=== PATIENT | male | born 1945 | race Caucasian/White ===

== ENCOUNTER 2016-12-15 17:40 | Emergency (ER) | payer OTHER ==
[2016-12-15] MEDS ORDERED: NITROSTAT SL PRN (17:47)
[2016-12-15 17:49] VITALS: BMI 30.7
[2016-12-15] MEDS ORDERED: NS 1000 ML 1,000 ML ONE (17:51)
--- NOTE | 2016-12-15 17:51 | DR.GENAD ---
HPI - PCP Primary Care Physician: unknown - HPI Comment HPI Comment: PATIENT WITH CAD NOW WITH PRECORDIAL CHEST PRESSURE 10/10 AND SOB. TOOK ASA 81 MG THIS AM. PAIN IS GETTING SEVERE. - Complaint/Symptoms Chief Complaint Doctors Comments: CHEST PAIN, SOB TIMES FEW HOURS. Chief Complaint:: cant breath and hurting in chest - Nurses notes reviewed Nurses Notes Review: Yes - Source History Provided: Patient - Mode of Arrival Mode of Arrival: Ambulatory - Timing Onset of Chief Complaint: 12/15/16 Came on: Suddenly - Duration Duration: Constant Duration: Hours - Severity Severity: Moderate PMH - PMH Past Medical History: Yes Past Medical History: GERD, Coronary Artery Disease, Hypertension, Dyslipidemia , Diabetes Past Surgical History: Yes Surgical History: Angioplasty/Stents - Family History History of Family Medical Conditions: Yes Family Medical History: Diabetes Mellitus, Heart Failure - Social History Does patient currently use any type of tobacco product: No Have you used tobacco products in the last 12 months: No Type of Tobacco Use: None Does any household member use tobacco: No Alcohol Use: None Do you use any recreational Drugs:: No Lives With: Family Lives Where: Home - infectious screening In the last 2 months have you had wt loss of >10#?: NO Have you had fever, night sweats or hemotysis?: No Have you traveled outside the country in the last 6 months?: No Isolation: Standard ROS - Review of Systems Constitutional: Weakness, Fatigue. negative: Chills, Fever Eyes: No Symptoms Reported. negative: Eye Pain, Discharge ENTM: No Symptoms Reported. negative: Ear Pain, Nose Discharge, Nose Congestion , Throat Pain Respiratoy: Non-Productive Cough, Short of Breath, Wheezing. negative: Productive Cough, Hemoptysis Cardiovascular: Chest Pain Gastrointestinal/Abdominal: Nausea. negative: Abdominal Pain, Diarrhea, Vomiting Genitourinary: No Symptoms Reported. negative: Dysuria, Frequency, Hematuria Neurological: Headache, Weakness, Dizziness Musculoskeletal: Muscle Pain Integumentary: No Symptoms Reported Hematologic/Lymphatic: No Symptoms Reported Endocrine: No Symptoms Reported All Other Systems: Reviewed and Negative PE - Vital Signs Vitals: Temperature 98.7 F Pulse Rate [Apical] 85 Pulse Rate 110 Respiratory Rate 22 Blood Pressure [Left Arm] 162/77 Blood Pressure [Right Arm] 161/82 Blood Pressure 229/132 O2 Sat by Pulse Oximetry 92 - General Limitations: No Limitations General Appearance: Alert - Head Head Exam: Normal Inspection - Eyes Eye exam: Normal Appearance - ENT ENT Exam: Normal External Ear Exam External Ear Exam: Normal External Inspection TM/Canal Exam: Bilateral Normal Nose Exam: Normal Nose Exam Mouth Exam: Normal Inspection Throat Exam: Normal Inspection - Neck Neck Exam: Trachea Midline - Chest Chest Inspection: Symmetric Chest Wall Rise - Respiratory Respiratory Exam: Respiratory Distress Respiratory Exam: Bilateral Wheezing, Bilateral Rhonchi, Upper Rhonchi, Lower Wheezing, Lower Rhonchi - Cardiovascular Cardiovascular Exam: Regular Rate, Normal Rhythm, Normal Heart Sounds - Abdominal Exam Abdominal Exam: Normal Bowel Sounds, Soft. negative: Tenderness - Extremities Extremities Exam: Normal Inspection - Back Back Exam: Normal Inspection - Neurologic Neurological Exam: Alert, Oriented X3 - Psychiatric Psychiatric Exam: Anxious - Skin Skin Exam: Normal Color MDM - Differential Diagnosis Differential Diagnosis: CHEST PAIN, RESPIRATORY DISTRESS Course - Treatment Treatment: SEE ORDERS. - Consultation Consultation Comments: DISCUSS PATIENT WITH DR. QUINONES CLINICAL PSYCHOLOGY PROFESSOR AND DR. GRACE HOSPITALIST [facility]. PATIENT ACCEPTED FOR TRANSFER. - Education/Counseling Education/Counseling: Patient, Education Educated On: Treatment, Diagnosis ROR - Labs Reviewed Laboratory Results Reviewed?: Yes Result Diagrams: 12/15/16 18:02 12/15/16 18:02 Laboratory: WBC 7.4 X10^3/uL (3.6-10.0) 12/15/16 18:02 RBC 4.60 X10^6/uL (4.7-6.0) L 12/15/16 18:02 Hgb 15.3 g/dL (13.5-18.0) 12/15/16 18:02 Hct 44.7 % (42.0-54.0) 12/15/16 18:02 MCV 97.0 fL (80.0-100.0) 12/15/16 18:02 MCH 33.2 pg (27.0-34.0) 12/15/16 18:02 MCHC 34.2 g/dL (33.0-35.0) 12/15/16 18:02 RDW 14.8 % (11.6-16.5) 12/15/16 18:02 Plt Count 152 X10^3/uL (150.0-450.0) 12/15/16 18:02 MPV 9.2 fL (7.4-11.0) 12/15/16 18:02 Neut % 67.2 % (42.0-75.0) 12/15/16 18:02 Lymph % 23.9 % (21.0-51.0) 12/15/16 18:02 [place] % 7.4 % (0.0-13.0) 12/15/16 18:02 Eos % 1.0 % (0.9-2.9) 12/15/16 18:02 Baso % 0.5 % (0.2-1.0) 12/15/16 18:02 Neut # 5.0 x10^3/uL (2.2-4.8) H 12/15/16 18:02 Lymph # 1.8 X10^3/uL (1.3-2.9) 12/15/16 18:02 [place] # 0.5 x10^3/uL (0.3-0.8) 12/15/16 18:02 Eos # 0.1 x10^3/uL (0.0-0.2) 12/15/16 18:02 Baso # 0.0 X10^3/uL (0.0-0.1) 12/15/16 18:02 Absolute Nucleated RBC 0.1 /100WBC 12/15/16 18:02 INR Target Range - 12/15/16 18:02 INR 0.96 (0.8-1.3) 12/15/16 18:02 PTT 31.5 SECONDS (22.9-36.5) 12/15/16 18:02 PTT Comment - 12/15/16 18:02 Sample Site Rra 12/15/16 18:01 ABG pH 7.430 (7.35-7.45) 12/15/16 18:01 ABG pCO2 45.0 mmHg (35.0-45.0) 12/15/16 18:01 ABG pO2 73.0 mmHg (80.0-100.0) L 12/15/16 18:01 ABG HCO3 29.9 mmol/L (22-26) H 12/15/16 18:01 ABG O2 Saturation 95.0 % (90-100) 12/15/16 18:01 ABG Base Excess 4.8 mmol/L (-2.0-2.0) H 12/15/16 18:01 David Test Pos 12/15/16 18:01 A-a Gradient 127.0 mmHg 12/15/16 18:01 FiO2 36.000 12/15/16 18:01 Blood Gas Comments Dejah well cs 12/15/16 18:01 Sodium 141 mmol/L (136-145) 12/15/16 18:02 Corrected Sodium 145 mmol/L (136-145) 12/15/16 18:02 Potassium 3.6 mmol/L (3.5-5.1) 12/15/16 18:02 Chloride 103 mmol/L (98-107) 12/15/16 18:02 Carbon Dioxide 32.4 mmol/L (21-32) H 12/15/16 18:02 BUN 12 mg/dL (7-18) 12/15/16 18:02 Creatinine 1.04 mg/dL (0.70-1.30) 12/15/16 18:02 Est GFR (MDRD) Af Amer > 60 (>60) 12/15/16 18:02 Est GFR (MDRD) Non-Af > 60 (>60) 12/15/16 18:02 Glucose 252 mg/dL (65-99) H 12/15/16 18:02 Calcium 8.2 mg/dL (8.5-10.1) L 12/15/16 18:02 Corrected Calcium TNP 12/15/16 18:02 Magnesium 1.7 mg/dL (1.7-2.9) 12/15/16 18:02 Total Bilirubin 0.50 mg/dL (0.2-1.0) 12/15/16 18:02 AST 56 Units/L (15-37) H 12/15/16 18:02 ALT 47 Units/L (12-78) 12/15/16 18:02 Alkaline Phosphatase 158 Units/L (46-116) H 12/15/16 18:02 Creatine Kinase 189 Units/L (39-308) 12/15/16 21:25 CK-MB (CK-2) 17.1 ng/mL (0-4.0) H* 12/15/16 21:25 CK/CKMB % Calc 9.1 % (<4) 12/15/16 21:25 Troponin I 1.00 ng/mL (0-1.5) 12/15/16 21:25 Total Protein 7.3 g/dL (6.4-8.2) 12/15/16 18:02 Albumin 3.4 g/dL (3.4-5.0) 12/15/16 18:02 Globulin 3.9 g/dL (2.5-4.5) 12/15/16 18:02 Albumin/Globulin Ratio 0.9 Ratio (1.1-2.1) L 12/15/16 18:02 - XRAY XRAY Interpreted by: Radiologist XRAY Findings: REPORT DISCUSS WITH PATIENT. - EKG Rhythm: ST (EKG NOTED) - Diagnosis Discharge Problem: Respiratory distress Chest pain Qualifiers: Chest pain type: precordial pain Qualified Code(s): R07.2 - Precordial pain - Discharge Plan Disposition: [facility] Condition: Stable - Follow ups/Referrals Follow ups/Referrals: NFD,None [Primary Care Provider] - 3 days - Instructions
[2016-12-15] MEDS ORDERED: DUONEB 0.5 MG/3 MG NEB ONE (17:56)
[2016-12-15] MEDS ORDERED: ASPIRIN ONE (17:59)
[2016-12-15] MEDS ORDERED: DUONEB 0.5 MG/3 MG ONE (17:59)
[2016-12-15] MEDS ORDERED: NS 1000 ML 1,000 ML IV SCH (18:00)
--- NOTE | 2016-12-15 18:03 | RAD ---
HISTORY: Chest pain. Study: Single-view chest. Comparison: May 15, 2016. Findings: The trachea is midline. There has been previous median sternotomy. The cardiac silhouette is enlarge d. There is diffuse interstitial prominence throughout both lungs with bilateral pleural effusions, small on the right and moderate on the left. There is no pneumothorax. IMPRESSION: Cardiomegaly with findings of congestive heart failure. There are bilateral pleural effusions, left greater than right. Reported By:
[2016-12-15 18:04] LABS: ABG ALLEN TEST POS; ABG BASE EXCESS 4.8 mmol/L (-2.0-2.0); ABG HCO3 29.9 mmol/L (22-26)
[2016-12-15] MEDS ORDERED: MORPHINE SULFATE INJ 4 MG ONE (18:08)
[2016-12-15] MEDS ORDERED: ZOFRAN INJ 4 MG VIAL ONE (18:10)
[2016-12-15] MEDS ORDERED: DILAUDID INJ ONE (18:14)
[2016-12-15 18:15] LABS: BASOPHILS % (AUTO) 0.5 % (0.2-1.0); EOSINOPHILS # (AUTO) 0.1 x10^3/uL (0.0-0.2); HEMATOCRIT 44.7 % (42.0-54.0); HEMOGLOBIN 15.3 g/dL (13.5-18.0); LYMPHOCYTES # (AUTO) 1.8 X10^3/uL (1.3-2.9); LYMPHOCYTES % (AUTO) 23.9 % (21.0-51.0); MEAN CORPUSCULAR HEMOGLOBIN 33.2 pg (27.0-34.0); MEAN CORPUSCULAR HGB CONC 34.2 g/dL (33.0-35.0); MEAN PLATELET VOLUME 9.2 fL (7.4-11.0); MONOCYTES # (AUTO) 0.5 x10^3/uL (0.3-0.8); MONOCYTES % (AUTO) 7.4 % (0.0-13.0); NEUTROPHILS % (AUTO) 67.2 % (42.0-75.0); PLATELET COUNT 152 X10^3/uL (150.0-450.0); RED CELL DISTRIBUTION WIDTH 14.8 % (11.6-16.5); WHITE BLOOD COUNT 7.4 X10^3/uL (3.6-10.0)
[2016-12-15] MEDS ORDERED: MORPHINE SULFATE INJ 4 MG IVP ONE (18:15)
[2016-12-15] MEDS ORDERED: DILAUDID INJ IVP ONE (18:20)
[2016-12-15 18:47] LABS: BLOOD UREA NITROGEN 12 mg/dL (7-18); CALCIUM 8.2 mg/dL (8.5-10.1); CARBON DIOXIDE 32.4 mmol/L (21-32); CHLORIDE 103 mmol/L (98-107); COR NA(FOR HYPERGLY) 145 mmol/L (136-145); CREATININE 1.04 mg/dL (0.70-1.30); GLUCOSE 252 mg/dL (65-99); SODIUM 141 mmol/L (136-145); TROPONIN I 0.32 ng/mL (0-1.5); eGFR BLACK RACES > 60 (>60); eGFR NON BLACK RACES > 60 (>60)
[2016-12-15 19:06] LABS: ALANINE AMINOTRANSFERASE 47 Units/L (12-78); ALBUMIN 3.4 g/dL (3.4-5.0); ALKALINE PHOSPHATASE 158 Units/L (46-116); ASPARTATE AMINO TRANSFERASE 56 Units/L (15-37); CKMB % 5.3 % (<4); CREATINE KINASE 174 Units/L (39-308); MAGNESIUM 1.7 mg/dL (1.7-2.9); TOTAL PROTEIN 7.3 g/dL (6.4-8.2)
[2016-12-15 19:07] LABS: CREATINE KINASE MB 9.2 ng/mL (0-4.0)
[2016-12-15] MEDS ORDERED: HEPARIN SODIUM IN D5W 25,000 UNITS/500 ML BAG IV PRN (21:55)
[2016-12-15 22:10] LABS: CKMB % 9.1 % (<4)
[2016-12-15 22:11] LABS: CREATINE KINASE MB 17.1 ng/mL (0-4.0)
[2016-12-15] MEDS ORDERED: HEPARIN SODIUM IN D5W 25,000 UNITS/500 ML BAG IV ONE (22:11)
[2016-12-15 22:37] VITALS: BP 162/77
[2016-12-16] MEDS ORDERED: ASPIRIN PO ONE (17:55)
== END 2016-12-15 23:04 | disposition short-term general hospital (02) ==
LOC: ER 17:42
DX: R06.00 Dyspnea, unspecified (principal); R07.2 Precordial pain; R06.02 Shortness of breath; I51.7 Cardiomegaly
CPT/HCPCS: 36415; 36600; 71010; 80053; 82550; 82553; 82803; 83735; 84484; 85025; 85610; 85730; 93005; 93010; 93041; 94640; 96365; 96367; 96374; 96375; 99284; 99285; J1170; J1644; J2270; J2405; J7620

== ENCOUNTER → 2017-01-27 | Outpatient (CLI) | payer OTHER ==
--- NOTE | 2017-01-28 11:41 | RAD ---
HISTORY: Chronic low back pain Study: Lumbar spine AP and lateral Comparison: None Findings: The alignment is normal. The vertebral bodies are of average height. Degenerative disc disease is pre sent at L4-5 and L5-S1. The pedicles are intact. The SI joints are normal. The facet joints are darin l. IMPRESSION: Degenerative disc disease L4-5, L5-S1 Reported By:
--- NOTE | 2017-01-28 11:41 | RAD ---
HISTORY: Chronic back pain. Pain between the shoulder blades Study: Three-view cervical spine Comparison: No priors Technique: AP, lateral and odontoid views are provided. A swimmer's view is included on the thoracic spine series. Findings: No fracture or subluxation is seen. Severe disc space narrowing and marginal spondylosis is present a t C5-6 and to a lesser extent C6-7. Odontoid view is unremarkable. Heavy calcifications are present w ithin the carotid arteries bilaterally. IMPRESSION: No fracture or subluxation. Severe disc space narrowing and marginal spondylosis at C5-6 and to a lesser extent C6-7. Reported By:
--- NOTE | 2017-01-28 11:42 | RAD ---
HISTORY: Chronic back pain Study: Three views thoracic spine Comparison: None Findings: Normal alignment of the thoracic spine is maintained. Vertebral body heights are preserved. Multilev el spondylosis is present. No acute fracture or subluxation identified. The visualized lungs are melchor ar. IMPRESSION: 1. Multilevel thoracic spondylosis. Reported By:
== END | disposition home or self-care (01) ==
LOC: RAD 14:12
PROVIDERS: ATTEND Nurse Practitioner Family
DX: G89.29 Other chronic pain (principal); M47.894 Other spondylosis, thoracic region; M51.37 Other intervertebral disc degeneration, lumbosacral region; M47.892 Other spondylosis, cervical region
CPT/HCPCS: 72040; 72072; 72100

== ENCOUNTER → 2017-03-04 | Outpatient (CLI) | payer OTHER ==
--- NOTE | 2017-03-05 08:57 | MRI ---
HISTORY: Low back pain extending into lower extremities Study: Magnetic resonance imaging of the lumbar spine: Multiplanar multisequence magnetic resonance imaging of the lumbar spine was performed on a closed magnet. Comparison: Plain films performed 01/27/2017. These show 5 lumbar type vertebra. Findings: Examination of the paraspinal soft tissues demonstrate what appears to be a tiny cyst in the lower ri ght kidney. No evidence of an abdominal aortic aneurysm or retroperitoneal lymph node enlargement is noted. The paraspinous musculature appears to be of normal signal intensity. The sagittal images demonstrate loss of normal lumbar lordosis. Mild heterogeneity of the marrow sig nal intensity is present, most likely due to fatty infiltration and osteopenia. No evidence of marro w edema is present that would suggest a fracture in the lumbar spine. There is a focal area of edema in the S2 sacral segment adjacent to the endplate and slightly to the right. This of unknown etiolo gy. Further evaluation with a CT of the bony pelvis or MRI of the pelvis may be of assistance. Ther e is moderately severe disc space narrowing at L5/S1. Moderate disc desiccation is noted at L4/L5 an d L5/S1. The conus is of normal signal intensity, size location, terminating at approximately L1. T here is what appears to be a hemangioma in the L5 vertebral body of a moderate size and a couple othe r smaller ones at other levels. These show no evidence of marrow edema. T11/T12: No significant abnormalities. T12/L1: No significant abnormalities. L1/L2: Minimal facet arthropathy. No other significant abnormalities. L2/L3: Mild disc bulging.. Asymmetric disc bulging versus small disc protrusion is noted in the rig ht neural foramen producing [id number] foraminal stenosis but no evidence of neural impingement . Mild facet arthropathy. Minimal thickening of the ligamentum flavum. L3/L4: Eire-[id number] facet arthropathy. No other significant abnormalities. L4/L5: Moderate diffuse disc bulging with a small central disc protrusion minimally effacing the the bradley sac. Mild lateral recess stenosis bilaterally. There is a very tiny annular tear/disc protrusio n in the left lateral recess without evidence of neural impingement. Mild facet arthropathy. Minima l thickening of the ligamentum flavum. Minimal spinal stenosis. L5/S1: Moderate disc bulging with a shallow broad-based central to right-sided disc protrusion. Thi s producing moderate lateral recess stenosis on the right. There is moderate foraminal stenosis on t he right without evidence of neural impingement. Moderate foraminal stenosis is noted on the left wi th no definite neural impingement. Mild spinal stenosis. Moderate facet arthropathy and moderate th ickening of the ligamentum flavum. Sacrum: Mild degenerative changes noted in the sacroiliac joints. IMPRESSION: 1. Lumbar spondylosis as described above, predominating at L5/S1. 2. There is focal marrow edema in the right side of the S2 sacral segment of unknown etiology. Furt her evaluation with CT or MRI scan of the pelvis may be of assistance. This would be of assistance i n determining the etiology of the marrow edema. Reported By:
== END | disposition home or self-care (01) | DRG 552 ==
LOC: RAD 07:58
PROVIDERS: ATTEND Nurse Practitioner Family
DX: M54.5 Low back pain (principal); M47.896 Other spondylosis, lumbar region; M47.897 Other spondylosis, lumbosacral region
CPT/HCPCS: 72148

== ENCOUNTER 2017-05-07 17:59 | Observation (INO) | payer OTHER ==
[2017-05-07] MEDS ORDERED: MORPHINE SULFATE INJ 4 MG IVP ONE ×2 (18:37→20:22)
[2017-05-07] MEDS ORDERED: MORPHINE SULFATE INJ 4 MG ONE ×2 (18:40→20:23)
[2017-05-07 18:59] LABS: BASOPHILS % (AUTO) 0.8 % (0.2-1.0); EOSINOPHILS # (AUTO) 0.1 x10^3/uL (0.0-0.2); EOSINOPHILS % (AUTO) 1.2 % (0.9-2.9); HEMATOCRIT 38.5 % (42.0-54.0); HEMOGLOBIN 13.2 g/dL (13.5-18.0); LYMPHOCYTES # (AUTO) 1.5 X10^3/uL (1.3-2.9); LYMPHOCYTES % (AUTO) 33.1 % (21.0-51.0); MEAN CORPUSCULAR HEMOGLOBIN 33.3 pg (27.0-34.0); MEAN CORPUSCULAR HGB CONC 34.3 g/dL (33.0-35.0); MEAN CORPUSCULAR VOLUME 97.1 fL (80.0-100.0); MEAN PLATELET VOLUME 9.3 fL (7.4-11.0); MONOCYTES # (AUTO) 0.4 x10^3/uL (0.3-0.8); MONOCYTES % (AUTO) 8.6 % (0.0-13.0); NEUTROPHILS # (AUTO) 2.5 x10^3/uL (2.2-4.8); NEUTROPHILS % (AUTO) 56.3 % (42.0-75.0); PLATELET COUNT 129 X10^3/uL (150.0-450.0); RED BLOOD COUNT 3.97 X10^6/uL (4.7-6.0); RED CELL DISTRIBUTION WIDTH 14.3 % (11.6-16.5); WHITE BLOOD COUNT 4.5 X10^3/uL (3.6-10.0)
--- NOTE | 2017-05-07 18:59 | RAD ---
New Examination: AP chest History: Chest pain Comparison reference 12/15/2016 Findings: Very high diaphragm position with low lung volumes. The heart may be enlarged. There is ext ensive pulmonary vascular congestion, bilateral interstitial infiltrates and pleural effusions. Barry al wires are again noted. Impression: Radiographic findings most consistent with pulmonary edema/CHF. Evaluation is limited by marked pulmonary underinflation. Follow-up suggested. Reported By:
[2017-05-07 19:25] LABS: BLOOD UREA NITROGEN 13 mg/dL (7-18); CALCIUM 8.6 mg/dL (8.5-10.1); CARBON DIOXIDE 27.5 mmol/L (21-32); CHLORIDE 99 mmol/L (98-107); COR NA(FOR HYPERGLY) 136 mmol/L (136-145); CREATININE 1.04 mg/dL (0.70-1.30); SODIUM 132 mmol/L (136-145); TROPONIN I 0.06 ng/mL (0-1.5); eGFR BLACK RACES > 60 (>60); eGFR NON BLACK RACES > 60 (>60)
[2017-05-07] MEDS ORDERED: NS 100 ML IV 100 ML IV ONE (19:46)
[2017-05-07 19:48] LABS: ALANINE AMINOTRANSFERASE 52 Units/L (12-78); ALBUMIN 3.2 g/dL (3.4-5.0); ALKALINE PHOSPHATASE 141 Units/L (46-116); ASPARTATE AMINO TRANSFERASE 31 Units/L (15-37); CKMB % 6.6 % (<4); COR CA(FOR HYPOALB) 9.2 mg/dL (8.5-10.1); CREATINE KINASE 127 Units/L (39-308); MAGNESIUM 1.6 mg/dL (1.7-2.9); TOTAL PROTEIN 6.5 g/dL (6.4-8.2)
[2017-05-07 19:51] LABS: CREATINE KINASE MB 8.4 ng/mL (0-4.0)
[2017-05-07] MEDS ORDERED: LASIX IVP ONE ×2 (20:20→20:23)
--- NOTE | 2017-05-07 20:22 | DR.GENAD ---
HPI - PCP Primary Care Physician: juan - Complaint/Symptoms Chief Complaint Doctors Comments: Patient presents with complaint of cough for 4 -5 days, denies fever or cigarette use. Denies history of COPD Chief Complaint:: cp x 45 minutes pain goes to back pt states" i been coughing but i have been keeping the house warm" - Source History Provided: Patient - Mode of Arrival Mode of Arrival: Ambulatory - Timing Onset of Chief Complaint: 05/07/17 PMH - PMH Past Medical History: Yes Past Medical History: GERD, Coronary Artery Disease, Hypertension, Dyslipidemia , Diabetes Past Surgical History: Yes Surgical History: Angioplasty/Stents - Family History History of Family Medical Conditions: Yes Family Medical History: Diabetes Mellitus, Heart Failure - Social History Do you use any recreational Drugs:: No Lives With: Family Lives Where: Home - infectious screening In the last 2 months have you had wt loss of >10#?: NO Have you had fever, night sweats or hemotysis?: No Have you traveled outside the country in the last 6 months?: No Isolation: Standard ROS - Review of Systems Eyes: No Symptoms Reported ENTM: No Symptoms Reported Respiratoy: Non-Productive Cough Cardiovascular: Chest Pain Gastrointestinal/Abdominal: No Symptoms Reported Genitourinary: No Symptoms Reported Neurological: No Symptoms Reported Musculoskeletal: No Symptoms Reported, Back Pain (chronic low back pain) Integumentary: No Symptoms Reported Hematologic/Lymphatic: No Symptoms Reported Endocrine: No Symptoms Reported Psychiatric: No Symptoms Reported All Other Systems: Reviewed and Negative PE - Vital Signs Vitals: Temperature 98.1 F Pulse Rate 93 Respiratory Rate 25 Blood Pressure [Left Arm] 162/77 Blood Pressure [Right Arm] 161/82 Blood Pressure 188/88 O2 Sat by Pulse Oximetry 93 - General Limitations: No Limitations General Appearance: Alert, In No Apparent Distress - Head Head Exam: Normal Inspection, Atraumatic - Eyes Eye exam: Normal Appearance, PERRL, EOMI - ENT ENT Exam: Normal Exam External Ear Exam: Normal External Inspection TM/Canal Exam: Bilateral Normal Nose Exam: Normal Nose Exam Mouth Exam: Normal Inspection Throat Exam: Normal Inspection - Neck Neck Exam: Normal Inspection, Full ROM - Chest Chest Inspection: Normal Inspection - Respiratory Respiratory Exam: Normal Lung Sounds Bilat Respiratory Exam: Bilateral Clear to Auscultation - Cardiovascular Cardiovascular Exam: Regular Rate - Abdominal Exam Abdominal Exam: Normal Inspection, Normal Bowel Sounds Abdominal Tenderness: negative: RUQ, RLQ, LUQ, LLQ, Epigastrium, Suprapubic, Diffuse, Mild, Moderate, Severe, Other - Extremities Extremities Exam: Normal Capillary Refill. negative: Edema, Calf Tenderness - Back Back Exam: Normal Inspection - Neurologic Neurological Exam: Alert, Oriented X3 - Psychiatric Psychiatric Exam: Normal Affect - Skin Skin Exam: Warm, Dry, Intact Course - Reevaluation 1st: Improved - Consultation Called: 21:15 (Dr Oliveira agreed to admit for further treatment and evaluation) ROR - Labs Reviewed Result Diagrams: 05/07/17 18:49 05/07/17 18:49 Laboratory: WBC 4.5 X10^3/uL (3.6-10.0) 05/07/17 18:49 RBC 3.97 X10^6/uL (4.7-6.0) L 05/07/17 18:49 Hgb 13.2 g/dL (13.5-18.0) L 05/07/17 18:49 Hct 38.5 % (42.0-54.0) L 05/07/17 18:49 MCV 97.1 fL (80.0-100.0) 05/07/17 18:49 MCH 33.3 pg (27.0-34.0) 05/07/17 18:49 MCHC 34.3 g/dL (33.0-35.0) 05/07/17 18:49 RDW 14.3 % (11.6-16.5) 05/07/17 18:49 Plt Count 129 X10^3/uL (150.0-450.0) L 05/07/17 18:49 MPV 9.3 fL (7.4-11.0) 05/07/17 18:49 Neut % 56.3 % (42.0-75.0) 05/07/17 18:49 Lymph % 33.1 % (21.0-51.0) 05/07/17 18:49 [place] % 8.6 % (0.0-13.0) 05/07/17 18:49 Eos % 1.2 % (0.9-2.9) 05/07/17 18:49 Baso % 0.8 % (0.2-1.0) 05/07/17 18:49 Neut # 2.5 x10^3/uL (2.2-4.8) 05/07/17 18:49 Lymph # 1.5 X10^3/uL (1.3-2.9) 05/07/17 18:49 [place] # 0.4 x10^3/uL (0.3-0.8) 05/07/17 18:49 Eos # 0.1 x10^3/uL (0.0-0.2) 05/07/17 18:49 Baso # 0.0 X10^3/uL (0.0-0.1) 05/07/17 18:49 Absolute Nucleated RBC 0.0 /100WBC 05/07/17 18:49 INR Target Range - 05/07/17 18:49 INR 1.10 (0.8-1.3) 05/07/17 18:49 PTT 33.2 SECONDS (22.9-36.5) 05/07/17 18:49 PTT Comment - 05/07/17 18:49 D-Dimer 691 ng/mL (0-400) H* 05/07/17 18:49 Sodium 132 mmol/L (136-145) L 05/07/17 18:49 Corrected Sodium 136 mmol/L (136-145) 05/07/17 18:49 Potassium 4.1 mmol/L (3.5-5.1) 05/07/17 18:49 Chloride 99 mmol/L (98-107) 05/07/17 18:49 Carbon Dioxide 27.5 mmol/L (21-32) 05/07/17 18:49 BUN 13 mg/dL (7-18) 05/07/17 18:49 Creatinine 1.04 mg/dL (0.70-1.30) 05/07/17 18:49 Est GFR (MDRD) Af Amer > 60 (>60) 05/07/17 18:49 Est GFR (MDRD) Non-Af > 60 (>60) 05/07/17 18:49 Glucose 274 mg/dL (65-99) H 05/07/17 18:49 Calcium 8.6 mg/dL (8.5-10.1) 05/07/17 18:49 Corrected Calcium 9.2 mg/dL (8.5-10.1) 05/07/17 18:49 Magnesium 1.6 mg/dL (1.7-2.9) L 05/07/17 18:49 Total Bilirubin 0.70 mg/dL (0.2-1.0) 05/07/17 18:49 AST 31 Units/L (15-37) 05/07/17 18:49 ALT 52 Units/L (12-78) 05/07/17 18:49 Alkaline Phosphatase 141 Units/L (46-116) H 05/07/17 18:49 Creatine Kinase 127 Units/L (39-308) 05/07/17 18:49 CK-MB (CK-2) 8.4 ng/mL (0-4.0) H* 05/07/17 18:49 CK/CKMB % Calc 6.6 % (<4) 05/07/17 18:49 Troponin I 0.06 ng/mL (0-1.5) 05/07/17 18:49 Total Protein 6.5 g/dL (6.4-8.2) 05/07/17 18:49 Albumin 3.2 g/dL (3.4-5.0) L 05/07/17 18:49 Globulin 3.3 g/dL (2.5-4.5) 05/07/17 18:49 Albumin/Globulin Ratio 1.0 Ratio (1.1-2.1) L 05/07/17 18:49 - XRAY XRAY Interpreted by: Radiologist (Comparison ref 12/15/16: Chest: very high diaphragm position with low lung volumes. The heart may be enlarged. There is extensive pulmonary vascular congestion, bilateral interstitial infiltrates and pleural effusions. Sternal wires are again noted. Impression:Findigns most consistent with pulmonary edema/CHF. Evaulation is limited by marked pulmonary underinflation. Follow up suggested.) - Diagnosis Discharge Problem: Pleural effusion, bilateral Pulmonary edema Qualifiers: Chronicity: acute Qualified Code(s): J81.0 - Acute pulmonary edema CHF (congestive heart failure) Qualifiers: Congestive heart failure type: unspecified congestive heart failure type Congestive heart failure chronicity: unspecified congestive heart failure chronicity Qualified Code(s): I50.9 - Heart failure, unspecified - Discharge Plan Condition: Stable - Follow ups/Referrals Follow ups/Referrals: NFD,None [Primary Care Provider] - 3 days - Instructions
[2017-05-07] MEDS ORDERED: SALINE 3% 15 ML NEB TX NEB ONE (21:05)
[2017-05-07] MEDS ORDERED: LEVAQUIN PREMIX IV 750 MG 750 MG/150 ML BAG IV ONE (21:08)
[2017-05-07] MEDS ORDERED: SALINE 3% 15 ML NEB TX ONE (21:17)
[2017-05-07 21:24] LABS: BILIRUBIN,URINE NEGATIVE (NEGATIVE); BLOOD/HEMOGLOBIN,URINE 5+ (NEGATIVE); GLUCOSE, URINE NEGATIVE (NEGATIVE); KETONES,URINE NEGATIVE (NEGATIVE); LEUKOCYTE ESTERASE ,URINE NEGATIVE (NEGATIVE); NITRITES,URINE NEGATIVE (NEGATIVE); PROTEIN,URINE 3+ (NEGATIVE); UROBILINOGEN,URINE NORMAL (NORMAL)
[2017-05-07 21:28] LABS: APPEARANCE,URINE CLEAR (CLEAR); COLOR,URINE YELLOW (YELLOW); RBC,URINE 0-2 /HPF (NEGATIVE)
[2017-05-07 21:29] LABS: BACTERIA,URINE NEGATIVE /HPF (NEGATIVE); SQUAMOUS EPITHELIAL CELL,UR NEGATIVE /HPF (NEGATIVE)
[2017-05-07] MEDS ORDERED: TUSSIONEX PENNKINETIC SUSP PO PRN (21:36)
[2017-05-07] MEDS ORDERED: ALBUMIN HUMAN 25%- 100ML 100 ML IV ONE (21:46)
--- NOTE | 2017-05-07 21:48 | CT ---
HISTORY: Chest pain times 45 minutes. Elevated D-dimer. Study: CT chest with contrast Comparison: Chest x-ray dated same day Technique: Multiple axial images of the chest were obtained from the thoracic inlet to the upper abdo men after the administration of IV contrast. MIP images were obtained. Dose reduction techniques incl uding Automated Exposure Control (AEC) and adjustment of mA and kV were utilized. Findings: The mediastinum does not demonstrate significant pathological lymphadenopathy. There is no paracardi al effusion observed. The thoracic aorta is normal in its contour without evidence for aneurysmal di latation. Cardiomegaly with reflux of contrast into the IVC and liver likely representing right hear t failure. Extensive vascular calcifications of the coronary arteries. Patient status post CABG. Larg e bilateral pleural effusions with associated compressive atelectasis limits the evaluation of the goodwin bsegmental pulmonary arteries. Otherwise, the central pulmonary arterial system does not demonstrate central filling defects to suggest pulmonary emboli. Moderate to severe centrilobular and paraseptal emphysematous changes. Large bilateral pleural effusi ons with associated compressive atelectasis versus early infiltrate. Interlobular septal thickening a nd free fluid is also seen within the major fissures. No obvious pulmonary nodule, mass, or pneumotho rax. Punctate nonobstructing nephrolith within the interpolar left kidney. Remaining upper abdomen is unremarkable for age. Degenerative changes of the spine. No aggressive osseous lesions. IMPRESSION: 1. No obvious CT evidence of acute pulmonary embolus. 2. Constellation of findings likely representing pulmonary edema secondary to congestive heart failur e. Underlying infiltrate not entirely excluded. 3. Other chronic findings as above. Reported By:
[2017-05-07] MEDS ORDERED: NS 1/2 1000 ML IV 1,000 ML IV ONE (22:13)
[2017-05-07] MEDS: NS 1/2 1000 ML IV 1,000 ML IV SCH (22:21)
[2017-05-07] MEDS: HumuLIN R SUBCUT PRN (23:51)
[2017-05-08] MEDS: DUONEB 0.5 MG/3 MG NEB SCH ×5 (01:16→20:14)
[2017-05-08 02:15] LABS: CKMB % 5.7 % (<4); TROPONIN I 0.17 ng/mL (0-1.5)
[2017-05-08 02:17] LABS: CREATINE KINASE MB 6.1 ng/mL (0-4.0)
[2017-05-08] MEDS: LASIX IVP SCH ×3 (06:13→21:16)
[2017-05-08 07:28] LABS: BASOPHILS % (AUTO) 0.4 % (0.2-1.0); EOSINOPHILS # (AUTO) 0.1 x10^3/uL (0.0-0.2); HEMATOCRIT 37.7 % (42.0-54.0); HEMOGLOBIN 12.9 g/dL (13.5-18.0); LYMPHOCYTES # (AUTO) 1.5 X10^3/uL (1.3-2.9); LYMPHOCYTES % (AUTO) 33.6 % (21.0-51.0); MEAN CORPUSCULAR HEMOGLOBIN 33.4 pg (27.0-34.0); MEAN CORPUSCULAR HGB CONC 34.3 g/dL (33.0-35.0); MEAN CORPUSCULAR VOLUME 97.2 fL (80.0-100.0); MEAN PLATELET VOLUME 9.5 fL (7.4-11.0); MONOCYTES # (AUTO) 0.4 x10^3/uL (0.3-0.8); MONOCYTES % (AUTO) 9.5 % (0.0-13.0); NEUTROPHILS # (AUTO) 2.5 x10^3/uL (2.2-4.8); NEUTROPHILS % (AUTO) 54.5 % (42.0-75.0); PLATELET COUNT 121 X10^3/uL (150.0-450.0); RED BLOOD COUNT 3.87 X10^6/uL (4.7-6.0); RED CELL DISTRIBUTION WIDTH 14.1 % (11.6-16.5); WHITE BLOOD COUNT 4.5 X10^3/uL (3.6-10.0)
[2017-05-08 07:45] LABS: CHOL/HDL RATIO 4.2 (0.0-5.0)
[2017-05-08 08:15] LABS: ALANINE AMINOTRANSFERASE 41 Units/L (12-78); ALBUMIN 3.5 g/dL (3.4-5.0); ALKALINE PHOSPHATASE 125 Units/L (46-116); ASPARTATE AMINO TRANSFERASE 25 Units/L (15-37); BLOOD UREA NITROGEN 13 mg/dL (7-18); CALCIUM 8.8 mg/dL (8.5-10.1); CARBON DIOXIDE 30.2 mmol/L (21-32); CHLORIDE 102 mmol/L (98-107); CKMB % 5.8 % (<4); COR NA(FOR HYPERGLY) 144 mmol/L (136-145); CREATINE KINASE 100 Units/L (39-308); CREATININE 0.95 mg/dL (0.70-1.30); SODIUM 142 mmol/L (136-145); TOTAL PROTEIN 6.7 g/dL (6.4-8.2); TROPONIN I 0.21 ng/mL (0-1.5); eGFR BLACK RACES > 60 (>60); eGFR NON BLACK RACES > 60 (>60)
[2017-05-08 08:23] LABS: CREATINE KINASE MB 5.8 ng/mL (0-4.0)
--- NOTE | 2017-05-08 08:34 | RAD ---
History: Dyspnea and pulmonary edema. Exam/discussion: PA and lateral views of the chest are evaluated with comparison dated 05/07/2017 and demonstrated mid line trachea. The cardiac silhouette is enlarged but stable. The patient is status post median sterno [place]. Background changes of COPD remain with bibasilar airspace disease and small to moderate-sized b ibasilar effusions which can be seen with CHF/basilar edema. Pneumonia should also be considered and excluded. No other changes seen. The bones = stable. Impression: Unchanged bibasilar pleural parenchymal opacities which reflects combination of consolida tion and bilateral pleural effusions, suggesting CHF and basilar edema. Cardiomegaly. Reported By:
[2017-05-08] MEDS: ROBITUSSIN DM PO SCH ×4 (09:24→21:16)
[2017-05-08] MEDS ORDERED: COLACE CAP 100 MG PO PRN (10:00)
[2017-05-08] MEDS: NS 1/2 1000 ML IV 1,000 ML IV SCH (13:05)
[2017-05-08] MEDS: HumuLIN R SUBCUT PRN ×3 (13:28→21:17)
[2017-05-08] MEDS ORDERED: MAALOX or MYLANTA PO PRN (14:00)
[2017-05-08] MEDS ORDERED: ZOLOFT PO SCH (15:00)
[2017-05-08] MEDS: ZESTRIL TAB 10 MG PO SCH (15:49)
[2017-05-08] MEDS: PLAVIX PO SCH (15:49)
[2017-05-08] MEDS: COREG TAB 12.5 MG PO SCH ×2 (15:49→21:16)
[2017-05-08] MEDS: PERCOCET TAB 5/325 MG PO PRN ×2 (15:52→22:06)
--- NOTE | 2017-05-08 16:33 | DR.H&P ---
H&P - History & Physical for Day of: H&P Date: 05/07/17 - Chief Complaint Chief Complaint: sob, chest pain - Allergies Allergies/Adverse Reactions: Allergies Allergy/AdvReac Type Severity Reaction Status Date / Time chocolate flavor Allergy Verified 05/07/17 23:13 Penicillins Allergy Verified 05/07/17 23:13 CHOCOLATE Allergy Uncoded 05/07/17 23:13 - History of Present Illness History of Present Illness: PT IS 71 WM WHO WAS ADMITTED FROM THE ER AFTER PRESENTING WITH CO SOB AND CHEST PAIN. PT HAS PMH OF CAD WITH CHF, HEART CATH ~ 2 MOS AGO AT [facility] IN [place], [place]. PT HAS COPD AND CO INCREASED SHORTNESS OF BREATH AND COUGH LIKE "FILLING UP WITH FLUID". PT HAD CXR AND CTA OF CHEST IN ED REVEALING PULMONARY EDEMA AND BILATERAL INFILTRATED. PT STARTED ON IV LASIX AND IV ATBX. ADMIT FOR TREATMENT OF CHF, PNEUMONIA. - Past Medical History Past Medical History: Anxiety, Arthritis, CHF, COPD, Coronary Artery Disease, Diabetes, Dyslipidemia, GERD, Hypertension - Past Surgical History Surgical History: Angioplasty/Stents - Family History Family Medical History: Diabetes Mellitus, Heart Failure - Social History Does patient currently use any type of tobacco product: No Have you used tobacco products in the last 12 months: No Type of Tobacco Use: None Alcohol Use: None Drug Use: None - Medications Home Medications: Atorvastatin Calcium [Atorvastatin Calcium] 1 tab PO DAILY 05/08/17 [History Confirmed 05/08/17] Carvedilol [COREG TAB 12.5 MG *] 1 tab PO DAILY 05/08/17 [History Confirmed 09/18] Clopidogrel Bisulfate [PLAVIX TAB 75 MG *] 1 tab PO DAILY 05/08/17 [History Confirmed 05/08/17] Fluticasone Nasal [place] [FLONASE NASAL SPRAY *] 1 puff ENOSTRIL DAILY 05/08/17 [ History Confirmed 05/08/17] Furosemide [LASIX TAB 40 MG *] 1 tab PO DAILY 05/08/17 [History Confirmed ] Lisinopril [ZESTRIL *] 1 tab PO DAILY 05/08/17 [History Confirmed 05/08/17] Metformin HCl [GLUCOPHAGE 500 MG *] 1 tab PO DAILY 05/08/17 [History Confirmed 05/08/17] Oxycodone HCl/Acetaminophen [Oxycodone-Acetaminophen 10-325] 1 tab PO QID PRN [History Confirmed 05/08/17] Sertraline HCl [Zoloft 25 mg] 1 tab PO DAILY 05/08/17 [History Confirmed ] - Review of Systems Constitutional: Weakness Eyes: No Symptoms Reported ENT: No Symptoms Reported Respiratory: Shortness of Breath, Wheezing Cardiovascular: Chest Pain Gastrointestinal: No Symptoms Reported Genitourinary: No Symptoms Reported Musculoskeletal: Back Pain, Leg Pain Skin: No Symptoms Reported Neurological: No Symptoms Reported - Physical Exam Vital Signs: Temperature 98.5 F Pulse Rate [Apical] 87 Pulse Rate 73 Respiratory Rate 20 Blood Pressure [Left Arm] 168/81 Blood Pressure [Right Arm] 169/79 Blood Pressure 188/88 O2 Sat by Pulse Oximetry 90 Oriented: Normal Eyes: Normal Ear: Normal Nose: Normal Throat: Normal Respiratory: Wheezes Throughout, RLL Diminished, LLL Diminished Cardiovascular: Normal. negative: Edema : Normal, Hematuria Palpation: Normal Tenderness: Normal Skin: Normal Musculoskeletal: Back:Lumbar Psychiatric: Anxiety Affect: Anxious Speech Pattern: Clear, Appropriate - Assessment/Plan (1) Respiratory distress Status: Acute Plan: 2NDRY TO PNEMONIA AND CHF EXACERBATION. PLAN TO OBTAIN SPUTUM, RESP THERAPY, SUPPLEMENTAL O2. CARDIAC MONITORING, IV LASIX, I & OS. SSI FOR DIABETES, HOLD METFORMIN. BP CONTROL, CONTINUE HOME MEDS, BB, PLAVIX (2) CHF (congestive heart failure) Qualifiers: Congestive heart failure type: unspecified congestive heart failure type Congestive heart failure chronicity: unspecified congestive heart failure chronicity Qualified Code(s): I50.9 - Heart failure, unspecified Status: Acute (3) CAD (coronary artery disease) Status: Acute (4) Pleural effusion, bilateral Status: Acute (5) Chest pain Qualifiers: Chest pain type: precordial pain Qualified Code(s): R07.2 - Precordial pain Status: Acute (6) Diabetes mellitus, type 2 Status: Chronic (7) GERD (gastroesophageal reflux disease) Status: Chronic (8) Hypertension Status: Chronic
[2017-05-08 18:00] LABS: CKMB % 5.9 % (<4); TROPONIN I 0.17 ng/mL (0-1.5)
[2017-05-08 18:01] LABS: CREATINE KINASE MB 4.9 ng/mL (0-4.0)
[2017-05-08] MEDS ORDERED: SNACK - Diabetic Appropriate PO SCH (20:00)
[2017-05-08] MEDS ORDERED: RESTORIL CAP 15 MG PO PRN (20:50)
[2017-05-08] MEDS ORDERED: LEVAQUIN PREMIX IV 750 MG 750 MG/150 ML BAG IV SCH (21:00)
[2017-05-08] MEDS ORDERED: LIPITOR TAB 10 MG PO SCH (21:00)
[2017-05-09 05:19] LABS: BASOPHILS % (AUTO) 0.2 % (0.2-1.0); EOSINOPHILS # (AUTO) 0.1 x10^3/uL (0.0-0.2); EOSINOPHILS % (AUTO) 1.7 % (0.9-2.9); HEMATOCRIT 38.7 % (42.0-54.0); HEMOGLOBIN 13.2 g/dL (13.5-18.0); LYMPHOCYTES # (AUTO) 1.5 X10^3/uL (1.3-2.9); LYMPHOCYTES % (AUTO) 25.8 % (21.0-51.0); MEAN CORPUSCULAR HEMOGLOBIN 32.9 pg (27.0-34.0); MEAN CORPUSCULAR HGB CONC 34.2 g/dL (33.0-35.0); MEAN CORPUSCULAR VOLUME 96.2 fL (80.0-100.0); MEAN PLATELET VOLUME 9.9 fL (7.4-11.0); MONOCYTES # (AUTO) 0.5 x10^3/uL (0.3-0.8); MONOCYTES % (AUTO) 8.2 % (0.0-13.0); NEUTROPHILS # (AUTO) 3.8 x10^3/uL (2.2-4.8); NEUTROPHILS % (AUTO) 64.1 % (42.0-75.0); PLATELET COUNT 127 X10^3/uL (150.0-450.0); RED BLOOD COUNT 4.02 X10^6/uL (4.7-6.0); RED CELL DISTRIBUTION WIDTH 14.2 % (11.6-16.5); WHITE BLOOD COUNT 5.9 X10^3/uL (3.6-10.0)
[2017-05-09 05:30] LABS: ALANINE AMINOTRANSFERASE 36 Units/L (12-78); ALKALINE PHOSPHATASE 110 Units/L (46-116); ASPARTATE AMINO TRANSFERASE 18 Units/L (15-37); BLOOD UREA NITROGEN 18 mg/dL (7-18); CALCIUM 8.5 mg/dL (8.5-10.1); CARBON DIOXIDE 33.3 mmol/L (21-32); CHLORIDE 101 mmol/L (98-107); COR CA(FOR HYPOALB) 9.3 mg/dL (8.5-10.1); COR NA(FOR HYPERGLY) 144 mmol/L (136-145); CREATININE 1.07 mg/dL (0.70-1.30); SODIUM 143 mmol/L (136-145); TOTAL PROTEIN 6.1 g/dL (6.4-8.2); eGFR BLACK RACES > 60 (>60); eGFR NON BLACK RACES > 60 (>60)
[2017-05-09] MEDS ORDERED: POTASSIUM CHLORIDE LIQ 20 MEQ UDC PO PRN (06:31)
[2017-05-09] MEDS ORDERED: K-RIDER 10 MEQ/NS 100 ML 10 MEQ/100 ML BAG IV PRN (06:31)
[2017-05-09] MEDS ORDERED: POTASSIUM CHL 60 MEQ/NS 0.45% 500 ML IV PRN (06:31)
[2017-05-09] MEDS ORDERED: POTASSIUM CHL 40 MEQ/NS 0.45% 500 ML IV PRN (06:31)
[2017-05-09] MEDS ORDERED: MAGNESIUM SULFATE 1 GM/100 mL PREMIX 1 GM/100 ML BAG IV PRN (06:31)
[2017-05-09] MEDS ORDERED: K-LYTE EFFERVESCENT PO PRN (06:31)
[2017-05-09] MEDS ORDERED: MAG-OX TAB PO PRN (06:31)
--- NOTE | 2017-05-09 07:17 | RAD ---
Examination: Portable AP chest History: SOB, CHF Comparison reference 05/08/2017 Findings: Continued normal heart size with low volume lungs. The diaphragms remain obscured by airspa ce disease and pleural fluid. There is interval improvement in the central pulmonary vascular distent ion. No evidence for pneumothorax. Impression: Persistent findings most consistent with CHF and ? basal pneumonia. Interval improvement in aeration of the lungs since 1 day earlier. Reported By:
[2017-05-09] MEDS: DUONEB 0.5 MG/3 MG NEB SCH (08:28)
[2017-05-09] MEDS: LASIX IVP SCH (08:42)
[2017-05-09] MEDS: PLAVIX PO SCH (08:42)
[2017-05-09] MEDS: ROBITUSSIN DM PO SCH ×2 (08:43→12:12)
[2017-05-09] MEDS: COREG TAB 12.5 MG PO SCH (08:43)
[2017-05-09] MEDS: ZESTRIL TAB 10 MG PO SCH (08:43)
[2017-05-09] MEDS: PERCOCET TAB 5/325 MG PO PRN (08:43)
[2017-05-09] MEDS ORDERED: ZOLOFT PO SCH (09:00)
[2017-05-09] MEDS ORDERED: FLONASE NASAL SPRAY ENOSTRIL SCH (09:00)
[2017-05-09 09:29] VITALS: BP 128/67
[2017-05-09 09:57] VITALS: BMI 23.8
[2017-05-09] MEDS: HumuLIN R SUBCUT PRN (12:12)
== END 2017-05-09 13:32 | disposition home or self-care (01) ==
LOC: ER 18:07 → MED/SURG 21:30
PROVIDERS: ADMIT Obstetrics & Gynecology Obstetrics; ATTEND Internal Medicine
DX: J81.0 Acute pulmonary edema (principal); R06.03 Acute respiratory distress; R07.2 Precordial pain; I50.9 Heart failure, unspecified; R06.02 Shortness of breath; E11.65 Type 2 diabetes mellitus with hyperglycemia; K21.9 Gastro-esophageal reflux disease without esophagitis; I25.10 Atherosclerotic heart disease of native coronary artery without angina pectoris; I10 Essential (primary) hypertension; E78.2 Mixed hyperlipidemia
CPT/HCPCS: 36415; 36600; 71045; 71046; 71275; 80053; 80061; 81001; 82550; 82553; 83735; 84484; 85025; 85378; 85610; 85730; 87040; 93005; 93010; 94640; 94760; 96365; 96374; 96375; 99284; A4222; P9047; G0378; J1815; J1940; J1956; J2270; J7620

== ENCOUNTER 2017-11-10 10:00 | Inpatient (IN) ==
--- NOTE | 2017-11-10 10:44 | DR.H&P ---
H&P - History & Physical for Day of: H&P Date: 11/10/17 - Chief Complaint Chief Complaint: SOB - History of Present Illness History of Present Illness: The patient is a 72yo WM who presents to Office for routine follow up. Patient noted to have RA sat of 75%. On rest 80%. Patient states he can't catch his breath. States that he has a nonproductive cough. Has had pain radiating from epigastric up mid-sternum. Denies reflux or nausea. - Past Medical History Past Medical History: Anxiety, Arthritis, CHF, COPD, Coronary Artery Disease, Diabetes, Dyslipidemia, GERD, Hypertension - Past Surgical History Surgical History: Angioplasty/Stents - Family History Family Medical History: Diabetes Mellitus, Heart Failure - Social History Does patient currently use any type of tobacco product: No Have you used tobacco products in the last 12 months: No Type of Tobacco Use: None Does any household member use tobacco: No Alcohol Use: None - Medications Home Medications: chocolate flavor Allergy (Verified 05/07/17 23:13) Penicillins Allergy (Verified 05/07/17 23:13) CHOCOLATE Allergy (Uncoded 05/07/17 23:13) CONTINUE taking the following medications insulin glargine [Lantus U-100 Insulin] 11/10/17 [History] - Review of Systems Constitutional: Malaise Eyes: No Symptoms Reported ENT: No Symptoms Reported Respiratory: Shortness of Breath, SOB with Excertion Cardiovascular: No Symptoms Reported Gastrointestinal: See HPI Genitourinary: No Symptoms Reported Musculoskeletal: No Symptoms Reported Skin: No Symptoms Reported Neurological: No Symptoms Reported - Physical Exam Vital Signs: Blood Pressure [Left Arm] 128/67 Blood Pressure [Right Arm] 169/79 Blood Pressure 128/67 Oriented: Normal Eyes: Normal Ear: Normal Nose: Normal Throat: Normal Respiratory: Diminished Throughout Cardiovascular: Tachycardia : Normal Auscultation: Bowel Sounds: Normal Palpation: Normal Tenderness: Normal Skin: Other (pale) Musculoskeletal: Normal Psychiatric: Normal Mood Description: Calm Affect: Normal Speech Pattern: Clear - Assessment/Plan (1) Respiratory distress Narrative Support Text: ROOM AIR HYPOXIA Status: Acute Plan: ABG, O2, CXR (2) Chest pain Status: Acute Plan: Serial Cardiacs, EKGs - Allergies Allergies/Adverse Reactions: Allergies Allergy/AdvReac Type Severity Reaction Status Date / Time chocolate flavor Allergy Verified 05/07/17 23:13 Penicillins Allergy Verified 05/07/17 23:13 CHOCOLATE Allergy Uncoded 05/07/17 23:13
[2017-11-10] MEDS ORDERED: NS 1000 ML 1,000 ML IV SCH (11:00)
[2017-11-10] MEDS ORDERED: LEVAQUIN PREMIX IV 500 MG 500 MG/100 ML BAG IV SCH (11:00)
[2017-11-10 11:04] LABS: ABG BASE EXCESS 5.2 mmol/L (-2.0-2.0)
[2017-11-10 11:05] LABS: ABG ALLEN TEST POS
[2017-11-10 11:20] LABS: BASOPHILS % (AUTO) 0.4 % (0.2-1.0); EOSINOPHILS % (AUTO) 0.5 % (0.9-2.9); HEMATOCRIT 40.5 % (42.0-54.0); HEMOGLOBIN 13.6 g/dL (13.5-18.0); LYMPHOCYTES % (AUTO) 14.7 % (21.0-51.0); MEAN CORPUSCULAR HEMOGLOBIN 33.9 pg (27.0-34.0); MEAN CORPUSCULAR HGB CONC 33.5 g/dL (33.0-35.0); MEAN CORPUSCULAR VOLUME 101.1 fL (80.0-100.0); MONOCYTES # (AUTO) 0.6 x10^3/uL (0.3-0.8); MONOCYTES % (AUTO) 8.8 % (0.0-13.0); NEUTROPHILS # (AUTO) 5.4 x10^3/uL (2.2-4.8); NEUTROPHILS % (AUTO) 75.6 % (42.0-75.0); PLATELET COUNT 118 X10^3/uL (150.0-450.0); RED CELL DISTRIBUTION WIDTH 14.3 % (11.6-16.5); WHITE BLOOD COUNT 7.2 X10^3/uL (3.6-10.0)
--- NOTE | 2017-11-10 11:27 | RAD ---
HISTORY: COPD, shortness of breath, CHF Study: PA and lateral views of the chest Comparison: 05/09/2017 Findings: Chronic sternotomy changes are noted. There are moderate-sized bilateral pleural effusions with centr al pulmonary vascular congestion. No pneumothorax identified. Cardiac silhouette appears enlarged tho ugh partially obscured by the effusions. The soft tissues are unremarkable. IMPRESSION: 1. Cardiomegaly with central pulmonary vascular congestion and moderate-sized bilateral pleural effus ions. Reported By:
[2017-11-10 11:35] LABS: ALANINE AMINOTRANSFERASE 53 Units/L (12-78); ALBUMIN 3.1 g/dL (3.4-5.0); ALKALINE PHOSPHATASE 171 Units/L (46-116); ASPARTATE AMINO TRANSFERASE 43 Units/L (15-37); BLOOD UREA NITROGEN 18 mg/dL (7-18); CALCIUM 8.8 mg/dL (8.5-10.1); CHLORIDE 100 mmol/L (98-107); COR CA(FOR HYPOALB) 9.5 mg/dL (8.5-10.1); COR NA(FOR HYPERGLY) 145 mmol/L (136-145); CREATININE 0.96 mg/dL (0.70-1.30); MAGNESIUM 1.8 mg/dL (1.7-2.9); SODIUM 137 mmol/L (136-145); TOTAL PROTEIN 6.1 g/dL (6.4-8.2); eGFR NON BLACK RACES > 60 (>60)
[2017-11-10 11:43] VITALS: BMI 24.1
[2017-11-10 12:07] LABS: TROPONIN I 0.38 ng/mL (0-1.5)
[2017-11-10] MEDS: DUONEB 0.5 MG/3 MG NEB SCH ×3 (12:07→21:11)
[2017-11-10 12:09] LABS: CREATINE KINASE MB 4.8 ng/mL (0-4.0)
[2017-11-10 12:52] LABS: BILIRUBIN,URINE NEGATIVE (NEGATIVE); BLOOD/HEMOGLOBIN,URINE 5+ (NEGATIVE); GLUCOSE, URINE 4+ (NEGATIVE); KETONES,URINE 1+ (NEGATIVE); LEUKOCYTE ESTERASE ,URINE NEGATIVE (NEGATIVE); NITRITES,URINE NEGATIVE (NEGATIVE); PROTEIN,URINE 3+ (NEGATIVE); UROBILINOGEN,URINE NORMAL (NORMAL)
[2017-11-10] MEDS ORDERED: MORPHINE SULFATE INJ 2 MG INJ ONE (12:54)
[2017-11-10] MEDS: LASIX IVP SCH ×2 (12:56→21:54)
[2017-11-10] MEDS ORDERED: MORPHINE SULFATE INJ 2 MG INJ IVP PRN (12:57)
[2017-11-10 13:12] LABS: APPEARANCE,URINE CLEAR (CLEAR); COLOR,URINE YELLOW (YELLOW)
[2017-11-10 13:13] LABS: BACTERIA,URINE NEGATIVE /HPF (NEGATIVE); SQUAMOUS EPITHELIAL CELL,UR RARE /HPF (NEGATIVE)
[2017-11-10] MEDS ORDERED: LOVENOX INJ 40 MG SYR SC SCH (13:59)
[2017-11-10] MEDS ORDERED: COREG TAB 12.5 MG PO ONE (14:10)
[2017-11-10] MEDS ORDERED: ZANAFLEX ONE (14:10)
[2017-11-10] MEDS ORDERED: PLAVIX ONE (14:10)
[2017-11-10] MEDS: SOLU-Medrol 40 MG VIAL IVP SCH ×2 (14:18→21:53)
[2017-11-10] MEDS ORDERED: ZANAFLEX PO PRN ×2 (14:21→14:58)
[2017-11-10] MEDS ORDERED: PriLOSEC PO ONE (14:33)
[2017-11-10] MEDS ORDERED: PATIENT'S HOME MEDICATION (Oxycodone-Acetaminophen [Oxycodone-Acetaminophen] 1 TAB) PO PRN (14:58)
[2017-11-10] MEDS ORDERED: COREG TAB 12.5 MG PO SCH (15:00)
[2017-11-10] MEDS ORDERED: PriLOSEC PO SCH (15:00)
[2017-11-10] MEDS ORDERED: PLAVIX PO SCH (15:00)
[2017-11-10] MEDS ORDERED: PERCOCET TAB 5/325 MG PO PRN (15:44)
[2017-11-10] MEDS ORDERED: HumuLIN R SC PRN (15:45)
[2017-11-10 17:27] LABS: CKMB % 6.6 % (<4); TROPONIN I 0.88 ng/mL (0-1.5)
[2017-11-10 17:28] LABS: CREATINE KINASE MB 5.9 ng/mL (0-4.0)
[2017-11-10] MEDS ORDERED: HumuLIN R IV ONE (17:42)
[2017-11-10] MEDS ORDERED: LANTUS SC SCH (21:00)
[2017-11-10] MEDS ORDERED: HumuLIN R SUBCUT PRN (21:28)
[2017-11-10 23:30] LABS: CKMB % 8.1 % (<4)
[2017-11-10 23:32] LABS: CREATINE KINASE MB 9.4 ng/mL (0-4.0)
[2017-11-10 23:33] LABS: TROPONIN I 3.09 ng/mL (0-1.5)
--- NOTE | 2017-11-10 23:43 | DR.ADDEND ---
Addendum - Addendum Addendum: ADMISSION DIAGNOSIS: ACUTE CHF WITH BILATERAL MODERATE PLEURAL EFFUSIONS. INCREASING TROPONIN
[2017-11-10] MEDS ORDERED: HEPARIN SODIUM IN D5W 25,000 UNITS/500 ML BAG IV PRN (23:57)
[2017-11-11] MEDS ORDERED: HEPARIN SODIUM INJ 5000 UNITS IVP ONE
[2017-11-11] MEDS ORDERED: ASPIRIN 81 MG CHEWTAB PO STA (00:03)
[2017-11-11] MEDS: DUONEB 0.5 MG/3 MG NEB SCH (00:23)
[2017-11-11 00:25] LABS: HEMATOCRIT 39.5 % (42.0-54.0); HEMOGLOBIN 13.4 g/dL (13.5-18.0)
[2017-11-11] MEDS ORDERED: ASPIRIN 81 MG CHEWTAB PO SCH (01:00)
[2017-11-11 01:12] VITALS: BP 102/71
[2017-11-11] MEDS ORDERED: PLAVIX PO SCH (09:00)
[2017-11-11] MEDS ORDERED: GLUCOPHAGE PO SCH (09:00)
[2017-11-11] MEDS ORDERED: ZOLOFT PO SCH (09:00)
[2017-11-11] MEDS ORDERED: ALDACTONE TAB 25 MG PO SCH (09:00)
[2017-11-11] MEDS ORDERED: SOLU-Medrol 40 MG VIAL IVP SCH (09:00)
[2017-11-11] MEDS ORDERED: COREG TAB 12.5 MG PO SCH (09:00)
[2017-11-11] MEDS ORDERED: LIPITOR TAB 40 MG PO SCH (09:00)
[2017-11-11] MEDS ORDERED: PriLOSEC PO SCH (09:00)
[2017-11-11] MEDS ORDERED: FLONASE NASAL SPRAY ENOSTRIL SCH (09:00)
[2017-11-11] MEDS ORDERED: LOVENOX INJ 40 MG SYR SC SCH (09:00)
[2017-11-11] MEDS ORDERED: ZESTRIL TAB 10 MG PO SCH (09:00)
[2017-11-11] MEDS ORDERED: SNACK - Diabetic Appropriate PO SCH (20:00)
--- NOTE | 2017-11-15 00:32 | PCM.DCPLAN ---
Discharge Summary - Admission Date Date of Admission: 11/10/17 - Discharge Date Discharge Date: 11/11/17 - Admission Diagnoses (1) Acute NE Status: Acute (2) CAD (coronary artery disease) Status: Acute (3) CHF (congestive heart failure) Status: Acute (4) Pleural effusion, bilateral Status: Acute (5) Respiratory distress Status: Acute (6) Diabetes mellitus, type 2 Status: Chronic (7) Hypertension Status: Chronic - Discharge Diagnoses Discharge Diagnosis: SAME ADMISSION DIAGNOSIS. PATIENT HAD ELEVATED TROPONINS ON SECOND AND THIRD SET CONSISTENT WITH AMI - Discharge Medications Discharge Medications: Home Medication List insulin glargine [Lantus U-100 Insulin] 7 unit SUB-Q HS 11/10/17 [History] omeprazole 1 tab PO DAILY 11/10/17 [History] tizanidine [Zanaflex] 1 tab PO TID PRN 11/10/17 [History] Prescriptions: - Hospital Course Vital Signs: Temperature 97.9 F Pulse Rate [Left Radial] 83 Pulse Rate 88 Respiratory Rate 19 Blood Pressure [Left Arm] 102/71 Blood Pressure [Right Arm] 169/79 Blood Pressure 128/67 O2 Sat by Pulse Oximetry 92 Latest Lab Results: Laboratory Last Values WBC 7.2 X10^3/uL (3.6-10.0) 11/10/17 10:45 RBC 4.00 X10^6/uL (4.7-6.0) L 11/10/17 10:45 Hgb 13.6 g/dL (13.5-18.0) 11/10/17 10:45 Hct 40.5 % (42.0-54.0) L 11/10/17 10:45 MCV 101.1 fL (80.0-100.0) H 11/10/17 10:45 MCH 33.9 pg (27.0-34.0) 11/10/17 10:45 MCHC 33.5 g/dL (33.0-35.0) 11/10/17 10:45 RDW 14.3 % (11.6-16.5) 11/10/17 10:45 Plt Count 118 X10^3/uL (150.0-450.0) L 11/10/17 10:45 MPV 10.0 fL (7.4-11.0) 11/10/17 10:45 Neut % (Auto) 75.6 % (42.0-75.0) H 11/10/17 10:45 Lymph % (Auto) 14.7 % (21.0-51.0) L 11/10/17 10:45 [place] % (Auto) 8.8 % (0.0-13.0) 11/10/17 10:45 Eos % (Auto) 0.5 % (0.9-2.9) L 11/10/17 10:45 Baso % (Auto) 0.4 % (0.2-1.0) 11/10/17 10:45 Neut # (Auto) 5.4 x10^3/uL (2.2-4.8) H 11/10/17 10:45 Lymph # (Auto) 1.0 X10^3/uL (1.3-2.9) L 11/10/17 10:45 [place] # (Auto) 0.6 x10^3/uL (0.3-0.8) 11/10/17 10:45 Eos # (Auto) 0.0 x10^3/uL (0.0-0.2) 11/10/17 10:45 Baso # (Auto) 0.0 X10^3/uL (0.0-0.1) 11/10/17 10:45 Absolute Nucleated RBC 0.0 /100WBC 11/10/17 10:45 INR Target Range - 11/10/17 00:06 INR 1.07 (0.8-1.3) 11/10/17 00:06 APTT 33.2 SECONDS (22.9-36.5) 11/10/17 00:06 PTT Comment - 11/10/17 00:06 Sample Site Lrad 11/10/17 10:45 ABG pH 7.480 (7.35-7.45) H 11/10/17 10:45 ABG pCO2 39.0 mmHg (35.0-45.0) 11/10/17 10:45 ABG pO2 40.0 mmHg (80.0-100.0) L* 11/10/17 10:45 ABG HCO3 29.0 mmol/L (22-26) H 11/10/17 10:45 ABG O2 Saturation 79.0 % (90-100) L* 11/10/17 10:45 ABG Base Excess 5.2 mmol/L (-2.0-2.0) H 11/10/17 10:45 David Test Pos 11/10/17 10:45 A-a Gradient 61.0 mmHg 11/10/17 10:45 FiO2 21.000 11/10/17 10:45 Blood Gas Comments Dejah well ah 11/10/17 10:45 Sodium 137 mmol/L (136-145) 11/10/17 10:45 Corrected Sodium 145 mmol/L (136-145) 11/10/17 10:45 Potassium 4.2 mmol/L (3.5-5.1) 11/10/17 10:45 Chloride 100 mmol/L (98-107) 11/10/17 10:45 Carbon Dioxide 30.0 mmol/L (21-32) 11/10/17 10:45 BUN 18 mg/dL (7-18) 11/10/17 10:45 Creatinine 0.96 mg/dL (0.70-1.30) 11/10/17 10:45 Est GFR (MDRD) Af Amer > 60 (>60) 11/10/17 10:45 Est GFR (MDRD) Non-Af > 60 (>60) 11/10/17 10:45 Glucose 629 mg/dL (65-99) H* 11/10/17 16:41 POC Glucose (mg/dL) 383 mg/dL (65-99) H 11/11/17 00:25 Calcium 8.8 mg/dL (8.5-10.1) 11/10/17 10:45 Corrected Calcium 9.5 mg/dL (8.5-10.1) 11/10/17 10:45 Magnesium 1.8 mg/dL (1.7-2.9) 11/10/17 10:45 Total Bilirubin 0.80 mg/dL (0.2-1.0) 11/10/17 10:45 AST 43 Units/L (15-37) H 11/10/17 10:45 ALT 53 Units/L (12-78) 11/10/17 10:45 Alkaline Phosphatase 171 Units/L (46-116) H 11/10/17 10:45 Creatine Kinase 116 Units/L (39-308) 11/10/17 22:18 CK-MB (CK-2) 9.4 ng/mL (0-4.0) H* 11/10/17 22:18 CK/CKMB % Calc 8.1 % (<4) 11/10/17 22:18 Troponin I 3.09 ng/mL (0-1.5) H* 11/10/17 22:18 Total Protein 6.1 g/dL (6.4-8.2) L 11/10/17 10:45 Albumin 3.1 g/dL (3.4-5.0) L 11/10/17 10:45 Globulin 3.0 g/dL (2.5-4.5) 11/10/17 10:45 Albumin/Globulin Ratio 1.0 Ratio (1.1-2.1) L 11/10/17 10:45 Specimen Type Clean catch urine 11/10/17 12:40 Urine Color Yellow (YELLOW) 11/10/17 12:40 Urine Appearance Clear (CLEAR) 11/10/17 12:40 Urine pH 5.0 (5.0 - 8.0) 11/10/17 12:40 Ur Specific [place] 1.015 (1.000-1.030) 11/10/17 12:40 Urine Protein 3+ (NEGATIVE) 11/10/17 12:40 Urine Glucose (UA) 4+ (NEGATIVE) 11/10/17 12:40 Urine Ketones 1+ (NEGATIVE) 11/10/17 12:40 Urine Occult Blood 5+ (NEGATIVE) 11/10/17 12:40 Urine Nitrite Negative (NEGATIVE) 11/10/17 12:40 Urine Bilirubin Negative (NEGATIVE) 11/10/17 12:40 Urine Urobilinogen Normal (NORMAL) 11/10/17 12:40 Ur Leukocyte Esterase Negative (NEGATIVE) 11/10/17 12:40 Urine RBC 3-5 /HPF (NONE SEEN) 11/10/17 12:40 Urine WBC 0-2 /HPF (NONE SEEN) 11/10/17 12:40 Ur Squamous Epith Cells Rare /HPF (NEGATIVE) 11/10/17 12:40 Urine Bacteria Negative /HPF (NEGATIVE) 11/10/17 12:40 Ur Culture Indicated? No/not indicated 11/10/17 12:40 Hospital Course: he patient is a 72yo WM who presents to Office for routine follow up. Patient noted to have RA sat of 75%. On rest 80%. Patient states he can't catch his breath. States that he has a nonproductive cough. Has had pain radiating from epigastric up mid-sternum. Denies reflux or nausea. Patient was admitted to ICU setting. Patient O2 sat improved with oxygen. Patient on second set of Troponin had mild elevation with significant increase on third sets. Patient was transferred to tertiary hospital for further cardiac evaluation. - Discharge Plan Disposition: [facility] Condition: Stable - Follow ups/Referrals Follow ups/Referrals: [facility] MACIAS [Other] JESSE PATIÑO [Primary Care Provider] - 1 WEEK - Instructions
== END 2017-11-11 01:50 | disposition short-term general hospital (02) | DRG 281 ==
LOC: ICU 10:17
PROVIDERS: ADMIT Internal Medicine; ATTEND Internal Medicine
DX: I21.9 Acute myocardial infarction, unspecified; F41.8 Other specified anxiety disorders; E11.65 Type 2 diabetes mellitus with hyperglycemia; K21.9 Gastro-esophageal reflux disease without esophagitis; I25.10 Atherosclerotic heart disease of native coronary artery without angina pectoris; J90 Pleural effusion, not elsewhere classified; R07.89 Other chest pain; R06.03 Acute respiratory distress; I50.9 Heart failure, unspecified; I11.0 Hypertensive heart disease with heart failure; R09.02 Hypoxemia; J44.9 Chronic obstructive pulmonary disease, unspecified; R06.02 Shortness of breath; E78.2 Mixed hyperlipidemia
CPT/HCPCS: 36415; 36600; 71020; 71046; 80053; 81001; 82550; 82553; 82803; 82947; 83735; 84484; 85014; 85018; 85025; 85610; 85730; 87040; 87086; 93005; 93010; 94640; A4222; J1644; J1650; J1815; J1940; J1956; J2270; J2920; J7030; J7620

== ENCOUNTER 2018-01-18 15:48 | Inpatient (IN) ==
[2018-01-18 17:14] LABS: ABG BASE EXCESS 6.1 mmol/L (-2.0-2.0); ABG HCO3 30.6 mmol/L (22-26)
[2018-01-18 17:15] LABS: ABG ALLEN TEST POS; FRACTIONATED INSPIRED OXYGEN 30
[2018-01-18 17:26] LABS: BASOPHILS % (AUTO) 0.3 % (0.2-1.0); EOSINOPHILS # (AUTO) 0.1 x10^3/uL (0.0-0.2); EOSINOPHILS % (AUTO) 1.4 % (0.9-2.9); HEMATOCRIT 35.9 % (42.0-54.0); HEMOGLOBIN 12.3 g/dL (13.5-18.0); LYMPHOCYTES # (AUTO) 1.1 X10^3/uL (1.3-2.9); LYMPHOCYTES % (AUTO) 25.7 % (21.0-51.0); MEAN CORPUSCULAR HEMOGLOBIN 33.3 pg (27.0-34.0); MEAN CORPUSCULAR HGB CONC 34.3 g/dL (33.0-35.0); MEAN CORPUSCULAR VOLUME 97.1 fL (80.0-100.0); MEAN PLATELET VOLUME 8.6 fL (7.4-11.0); MONOCYTES # (AUTO) 0.4 x10^3/uL (0.3-0.8); MONOCYTES % (AUTO) 8.9 % (0.0-13.0); NEUTROPHILS # (AUTO) 2.7 x10^3/uL (2.2-4.8); NEUTROPHILS % (AUTO) 63.7 % (42.0-75.0); PLATELET COUNT 152 X10^3/uL (150.0-450.0); RED BLOOD COUNT 3.69 X10^6/uL (4.7-6.0); RED CELL DISTRIBUTION WIDTH 14.9 % (11.6-16.5); WHITE BLOOD COUNT 4.2 X10^3/uL (3.6-10.0)
[2018-01-18] MEDS: LASIX IVP SCH ×2 (17:29→20:34)
--- NOTE | 2018-01-18 17:37 | RAD ---
HISTORY: Shortness of breath Study: Single view of the chest. Comparison: 11/10/2017 Findings: The cardiomediastinal silhouette is normal. Bilateral moderate-sized pleural effusions with edema. Si milar prior. Osseous structures demonstrate no acute abnormality. IMPRESSION: 1. Similar appearance of bilateral pulmonary edema and moderate size pleural effusions. Reported By:
[2018-01-18 17:39] VITALS: BMI 23.7
[2018-01-18 17:44] LABS: BLOOD UREA NITROGEN 13 mg/dL (7-18); CALCIUM 8.3 mg/dL (8.5-10.1); CHLORIDE 99 mmol/L (98-107); COR NA(FOR HYPERGLY) 141 mmol/L (136-145); CREATININE 1.06 mg/dL (0.70-1.30); SODIUM 137 mmol/L (136-145); TROPONIN I 0.29 ng/mL (0-1.5); eGFR NON BLACK RACES > 60 (>60)
[2018-01-18 18:06] LABS: ALANINE AMINOTRANSFERASE 93 Units/L (12-78); ALBUMIN 2.9 g/dL (3.4-5.0); ALKALINE PHOSPHATASE 173 Units/L (46-116); ASPARTATE AMINO TRANSFERASE 72 Units/L (15-37); CKMB % 4.9 % (<4); COR CA(FOR HYPOALB) 9.2 mg/dL (8.5-10.1); CREATINE KINASE 155 Units/L (39-308); MAGNESIUM 1.4 mg/dL (1.7-2.9)
[2018-01-18 18:08] LABS: CREATINE KINASE MB 7.6 ng/mL (0-4.0)
[2018-01-18] MEDS ORDERED: PATIENT'S HOME MEDICATION (Oxycodone-Acetaminophen [Oxycodone-Acetaminophen] 1 TAB) PO PRN (18:09)
--- NOTE | 2018-01-18 18:14 | DR.H&P ---
H&P - History & Physical for Day of: H&P Date: 01/18/18 - Chief Complaint Chief Complaint: sob, "feel like im having a panic attack. i cant get a deep breath" - History of Present Illness History of Present Illness: 72 WM DIRECT ADMIT FROM DR MELO OFFICE AFTER PRESENTING WITH CO INCREASED SOB AND FEELING LIKE HE CANT GET A DEEP BREATH, CAUSING PANIC ATTACKS. PT HAS CAD WITH CHF, HAS BEEN ON PO LASIX, ALDACTONE, COREG GREATER THAN 5LB WEIGHT GAIN IN 2 DAYS. PT REPORTS DECREASED URINE OUTPT. PT O2 SATURATION IN OFFICE 84% WITH MARKED SOB ON EXERTION. PT ALSO HAS PMH OF COPD, DM, OA, HTN, YASMIN. PT ADMITTED TO ICU FOR TREATMENT OF ACUTE RESP, HYPOXIA , CHF EXACERBATION. - Past Medical History Past Medical History: Anxiety, Arthritis, CHF, COPD, Coronary Artery Disease, Diabetes, Dyslipidemia, GERD, Hypertension - Past Surgical History Surgical History: CABG/Valve Surgery - Family History Family Medical History: Diabetes Mellitus, Heart Failure - Social History Does patient currently use any type of tobacco product: No Have you used tobacco products in the last 12 months: No Type of Tobacco Use: Cigarettes How many years tobacco product used: 30 Alcohol Use: None Drug Use: None - Medications Home Medications: chocolate flavor Allergy (Verified 05/07/17 23:13) Penicillins Allergy (Verified 05/07/17 23:13) CHOCOLATE Allergy (Uncoded 05/07/17 23:13) CONTINUE taking the following medications buspirone 10 mg PO BID 01/18/18 [History] - Review of Systems Constitutional: Weakness Eyes: No Symptoms Reported ENT: No Symptoms Reported Respiratory: Shortness of Breath, SOB with Excertion Cardiovascular: Paroxysmal Noc. Dyspnea, Edema Gastrointestinal: Nausea Genitourinary: Other (DECREASED OUTPT) Musculoskeletal: Back Pain Skin: No Symptoms Reported Neurological: Weakness - Physical Exam Vital Signs: Pulse Rate [Right Brachial] 89 Respiratory Rate 20 Blood Pressure [Left Arm] 115/81 Blood Pressure [Right Arm] 169/79 Blood Pressure 102/71 O2 Sat by Pulse Oximetry 89 Oriented: Normal Eyes: Normal Ear: Normal Nose: Normal Throat: Normal Respiratory: RLL Diminished, LLL Diminished. negative: Rhonchi Throughout Cardiovascular: Tachycardia, Edema (BILATERAL LOWER EXTREMITY TRACE EDEMA) : Normal Auscultation: Bowel Sounds: Normal Palpation: Normal Tenderness: Normal Skin: Normal Musculoskeletal: Right, Left, Hip, Back:Thoracic, Back:Lumbar, Tender, Crepitance Psychiatric: Anxiety Mood Description: Anxious Affect: Anxious Speech Pattern: Clear, Appropriate - Assessment/Plan (1) Respiratory distress Status: Acute Plan: ADMIT, ICU CXR, ABG ON ADMISSION. RESP CONSULT, SUPPLEMENTAL O2. SERIAL CE AND EKG'S. IV LASIX, STRICT I & OS. SSI, VERIFY HOME MEDS. CONTINUE BB, ALDACTONE, PLAVIX. REPEAT AM CXR AND LABS (2) CHF (congestive heart failure) Qualifiers: Qualified Code(s): I50.9 - Heart failure, unspecified Status: Acute (3) CAD (coronary artery disease) Status: Acute (4) Hypertension Status: Chronic (5) Hyperlipidemia Status: Chronic (6) GERD (gastroesophageal reflux disease) Status: Chronic (7) Diabetes mellitus, type 2 Status: Chronic - Allergies Allergies/Adverse Reactions: Allergies Allergy/AdvReac Type Severity Reaction Status Date / Time chocolate flavor Allergy Verified 05/07/17 23:13 Penicillins Allergy Verified 05/07/17 23:13 CHOCOLATE Allergy Uncoded 05/07/17 23:13
[2018-01-18] MEDS: K-DUR TAB 20 MEQ PO SCH (20:34)
[2018-01-18] MEDS: PERCOCET TAB 5/325 MG PO PRN (20:35)
[2018-01-19 00:25] LABS: TROPONIN I 0.35 ng/mL (0-1.5)
[2018-01-19 00:28] LABS: CREATINE KINASE MB 6.7 ng/mL (0-4.0)
[2018-01-19] MEDS: PERCOCET TAB 5/325 MG PO PRN ×2 (03:07→08:45)
[2018-01-19 05:05] LABS: BASOPHILS % (AUTO) 0.2 % (0.2-1.0); EOSINOPHILS # (AUTO) 0.1 x10^3/uL (0.0-0.2); EOSINOPHILS % (AUTO) 2.1 % (0.9-2.9); HEMATOCRIT 35.5 % (42.0-54.0); HEMOGLOBIN 12.2 g/dL (13.5-18.0); LYMPHOCYTES # (AUTO) 1.3 X10^3/uL (1.3-2.9); LYMPHOCYTES % (AUTO) 34.1 % (21.0-51.0); MEAN CORPUSCULAR HEMOGLOBIN 33.4 pg (27.0-34.0); MEAN CORPUSCULAR HGB CONC 34.3 g/dL (33.0-35.0); MEAN CORPUSCULAR VOLUME 97.2 fL (80.0-100.0); MONOCYTES # (AUTO) 0.4 x10^3/uL (0.3-0.8); MONOCYTES % (AUTO) 10.5 % (0.0-13.0); NEUTROPHILS % (AUTO) 53.1 % (42.0-75.0); PLATELET COUNT 138 X10^3/uL (150.0-450.0); RED BLOOD COUNT 3.66 X10^6/uL (4.7-6.0); RED CELL DISTRIBUTION WIDTH 14.6 % (11.6-16.5); WHITE BLOOD COUNT 3.8 X10^3/uL (3.6-10.0)
[2018-01-19 05:58] LABS: ALANINE AMINOTRANSFERASE 76 Units/L (12-78); ALBUMIN 2.6 g/dL (3.4-5.0); ALKALINE PHOSPHATASE 148 Units/L (46-116); ASPARTATE AMINO TRANSFERASE 39 Units/L (15-37); BLOOD UREA NITROGEN 12 mg/dL (7-18); CARBON DIOXIDE 34.5 mmol/L (21-32); CHLORIDE 100 mmol/L (98-107); CKMB % 6.2 % (<4); COR CA(FOR HYPOALB) 9.1 mg/dL (8.5-10.1); COR NA(FOR HYPERGLY) 143 mmol/L (136-145); CREATINE KINASE 105 Units/L (39-308); CREATININE 1.15 mg/dL (0.70-1.30); SODIUM 139 mmol/L (136-145); TOTAL PROTEIN 5.6 g/dL (6.4-8.2); TROPONIN I 0.56 ng/mL (0-1.5); eGFR NON BLACK RACES > 60 (>60)
[2018-01-19 06:02] LABS: CREATINE KINASE MB 6.5 ng/mL (0-4.0)
[2018-01-19] MEDS: K-DUR TAB 20 MEQ PO SCH (08:44)
[2018-01-19] MEDS: LASIX IVP SCH (08:44)
[2018-01-19] MEDS ORDERED: PLAVIX PO SCH (09:00)
[2018-01-19] MEDS ORDERED: ZOLOFT PO SCH (09:00)
[2018-01-19] MEDS ORDERED: FLONASE NASAL SPRAY ENOSTRIL SCH (09:00)
[2018-01-19] MEDS ORDERED: ALDACTONE TAB 25 MG PO SCH (09:00)
[2018-01-19] MEDS ORDERED: COREG TAB 12.5 MG PO SCH (09:00)
[2018-01-19] MEDS ORDERED: LIPITOR TAB 40 MG PO SCH (09:00)
[2018-01-19] MEDS ORDERED: PriLOSEC PO SCH (09:00)
[2018-01-19] MEDS ORDERED: ZESTRIL TAB 10 MG PO SCH (09:00)
[2018-01-19] MEDS ORDERED: HumuLIN R SUBCUT PRN (09:18)
[2018-01-19 09:41] LABS: ABG BASE EXCESS 9.8 mmol/L (-2.0-2.0)
[2018-01-19 09:42] LABS: ABG ALLEN TEST POSITIVE; ABG HCO3 35.4 mmol/L (22-26); FRACTIONATED INSPIRED OXYGEN 32
--- NOTE | 2018-01-19 10:12 | RAD ---
HISTORY: Shortness of breath Study: Chest AP portable Comparison: 01/18/2018 Findings: The patient is status post median sternotomy. The heart remains enlarged. Mild congestive heart failu re is present unchanged from the prior examination. Bilateral pleural effusions are present obscuring somewhat the lower lobes bilaterally but unchanged from the prior examination. The bony thorax is un remarkable. IMPRESSION: No significant change from the prior examination Reported By:
[2018-01-19 11:22] LABS: TROPONIN I 0.67 ng/mL (0-1.5)
[2018-01-19 11:29] LABS: CREATINE KINASE MB 7.8 ng/mL (0-4.0)
[2018-01-19] MEDS ORDERED: HEPARIN SODIUM IN D5W 25,000 UNITS/500 ML BAG IV PRN (12:20)
[2018-01-19] MEDS ORDERED: HEPARIN SODIUM INJ 5000 UNITS ONE (13:06)
[2018-01-19] MEDS ORDERED: HumuLIN R SC PRN (13:09)
[2018-01-19] MEDS ORDERED: HEPARIN SODIUM INJ 5000 UNITS IVP ONE (13:37)
[2018-01-19 14:31] VITALS: BP 84/60
[2018-01-19] MEDS ORDERED: SNACK - Diabetic Appropriate PO SCH (20:00)
--- NOTE | 2018-02-07 14:52 | PCM.DCPLAN ---
Discharge Summary - Admission Date Date of Admission: 01/18/18 - Discharge Date Discharge Date: 01/19/18 - Admission Diagnoses (1) CAD (coronary artery disease) Status: Acute (2) CHF (congestive heart failure) Status: Acute (3) Respiratory distress Status: Acute (4) Diabetes mellitus, type 2 Status: Chronic (5) Hyperlipidemia Status: Chronic (6) Hypertension Status: Chronic - Discharge Diagnoses Discharge Diagnosis: SAME ADMISSION DIAGNOSIS - Discharge Medications Discharge Medications: Home Medication List buspirone 10 mg PO BID 01/18/18 [History] Prescriptions: - Hospital Course Vital Signs: Temperature 96.5 F Pulse Rate [Right Brachial] 60 Respiratory Rate 24 Blood Pressure [Left Arm] 84/60 Blood Pressure [Right Arm] 169/79 Blood Pressure 102/71 O2 Sat by Pulse Oximetry 96 Latest Lab Results: Laboratory Last Values WBC 3.8 X10^3/uL (3.6-10.0) 01/19/18 04:02 RBC 3.66 X10^6/uL (4.7-6.0) L 01/19/18 04:02 Hgb 12.2 g/dL (13.5-18.0) L 01/19/18 04:02 Hct 35.5 % (42.0-54.0) L 01/19/18 04:02 MCV 97.2 fL (80.0-100.0) 01/19/18 04:02 MCH 33.4 pg (27.0-34.0) 01/19/18 04:02 MCHC 34.3 g/dL (33.0-35.0) 01/19/18 04:02 RDW 14.6 % (11.6-16.5) 01/19/18 04:02 Plt Count 138 X10^3/uL (150.0-450.0) L 01/19/18 04:02 MPV 9.0 fL (7.4-11.0) 01/19/18 04:02 Neut % (Auto) 53.1 % (42.0-75.0) 01/19/18 04:02 Lymph % (Auto) 34.1 % (21.0-51.0) 01/19/18 04:02 [place] % (Auto) 10.5 % (0.0-13.0) 01/19/18 04:02 Eos % (Auto) 2.1 % (0.9-2.9) 01/19/18 04:02 Baso % (Auto) 0.2 % (0.2-1.0) 01/19/18 04:02 Neut # (Auto) 2.0 x10^3/uL (2.2-4.8) L 01/19/18 04:02 Lymph # (Auto) 1.3 X10^3/uL (1.3-2.9) 01/19/18 04:02 [place] # (Auto) 0.4 x10^3/uL (0.3-0.8) 01/19/18 04:02 Eos # (Auto) 0.1 x10^3/uL (0.0-0.2) 01/19/18 04:02 Baso # (Auto) 0.0 X10^3/uL (0.0-0.1) 01/19/18 04:02 Absolute Nucleated RBC 0.0 /100WBC 01/19/18 04:02 INR Target Range - 01/19/18 04:02 INR 1.11 (0.8-1.3) 01/19/18 04:02 Sample Site Rr 01/19/18 09:17 ABG pH 7.450 (7.35-7.45) 01/19/18 09:17 ABG pCO2 51.0 mmHg (35.0-45.0) H* 01/19/18 09:17 ABG pO2 63.0 mmHg (80.0-100.0) L 01/19/18 09:17 ABG HCO3 35.4 mmol/L (22-26) H* 01/19/18 09:17 ABG O2 Saturation 93.0 % (90-100) 01/19/18 09:17 ABG Base Excess 9.8 mmol/L (-2.0-2.0) H 01/19/18 09:17 David Test Positive 01/19/18 09:17 A-a Gradient 101.0 mmHg 01/19/18 09:17 FiO2 32 01/19/18 09:17 Blood Gas Comments Pt jorge well llj 01/19/18 09:17 Sodium 139 mmol/L (136-145) 01/19/18 04:02 Corrected Sodium 143 mmol/L (136-145) 01/19/18 04:02 Potassium 3.5 mmol/L (3.5-5.1) 01/19/18 04:02 Chloride 100 mmol/L (98-107) 01/19/18 04:02 Carbon Dioxide 34.5 mmol/L (21-32) H 01/19/18 04:02 BUN 12 mg/dL (7-18) 01/19/18 04:02 Creatinine 1.15 mg/dL (0.70-1.30) 01/19/18 04:02 Est GFR (MDRD) Af Amer > 60 (>60) 01/19/18 04:02 Est GFR (MDRD) Non-Af > 60 (>60) 01/19/18 04:02 Glucose 284 mg/dL (65-99) H 01/19/18 04:02 POC Glucose (mg/dL) 227 mg/dL (65-99) H 01/19/18 12:35 Calcium 8.0 mg/dL (8.5-10.1) L 01/19/18 04:02 Corrected Calcium 9.1 mg/dL (8.5-10.1) 01/19/18 04:02 Magnesium 1.4 mg/dL (1.7-2.9) L 01/18/18 17:12 Total Bilirubin 0.60 mg/dL (0.2-1.0) 01/19/18 04:02 AST 39 Units/L (15-37) H 01/19/18 04:02 ALT 76 Units/L (12-78) 01/19/18 04:02 Alkaline Phosphatase 148 Units/L (46-116) H 01/19/18 04:02 Creatine Kinase 112 Units/L (39-308) 01/19/18 10:25 CK-MB (CK-2) 7.8 ng/mL (0-4.0) H* 01/19/18 10:25 CK/CKMB % Calc 7.0 % (<4) 01/19/18 10:25 Troponin I 0.67 ng/mL (0-1.5) 01/19/18 10:25 Total Protein 5.6 g/dL (6.4-8.2) L 01/19/18 04:02 Albumin 2.6 g/dL (3.4-5.0) L 01/19/18 04:02 Globulin 3.0 g/dL (2.5-4.5) 01/19/18 04:02 Albumin/Globulin Ratio 0.9 Ratio (1.1-2.1) L 01/19/18 04:02 Hospital Course: 72 WM DIRECT ADMIT FROM DR MELO OFFICE AFTER PRESENTING WITH CO INCREASED SOB AND FEELING LIKE HE CANT GET A DEEP BREATH, CAUSING PANIC ATTACKS. PT HAS CAD WITH CHF, HAS BEEN ON PO LASIX, ALDACTONE, COREG GREATER THAN 5LB WEIGHT GAIN IN 2 DAYS. PT REPORTS DECREASED URINE OUTPT. PT O2 SATURATION IN OFFICE 84% WITH MARKED SOB ON EXERTION. PT ALSO HAS PMH OF COPD, DM, OA, HTN, YASMIN. PT ADMITTED TO ICU FOR TREATMENT OF ACUTE RESP, HYPOXIA, CHF EXACERBATION. PATIENT WAS GIVEN SUPPLEMENTAL O2. DIURESIS WAS STARTED. LABS AND EKG WERE MONITORED. PATIENT WAS TRANSFERRED TO [facility] FOR FURTHER EVALUATION. - Discharge Plan Disposition: [facility] Condition: Stable - Follow ups/Referrals Follow ups/Referrals: [facility] [Other] (PT TRANSFERRED TO [facility] FOR HIGHER LEVEL OF CARE RELATED TO INCREASE CKMB AND TROPONIN LEVEL AND POSSIBLE CARDIAC CATH.) JESSE PATIÑO [Primary Care Provider] - (FOLLOW UP AFTER DISCHARGE FROM [facility]) - Instructions
== END 2018-01-19 15:30 | disposition short-term general hospital (02) | DRG 293 ==
LOC: ICU 16:19
PROVIDERS: ADMIT Internal Medicine; ATTEND Internal Medicine
DX: R06.02 Shortness of breath; E11.65 Type 2 diabetes mellitus with hyperglycemia; I50.9 Heart failure, unspecified; J44.9 Chronic obstructive pulmonary disease, unspecified; I25.10 Atherosclerotic heart disease of native coronary artery without angina pectoris
CPT/HCPCS: 36415; 36600; 71010; 71045; 80053; 82550; 82553; 82803; 83735; 84484; 85025; 85610; 93005; 93010; A4222; J1644; J1815; J1940

== ENCOUNTER 2018-06-20 16:03 | Inpatient (IN) ==
[2018-06-20 16:15] VITALS: BMI 27.3
[2018-06-20 16:37] LABS: BASOPHILS % (AUTO) 0.2 % (0.2-1.0); EOSINOPHILS % (AUTO) 0.1 % (0.9-2.9); HEMATOCRIT 33.3 % (42.0-54.0); HEMOGLOBIN 11.3 g/dL (13.5-18.0); LYMPHOCYTES # (AUTO) 0.4 X10^3/uL (1.3-2.9); LYMPHOCYTES % (AUTO) 12.2 % (21.0-51.0); MEAN CORPUSCULAR HEMOGLOBIN 31.1 pg (27.0-34.0); MEAN CORPUSCULAR HGB CONC 33.9 g/dL (33.0-35.0); MEAN CORPUSCULAR VOLUME 91.6 fL (80.0-100.0); MEAN PLATELET VOLUME 8.3 fL (7.4-11.0); MONOCYTES # (AUTO) 0.5 x10^3/uL (0.3-0.8); MONOCYTES % (AUTO) 13.4 % (0.0-13.0); NEUTROPHILS # (AUTO) 2.5 x10^3/uL (2.2-4.8); NEUTROPHILS % (AUTO) 74.1 % (42.0-75.0); PLATELET COUNT 112 X10^3/uL (150.0-450.0); RED BLOOD COUNT 3.64 X10^6/uL (4.7-6.0); RED CELL DISTRIBUTION WIDTH 20.5 % (11.6-16.5); WHITE BLOOD COUNT 3.4 X10^3/uL (3.6-10.0)
--- NOTE | 2018-06-20 16:37 | RAD ---
Exam: Portable chest History: 73-year-old male with shortness of breath. Comparison: Previous chest radiograph from 04/17/2018. Findings: Mild cardiomegaly is seen. Cardiac pacemaker is again noted as well. No significant degree of vascular congestion. However patchy opacity is now noted at the right base and left suprahilar region. Bilateral pleural effusions are noted as well. Bony thorax is unremarkable. Impression: Multifocal pneumonia noted at right base and left suprahilar region. Bilateral pleural effusions are present as well Reported By:
--- NOTE | 2018-06-20 16:39 | DR.CP ---
HPI Time Seen Time Seen by Provider: 06/20/18 16:05 PCP Primary Care Physician: LEON RODRIGUES Complaint Chief Complaint Doctor Comments: 73 y/o male presented via EMS with c/o C/P and SOB all onset about 2 hrs. [employer]GER in the E.D. Poorly characterized C/P but he had taken 4 NTG s/L with so-so effectiveness. He has SOB + orthopnea. He was nauseated but w/o emesis. There was no diaphoresis and the c/p was not radiating. He has gangrenous toes on the Lt. foot and is pending amputation. To this effect he recently had Lt. lower ext. vascular studies with stents or angioplasty. Chief Complaint:: EMS OUT TO PT WITH SOB, AND C/O C/P PT STATES HE TOOK 4 NTG, SL AND HIS PAIN IS A 10, UPON ARRIVAL TO ER, PT IS ALERT AND ORIENTED PT IS TALKATIVE, AND HE STATES IT MIGHT BE DUE TO WATER ON HIS LUNGS , PT HAS STERI STRIPS TO HIS LEFT LOWER LEG, AND PT HAS NECROSIS TO HIS LEFT 3RD,4TH.5TH TOES, PT WEARS HOME 02, N/C 2 LPM , Self Treatment fo Chief Complaint: PT APPEARS TO BE IN NO DISTRESS, PT ANWERS QUESTIONS APPROPRIATE, BR Source History Provided: Patient Mode of Arrival Mode of Arrival: Stretcher Timing Onset of Chief Complaint: 06/19/18 Location Chest Pain Radiation Location: None Associated Signs and Symptoms Associated Signs and Symptoms: Shortness of Breath PMH PMH Past Medical History: Yes Past Medical History: Anxiety, Arthritis, CHF, COPD, Coronary Artery Disease, Diabetes, Dyslipidemia, GERD and Hypertension Past Surgical History: Yes Surgical History: CABG/Valve Surgery and Other Past Surgical History Comment: PACEMAKER , 3 WEEKS AGO , Family History History of Family Medical Conditions: Yes Family Medical History: Diabetes Mellitus and Heart Failure Social History Does patient currently use any type of tobacco product: No Have you used tobacco products in the last 12 months: No Type of Tobacco Use: None Does any household member use tobacco: No Alcohol Use: None Do you use any recreational Drugs:: No Lives With: Family Lives Where: Home infectious screening In the last 2 months have you had wt loss of >10#?: NO Have you had fever, night sweats or hemotysis?: No Have you traveled outside the country in the last 6 months?: No Isolation: Standard ROS Review of Systems Constitutional: No Symptoms Reported Eyes: No Symptoms Reported ENTM: No Symptoms Reported Respiratoy: Short of Breath Cardiovascular: Chest Pain Gastrointestinal/Abdominal: No Symptoms Reported Genitourinary: No Symptoms Reported Neurological: No Symptoms Reported Musculoskeletal: No Symptoms Reported Integumentary: No Symptoms Reported Hematologic/Lymphatic: No Symptoms Reported Endocrine: No Symptoms Reported Psychiatric: No Symptoms Reported All Other Systems: Reviewed and Negative PE Vitals Vitals: Temperature 98.1 F Pulse Rate 88 Respiratory Rate 20 Blood Pressure [Left Arm] 123/74 Blood Pressure [Right Arm] 110/73 Blood Pressure 141/68 O2 Sat by Pulse Oximetry 91 General Limitations: No Limitations General Appearance: Alert and In No Apparent Distress Head Head Exam: Normal Inspection, Atraumatic and Normocephalic Eyes Eye exam: Normal Appearance, PERRL and EOMI ENT ENT Exam: Normal Exam, Normal Oropharynx and Mucous Membranes Moist Chest Chest Inspection: Symmetric Chest Wall Rise and Other (scar of old sternostomy noted anteriorly.) Respiratory Respiratory Exam: Normal Lung Sounds Bilat Cardiovascular Cardiovascular Exam: Regular Rate, Normal Rhythm, Normal Heart Sounds, +S1 and +S2 Abdominal Exam Abdominal Exam: Normal Inspection, Normal Bowel Sounds and Soft Extremities Extremities Exam: Full ROM and Other (Lt. foot with gangrenous 3rd, 4th and 5th toes.) Back Back Exam: Normal Inspection Neurologic Neurological Exam: Alert, Oriented X3 and Normal Gait Psychiatric Psychiatric Exam: Normal Affect and Normal Mood Skin Skin Exam: Warm, Dry, Intact and Normal Color ROR Labs Reviewed Laboratory Results Reviewed?: Yes Result Diagrams: 06/20/18 16:28 06/20/18 16:28 Laboratory: WBC 3.4 X10^3/uL (3.6-10.0) L 06/20/18 16:28 RBC 3.64 X10^6/uL (4.7-6.0) L 06/20/18 16:28 Hgb 11.3 g/dL (13.5-18.0) L 06/20/18 16:28 Hct 33.3 % (42.0-54.0) L 06/20/18 16:28 MCV 91.6 fL (80.0-100.0) 06/20/18 16:28 MCH 31.1 pg (27.0-34.0) 06/20/18 16:28 MCHC 33.9 g/dL (33.0-35.0) 06/20/18 16: RDW 20.5 % (11.6-16.5) H 06/20/18 16: Plt Count 112 X10^3/uL (150.0-450.0) L 06/20/18 16: Plt Count Comment Decreased (ADEQUATE) 06/20/18 16: MPV 8.3 fL (7.4-11.0) 06/20/18 16: Neut % (Auto) 74.1 % (42.0-75.0) 06/20/18 16: Lymph % (Auto) 12.2 % (21.0-51.0) L 06/20/18 16: [place] % (Auto) 13.4 % (0.0-13.0) H 06/20/18 16: Eos % (Auto) 0.1 % (0.9-2.9) L 06/20/18: Baso % (Auto) 0.2 % (0.2-1.0) 06/20/18 16: Neut # (Auto) 2.5 x10^3/uL (2.2-4.8) 06/20/18 16: Lymph # (Auto) 0.4 X10^3/uL (1.3-2.9) L 06/20/18 16: [place] # (Auto) 0.5 x10^3/uL (0.3-0.8) 06/20/18 16: Eos # (Auto) 0.0 x10^3/uL (0.0-0.2) 06/20/18 16: Baso # (Auto) 0.0 X10^3/uL (0.0-0.1) 06/20/18 16: Absolute Nucleated RBC 0.0 /100WBC 06/20/18: Plt Morphology Comment Normal (NORMAL) 06/20/18 16: RBC Morphology Abnormal (NORMAL) 06/20/18 16: Anisocytosis 1+ A 06/20/18 16: INR Target Range - 06/20/18: INR 1.15 (0.8-1.3) 06/20/18 16:28 APTT 37.7 SECONDS (22.9-36.5) H 06/20/18 16:28 PTT Comment - 06/20/18 16:28 Other Results Comments: CXR Read: multifocal pneumonia in rt. base and Lt. supra-hilar region. Bilateral pleural effusions are present as well. EKG Rate: 86 [place]: Normal Rhythm: Paced Block: None Hypertrophy: None ST: Normal
[2018-06-20 16:42] LABS: PLATELET MORPHOLOGY COMMENT NORMAL (NORMAL)
[2018-06-20 16:43] LABS: ANISOCYTOSIS 1+
[2018-06-20] MEDS ORDERED: MORPHINE SULFATE INJ 2 MG INJ IVP ONE (16:49)
[2018-06-20 16:58] LABS: CKMB % 2.4 % (<4); CREATINE KINASE MB 1.4 ng/mL (0-4.0); TROPONIN I 0.08 ng/mL (0-1.5)
[2018-06-20] MEDS ORDERED: MORPHINE SULFATE INJ 2 MG INJ ONE (17:02)
[2018-06-20 17:05] LABS: ALANINE AMINOTRANSFERASE 24 Units/L (12-78); ALBUMIN 3.1 g/dL (3.4-5.0); ALKALINE PHOSPHATASE 125 Units/L (46-116); ASPARTATE AMINO TRANSFERASE 21 Units/L (15-37); BLOOD UREA NITROGEN 18 mg/dL (7-18); CALCIUM 8.6 mg/dL (8.5-10.1); CHLORIDE 92 mmol/L (98-107); COR CA(FOR HYPOALB) 9.3 mg/dL (8.5-10.1); COR NA(FOR HYPERGLY) 133 mmol/L (136-145); CREATININE 1.09 mg/dL (0.70-1.30); SODIUM 130 mmol/L (136-145); TOTAL PROTEIN 6.4 g/dL (6.4-8.2); eGFR NON BLACK RACES > 60 (>60)
[2018-06-20] MEDS ORDERED: TUSSIONEX PENNKINETIC SUSP PO PRN (17:05)
[2018-06-20] MEDS ORDERED: NS 1/2 1000 ML IV 1,000 ML IV ONE (17:48)
[2018-06-20] MEDS: NS 1/2 1000 ML IV 1,000 ML IV SCH (17:56)
[2018-06-20] MEDS: LEVAQUIN PREMIX IV 750 MG 750 MG/150 ML BAG IV SCH (17:56)
[2018-06-20] MEDS ORDERED: MAALOX or MYLANTA PO PRN (19:42)
[2018-06-20] MEDS: DUONEB 0.5 MG/3 MG NEB SCH (20:20)
[2018-06-20] MEDS: ROBITUSSIN DM PO SCH (21:28)
[2018-06-20] MEDS: PERCOCET TAB 5/325 MG PO PRN (21:29)
[2018-06-20] MEDS: RESTORIL CAP 15 MG PO PRN (22:30)
[2018-06-20] MEDS: ZANAFLEX PO PRN (22:51)
[2018-06-20] MEDS: PEPCID TAB 20 MG PO SCH (22:51)
[2018-06-20 23:02] LABS: CKMB % 2.3 % (<4); CREATINE KINASE MB 1.4 ng/mL (0-4.0); TROPONIN I 0.09 ng/mL (0-1.5)
[2018-06-21] MEDS: HumuLIN R SUBCUT PRN ×4 (00:34→21:30)
[2018-06-21] MEDS: DUONEB 0.5 MG/3 MG NEB SCH ×6 (00:57→22:03)
[2018-06-21] MEDS ORDERED: NS 1/2 1000 ML IV 1,000 ML IV ONE ×2 (01:43→08:36)
[2018-06-21] MEDS: PERCOCET TAB 5/325 MG PO PRN (04:06)
[2018-06-21] MEDS ORDERED: NITROSTAT SL ONE (04:56)
[2018-06-21] MEDS: NITROSTAT SL PRN ×3 (05:10→08:36)
[2018-06-21 05:13] LABS: BASOPHILS % (AUTO) 0.1 % (0.2-1.0); EOSINOPHILS % (AUTO) 0.1 % (0.9-2.9); HEMATOCRIT 30.4 % (42.0-54.0); HEMOGLOBIN 10.4 g/dL (13.5-18.0); LYMPHOCYTES # (AUTO) 0.6 X10^3/uL (1.3-2.9); MEAN CORPUSCULAR HEMOGLOBIN 31.5 pg (27.0-34.0); MEAN CORPUSCULAR HGB CONC 34.1 g/dL (33.0-35.0); MEAN CORPUSCULAR VOLUME 92.5 fL (80.0-100.0); MEAN PLATELET VOLUME 8.8 fL (7.4-11.0); MONOCYTES # (AUTO) 0.4 x10^3/uL (0.3-0.8); MONOCYTES % (AUTO) 15.1 % (0.0-13.0); NEUTROPHILS # (AUTO) 1.6 x10^3/uL (2.2-4.8); NEUTROPHILS % (AUTO) 61.7 % (42.0-75.0); PLATELET COUNT 86 X10^3/uL (150.0-450.0); RED BLOOD COUNT 3.29 X10^6/uL (4.7-6.0); RED CELL DISTRIBUTION WIDTH 20.5 % (11.6-16.5); WHITE BLOOD COUNT 2.6 X10^3/uL (3.6-10.0)
[2018-06-21 05:24] LABS: ALANINE AMINOTRANSFERASE 20 Units/L (12-78); ALBUMIN 2.5 g/dL (3.4-5.0); ALKALINE PHOSPHATASE 103 Units/L (46-116); ASPARTATE AMINO TRANSFERASE 20 Units/L (15-37); BLOOD UREA NITROGEN 20 mg/dL (7-18); CALCIUM 8.2 mg/dL (8.5-10.1); CARBON DIOXIDE 30.6 mmol/L (21-32); CHLORIDE 93 mmol/L (98-107); COR CA(FOR HYPOALB) 9.4 mg/dL (8.5-10.1); COR NA(FOR HYPERGLY) 131 mmol/L (136-145); CREATININE 1.16 mg/dL (0.70-1.30); SODIUM 130 mmol/L (136-145); eGFR NON BLACK RACES > 60 (>60)
[2018-06-21 05:27] LABS: CREATINE KINASE MB 1.2 ng/mL (0-4.0); TROPONIN I 0.08 ng/mL (0-1.5)
[2018-06-21 05:51] LABS: ANISOCYTOSIS 1+; PLATELET MORPHOLOGY COMMENT NORMAL (NORMAL)
--- NOTE | 2018-06-21 06:22 | RAD ---
HISTORY: Shortness of breath Study: Chest AP portable Comparison: 06/20/2018 04/17/2018 Findings: There is a pacemaker present in the left axilla. The patient is status post median sternotomy and CABG. The heart is within normal limits in size. No definite congestive heart failure is noted. Increasing infiltrate is present in the right lung base. Infiltrate in the left upper lung field is unchanged. Bilateral pleural effusions are unchanged. The bony thorax is unremarkable. IMPRESSION: No change left upper lobe infiltrate Increasing right basilar infiltrate No change bilateral pleural effusions Reported By:
[2018-06-21] MEDS: ZANAFLEX PO PRN ×2 (07:59→20:57)
[2018-06-21] MEDS: LEVAQUIN PREMIX IV 750 MG 750 MG/150 ML BAG IV SCH (08:33)
[2018-06-21] MEDS ORDERED: NITROSTAT SL PRN (08:34)
[2018-06-21] MEDS ORDERED: ZANAFLEX PO PRN (08:34)
[2018-06-21] MEDS: PEPCID TAB 20 MG PO SCH ×2 (08:34→20:57)
[2018-06-21] MEDS: ROBITUSSIN DM PO SCH ×4 (08:34→20:58)
[2018-06-21] MEDS: NS 1/2 1000 ML IV 1,000 ML IV SCH ×2 (08:34→22:14)
[2018-06-21] MEDS ORDERED: PATIENT'S HOME MEDICATION (Oxycodone-Acetaminophen [Oxycodone-Acetaminophen] 1 TAB) PO PRN (08:34)
[2018-06-21] MEDS: ASPIRIN EC 81 MG PO SCH (08:53)
[2018-06-21] MEDS: PriLOSEC PO SCH (08:54)
[2018-06-21] MEDS: NEURONTIN CAP 100 MG PO SCH ×2 (08:54→20:56)
[2018-06-21] MEDS: PLAVIX PO SCH (08:54)
[2018-06-21] MEDS: COREG TAB 3.125 MG PO SCH ×2 (08:55→20:57)
[2018-06-21] MEDS: RANEXA PO SCH ×2 (08:55→20:57)
[2018-06-21] MEDS: ZOLOFT PO SCH (08:55)
[2018-06-21] MEDS: ALDACTONE TAB 25 MG PO SCH (08:56)
[2018-06-21] MEDS ORDERED: ZOFRAN INJ 4 MG VIAL ONE (09:13)
[2018-06-21] MEDS: ZOFRAN INJ 4 MG VIAL IVP PRN ×2 (09:15→20:55)
[2018-06-21 09:22] LABS: CREATINE KINASE MB 2.3 ng/mL (0-4.0); TROPONIN I 0.1 ng/mL (0-1.5)
[2018-06-21] MEDS ORDERED: MORPHINE SULFATE INJ 2 MG INJ ONE (09:32)
[2018-06-21] MEDS: MORPHINE SULFATE INJ 2 MG INJ IVP PRN ×3 (09:35→20:58)
[2018-06-21] MEDS ORDERED: COLACE CAP 100 MG PO PRN (09:36)
[2018-06-21] MEDS: ISOSORBIDE MONONITRATE 120 MG PO SCH (09:38)
[2018-06-21] MEDS: SACUBITRIL VALSARTAN PO SCH ×2 (09:39→21:00)
[2018-06-21] MEDS ORDERED: VISTARIL PO PRN (12:12)
[2018-06-21] MEDS ORDERED: VISTARIL PO ONE (12:16)
[2018-06-21 15:35] LABS: CKMB % 3.2 % (<4); CREATINE KINASE MB 2.1 ng/mL (0-4.0); TROPONIN I 0.55 ng/mL (0-1.5)
--- NOTE | 2018-06-21 16:02 | RAD ---
HISTORY: Pain. Study: Left foot: Three views Comparison: 10/14/2017 Findings: Mild osteopenia is noted. Tarsal, metatarsal and phalangeal alignment is normal. Early degenerative changes noted in the 1st metatarsal-phalangeal joint. There appears to be high density material along the 3rd 4th and 5th digits. This may be bandaging material. It may be some type of salve that is radiodense. Clinical correlation is recommended. The bony cortices appear to be intact. I see no definite evidence of osteomyelitis. Minimal calcaneal spurring is noted. Minimal degenerative changes noted in the midfoot. Mild vascular calcification is noted. IMPRESSION: 1. Degenerative change in the left foot as described above. 2. There appears to be high density material around the 3rd 4th and 5th digits. This may be bandaging material or some type of salve that is radiodense. I see no definite evidence of osteomyelitis, however, if there is clinical suspicion three-phase nuclear medicine bone scan or MRI is recommended. Reported By:
--- NOTE | 2018-06-21 17:57 | DR.H&P ---
H&P - History & Physical for Day of: H&P Date: 06/21/18 - Chief Complaint Chief Complaint: CHEST PAIN, SOB - History of Present Illness History of Present Illness: 73 WM ER ADMISSION AFTER PRESENTING WITH CO CHEST PAIN AND SOB. PT HAS PMH OF CAD, CHF. PT HAD CXR IN ER WITH PNEUMONIA. PT STARTED ON LEVAQUIN IV, PT HAD SERIAL CE AND EKGS. PT RECENTLY RETURNED FROM [facility] WITH AFTER FEM/POP BYPASS TO [facility], May PT HAS 3RD AND 4TH NECR OTIC TOES, PT STATES PENDING AMPUTATION, BUT DOES NOT HAVE KNOWN FOLLOW UP TIME. - Past Medical History Past Medical History: Coronary Artery Disease, Hypertension, Dyslipidemia, Diabetes, Anxiety, COPD, GERD, Arthritis, CHF - Past Surgical History Surgical History: CABG/Valve Surgery, Other - Family History Family Medical History: Diabetes Mellitus, Heart Failure - Social History Does patient currently use any type of tobacco product: No Have you used tobacco products in the last 12 months: No Type of Tobacco Use: Cigarettes How many years tobacco product used: 30 Does any household member use tobacco: No Alcohol Use: None Drug Use: Prescription Drugs - Medications Home Medications: chocolate flavor Allergy (Verified 06/20/18 16:03) Penicillins Allergy (Verified 06/20/18 16:03) CHOCOLATE Allergy (Uncoded 06/20/18 16:03) CONTINUE taking the following medications bumetanide 1 mg PO BID 06/20/18 [History] carvedilol 3.125 mg PO Q12H 06/20/18 [History] gabapentin 1 tab PO BID 06/20/18 [History] insulin lispro 4 units SUBCUT TID 06/20/18 [History] isosorbide mononitrate 120 mg PO QAM 06/20/18 [History] melatonin 1 tab PO HS 06/20/18 [History] nitroglycerin 0.4 mg SUBLINGUAL Q5-15M PRN 06/20/18 [History] oxycodone-acetaminophen 1 tab PO Q6H PRN 06/20/18 [History] ranolazine 500 mg PO BID 06/20/18 [History] sacubitril-valsartan 1 tab PO BID 06/20/18 [History] - Review of Systems Constitutional: Weakness Eyes: No Symptoms Reported ENT: No Symptoms Reported Respiratory: Shortness of Breath Cardiovascular: Chest Pain Gastrointestinal: No Symptoms Reported Genitourinary: No Symptoms Reported Musculoskeletal: Back Pain Skin: No Symptoms Reported Neurological: No Symptoms Reported - Physical Exam Vital Signs: Temperature 100.4 F Pulse Rate [Left Brachial] 94 Pulse Rate 111 Respiratory Rate 20 Blood Pressure [Left Arm] 104/62 Blood Pressure [Right Arm] 110/73 Blood Pressure 121/86 O2 Sat by Pulse Oximetry 93 Oriented: Normal Eyes: Normal Ear: Normal Nose: Normal Throat: Normal Respiratory: RLL Diminished, LLL Diminished Cardiovascular: Normal. negative: Edema : Normal Auscultation: Bowel Sounds: Normal Tenderness: Normal Skin: Normal, Wound (LEFT FOOT 3RD AND 4TH TOE NECROTIC WOUND) Musculoskeletal: Left, Foot, Back:Thoracic, Back:Lumbar, Tender, Sensory Deficit Psychiatric: Anxiety Affect: Anxious Speech Pattern: Clear, Appropriate - Assessment/Plan (1) Chest pain Qualifiers: Chest pain type: precordial pain Qualified Code(s): R07.2 - Precordial pain Status: Acute Plan: ADMIT, SERIAL CE AND EKG. RESUME HOME MEDICATION, CXR ON ADMISSION. OBTAIN LAST CATH REPORT. NITRO PRN ANGINA. CONTINUE BB, ANTICOAGULANT THERAPY. SUPPLEMENTAL O2. BP AND LIPID CONTROL (2) Pneumonia Status: Acute Plan: RESP THERPAY, IV ATBX, SPUTUM SPECIMEN. (3) PAD (peripheral artery disease) Status: Acute (4) CAD (coronary artery disease) Qualifiers: Coronary Disease-Associated Artery/Lesion type: bypass graft Status: Acute (5) COPD exacerbation Status: Acute (6) Hypertension Status: Chronic (7) GERD (gastroesophageal reflux disease) Status: Chronic (8) Diabetes mellitus, type 2 Status: Chronic - Allergies Allergies/Adverse Reactions: Allergies Allergy/AdvReac Type Severity Reaction Status Date / Time chocolate flavor Allergy Verified 06/20/18 16:03 Penicillins Allergy Verified 06/20/18 16:03 CHOCOLATE Allergy Uncoded 06/20/18 16:03
[2018-06-21] MEDS ORDERED: SNACK - Diabetic Appropriate PO SCH (20:00)
[2018-06-21] MEDS: RESTORIL CAP 15 MG PO PRN (20:57)
[2018-06-21] MEDS ORDERED: LIPITOR TAB 40 MG PO SCH (21:00)
[2018-06-21 21:46] LABS: CKMB % 3.1 % (<4); CREATINE KINASE MB 2.7 ng/mL (0-4.0); TROPONIN I 1.27 ng/mL (0-1.5)
[2018-06-22] MEDS: PERCOCET TAB 5/325 MG PO PRN
[2018-06-22] MEDS ORDERED: NS 1/2 1000 ML IV 1,000 ML IV ONE (01:08)
[2018-06-22] MEDS: DUONEB 0.5 MG/3 MG NEB SCH ×4 (01:22→12:15)
[2018-06-22 03:59] LABS: BASOPHILS % (AUTO) 0.1 % (0.2-1.0); HEMATOCRIT 30.2 % (42.0-54.0); HEMOGLOBIN 10.2 g/dL (13.5-18.0); LYMPHOCYTES # (AUTO) 0.8 X10^3/uL (1.3-2.9); LYMPHOCYTES % (AUTO) 22.6 % (21.0-51.0); MEAN CORPUSCULAR HEMOGLOBIN 31.3 pg (27.0-34.0); MEAN CORPUSCULAR HGB CONC 33.7 g/dL (33.0-35.0); MEAN CORPUSCULAR VOLUME 92.7 fL (80.0-100.0); MEAN PLATELET VOLUME 9.2 fL (7.4-11.0); MONOCYTES # (AUTO) 0.3 x10^3/uL (0.3-0.8); MONOCYTES % (AUTO) 9.4 % (0.0-13.0); NEUTROPHILS # (AUTO) 2.3 x10^3/uL (2.2-4.8); NEUTROPHILS % (AUTO) 67.9 % (42.0-75.0); PLATELET COUNT 80 X10^3/uL (150.0-450.0); RED BLOOD COUNT 3.26 X10^6/uL (4.7-6.0); RED CELL DISTRIBUTION WIDTH 20.2 % (11.6-16.5); WHITE BLOOD COUNT 3.3 X10^3/uL (3.6-10.0)
[2018-06-22 04:02] LABS: BLOOD UREA NITROGEN 25 mg/dL (7-18); CALCIUM 7.7 mg/dL (8.5-10.1); CARBON DIOXIDE 27.5 mmol/L (21-32); CHLORIDE 92 mmol/L (98-107); COR NA(FOR HYPERGLY) 127 mmol/L (136-145); CREATININE 1.31 mg/dL (0.70-1.30); SODIUM 126 mmol/L (136-145); eGFR NON BLACK RACES 57 (>60)
[2018-06-22 04:05] LABS: ANISOCYTOSIS 1+; PLATELET MORPHOLOGY COMMENT NORMAL (NORMAL)
[2018-06-22 04:06] LABS: CKMB % 3.6 % (<4); CREATINE KINASE 81 Units/L (39-308); CREATINE KINASE MB 2.9 ng/mL (0-4.0)
[2018-06-22 04:07] LABS: TROPONIN I 2.49 ng/mL (0-1.5)
[2018-06-22] MEDS ORDERED: HEPARIN SODIUM IN D5W 25,000 UNITS/500 ML BAG IV PRN (08:22)
[2018-06-22] MEDS ORDERED: HEPARIN SODIUM IN D5W 25,000 UNITS/500 ML BAG IV ONE (09:07)
[2018-06-22] MEDS ORDERED: HEPARIN SODIUM INJ 5000 UNITS ONE (09:07)
[2018-06-22] MEDS ORDERED: HEPARIN SODIUM INJ 5000 UNITS IVP ONE (09:20)
[2018-06-22 09:46] LABS: CREATINE KINASE MB 5.8 ng/mL (0-4.0); TROPONIN I 3.04 ng/mL (0-1.5)
[2018-06-22] MEDS: MORPHINE SULFATE INJ 2 MG INJ IVP PRN ×2 (10:41→13:02)
[2018-06-22] MEDS: ALDACTONE TAB 25 MG PO SCH (11:25)
[2018-06-22] MEDS: ASPIRIN EC 81 MG PO SCH (11:25)
[2018-06-22] MEDS: COREG TAB 3.125 MG PO SCH (11:25)
[2018-06-22] MEDS: PriLOSEC PO SCH (11:26)
[2018-06-22] MEDS: LEVAQUIN PREMIX IV 750 MG 750 MG/150 ML BAG IV SCH ×2 (11:26→11:29)
[2018-06-22] MEDS: ISOSORBIDE MONONITRATE 120 MG PO SCH (11:26)
[2018-06-22] MEDS: PEPCID TAB 20 MG PO SCH (11:26)
[2018-06-22] MEDS: NEURONTIN CAP 100 MG PO SCH (11:26)
[2018-06-22] MEDS: PLAVIX PO SCH (11:26)
[2018-06-22] MEDS: SACUBITRIL VALSARTAN PO SCH (11:27)
[2018-06-22] MEDS: RANEXA PO SCH (11:27)
[2018-06-22] MEDS: ZOLOFT PO SCH (11:27)
[2018-06-22] MEDS: ROBITUSSIN DM PO SCH (11:28)
[2018-06-22 13:04] VITALS: BP 108/57
[2018-06-22 13:05] LABS: ALANINE AMINOTRANSFERASE 30 Units/L (12-78); ALBUMIN 2.4 g/dL (3.4-5.0); ALKALINE PHOSPHATASE 118 Units/L (46-116); ASPARTATE AMINO TRANSFERASE 40 Units/L (15-37); TOTAL PROTEIN 5.8 g/dL (6.4-8.2)
== END 2018-06-22 13:15 | disposition short-term general hospital (02) | DRG 178 ==
LOC: ER 16:03 → MED/SURG 17:48 → ICU 06-22 08:46
PROVIDERS: ADMIT Obstetrics & Gynecology Obstetrics; ATTEND Internal Medicine
DX: K21.9 Gastro-esophageal reflux disease without esophagitis; B96.89 Other specified bacterial agents as the cause of diseases classified elsewhere; R79.1 Abnormal coagulation profile; F41.8 Other specified anxiety disorders; I96 Gangrene, not elsewhere classified; R94.31 Abnormal electrocardiogram [ECG] [EKG]; R07.2 Precordial pain; J15.6 Pneumonia due to other Gram-negative bacteria; R06.02 Shortness of breath; I25.10 Atherosclerotic heart disease of native coronary artery without angina pectoris; J44.1 Chronic obstructive pulmonary disease with (acute) exacerbation; E11.65 Type 2 diabetes mellitus with hyperglycemia; E78.2 Mixed hyperlipidemia; J90 Pleural effusion, not elsewhere classified; I10 Essential (primary) hypertension; Z98.890 Other specified postprocedural states
CPT/HCPCS: 36415; 71010; 71045; 73630; 80053; 82550; 82553; 83880; 84484; 85025; 85378; 85610; 85730; 87040; 87070; 87075; 87077; 87186; 87205; 93005; 94640; 94669; 94760; 96365; 96367; 96374; 96375; 97162; 97167; 99282; 99284; A4222; Q0177; J1644; J1815; J1956; J2270; J2405; J7620

== ENCOUNTER 2018-07-24 19:43 | Inpatient (IN) ==
[2018-07-24] MEDS ORDERED: DUONEB 0.5 MG/3 MG ONE (20:11)
[2018-07-24 20:13] LABS: BASOPHILS % (AUTO) 0.2 % (0.2-1.0); EOSINOPHILS % (AUTO) 0.4 % (0.9-2.9); HEMATOCRIT 35.7 % (42.0-54.0); HEMOGLOBIN 12.1 g/dL (13.5-18.0); LYMPHOCYTES # (AUTO) 1.2 X10^3/uL (1.3-2.9); LYMPHOCYTES % (AUTO) 14.5 % (21.0-51.0); MEAN CORPUSCULAR HEMOGLOBIN 32.7 pg (27.0-34.0); MEAN CORPUSCULAR HGB CONC 33.8 g/dL (33.0-35.0); MEAN CORPUSCULAR VOLUME 96.8 fL (80.0-100.0); MEAN PLATELET VOLUME 8.3 fL (7.4-11.0); MONOCYTES # (AUTO) 0.6 x10^3/uL (0.3-0.8); MONOCYTES % (AUTO) 6.9 % (0.0-13.0); NEUTROPHILS # (AUTO) 6.2 x10^3/uL (2.2-4.8); PLATELET COUNT 189 X10^3/uL (150.0-450.0); RED BLOOD COUNT 3.69 X10^6/uL (4.7-6.0); RED CELL DISTRIBUTION WIDTH 21.4 % (11.6-16.5)
[2018-07-24 20:17] LABS: ABG BASE EXCESS 5.5 mmol/L (-2.0-2.0); ABG HCO3 29.9 mmol/L (22-26)
[2018-07-24] MEDS ORDERED: DUONEB 0.5 MG/3 MG NEB ONE (20:19)
[2018-07-24] MEDS ORDERED: SOLU-Medrol 125 MG VIAL IVP ONE (20:24)
[2018-07-24] MEDS ORDERED: SOLU-Medrol 125 MG VIAL ONE (20:25)
[2018-07-24 20:27] LABS: BLOOD UREA NITROGEN 15 mg/dL (7-18); CALCIUM 8.9 mg/dL (8.5-10.1); CARBON DIOXIDE 29.5 mmol/L (21-32); CHLORIDE 98 mmol/L (98-107); COR NA(FOR HYPERGLY) 141 mmol/L (136-145); SODIUM 135 mmol/L (136-145); TROPONIN I 0.04 ng/mL (0-1.5); eGFR NON BLACK RACES > 60 (>60)
[2018-07-24 20:31] LABS: ANISOCYTOSIS 1+; PLATELET MORPHOLOGY COMMENT NORMAL (NORMAL)
[2018-07-24 20:50] LABS: ALANINE AMINOTRANSFERASE 69 Units/L (12-78); ALBUMIN 3.3 g/dL (3.4-5.0); ALKALINE PHOSPHATASE 190 Units/L (46-116); ASPARTATE AMINO TRANSFERASE 41 Units/L (15-37); CKMB % 6.3 % (<4); COR CA(FOR HYPOALB) 9.5 mg/dL (8.5-10.1); CREATINE KINASE 93 Units/L (39-308); MAGNESIUM 1.8 mg/dL (1.7-2.9); TOTAL PROTEIN 7.5 g/dL (6.4-8.2)
[2018-07-24 20:53] LABS: CREATINE KINASE MB 5.9 ng/mL (0-4.0)
[2018-07-24] MEDS ORDERED: MORPHINE SULFATE INJ 4 MG IVP ONE (20:53)
[2018-07-24 20:55] LABS: B-TYPE NATRIURETIC PEPTIDE 3690 pg/mL (0-79)
[2018-07-24] MEDS ORDERED: MORPHINE SULFATE INJ 4 MG ONE (21:02)
[2018-07-24] MEDS ORDERED: NS 100 ML IV 100 ML ONE (21:06)
--- NOTE | 2018-07-24 22:10 | RAD ---
HISTORY: Shortness of breath Study: Single-view of the chest Comparison: June 21, 2018 Findings: The patient is rotated. The cardiac silhouette is partially obscured by bilateral bibasilar infiltrate and effusions. The effusions have slightly increased in size since prior exam. Left upper lobe infiltrate cannot be excluded. A left-sided cardiac pacemaker is demonstrated. Postoperative changes of midline sternotomy are noted. IMPRESSION: 1. Bilateral infiltrate and effusions as discussed above. Reported By:
--- NOTE | 2018-07-24 22:36 | DR.SOBA ---
HPI Time Seen Time Seen by Provider: 07/24/18 20:48 Primary Care Physician Primary Care Physician: LEIDY MÉNDEZ Complaints Chief Complaint:: [facility] EMS DISPATCHED OUT TO PATIENT FOR SOB PATIETN BROUGHT IN BY STRETCHER. PATIENT STATED " I HAVE BEEN HAVING DIFFICULTY BREATHING AND AND HURTING IN MY BACK AND CHEST FOR ABOUT 2 DAYS AND I THINK I HAVE PNEMONIA. I HAVE BEEN COUGHING BAD AND COUGHING UP YELLOW STUFF" Source History Provided: Patient Mode of Arrival Mode of Arrival: EMS Timing Onset of Chief Complaint: 07/22/18 PMH PMH Past Medical History: Yes (ASA 81MG) Past Medical History: Anxiety, Arthritis, CHF, COPD, Coronary Artery Disease, Diabetes, Dyslipidemia, GERD and Hypertension Past Medical History Comment: PACEMAKER Past Surgical History: Yes Surgical History: CABG/Valve Surgery, Mastectomy and Other Family History History of Family Medical Conditions: Yes Family Medical History: Diabetes Mellitus and Heart Failure Social History Alcohol Use: None Do you use any recreational Drugs:: No Lives Where: Home infectious screening Have you traveled outside the country in the last 6 months?: No PE Vital Signs Vitals: Temperature 98.9 F Pulse Rate [Left Brachial] 85 Pulse Rate 91 Respiratory Rate 15 Blood Pressure [Left Arm] 132/78 Blood Pressure [Right Arm] 81/58 Blood Pressure 163/89 O2 Sat by Pulse Oximetry 94 General Limitations: Physical Limitation (dyspnea) General Appearance: Alert and Anxious Head Head Exam: Normal Inspection, Atraumatic and Normocephalic Eyes Eye exam: Normal Appearance, PERRL and EOMI ENT ENT Exam: Normal Exam, Normal Oropharynx and Normal External Ear Exam Neck Neck Exam: Normal Inspection Chest Chest Inspection: Normal Inspection and Symmetric Chest Wall Rise Respiratory Respiratory Exam: Normal Lung Sounds Bilat Respiratory Exam: Bilateral: Clear to Auscultation Abdominal Exam Abdominal Exam: Normal Inspection, Normal Bowel Sounds and Soft Abdominal Tenderness: RUQ Extremities Extremities Exam: Normal Inspection and Full ROM Back Back Exam: Normal Inspection and Full ROM Neurologic Neurological Exam: Alert, Oriented X3 and CN II-XII Intact Psychiatric Psychiatric Exam: Normal Affect, Normal Mood and Anxious Skin Skin Exam: Warm, Dry, Intact and Normal Color COURSE Treatment Treatment: Attempted CTA, morphine sulfate, ROR Labs Reviewed Laboratory Results Reviewed?: Yes Result Diagrams: 07/24/18 19:58 07/24/18 19:58 Laboratory: 07/24/18 23:24 Sputum - Expectorated Sputum - Final WBC 8.0 X10^3/uL (3.6-10.0) 07/24/18 19:58 RBC 3.69 X10^6/uL (4.7-6.0) L 07/24/18 19:58 Hgb 12.1 g/dL (13.5-18.0) L 07/24/18 19:58 Hct 35.7 % (42.0-54.0) L 07/24/18 19:58 MCV 96.8 fL (80.0-100.0) 07/24/18 19:58 MCH 32.7 pg (27.0-34.0) 07/24/18 19:58 MCHC 33.8 g/dL (33.0-35.0) 07/24/18 19:58 RDW 21.4 % (11.6-16.5) H 07/24/18 19:58 Plt Count 189 X10^3/uL (150.0-450.0) 07/24/18 19:58 Plt Count Comment Adequate (ADEQUATE) 07/24/18 19:58 MPV 8.3 fL (7.4-11.0) 07/24/18 19:58 Neut % (Auto) 78.0 % (42.0-75.0) H 07/24/18 19:58 Lymph % (Auto) 14.5 % (21.0-51.0) L 07/24/18 19:58 [place] % (Auto) 6.9 % (0.0-13.0) 07/24/18 19:58 Eos % (Auto) 0.4 % (0.9-2.9) L 07/24/18 19:58 Baso % (Auto) 0.2 % (0.2-1.0) 07/24/18 19:58 Neut # (Auto) 6.2 x10^3/uL (2.2-4.8) H 07/24/18 19:58 Lymph # (Auto) 1.2 X10^3/uL (1.3-2.9) L 07/24/18 19:58 [place] # (Auto) 0.6 x10^3/uL (0.3-0.8) 07/24/18 19:58 Eos # (Auto) 0.0 x10^3/uL (0.0-0.2) 07/24/18 19:58 Baso # (Auto) 0.0 X10^3/uL (0.0-0.1) 07/24/18 19:58 Absolute Nucleated RBC 0.0 /100WBC 07/24/18 19:58 Plt Morphology Comment Normal (NORMAL) 07/24/18 19:58 RBC Morphology Abnormal (NORMAL) 07/24/18 19:58 Anisocytosis 1+ A 07/24/18 19:58 ESR 55 MM/HOUR (0-15) H 07/24/18 21:55 INR Target Range - 07/24/18 19:58 INR 1.05 (0.8-1.3) 07/24/18 19:58 APTT 34.3 SECONDS (22.9-36.5) 07/24/18 19:58 PTT Comment - 07/24/18 19:58 D-Dimer 1270 ng/mL (0-400) H* 07/24/18 19:58 Sample Site Rb 07/24/18 20:12 ABG pH 7.460 (7.35-7.45) H 07/24/18 20:12 ABG pCO2 42.0 mmHg (35.0-45.0) 07/24/18 20:12 ABG pO2 58.0 mmHg (80.0-100.0) L 07/24/18 20:12 ABG HCO3 29.9 mmol/L (22-26) H 07/24/18 20:12 ABG O2 Saturation 91.0 % (90-100) 07/24/18 20:12 ABG Base Excess 5.5 mmol/L (-2.0-2.0) H 07/24/18 20:12 David Test N/a 07/24/18 20:12 A-a Gradient 118.0 mmHg 07/24/18 20:12 FiO2 32.0 07/24/18 20:12 Blood Gas Comments Dejah well ae 07/24/18 20:12 Sodium 135 mmol/L (136-145) L 07/24/18 19:58 Corrected Sodium 141 mmol/L (136-145) 07/24/18 19:58 Potassium 4.4 mmol/L (3.5-5.1) 07/24/18 19:58 Chloride 98 mmol/L (98-107) 07/24/18 19:58 Carbon Dioxide 29.5 mmol/L (21-32) 07/24/18 19:58 BUN 15 mg/dL (7-18) 07/24/18 19:58 Creatinine 1.00 mg/dL (0.70-1.30) 07/24/18 19:58 Est GFR (MDRD) Af Amer > 60 (>60) 07/24/18 19:58 Est GFR (MDRD) Non-Af > 60 (>60) 07/24/18 19:58 Glucose 355 mg/dL (65-99) H 07/24/18 19:58 POC Glucose (mg/dL) 107 mg/dL (65-99) H 07/25/18 16:50 Calcium 8.9 mg/dL (8.5-10.1) 07/24/18 19:58 Corrected Calcium 9.5 mg/dL (8.5-10.1) 07/24/18 19:58 Magnesium 1.8 mg/dL (1.7-2.9) 07/24/18 19:58 Total Bilirubin 1.00 mg/dL (0.2-1.0) 07/24/18 19:58 AST 41 Units/L (15-37) H 07/24/18 19:58 ALT 69 Units/L (12-78) 07/24/18 19:58 Alkaline Phosphatase 190 Units/L (46-116) H 07/24/18 19:58 Creatine Kinase 93 Units/L (39-308) 07/24/18 19:58 CK-MB (CK-2) 5.9 ng/mL (0-4.0) H* 07/24/18 19:58 CK/CKMB % Calc 6.3 % (<4) 07/24/18 19:58 Troponin I 0.04 ng/mL (0-1.5) 07/24/18 19:58 C-Reactive Protein 33.70 mg/L (0-3.0) H 07/24/18 21:55 B-Natriuretic Peptide 3690 pg/mL (0-79) H* 07/24/18 19:58 Total Protein 7.5 g/dL (6.4-8.2) 07/24/18 19:58 Albumin 3.3 g/dL (3.4-5.0) L 07/24/18 19:58 Globulin 4.2 g/dL (2.5-4.5) 07/24/18 19:58 Albumin/Globulin Ratio 0.8 Ratio (1.1-2.1) L 07/24/18 19:58 Other Results Comments: The patient is rotated. The cardiac silhouette is partially obscured by bilateral bibasilar infiltrate and effusions. The effusions have slightly increased in size since prior exam (06/21/2018) Left upper lobe infiltrate cannot be excluded. A left sided cardiac pacemaker is demonstrated. Postoperative changes of midline sternotomy are noted. Impression: Bilateral infiltrate and effusions. XRAY XRAY Interpreted by: Radiologist
[2018-07-24] MEDS ORDERED: SALINE 3% 15 ML NEB TX NEB ONE (22:50)
[2018-07-24] MEDS ORDERED: SALINE 3% 15 ML NEB TX ONE (22:51)
[2018-07-24 23:02] LABS: ERYTHROCYTE SEDIMENTATION RATE 55 MM/HOUR (0-15)
[2018-07-24] MEDS: LEVAQUIN PREMIX IV 750 MG 750 MG/150 ML BAG IV SCH (23:08)
[2018-07-24] MEDS ORDERED: LEVAQUIN PREMIX IV 750 MG 750 MG/150 ML BAG IV ONE (23:16)
[2018-07-24] MEDS ORDERED: NS 1/2 1000 ML IV 1,000 ML ONE (23:16)
[2018-07-24] MEDS: NS 1/2 1000 ML IV 1,000 ML IV SCH (23:26)
[2018-07-24] MEDS ORDERED: NITROSTAT SL PRN (23:37)
[2018-07-24] MEDS ORDERED: PATIENT'S HOME MEDICATION (Oxycodone-Acetaminophen [Oxycodone-Acetaminophen] 1 TAB) PO PRN (23:37)
[2018-07-25 00:29] VITALS: BMI 23.0
[2018-07-25] MEDS ORDERED: RESTORIL CAP 15 MG PO ONE (00:41)
[2018-07-25] MEDS: MORPHINE SULFATE INJ 4 MG IVP PRN ×2 (00:47→06:04)
[2018-07-25] MEDS: RESTORIL CAP 15 MG PO PRN (00:49)
[2018-07-25] MEDS: COREG TAB 3.125 MG PO SCH ×3 (00:49→20:31)
[2018-07-25] MEDS: HumuLIN R SC PRN ×3 (06:03→20:36)
[2018-07-25] MEDS: HumaLOG SC SCH ×3 (06:50→17:53)
[2018-07-25] MEDS: DUONEB 0.5 MG/3 MG NEB SCH ×4 (08:22→20:57)
[2018-07-25] MEDS: ISOSORBIDE MONONITRATE ER PO SCH (08:55)
[2018-07-25] MEDS: PLAVIX PO SCH (08:55)
[2018-07-25] MEDS: LEVAQUIN PREMIX IV 750 MG 750 MG/150 ML BAG IV SCH (08:55)
[2018-07-25] MEDS: ASPIRIN EC 81 MG PO SCH (08:56)
[2018-07-25] MEDS: ALDACTONE TAB 25 MG PO SCH (08:56)
[2018-07-25] MEDS: NEURONTIN CAP 100 MG PO SCH ×2 (08:56→20:31)
[2018-07-25] MEDS: ZOLOFT PO SCH (08:56)
[2018-07-25] MEDS: BUMEX TAB 1 MG PO SCH ×2 (08:56→20:31)
[2018-07-25] MEDS ORDERED: DUONEB 0.5 MG/3 MG NEB SCH (09:00)
--- NOTE | 2018-07-25 09:15 | DR.H&P ---
H&P - History & Physical for Day of: H&P Date: 07/24/18 - Chief Complaint Chief Complaint: SOB - History of Present Illness History of Present Illness: 73 WM ER ADMISSION WITH CO SOB. PT HAS PMH OF COPD, CHF, CAD. PT CO PRESNENTING AFTER [facility] EMS DISPATCHED OUT TO PATIENT FOR SOB PATIETN BROUGHT IN BY STRETCHER. PATIENT STATED " I HAVE BEEN HAVING DIFFICULTY BREATHING AND AND HURTING IN MY BACK AND CHEST FOR ABOUT 2 DAYS AND I THINK I HAVE PNEMONIA. I HAVE BEEN COUGHING BAD AND COUGHING UP YELLOW STUFF" PT CXR IN ER REVEALED BILATERAL LOWER LUNG PNEUMONIA AND EFFUSION. PT ADMITTED FOR TREATMENT AND EVALUATION OF SOB - Past Medical History Past Medical History: Coronary Artery Disease, Hypertension, Dyslipidemia, Diabetes, Anxiety, COPD, GERD, Arthritis, CHF - Past Surgical History Surgical History: CABG/Valve Surgery - Family History Family Medical History: Diabetes Mellitus, Heart Failure - Social History Does patient currently use any type of tobacco product: No Have you used tobacco products in the last 12 months: No Type of Tobacco Use: None How many years tobacco product used: 15 Does any household member use tobacco: No Alcohol Use: None Drug Use: Prescription Drugs - Medications Home Medications: chocolate flavor Allergy (Verified 06/20/18 16:03) Penicillins Allergy (Verified 06/20/18 16:03) CHOCOLATE Allergy (Uncoded 06/20/18 16:03) - Review of Systems Constitutional: Weakness Eyes: No Symptoms Reported ENT: No Symptoms Reported Respiratory: Shortness of Breath, SOB with Excertion, Sputum, Wheezing Cardiovascular: No Symptoms Reported Gastrointestinal: No Symptoms Reported Genitourinary: No Symptoms Reported Musculoskeletal: Back Pain Skin: Wound (LEFT FOOT) Neurological: Weakness - Physical Exam Vital Signs: Temperature 98.4 F Pulse Rate [Left Brachial] 85 Pulse Rate 84 Respiratory Rate 11 Blood Pressure [Left Arm] 132/78 Blood Pressure [Right Arm] 117/79 Blood Pressure 163/89 O2 Sat by Pulse Oximetry 93 Oriented: Normal Eyes: Normal, Diplopia Nose: Normal Throat: Normal Respiratory: Diminished Throughout, Rhonchi Throughout Cardiovascular: Normal : Normal Auscultation: Bowel Sounds: Normal Palpation: Normal Tenderness: Normal Skin: Decreased [place], Wound (NECROTIC WOUND TO 3RD, 4TH TOES) Musculoskeletal: Right, Left, Back:Lumbar, Tender Psychiatric: Anxiety Mood Description: Anxious Affect: Anxious Speech Pattern: Clear, Appropriate - Assessment/Plan (1) Pulmonary infiltrates on CXR Status: Acute Plan: ADMIT, PNEUMONIA PROTOCOL, BLOOD AND SPUTUM CULTURES. IV ATBX, SUPPLEMENTAL O2. RESP THERAPY, CONTINUOUS CARDIAC MONITORING. STRICT I & OS (2) Respiratory distress Status: Acute (3) Foot ulcer with necrosis of muscle Status: Acute (4) Chest pain Qualifiers: Chest pain type: precordial pain Qualified Code(s): R07.2 - Precordial pain Status: Acute (5) CAD (coronary artery disease) Qualifiers: Coronary Disease-Associated Artery/Lesion type: bypass graft Status: Acute (6) PAD (peripheral artery disease) Status: Acute (7) Hypertension Status: Chronic (8) GERD (gastroesophageal reflux disease) Status: Chronic (9) Diabetes mellitus, type 2 Status: Chronic - Allergies Allergies/Adverse Reactions: Allergies Allergy/AdvReac Type Severity Reaction Status Date / Time chocolate flavor Allergy Verified 06/20/18 16:03 Penicillins Allergy Verified 06/20/18 16:03 CHOCOLATE Allergy Uncoded 06/20/18 16:03
--- NOTE | 2018-07-25 09:22 | PCM.PROG ---
Progress Note - Progress Note for Day of Date of Exam: 07/25/18 - Subjective Subjective: 73 WM ER ADMISSION WITH SOB, PNEUMONIA. PT HAS PMH OF CAD AND COPD, CHF. PT HOME MEDICATION WERE RESUMED. PT STARTED ON LEVEONX 4OMG SC DAILY, BP AND LIPID CONTROL. PT CONTINUES TO CO SPUTUM PRODUCTION. PT ON SUPPLEMENTAL O2, RESP THERAPY. - Past Medical Family Social History Past Med/Fam/Surg Hx: No changes since H&P Allergies: Allergies chocolate flavor Allergy (Verified 06/20/18 16:03) Penicillins Allergy (Verified 06/20/18 16:03) CHOCOLATE Allergy (Uncoded 06/20/18 16:03) - Review of Systems ROS: No change since H&P - Vital Signs and I&O's Vital Signs: Temperature 98.4 F Pulse Rate [Left Brachial] 85 Pulse Rate 84 Respiratory Rate 11 Blood Pressure [Left Arm] 132/78 Blood Pressure [Right Arm] 117/79 Blood Pressure 163/89 O2 Sat by Pulse Oximetry 93 - Physical Exam Oriented: Normal Eyes: Normal, Diplopia Nose: Normal Throat: Normal Respiratory: Diminished, Wheezes, Rhonchi Cardiovascular: Normal : Normal Auscultation: Bowel Sounds: Normal Tenderness: Normal Skin: Decreased Turgur, Wound (NECROTIC WOUND TO 3RD, 4TH TOES) Musculoskeletal: Right, Left, Back:Lumbar, Tender Psychiatric: Anxiety Mood Description: Anxious Affect: Anxious Speech Pattern: Clear, Appropriate - Laboratory and Diagnostics Result Diagrams: 07/24/18 19:58 07/24/18 19:58 Labs: 07/24/18 23:24 Sputum - Expectorated Sputum - Final Laboratory WBC 8.0 X10^3/uL (3.6-10.0) 07/24/18 19:58 RBC 3.69 X10^6/uL (4.7-6.0) L 07/24/18 19:58 Hgb 12.1 g/dL (13.5-18.0) L 07/24/18 19:58 Hct 35.7 % (42.0-54.0) L 07/24/18 19:58 MCV 96.8 fL (80.0-100.0) 07/24/18 19:58 MCH 32.7 pg (27.0-34.0) 07/24/18 19:58 MCHC 33.8 g/dL (33.0-35.0) 07/24/18 19:58 RDW 21.4 % (11.6-16.5) H 07/24/18 19:58 Plt Count 189 X10^3/uL (150.0-450.0) 07/24/18 19:58 Plt Count Comment Adequate (ADEQUATE) 07/24/18 19:58 MPV 8.3 fL (7.4-11.0) 07/24/18 19:58 Neut % (Auto) 78.0 % (42.0-75.0) H 07/24/18 19:58 Lymph % (Auto) 14.5 % (21.0-51.0) L 07/24/18 19:58 [place] % (Auto) 6.9 % (0.0-13.0) 07/24/18 19:58 Eos % (Auto) 0.4 % (0.9-2.9) L 07/24/18 19:58 Baso % (Auto) 0.2 % (0.2-1.0) 07/24/18 19:58 Neut # (Auto) 6.2 x10^3/uL (2.2-4.8) H 07/24/18 19:58 Lymph # (Auto) 1.2 X10^3/uL (1.3-2.9) L 07/24/18 19:58 [place] # (Auto) 0.6 x10^3/uL (0.3-0.8) 07/24/18 19:58 Eos # (Auto) 0.0 x10^3/uL (0.0-0.2) 07/24/18 19:58 Baso # (Auto) 0.0 X10^3/uL (0.0-0.1) 07/24/18 19:58 Absolute Nucleated RBC 0.0 /100WBC 07/24/18 19:58 Plt Morphology Comment Normal (NORMAL) 07/24/18 19:58 RBC Morphology Abnormal (NORMAL) 07/24/18 19:58 Anisocytosis 1+ A 07/24/18 19:58 ESR 55 MM/HOUR (0-15) H 07/24/18 21:55 INR Target Range - 07/24/18 19:58 INR 1.05 (0.8-1.3) 07/24/18 19:58 APTT 34.3 SECONDS (22.9-36.5) 07/24/18 19:58 PTT Comment - 07/24/18 19:58 D-Dimer 1270 ng/mL (0-400) H* 07/24/18 19:58 Sample Site Rb 07/24/18 20:12 ABG pH 7.460 (7.35-7.45) H 07/24/18 20:12 ABG pCO2 42.0 mmHg (35.0-45.0) 07/24/18 20:12 ABG pO2 58.0 mmHg (80.0-100.0) L 07/24/18 20:12 ABG HCO3 29.9 mmol/L (22-26) H 07/24/18 20:12 ABG O2 Saturation 91.0 % (90-100) 07/24/18 20:12 ABG Base Excess 5.5 mmol/L (-2.0-2.0) H 07/24/18 20:12 David Test N/a 07/24/18 20:12 A-a Gradient 118.0 mmHg 07/24/18 20:12 FiO2 32.0 07/24/18 20:12 Blood Gas Comments Dejah well ae 07/24/18 20:12 Sodium 135 mmol/L (136-145) L 07/24/18 19:58 Corrected Sodium 141 mmol/L (136-145) 07/24/18 19:58 Potassium 4.4 mmol/L (3.5-5.1) 07/24/18 19:58 Chloride 98 mmol/L (98-107) 07/24/18 19:58 Carbon Dioxide 29.5 mmol/L (21-32) 07/24/18 19:58 BUN 15 mg/dL (7-18) 07/24/18 19:58 Creatinine 1.00 mg/dL (0.70-1.30) 07/24/18 19:58 Est GFR (MDRD) Af Amer > 60 (>60) 07/24/18 19:58 Est GFR (MDRD) Non-Af > 60 (>60) 07/24/18 19:58 Glucose 355 mg/dL (65-99) H 07/24/18 19:58 POC Glucose (mg/dL) 353 mg/dL (65-99) H 07/25/18 05:48 Calcium 8.9 mg/dL (8.5-10.1) 07/24/18 19:58 Corrected Calcium 9.5 mg/dL (8.5-10.1) 07/24/18 19:58 Magnesium 1.8 mg/dL (1.7-2.9) 07/24/18 19:58 Total Bilirubin 1.00 mg/dL (0.2-1.0) 07/24/18 19:58 AST 41 Units/L (15-37) H 07/24/18 19:58 ALT 69 Units/L (12-78) 07/24/18 19:58 Alkaline Phosphatase 190 Units/L (46-116) H 07/24/18 19:58 Creatine Kinase 93 Units/L (39-308) 07/24/18 19:58 CK-MB (CK-2) 5.9 ng/mL (0-4.0) H* 07/24/18 19:58 CK/CKMB % Calc 6.3 % (<4) 07/24/18 19:58 Troponin I 0.04 ng/mL (0-1.5) 07/24/18 19:58 C-Reactive Protein 33.70 mg/L (0-3.0) H 07/24/18 21:55 B-Natriuretic Peptide 3690 pg/mL (0-79) H* 07/24/18 19:58 Total Protein 7.5 g/dL (6.4-8.2) 07/24/18 19:58 Albumin 3.3 g/dL (3.4-5.0) L 07/24/18 19:58 Globulin 4.2 g/dL (2.5-4.5) 07/24/18 19:58 Albumin/Globulin Ratio 0.8 Ratio (1.1-2.1) L 07/24/18 19:58 - Plan (1) Pulmonary infiltrates on CXR Status: Acute Plan: ADMIT, PNEUMONIA PROTOCOL, BLOOD AND SPUTUM CULTURES. IV ATBX, SUPPLEMENTAL O2. RESP THERAPY, CONTINUOUS CARDIAC MONITORING. STRICT I & OS (2) CHF (congestive heart failure) Status: Acute Qualifiers: Heart failure type: unspecified Heart failure chronicity: acute on chronic Qualified Code(s): I50.9 - Heart failure, unspecified Plan: STRICT I & OS, SUPPLEMENTAL O2. RESP THERAPY (3) Respiratory distress Status: Acute (4) Foot ulcer with necrosis of muscle Status: Acute (5) Chest pain Status: Acute Qualifiers: Chest pain type: precordial pain Qualified Code(s): R07.2 - Precordial pain (6) CAD (coronary artery disease) Status: Acute Qualifiers: Coronary Disease-Associated Artery/Lesion type: bypass graft (7) PAD (peripheral artery disease) Status: Acute (8) Hypertension Status: Chronic (9) GERD (gastroesophageal reflux disease) Status: Chronic (10) Diabetes mellitus, type 2 Status: Chronic
[2018-07-25] MEDS: SACUBITRIL VALSARTAN PO SCH ×2 (10:46→20:41)
[2018-07-25] MEDS ORDERED: BUTT CREAM (COMPOUND) ONE (11:37)
[2018-07-25] MEDS: PriLOSEC PO SCH (11:39)
[2018-07-25] MEDS: LOVENOX INJ 40 MG SYR SC SCH (11:39)
[2018-07-25] MEDS: RANEXA PO SCH ×2 (11:39→20:48)
[2018-07-25] MEDS ORDERED: BUTT CREAM (COMPOUND) TOP PRN (12:00)
[2018-07-25] MEDS: NS 1/2 1000 ML IV 1,000 ML IV SCH (12:28)
[2018-07-25] MEDS: SOLU-Medrol 40 MG VIAL IVP SCH ×2 (17:53→22:25)
[2018-07-25] MEDS: ZITHROMAX INJ 500 MG VIAL 500 MG in NS 250 ML IV 250 ML IV SCH (17:53)
[2018-07-25] MEDS: LIPITOR TAB 40 MG PO SCH (20:31)
[2018-07-25] MEDS: PERCOCET TAB 5/325 MG PO PRN (20:31)
[2018-07-25] MEDS: SNACK - Diabetic Appropriate PO SCH (20:40)
[2018-07-25] MEDS ORDERED: MELATONIN PO SCH (21:00)
[2018-07-25] MEDS: LANTUS SC SCH (21:58)
[2018-07-25] MEDS: MAALOX or MYLANTA PO PRN (23:12)
[2018-07-26] MEDS ORDERED: NS 1/2 1000 ML IV 1,000 ML ONE (04:28)
[2018-07-26] MEDS: PERCOCET TAB 5/325 MG PO PRN ×2 (05:12→15:46)
[2018-07-26] MEDS: SOLU-Medrol 40 MG VIAL IVP SCH (05:12)
[2018-07-26] MEDS: NS 1/2 1000 ML IV 1,000 ML IV SCH ×3 (05:12→17:48)
[2018-07-26] MEDS: HumuLIN R SC PRN ×4 (05:14→21:05)
[2018-07-26 05:21] LABS: BASOPHILS % (AUTO) 0.1 % (0.2-1.0); HEMOGLOBIN 10.5 g/dL (13.5-18.0); LYMPHOCYTES # (AUTO) 0.3 X10^3/uL (1.3-2.9); MEAN CORPUSCULAR HEMOGLOBIN 32.9 pg (27.0-34.0); MEAN CORPUSCULAR HGB CONC 33.8 g/dL (33.0-35.0); MEAN CORPUSCULAR VOLUME 97.4 fL (80.0-100.0); MEAN PLATELET VOLUME 8.9 fL (7.4-11.0); MONOCYTES # (AUTO) 0.1 x10^3/uL (0.3-0.8); MONOCYTES % (AUTO) 1.3 % (0.0-13.0); NEUTROPHILS # (AUTO) 7.4 x10^3/uL (2.2-4.8); NEUTROPHILS % (AUTO) 94.6 % (42.0-75.0); PLATELET COUNT 149 X10^3/uL (150.0-450.0); RED BLOOD COUNT 3.18 X10^6/uL (4.7-6.0); RED CELL DISTRIBUTION WIDTH 21.4 % (11.6-16.5); WHITE BLOOD COUNT 7.8 X10^3/uL (3.6-10.0)
[2018-07-26 05:40] LABS: ALANINE AMINOTRANSFERASE 48 Units/L (12-78); ALBUMIN 2.8 g/dL (3.4-5.0); ALKALINE PHOSPHATASE 141 Units/L (46-116); ASPARTATE AMINO TRANSFERASE 25 Units/L (15-37); BLOOD UREA NITROGEN 33 mg/dL (7-18); CALCIUM 8.7 mg/dL (8.5-10.1); CARBON DIOXIDE 27.7 mmol/L (21-32); CHLORIDE 97 mmol/L (98-107); COR CA(FOR HYPOALB) 9.7 mg/dL (8.5-10.1); COR NA(FOR HYPERGLY) 141 mmol/L (136-145); CREATININE 1.35 mg/dL (0.70-1.30); SODIUM 134 mmol/L (136-145); TOTAL PROTEIN 6.5 g/dL (6.4-8.2); eGFR NON BLACK RACES 55 (>60)
[2018-07-26 06:01] LABS: ANISOCYTOSIS 1+; BAND NEUTROPHILS % 3 % (0-10); PLATELET MORPHOLOGY COMMENT NORMAL (NORMAL)
[2018-07-26] MEDS: HumaLOG SC SCH ×3 (07:37→17:42)
[2018-07-26] MEDS: ZITHROMAX INJ 500 MG VIAL 500 MG in NS 250 ML IV 250 ML IV SCH (08:24)
[2018-07-26] MEDS: NEURONTIN CAP 100 MG PO SCH ×2 (08:25→20:49)
[2018-07-26] MEDS: ASPIRIN EC 81 MG PO SCH (08:25)
[2018-07-26] MEDS: BUMEX TAB 1 MG PO SCH ×2 (08:25→20:49)
[2018-07-26] MEDS: ZOLOFT PO SCH (08:25)
[2018-07-26] MEDS: COREG TAB 3.125 MG PO SCH ×2 (08:26→20:50)
[2018-07-26] MEDS: ALDACTONE TAB 25 MG PO SCH (08:26)
[2018-07-26] MEDS: PriLOSEC PO SCH (08:26)
[2018-07-26] MEDS: ISOSORBIDE MONONITRATE ER PO SCH (08:28)
[2018-07-26] MEDS: DUONEB 0.5 MG/3 MG NEB SCH ×4 (08:29→20:31)
[2018-07-26] MEDS: RANEXA PO SCH ×2 (08:34→21:00)
[2018-07-26] MEDS: PLAVIX PO SCH (08:35)
[2018-07-26] MEDS: LOVENOX INJ 40 MG SYR SC SCH (08:38)
[2018-07-26] MEDS: SACUBITRIL VALSARTAN PO SCH (08:39)
--- NOTE | 2018-07-26 09:01 | PCM.PROG ---
Progress Note - Progress Note for Day of Date of Exam: 07/25/18 - Subjective Subjective: 73 WM ER ADMISSION WITH SOB, PNEUMONIA. PT HAS PMH OF CAD AND COPD, CHF. PT SET UP FOR VQ SCAN ON THURSDAY R/O PE. PT WBC 8.0 BUN 15, CREAT 1.00. PT HAS INCREASED DIMINISHED LUNG BASES, WILL RESUME HOME DIURETICS, BUMEX AND ALDACTONE. STRICT I& OS. MONITOR RENAL FUNCTION, LASIX IV 40MG IV X2 DOSE START ON THURSDAY. BP AND LIPID CONTROL. PT CONTINUES TO CO SPUTUM PRODUCTION. PT ON SUPPLEMENTAL O2, RESP THERAPY. - Past Medical Family Social History Past Med/Fam/Surg Hx: No changes since H&P Allergies: Allergies chocolate flavor Allergy (Verified 06/20/18 16:03) Penicillins Allergy (Verified 06/20/18 16:03) CHOCOLATE Allergy (Uncoded 06/20/18 16:03) - Review of Systems ROS: No change since H&P - Vital Signs and I&O's Vital Signs: Temperature 98.2 F Pulse Rate [Left Brachial] 85 Pulse Rate 109 Respiratory Rate 19 Blood Pressure [Left Arm] 132/78 Blood Pressure [Right Arm] 83/54 Blood Pressure 163/89 O2 Sat by Pulse Oximetry 91 Intake and Output: Intake & Output 07/23/18 07/24/18 07/25/18 07/26/18 11:59 11:59 11:59 11:59 Intake Total 4192 / 4192 Output Total 2300 / 2300 Balance 1892 / 1892 - Physical Exam Oriented: Normal Eyes: Normal, Diplopia Nose: Normal Throat: Normal Respiratory: Diminished, Wheezes, Rhonchi Cardiovascular: Normal : Normal Auscultation: Bowel Sounds: Normal Tenderness: Normal Skin: Decreased Turgur, Wound (NECROTIC WOUND TO 3RD, 4TH TOES) Musculoskeletal: Right, Left, Back:Lumbar, Tender Psychiatric: Anxiety Mood Description: Anxious Affect: Anxious Speech Pattern: Clear, Appropriate - Laboratory and Diagnostics Result Diagrams: 07/26/18 04:39 07/26/18 04:39 Labs: 07/24/18 23:24 Sputum - Expectorated Sputum - Final Laboratory WBC 7.8 X10^3/uL (3.6-10.0) 07/26/18 04:39 RBC 3.18 X10^6/uL (4.7-6.0) L 07/26/18 04:39 Hgb 10.5 g/dL (13.5-18.0) L 07/26/18 04:39 Hct 31.0 % (42.0-54.0) L 07/26/18 04:39 MCV 97.4 fL (80.0-100.0) 07/26/18 04:39 MCH 32.9 pg (27.0-34.0) 07/26/18 04:39 MCHC 33.8 g/dL (33.0-35.0) 07/26/18 04:39 RDW 21.4 % (11.6-16.5) H 07/26/18 04:39 Plt Count 149 X10^3/uL (150.0-450.0) L 07/26/18 04:39 Plt Count Comment Adequate (ADEQUATE) 07/26/18 04:39 MPV 8.9 fL (7.4-11.0) 07/26/18 04:39 Neut % (Auto) 94.6 % (42.0-75.0) H 07/26/18 04:39 Lymph % (Auto) 4.0 % (21.0-51.0) L 07/26/18 04:39 [place] % (Auto) 1.3 % (0.0-13.0) 07/26/18 04:39 Eos % (Auto) 0.0 % (0.9-2.9) L 07/26/18 04:39 Baso % (Auto) 0.1 % (0.2-1.0) L 07/26/18 04:39 Neut # (Auto) 7.4 x10^3/uL (2.2-4.8) H 07/26/18 04:39 Lymph # (Auto) 0.3 X10^3/uL (1.3-2.9) L 07/26/18 04:39 [place] # (Auto) 0.1 x10^3/uL (0.3-0.8) L 07/26/18 04:39 Eos # (Auto) 0.0 x10^3/uL (0.0-0.2) 07/26/18 04:39 Baso # (Auto) 0.0 X10^3/uL (0.0-0.1) 07/26/18 04:39 Absolute Nucleated RBC 0.0 /100WBC 07/26/18 04:39 Total Counted 100 07/26/18 04:39 Neutrophils % (Manual) 93 % (39-76) H 07/26/18 04:39 Band Neutrophils % 3 % (0-10) 07/26/18 04:39 Lymphocytes % (Manual) 4 % (13-43) L 07/26/18 04:39 Plt Morphology Comment Normal (NORMAL) 07/26/18 04:39 RBC Morphology Abnormal (NORMAL) 07/26/18 04:39 Anisocytosis 1+ A 07/26/18 04:39 ESR 55 MM/HOUR (0-15) H 07/24/18 21:55 INR Target Range - 07/24/18 19:58 INR 1.05 (0.8-1.3) 07/24/18 19:58 APTT 34.3 SECONDS (22.9-36.5) 07/24/18 19:58 PTT Comment - 07/24/18 19:58 D-Dimer 1270 ng/mL (0-400) H* 07/24/18 19:58 Sample Site Rb 07/24/18 20:12 ABG pH 7.460 (7.35-7.45) H 07/24/18 20:12 ABG pCO2 42.0 mmHg (35.0-45.0) 07/24/18 20:12 ABG pO2 58.0 mmHg (80.0-100.0) L 07/24/18 20:12 ABG HCO3 29.9 mmol/L (22-26) H 07/24/18 20:12 ABG O2 Saturation 91.0 % (90-100) 07/24/18 20:12 ABG Base Excess 5.5 mmol/L (-2.0-2.0) H 07/24/18 20:12 David Test N/a 07/24/18 20:12 A-a Gradient 118.0 mmHg 07/24/18 20:12 FiO2 32.0 07/24/18 20:12 Blood Gas Comments Dejah well ae 07/24/18 20:12 Sodium 134 mmol/L (136-145) L 07/26/18 04:39 Corrected Sodium 141 mmol/L (136-145) 07/26/18 04:39 Potassium 4.8 mmol/L (3.5-5.1) 07/26/18 04:39 Chloride 97 mmol/L (98-107) L 07/26/18 04:39 Carbon Dioxide 27.7 mmol/L (21-32) 07/26/18 04:39 BUN 33 mg/dL (7-18) H 07/26/18 04:39 Creatinine 1.35 mg/dL (0.70-1.30) H 07/26/18 04:39 Est GFR (MDRD) Af Amer > 60 (>60) 07/26/18 04:39 Est GFR (MDRD) Non-Af 55 (>60) L 07/26/18 04:39 Glucose 397 mg/dL (65-99) H 07/26/18 04:39 POC Glucose (mg/dL) 378 mg/dL (65-99) H 07/26/18 04:56 Calcium 8.7 mg/dL (8.5-10.1) 07/26/18 04:39 Corrected Calcium 9.7 mg/dL (8.5-10.1) 07/26/18 04:39 Magnesium 1.8 mg/dL (1.7-2.9) 07/24/18 19:58 Total Bilirubin 0.50 mg/dL (0.2-1.0) 07/26/18 04:39 AST 25 Units/L (15-37) 07/26/18 04:39 ALT 48 Units/L (12-78) 07/26/18 04:39 Alkaline Phosphatase 141 Units/L (46-116) H 07/26/18 04:39 Creatine Kinase 93 Units/L (39-308) 07/24/18 19:58 CK-MB (CK-2) 5.9 ng/mL (0-4.0) H* 07/24/18 19:58 CK/CKMB % Calc 6.3 % (<4) 07/24/18 19:58 Troponin I 0.04 ng/mL (0-1.5) 07/24/18 19:58 C-Reactive Protein 33.70 mg/L (0-3.0) H 07/24/18 21:55 B-Natriuretic Peptide 3690 pg/mL (0-79) H* 07/24/18 19:58 Total Protein 6.5 g/dL (6.4-8.2) 07/26/18 04:39 Albumin 2.8 g/dL (3.4-5.0) L 07/26/18 04:39 Globulin 3.7 g/dL (2.5-4.5) 07/26/18 04:39 Albumin/Globulin Ratio 0.8 Ratio (1.1-2.1) L 07/26/18 04:39 - Plan (1) Pulmonary infiltrates on CXR Status: Acute Plan: ADMIT, PNEUMONIA PROTOCOL, BLOOD AND SPUTUM CULTURES. IV ATBX, SUPPLEMENTAL O2. RESP THERAPY, CONTINUOUS CARDIAC MONITORING. STRICT I & OS (2) CHF (congestive heart failure) Status: Acute Qualifiers: Heart failure type: unspecified Heart failure chronicity: acute on chronic Qualified Code(s): I50.9 - Heart failure, unspecified Plan: STRICT I & OS, SUPPLEMENTAL O2. RESP THERAPY (3) Respiratory distress Status: Acute (4) Foot ulcer with necrosis of muscle Status: Acute (5) Chest pain Status: Acute Qualifiers: Chest pain type: precordial pain Qualified Code(s): R07.2 - Precordial pain (6) CAD (coronary artery disease) Status: Acute Qualifiers: Coronary Disease-Associated Artery/Lesion type: bypass graft (7) PAD (peripheral artery disease) Status: Acute (8) Hypertension Status: Chronic (9) GERD (gastroesophageal reflux disease) Status: Chronic (10) Diabetes mellitus, type 2 Status: Chronic
[2018-07-26] MEDS: MAALOX or MYLANTA PO PRN ×2 (10:01→20:57)
[2018-07-26] MEDS: LASIX IVP SCH ×2 (14:47→20:50)
[2018-07-26] MEDS: LEVAQUIN PREMIX IV 750 MG 750 MG/150 ML BAG IV SCH (14:47)
--- NOTE | 2018-07-26 17:57 | PCM.PROG ---
Progress Note - Progress Note for Day of Date of Exam: 07/26/18 - Subjective Subjective: 73 WM ER ADMISSION WITH SOB, PNEUMONIA. PT HAS PMH OF CAD AND COPD, CHF. PT SET UP FOR VQ SCAN R/O PE. PT HAS INCREASED DIMINISHED LUNG BASES, WILL RESUME HOME DIURETICS, BUMEX AND ALDACTONE. STRICT I& OS. MONITOR RENAL FUNCTION, LASIX IV 40MG IV X2 DOSE BP AND LIPID CONTROL. PT CONTINUES TO CO SPUTUM PRODUCTION. PT ON SUPPLEMENTAL O2, RESP THERAPY. - Past Medical Family Social History Past Med/Fam/Surg Hx: No changes since H&P Allergies: Allergies chocolate flavor Allergy (Verified 06/20/18 16:03) Penicillins Allergy (Verified 06/20/18 16:03) CHOCOLATE Allergy (Uncoded 06/20/18 16:03) - Review of Systems ROS: No change since H&P - Vital Signs and I&O's Vital Signs: Temperature 99 F Pulse Rate [Left Brachial] 97 Pulse Rate 92 Respiratory Rate 22 Blood Pressure [Left Arm] 113/77 Blood Pressure [Right Arm] 86/61 Blood Pressure 163/89 O2 Sat by Pulse Oximetry 94 Intake and Output: Intake & Output 07/24/18 07/25/18 07/26/18 07/27/18 11:59 11:59 11:59 11:59 Intake Total 4192 / 4192 1671 / 1671 Output Total 2300 / 2300 1200 / 1200 Balance 1892 / 1892 471 / 471 - Physical Exam Oriented: Normal Eyes: Normal, Diplopia Nose: Normal Throat: Normal Respiratory: Diminished, Wheezes, Rhonchi Cardiovascular: Normal : Normal Auscultation: Bowel Sounds: Normal Tenderness: Normal Skin: Decreased Turgur, Wound (NECROTIC WOUND TO 3RD, 4TH TOES) Musculoskeletal: Right, Left, Back:Lumbar, Tender Psychiatric: Anxiety Mood Description: Anxious Affect: Anxious Speech Pattern: Clear, Appropriate - Laboratory and Diagnostics Result Diagrams: 07/26/18 04:39 07/26/18 12:50 Labs: 07/24/18 16:55 Blood Blood Culture - Preliminary 07/24/18 19:58 Blood Blood Culture - Preliminary 07/24/18 23:24 Sputum - Expectorated Sputum Sputum Culture - Preliminary 07/24/18 23:24 Sputum - Expectorated Sputum - Final Laboratory WBC 7.8 X10^3/uL (3.6-10.0) 07/26/18 04:39 RBC 3.18 X10^6/uL (4.7-6.0) L 07/26/18 04:39 Hgb 10.5 g/dL (13.5-18.0) L 07/26/18 04:39 Hct 31.0 % (42.0-54.0) L 07/26/18 04:39 MCV 97.4 fL (80.0-100.0) 07/26/18 04:39 MCH 32.9 pg (27.0-34.0) 07/26/18 04:39 MCHC 33.8 g/dL (33.0-35.0) 07/26/18 04:39 RDW 21.4 % (11.6-16.5) H 07/26/18 04:39 Plt Count 149 X10^3/uL (150.0-450.0) L 07/26/18 04:39 Plt Count Comment Adequate (ADEQUATE) 07/26/18 04:39 MPV 8.9 fL (7.4-11.0) 07/26/18 04:39 Neut % (Auto) 94.6 % (42.0-75.0) H 07/26/18 04:39 Lymph % (Auto) 4.0 % (21.0-51.0) L 07/26/18 04:39 [place] % (Auto) 1.3 % (0.0-13.0) 07/26/18 04:39 Eos % (Auto) 0.0 % (0.9-2.9) L 07/26/18 04:39 Baso % (Auto) 0.1 % (0.2-1.0) L 07/26/18 04:39 Neut # (Auto) 7.4 x10^3/uL (2.2-4.8) H 07/26/18 04:39 Lymph # (Auto) 0.3 X10^3/uL (1.3-2.9) L 07/26/18 04:39 [place] # (Auto) 0.1 x10^3/uL (0.3-0.8) L 07/26/18 04:39 Eos # (Auto) 0.0 x10^3/uL (0.0-0.2) 07/26/18 04:39 Baso # (Auto) 0.0 X10^3/uL (0.0-0.1) 07/26/18 04:39 Absolute Nucleated RBC 0.0 /100WBC 07/26/18 04:39 Total Counted 100 07/26/18 04:39 Neutrophils % (Manual) 93 % (39-76) H 07/26/18 04:39 Band Neutrophils % 3 % (0-10) 07/26/18 04:39 Lymphocytes % (Manual) 4 % (13-43) L 07/26/18 04:39 Plt Morphology Comment Normal (NORMAL) 07/26/18 04:39 RBC Morphology Abnormal (NORMAL) 07/26/18 04:39 Anisocytosis 1+ A 07/26/18 04:39 ESR 55 MM/HOUR (0-15) H 07/24/18 21:55 INR Target Range - 07/24/18 19:58 INR 1.05 (0.8-1.3) 07/24/18 19:58 APTT 34.3 SECONDS (22.9-36.5) 07/24/18 19:58 PTT Comment - 07/24/18 19:58 D-Dimer 1270 ng/mL (0-400) H* 07/24/18 19:58 Sample Site Rb 07/24/18 20:12 ABG pH 7.460 (7.35-7.45) H 07/24/18 20:12 ABG pCO2 42.0 mmHg (35.0-45.0) 07/24/18 20:12 ABG pO2 58.0 mmHg (80.0-100.0) L 07/24/18 20:12 ABG HCO3 29.9 mmol/L (22-26) H 07/24/18 20:12 ABG O2 Saturation 91.0 % (90-100) 07/24/18 20:12 ABG Base Excess 5.5 mmol/L (-2.0-2.0) H 07/24/18 20:12 David Test N/a 07/24/18 20:12 A-a Gradient 118.0 mmHg 07/24/18 20:12 FiO2 32.0 07/24/18 20:12 Blood Gas Comments Dejah well ae 07/24/18 20:12 Sodium 134 mmol/L (136-145) L 07/26/18 04:39 Corrected Sodium 141 mmol/L (136-145) 07/26/18 04:39 Potassium 4.8 mmol/L (3.5-5.1) 07/26/18 04:39 Chloride 97 mmol/L (98-107) L 07/26/18 04:39 Carbon Dioxide 27.7 mmol/L (21-32) 07/26/18 04:39 BUN 33 mg/dL (7-18) H 07/26/18 04:39 Creatinine 1.35 mg/dL (0.70-1.30) H 07/26/18 04:39 Est GFR (MDRD) Af Amer > 60 (>60) 07/26/18 04:39 Est GFR (MDRD) Non-Af 55 (>60) L 07/26/18 04:39 Glucose 443 mg/dL (65-99) H 07/26/18 12:50 POC Glucose (mg/dL) 398 mg/dL (65-99) H 07/26/18 16:41 Calcium 8.7 mg/dL (8.5-10.1) 07/26/18 04:39 Corrected Calcium 9.7 mg/dL (8.5-10.1) 07/26/18 04:39 Magnesium 1.8 mg/dL (1.7-2.9) 07/24/18 19:58 Total Bilirubin 0.50 mg/dL (0.2-1.0) 07/26/18 04:39 AST 25 Units/L (15-37) 07/26/18 04:39 ALT 48 Units/L (12-78) 07/26/18 04:39 Alkaline Phosphatase 141 Units/L (46-116) H 07/26/18 04:39 Creatine Kinase 93 Units/L (39-308) 07/24/18 19:58 CK-MB (CK-2) 5.9 ng/mL (0-4.0) H* 07/24/18 19:58 CK/CKMB % Calc 6.3 % (<4) 07/24/18 19:58 Troponin I 0.04 ng/mL (0-1.5) 07/24/18 19:58 C-Reactive Protein 33.70 mg/L (0-3.0) H 07/24/18 21:55 B-Natriuretic Peptide 3690 pg/mL (0-79) H* 07/24/18 19:58 Total Protein 6.5 g/dL (6.4-8.2) 07/26/18 04:39 Albumin 2.8 g/dL (3.4-5.0) L 07/26/18 04:39 Globulin 3.7 g/dL (2.5-4.5) 07/26/18 04:39 Albumin/Globulin Ratio 0.8 Ratio (1.1-2.1) L 07/26/18 04:39 - Plan (1) Pulmonary infiltrates on CXR Status: Acute Plan: PNEUMONIA PROTOCOL, BLOOD AND SPUTUM CULTURES. IV ATBX, SUPPLEMENTAL O2. RESP THERAPY, CONTINUOUS CARDIAC MONITORING. STRICT I & OS (2) CHF (congestive heart failure) Status: Acute Qualifiers: Heart failure type: unspecified Heart failure chronicity: acute on chronic Qualified Code(s): I50.9 - Heart failure, unspecified Plan: STRICT I & OS, SUPPLEMENTAL O2. RESP THERAPY (3) Respiratory distress Status: Acute (4) Foot ulcer with necrosis of muscle Status: Acute (5) Chest pain Status: Acute Qualifiers: Chest pain type: precordial pain Qualified Code(s): R07.2 - Precordial pain (6) CAD (coronary artery disease) Status: Acute Qualifiers: Coronary Disease-Associated Artery/Lesion type: bypass graft (7) PAD (peripheral artery disease) Status: Acute (8) Hypertension Status: Chronic (9) GERD (gastroesophageal reflux disease) Status: Chronic (10) Diabetes mellitus, type 2 Status: Chronic
--- NOTE | 2018-07-26 18:27 | RAD ---
HISTORY: Congestive heart failure Study: Single view of the chest. Comparison: 07/24/2018 Findings: The cardiomediastinal silhouette is normal. No significant change in the appearance of diffuse interstitial prominence bilaterally with large left and moderate right pleural effusions. Osseous structures demonstrate no acute abnormality. IMPRESSION: 1. No change from prior. Reported By:
[2018-07-26] MEDS: RESTORIL CAP 15 MG PO PRN (20:30)
[2018-07-26] MEDS: TUSSIONEX PENNKINETIC SUSP PO PRN (20:30)
[2018-07-26] MEDS: MORPHINE SULFATE INJ 4 MG IVP PRN (20:30)
[2018-07-26] MEDS: SNACK - Diabetic Appropriate PO SCH (20:49)
[2018-07-26] MEDS: LIPITOR TAB 40 MG PO SCH (20:50)
[2018-07-26] MEDS: ENTRESTO 24/26 MG TAB PO SCH (20:50)
[2018-07-26] MEDS: MILK OF MAGNESIA PO PRN (20:57)
[2018-07-26] MEDS: LANTUS SC SCH (21:06)
[2018-07-27] MEDS: PERCOCET TAB 5/325 MG PO PRN (03:32)
[2018-07-27 05:32] LABS: BASOPHILS % (AUTO) 0.1 % (0.2-1.0); HEMATOCRIT 30.2 % (42.0-54.0); HEMOGLOBIN 10.4 g/dL (13.5-18.0); LYMPHOCYTES # (AUTO) 0.8 X10^3/uL (1.3-2.9); LYMPHOCYTES % (AUTO) 8.7 % (21.0-51.0); MEAN CORPUSCULAR HEMOGLOBIN 33.5 pg (27.0-34.0); MEAN CORPUSCULAR HGB CONC 34.4 g/dL (33.0-35.0); MEAN CORPUSCULAR VOLUME 97.5 fL (80.0-100.0); MEAN PLATELET VOLUME 8.7 fL (7.4-11.0); MONOCYTES # (AUTO) 0.7 x10^3/uL (0.3-0.8); MONOCYTES % (AUTO) 7.8 % (0.0-13.0); NEUTROPHILS # (AUTO) 7.6 x10^3/uL (2.2-4.8); NEUTROPHILS % (AUTO) 83.4 % (42.0-75.0); PLATELET COUNT 137 X10^3/uL (150.0-450.0); RED CELL DISTRIBUTION WIDTH 21.1 % (11.6-16.5); WHITE BLOOD COUNT 9.1 X10^3/uL (3.6-10.0)
[2018-07-27 05:41] LABS: ALANINE AMINOTRANSFERASE 36 Units/L (12-78); ALBUMIN 2.5 g/dL (3.4-5.0); ALKALINE PHOSPHATASE 124 Units/L (46-116); ASPARTATE AMINO TRANSFERASE 13 Units/L (15-37); BLOOD UREA NITROGEN 26 mg/dL (7-18); CALCIUM 8.5 mg/dL (8.5-10.1); CARBON DIOXIDE 33.5 mmol/L (21-32); CHLORIDE 99 mmol/L (98-107); COR CA(FOR HYPOALB) 9.7 mg/dL (8.5-10.1); COR NA(FOR HYPERGLY) 140 mmol/L (136-145); SODIUM 136 mmol/L (136-145); eGFR NON BLACK RACES > 60 (>60)
[2018-07-27] MEDS: HumuLIN R SC PRN ×4 (06:29→22:00)
[2018-07-27 06:44] LABS: ANISOCYTOSIS 1+; PLATELET MORPHOLOGY COMMENT NORMAL (NORMAL)
[2018-07-27] MEDS: HumaLOG SC SCH ×3 (07:30→18:15)
[2018-07-27] MEDS: DUONEB 0.5 MG/3 MG NEB SCH ×4 (09:05→20:06)
[2018-07-27] MEDS: LOVENOX INJ 40 MG SYR SC SCH (09:16)
[2018-07-27] MEDS: MILK OF MAGNESIA PO PRN (09:16)
[2018-07-27] MEDS: PriLOSEC PO SCH (09:20)
[2018-07-27] MEDS: NS 1/2 1000 ML IV 1,000 ML IV SCH ×2 (09:20→23:13)
[2018-07-27] MEDS: ASPIRIN EC 81 MG PO SCH (09:21)
[2018-07-27] MEDS: ZOLOFT PO SCH (09:28)
[2018-07-27] MEDS: COREG TAB 3.125 MG PO SCH ×2 (09:28→21:00)
[2018-07-27] MEDS: NEURONTIN CAP 100 MG PO SCH ×2 (09:28→21:00)
[2018-07-27] MEDS: RANEXA PO SCH ×2 (09:29→21:00)
[2018-07-27] MEDS: ENTRESTO 24/26 MG TAB PO SCH ×2 (09:29→21:00)
[2018-07-27] MEDS: ISOSORBIDE MONONITRATE ER PO SCH (09:29)
[2018-07-27] MEDS: PLAVIX PO SCH (09:30)
[2018-07-27] MEDS: ALDACTONE TAB 25 MG PO SCH (09:30)
[2018-07-27] MEDS: LEVAQUIN PREMIX IV 750 MG 750 MG/150 ML BAG IV SCH (09:31)
[2018-07-27] MEDS ORDERED: GYLCERIN ADULT SUPP RECTAL SCH (10:00)
[2018-07-27] MEDS: COLACE CAP 100 MG PO SCH (10:45)
[2018-07-27] MEDS: ZITHROMAX INJ 500 MG VIAL 500 MG in NS 250 ML IV 250 ML IV SCH (10:45)
[2018-07-27] MEDS: LASIX IVP SCH ×2 (10:46→21:00)
[2018-07-27] MEDS: BUMEX TAB 1 MG PO SCH (10:48)
[2018-07-27] MEDS ORDERED: GYLCERIN ADULT SUPP RECTAL NR (13:15)
--- NOTE | 2018-07-27 13:28 | PCM.PROG ---
Progress Note - Progress Note for Day of Date of Exam: 07/27/18 - Subjective Subjective: 73 WM ER ADMISSION WITH SOB, PNEUMONIA. PT HAS PMH OF CAD AND COPD, CHF. VQ SCAN R/O PE. PT HAS INCREASED DIMINISHED LUNG BASES. LASIX IV 40 THIS AM. STRICT I & OS, SPUTUM +ENTEROBACTER. PT CONTINUES TO CO SPUTUM PRODUCTION. PT ON SUPPLEMENTAL O2, RESP THERAPY. - Past Medical Family Social History Past Med/Fam/Surg Hx: No changes since H&P Allergies: Allergies chocolate flavor Allergy (Verified 06/20/18 16:03) Penicillins Allergy (Verified 06/20/18 16:03) CHOCOLATE Allergy (Uncoded 06/20/18 16:03) - Review of Systems ROS: No change since H&P - Vital Signs and I&O's Vital Signs: Temperature 98.0 F Pulse Rate [Left Brachial] 85 Pulse Rate 85 Respiratory Rate 21 Blood Pressure [Left Arm] 78/50 Blood Pressure [Right Arm] 86/61 Blood Pressure 163/89 O2 Sat by Pulse Oximetry 88 Intake and Output: Intake & Output 07/25/18 07/26/18 07/27/18 07/28/18 11:59 11:59 11:59 11:59 Intake Total 4192 / 4192 2721 / 2721 Output Total 2300 / 2300 2900 / 2900 Balance 1892 / 1892 -179 / -179 - Physical Exam Oriented: Normal Eyes: Normal, Diplopia Nose: Normal Throat: Normal Respiratory: Diminished, Wheezes, Rhonchi Cardiovascular: Normal : Normal Auscultation: Bowel Sounds: Normal Tenderness: Normal Skin: Decreased Turgur, Wound (NECROTIC WOUND TO 3RD, 4TH TOES) Musculoskeletal: Right, Left, Back:Lumbar, Tender Psychiatric: Anxiety Mood Description: Anxious Affect: Anxious Speech Pattern: Clear, Appropriate - Laboratory and Diagnostics Result Diagrams: 07/27/18 04:23 07/27/18 04:23 Labs: 07/24/18 23:24 Sputum - Expectorated Sputum Sputum Culture - Final Enterobacter Intermedius 07/24/18 23:24 Sputum - Expectorated Sputum - Final 07/24/18 16:55 Blood Blood Culture - Preliminary 07/24/18 19:58 Blood Blood Culture - Preliminary Laboratory WBC 9.1 X10^3/uL (3.6-10.0) 07/27/18 04:23 RBC 3.10 X10^6/uL (4.7-6.0) L 07/27/18 04:23 Hgb 10.4 g/dL (13.5-18.0) L 07/27/18 04:23 Hct 30.2 % (42.0-54.0) L 07/27/18 04:23 MCV 97.5 fL (80.0-100.0) 07/27/18 04:23 MCH 33.5 pg (27.0-34.0) 07/27/18 04:23 MCHC 34.4 g/dL (33.0-35.0) 07/27/18 04:23 RDW 21.1 % (11.6-16.5) H 07/27/18 04:23 Plt Count 137 X10^3/uL (150.0-450.0) L 07/27/18 04:23 Plt Count Comment Adequate (ADEQUATE) 07/27/18 04:23 MPV 8.7 fL (7.4-11.0) 07/27/18 04:23 Neut % (Auto) 83.4 % (42.0-75.0) H 07/27/18 04:23 Lymph % (Auto) 8.7 % (21.0-51.0) L 07/27/18 04:23 [place] % (Auto) 7.8 % (0.0-13.0) 07/27/18 04:23 Eos % (Auto) 0.0 % (0.9-2.9) L 07/27/18 04:23 Baso % (Auto) 0.1 % (0.2-1.0) L 07/27/18 04:23 Neut # (Auto) 7.6 x10^3/uL (2.2-4.8) H 07/27/18 04:23 Lymph # (Auto) 0.8 X10^3/uL (1.3-2.9) L 07/27/18 04:23 [place] # (Auto) 0.7 x10^3/uL (0.3-0.8) 07/27/18 04:23 Eos # (Auto) 0.0 x10^3/uL (0.0-0.2) 07/27/18 04:23 Baso # (Auto) 0.0 X10^3/uL (0.0-0.1) 07/27/18 04:23 Absolute Nucleated RBC 0.0 /100WBC 07/27/18 04:23 Total Counted 100 07/26/18 04:39 Neutrophils % (Manual) 93 % (39-76) H 07/26/18 04:39 Band Neutrophils % 3 % (0-10) 07/26/18 04:39 Lymphocytes % (Manual) 4 % (13-43) L 07/26/18 04:39 Plt Morphology Comment Normal (NORMAL) 07/27/18 04:23 RBC Morphology Abnormal (NORMAL) 07/27/18 04:23 Anisocytosis 1+ A 07/27/18 04:23 ESR 55 MM/HOUR (0-15) H 07/24/18 21:55 INR Target Range - 07/24/18 19:58 INR 1.05 (0.8-1.3) 07/24/18 19:58 APTT 34.3 SECONDS (22.9-36.5) 07/24/18 19:58 PTT Comment - 07/24/18 19:58 D-Dimer 1270 ng/mL (0-400) H* 07/24/18 19:58 Sample Site Rb 07/24/18 20:12 ABG pH 7.460 (7.35-7.45) H 07/24/18 20:12 ABG pCO2 42.0 mmHg (35.0-45.0) 07/24/18 20:12 ABG pO2 58.0 mmHg (80.0-100.0) L 07/24/18 20:12 ABG HCO3 29.9 mmol/L (22-26) H 07/24/18 20:12 ABG O2 Saturation 91.0 % (90-100) 07/24/18 20:12 ABG Base Excess 5.5 mmol/L (-2.0-2.0) H 07/24/18 20:12 David Test N/a 07/24/18 20:12 A-a Gradient 118.0 mmHg 07/24/18 20:12 FiO2 32.0 07/24/18 20:12 Blood Gas Comments Dejah well ae 07/24/18 20:12 Sodium 136 mmol/L (136-145) 07/27/18 04:23 Corrected Sodium 140 mmol/L (136-145) 07/27/18 04:23 Potassium 4.0 mmol/L (3.5-5.1) 07/27/18 04:23 Chloride 99 mmol/L (98-107) 07/27/18 04:23 Carbon Dioxide 33.5 mmol/L (21-32) H 07/27/18 04:23 BUN 26 mg/dL (7-18) H 07/27/18 04:23 Creatinine 1.20 mg/dL (0.70-1.30) 07/27/18 04:23 Est GFR (MDRD) Af Amer > 60 (>60) 07/27/18 04:23 Est GFR (MDRD) Non-Af > 60 (>60) 07/27/18 04:23 Glucose 247 mg/dL (65-99) H 07/27/18 04:23 POC Glucose (mg/dL) 226 mg/dL (65-99) H 07/27/18 11:34 Calcium 8.5 mg/dL (8.5-10.1) 07/27/18 04:23 Corrected Calcium 9.7 mg/dL (8.5-10.1) 07/27/18 04:23 Magnesium 1.8 mg/dL (1.7-2.9) 07/24/18 19:58 Total Bilirubin 0.40 mg/dL (0.2-1.0) 07/27/18 04:23 AST 13 Units/L (15-37) L 07/27/18 04:23 ALT 36 Units/L (12-78) 07/27/18 04:23 Alkaline Phosphatase 124 Units/L (46-116) H 07/27/18 04:23 Creatine Kinase 93 Units/L (39-308) 07/24/18 19:58 CK-MB (CK-2) 5.9 ng/mL (0-4.0) H* 07/24/18 19:58 CK/CKMB % Calc 6.3 % (<4) 07/24/18 19:58 Troponin I 0.04 ng/mL (0-1.5) 07/24/18 19:58 C-Reactive Protein 33.70 mg/L (0-3.0) H 07/24/18 21:55 B-Natriuretic Peptide 3690 pg/mL (0-79) H* 07/24/18 19:58 Total Protein 6.0 g/dL (6.4-8.2) L 07/27/18 04:23 Albumin 2.5 g/dL (3.4-5.0) L 07/27/18 04:23 Globulin 3.5 g/dL (2.5-4.5) 07/27/18 04:23 Albumin/Globulin Ratio 0.7 Ratio (1.1-2.1) L 07/27/18 04:23 - Plan (1) Pulmonary infiltrates on CXR Status: Acute Plan: PNEUMONIA PROTOCOL, BLOOD AND SPUTUM CULTURES COLLECTED ON ADMISSION. IV ATBX, SUPPLEMENTAL O2. RESP THERAPY, CONTINUOUS CARDIAC MONITORING. STRICT I & OS (2) CHF (congestive heart failure) Status: Acute Qualifiers: Heart failure type: unspecified Heart failure chronicity: acute on chronic Qualified Code(s): I50.9 - Heart failure, unspecified Plan: STRICT I & OS, SUPPLEMENTAL O2. RESP THERAPY (3) Respiratory distress Status: Acute (4) Foot ulcer with necrosis of muscle Status: Acute (5) Chest pain Status: Acute Qualifiers: Chest pain type: precordial pain Qualified Code(s): R07.2 - Precordial pain (6) CAD (coronary artery disease) Status: Acute Qualifiers: Coronary Disease-Associated Artery/Lesion type: bypass graft (7) PAD (peripheral artery disease) Status: Acute (8) Hypertension Status: Chronic (9) GERD (gastroesophageal reflux disease) Status: Chronic (10) Diabetes mellitus, type 2 Status: Chronic
--- NOTE | 2018-07-27 13:41 | NM ---
VQ SCAN CLINICAL INDICATION: Congestive heart failure, shortness of breath, pneumonia. PROCEDURE: Following the inhalation of approximately 30.3 mCi Tc-99m DTPA aerosol, planar lung images were performed in multiple projections. Subsequently, following the intravenous administration of 5.5 mCi Tc-99m MAA, planar lung images were also obtained in multiple projections. COMPARISON: Chest x-ray 07/26/2018 demonstrating edema and bilateral effusions. FINDINGS: Due to extensive clumping of radiotracer, the ventilation images are of essentially no use Perfusion and ventilation lung images demonstrate defects associated with patient's effusions. There are no segmental or subsegmental mismatched defects suspicious for acute pulmonary embolus. IMPRESSION: 1. Markedly limited examination as above. Findings are not characteristic for PE. In addition, it is recommended that all VQ scan probability levels be combined with the clinical probability score (Wells or similar) to arrive at overall probability. If the pretest probability is high, but VQ is "not characteristic for PE" (low or very low probability) then another test may still be indicated such as CTA or LE US for DVT. Reported By:
[2018-07-27] MEDS: MILK OF MAGNESIA PO SCH ×2 (14:47→21:00)
[2018-07-27] MEDS ORDERED: DULCOLAX SUPPOSITORY 10 MG RECTAL ONE (17:11)
[2018-07-27] MEDS ORDERED: DULCOLAX SUPPOSITORY 10 MG ONE (17:35)
[2018-07-27] MEDS: SNACK - Diabetic Appropriate PO SCH (20:00)
[2018-07-27] MEDS: LIPITOR TAB 40 MG PO SCH (21:00)
[2018-07-27] MEDS: MORPHINE SULFATE INJ 4 MG IVP PRN (21:00)
[2018-07-27] MEDS: TUSSIONEX PENNKINETIC SUSP PO PRN (21:00)
[2018-07-27] MEDS: RESTORIL CAP 15 MG PO PRN (21:00)
[2018-07-27] MEDS: MAALOX or MYLANTA PO PRN (21:00)
[2018-07-27] MEDS: LANTUS SC SCH (21:00)
[2018-07-27] MEDS ORDERED: FLEET ENEMA ADULT PR ONE (22:02)
[2018-07-28] MEDS ORDERED: NS 1/2 1000 ML IV 1,000 ML ONE (00:15)
[2018-07-28] MEDS: NS 1/2 1000 ML IV 1,000 ML IV SCH ×2 (00:24→14:55)
[2018-07-28 05:27] LABS: BASOPHILS % (AUTO) 0.1 % (0.2-1.0); EOSINOPHILS # (AUTO) 0.1 x10^3/uL (0.0-0.2); EOSINOPHILS % (AUTO) 1.3 % (0.9-2.9); HEMATOCRIT 31.4 % (42.0-54.0); HEMOGLOBIN 10.8 g/dL (13.5-18.0); LYMPHOCYTES # (AUTO) 1.3 X10^3/uL (1.3-2.9); LYMPHOCYTES % (AUTO) 21.7 % (21.0-51.0); MEAN CORPUSCULAR HEMOGLOBIN 33.5 pg (27.0-34.0); MEAN CORPUSCULAR HGB CONC 34.3 g/dL (33.0-35.0); MEAN CORPUSCULAR VOLUME 97.5 fL (80.0-100.0); MEAN PLATELET VOLUME 9.1 fL (7.4-11.0); MONOCYTES # (AUTO) 0.6 x10^3/uL (0.3-0.8); MONOCYTES % (AUTO) 9.6 % (0.0-13.0); NEUTROPHILS # (AUTO) 3.9 x10^3/uL (2.2-4.8); NEUTROPHILS % (AUTO) 67.3 % (42.0-75.0); PLATELET COUNT 133 X10^3/uL (150.0-450.0); RED BLOOD COUNT 3.22 X10^6/uL (4.7-6.0); RED CELL DISTRIBUTION WIDTH 21.3 % (11.6-16.5); WHITE BLOOD COUNT 5.8 X10^3/uL (3.6-10.0)
[2018-07-28 05:34] LABS: ALANINE AMINOTRANSFERASE 25 Units/L (12-78); ALBUMIN 2.2 g/dL (3.4-5.0); ALKALINE PHOSPHATASE 93 Units/L (46-116); ASPARTATE AMINO TRANSFERASE 14 Units/L (15-37); BLOOD UREA NITROGEN 29 mg/dL (7-18); CALCIUM 8.4 mg/dL (8.5-10.1); CARBON DIOXIDE 35.3 mmol/L (21-32); CHLORIDE 102 mmol/L (98-107); COR CA(FOR HYPOALB) 9.8 mg/dL (8.5-10.1); CREATININE 1.29 mg/dL (0.70-1.30); SODIUM 137 mmol/L (136-145); TOTAL PROTEIN 5.6 g/dL (6.4-8.2); eGFR NON BLACK RACES 58 (>60)
[2018-07-28 06:13] LABS: ANTI-NUCLEAR ANTIBODY TEST None Detected (None Detected)
[2018-07-28 06:20] LABS: ANISOCYTOSIS 1+; HYPOCHROMASIA 1+; PLATELET MORPHOLOGY COMMENT NORMAL (NORMAL)
[2018-07-28] MEDS: DUONEB 0.5 MG/3 MG NEB SCH ×4 (08:18→21:12)
[2018-07-28] MEDS: RANEXA PO SCH ×2 (08:24→20:50)
[2018-07-28] MEDS: ENTRESTO 24/26 MG TAB PO SCH ×2 (08:24→20:50)
[2018-07-28] MEDS: LEVAQUIN PREMIX IV 750 MG 750 MG/150 ML BAG IV SCH (08:25)
[2018-07-28] MEDS: LOVENOX INJ 40 MG SYR SC SCH (08:25)
[2018-07-28] MEDS: MILK OF MAGNESIA PO SCH ×2 (08:25→20:51)
[2018-07-28] MEDS: PriLOSEC PO SCH (08:26)
[2018-07-28] MEDS: ALDACTONE TAB 25 MG PO SCH (08:26)
[2018-07-28] MEDS: LASIX IVP SCH ×2 (08:26→20:51)
[2018-07-28] MEDS: COLACE CAP 100 MG PO SCH (08:26)
[2018-07-28] MEDS: NEURONTIN CAP 100 MG PO SCH ×2 (08:26→20:51)
[2018-07-28] MEDS: PLAVIX PO SCH (08:27)
[2018-07-28] MEDS: COREG TAB 3.125 MG PO SCH ×2 (08:27→20:51)
[2018-07-28] MEDS: ZOLOFT PO SCH (08:27)
[2018-07-28] MEDS: ISOSORBIDE MONONITRATE ER PO SCH (08:27)
[2018-07-28] MEDS: ASPIRIN EC 81 MG PO SCH (08:28)
[2018-07-28] MEDS: HumaLOG SC SCH ×3 (08:28→18:18)
[2018-07-28] MEDS: ZITHROMAX INJ 500 MG VIAL 500 MG in NS 250 ML IV 250 ML IV SCH (08:29)
--- NOTE | 2018-07-28 18:38 | PCM.PROG ---
Progress Note - Progress Note for Day of Date of Exam: 07/28/18 - Subjective Subjective: 73 WM ER ADMISSION WITH SOB, PNEUMONIA. PT HAS PMH OF CAD AND COPD, CHF. VQ SCAN NEGATIVE PE. PT HAS INCREASED DIMINISHED LUNG BASES. STRICT I & OS, SPUTUM +ENTEROBACTER. PT CONTINUES TO CO SPUTUM PRODUCTION. PT ON SUPPLEMENTAL O2, RESP THERAPY. DENIES CHEST PAIN THIS AM - Past Medical Family Social History Past Med/Fam/Surg Hx: No changes since H&P Allergies: Allergies chocolate flavor Allergy (Verified 06/20/18 16:03) Penicillins Allergy (Verified 06/20/18 16:03) CHOCOLATE Allergy (Uncoded 06/20/18 16:03) - Review of Systems ROS: No change since H&P - Vital Signs and I&O's Vital Signs: Temperature 98.4 F Pulse Rate [Left Brachial] 85 Pulse Rate 85 Respiratory Rate 13 Blood Pressure [Left Arm] 116/59 Blood Pressure [Right Arm] 86/61 Blood Pressure 163/89 O2 Sat by Pulse Oximetry 90 Intake and Output: Intake & Output 07/26/18 07/27/18 07/28/18 07/29/18 11:59 11:59 11:59 11:59 Intake Total 4192 / 4192 2721 / 2721 2540 / 2540 1200 / 1200 Output Total 2300 / 2300 2900 / 2900 1800 / 1800 Balance 1892 / 1892 -179 / -179 740 / 740 1200 / 1200 - Physical Exam Oriented: Normal Eyes: Normal, Diplopia Nose: Normal Throat: Normal Respiratory: Diminished, Wheezes, Rhonchi Cardiovascular: Normal : Normal Auscultation: Bowel Sounds: Normal Tenderness: Normal Skin: Decreased Turgur, Wound (NECROTIC WOUND TO 3RD, 4TH TOES) Musculoskeletal: Right, Left, Back:Lumbar, Tender Psychiatric: Anxiety Mood Description: Anxious Affect: Anxious Speech Pattern: Clear, Appropriate - Laboratory and Diagnostics Result Diagrams: 07/28/18 04:28 07/28/18 04:28 Labs: 07/24/18 23:24 Sputum - Expectorated Sputum Sputum Culture - Final Enterobacter Intermedius 07/24/18 23:24 Sputum - Expectorated Sputum - Final 07/24/18 16:55 Blood Blood Culture - Preliminary 07/24/18 19:58 Blood Blood Culture - Preliminary Laboratory WBC 5.8 X10^3/uL (3.6-10.0) 07/28/18 04:28 RBC 3.22 X10^6/uL (4.7-6.0) L 07/28/18 04:28 Hgb 10.8 g/dL (13.5-18.0) L 07/28/18 04:28 Hct 31.4 % (42.0-54.0) L 07/28/18 04:28 MCV 97.5 fL (80.0-100.0) 07/28/18 04:28 MCH 33.5 pg (27.0-34.0) 07/28/18 04:28 MCHC 34.3 g/dL (33.0-35.0) 07/28/18 04:28 RDW 21.3 % (11.6-16.5) H 07/28/18 04:28 Plt Count 133 X10^3/uL (150.0-450.0) L 07/28/18 04:28 Plt Count Comment Decreased (ADEQUATE) 07/28/18 04:28 MPV 9.1 fL (7.4-11.0) 07/28/18 04:28 Neut % (Auto) 67.3 % (42.0-75.0) 07/28/18 04:28 Lymph % (Auto) 21.7 % (21.0-51.0) 07/28/18 04:28 [place] % (Auto) 9.6 % (0.0-13.0) 07/28/18 04:28 Eos % (Auto) 1.3 % (0.9-2.9) 07/28/18 04:28 Baso % (Auto) 0.1 % (0.2-1.0) L 07/28/18 04:28 Neut # (Auto) 3.9 x10^3/uL (2.2-4.8) 07/28/18 04:28 Lymph # (Auto) 1.3 X10^3/uL (1.3-2.9) 07/28/18 04:28 [place] # (Auto) 0.6 x10^3/uL (0.3-0.8) 07/28/18 04:28 Eos # (Auto) 0.1 x10^3/uL (0.0-0.2) 07/28/18 04:28 Baso # (Auto) 0.0 X10^3/uL (0.0-0.1) 07/28/18 04:28 Absolute Nucleated RBC 0.0 /100WBC 07/28/18 04:28 Total Counted 100 07/26/18 04:39 Neutrophils % (Manual) 93 % (39-76) H 07/26/18 04:39 Band Neutrophils % 3 % (0-10) 07/26/18 04:39 Lymphocytes % (Manual) 4 % (13-43) L 07/26/18 04:39 Plt Morphology Comment Normal (NORMAL) 07/28/18 04:28 RBC Morphology Abnormal (NORMAL) 07/28/18 04:28 Hypochromasia 1+ A 07/28/18 04:28 Anisocytosis 1+ A 07/28/18 04:28 ESR 55 MM/HOUR (0-15) H 07/24/18 21:55 INR Target Range - 07/24/18 19:58 INR 1.05 (0.8-1.3) 07/24/18 19:58 APTT 34.3 SECONDS (22.9-36.5) 07/24/18 19:58 PTT Comment - 07/24/18 19:58 D-Dimer 1270 ng/mL (0-400) H* 07/24/18 19:58 Sample Site Rb 07/24/18 20:12 ABG pH 7.460 (7.35-7.45) H 07/24/18 20:12 ABG pCO2 42.0 mmHg (35.0-45.0) 07/24/18 20:12 ABG pO2 58.0 mmHg (80.0-100.0) L 07/24/18 20:12 ABG HCO3 29.9 mmol/L (22-26) H 07/24/18 20:12 ABG O2 Saturation 91.0 % (90-100) 07/24/18 20:12 ABG Base Excess 5.5 mmol/L (-2.0-2.0) H 07/24/18 20:12 David Test N/a 07/24/18 20:12 A-a Gradient 118.0 mmHg 07/24/18 20:12 FiO2 32.0 07/24/18 20:12 Blood Gas Comments Dejah well ae 07/24/18 20:12 Sodium 137 mmol/L (136-145) 07/28/18 04:28 Corrected Sodium TNP 07/28/18 04:28 Potassium 4.2 mmol/L (3.5-5.1) 07/28/18 04:28 Chloride 102 mmol/L (98-107) 07/28/18 04:28 Carbon Dioxide 35.3 mmol/L (21-32) H 07/28/18 04:28 BUN 29 mg/dL (7-18) H 07/28/18 04:28 Creatinine 1.29 mg/dL (0.70-1.30) 07/28/18 04:28 Est GFR (MDRD) Af Amer > 60 (>60) 07/28/18 04:28 Est GFR (MDRD) Non-Af 58 (>60) L 07/28/18 04:28 Glucose 76 mg/dL (65-99) 07/28/18 04:28 POC Glucose (mg/dL) 119 mg/dL (65-99) H 07/28/18 17:01 Calcium 8.4 mg/dL (8.5-10.1) L 07/28/18 04:28 Corrected Calcium 9.8 mg/dL (8.5-10.1) 07/28/18 04:28 Magnesium 1.8 mg/dL (1.7-2.9) 07/24/18 19:58 Total Bilirubin 0.50 mg/dL (0.2-1.0) 07/28/18 04:28 AST 14 Units/L (15-37) L 07/28/18 04:28 ALT 25 Units/L (12-78) 07/28/18 04:28 Alkaline Phosphatase 93 Units/L (46-116) 07/28/18 04:28 Creatine Kinase 93 Units/L (39-308) 07/24/18 19:58 CK-MB (CK-2) 5.9 ng/mL (0-4.0) H* 07/24/18 19:58 CK/CKMB % Calc 6.3 % (<4) 07/24/18 19:58 Troponin I 0.04 ng/mL (0-1.5) 07/24/18 19:58 C-Reactive Protein 33.70 mg/L (0-3.0) H 07/24/18 21:55 B-Natriuretic Peptide 3690 pg/mL (0-79) H* 07/24/18 19:58 Total Protein 5.6 g/dL (6.4-8.2) L 07/28/18 04:28 Albumin 2.2 g/dL (3.4-5.0) L 07/28/18 04:28 Globulin 3.4 g/dL (2.5-4.5) 07/28/18 04:28 Albumin/Globulin Ratio 0.6 Ratio (1.1-2.1) L 07/28/18 04:28 Homocysteine 9 umol/L (<=10) 07/24/18 21:55 PONCHO Screen None detected (None Detected) 07/24/18 21:55 PONCHO Titer TNP 07/24/18 21:55 PONCHO Pattern TNP 07/24/18 21:55 - Plan (1) Pulmonary infiltrates on CXR Status: Acute Plan: PNEUMONIA PROTOCOL, BLOOD AND SPUTUM CULTURES COLLECTED ON ADMISSION. IV ATBX, SUPPLEMENTAL O2. RESP THERAPY, CONTINUOUS CARDIAC MONITORING. STRICT I & OS (2) CHF (congestive heart failure) Status: Acute Qualifiers: Heart failure type: unspecified Heart failure chronicity: acute on chronic Qualified Code(s): I50.9 - Heart failure, unspecified Plan: STRICT I & OS, SUPPLEMENTAL O2. RESP THERAPY (3) Respiratory distress Status: Acute (4) Foot ulcer with necrosis of muscle Status: Acute (5) Chest pain Status: Acute Qualifiers: Chest pain type: precordial pain Qualified Code(s): R07.2 - Precordial pain (6) CAD (coronary artery disease) Status: Acute Qualifiers: Coronary Disease-Associated Artery/Lesion type: bypass graft (7) PAD (peripheral artery disease) Status: Acute (8) Hypertension Status: Chronic (9) GERD (gastroesophageal reflux disease) Status: Chronic (10) Diabetes mellitus, type 2 Status: Chronic
[2018-07-28] MEDS: RESTORIL CAP 15 MG PO PRN (20:50)
[2018-07-28] MEDS: LIPITOR TAB 40 MG PO SCH (20:50)
[2018-07-28] MEDS: SNACK - Diabetic Appropriate PO SCH (21:57)
[2018-07-28] MEDS: LANTUS SC SCH (21:58)
[2018-07-28] MEDS: PERCOCET TAB 5/325 MG PO PRN (23:08)
[2018-07-29] MEDS ORDERED: NS 1/2 1000 ML IV 1,000 ML ONE (01:27)
[2018-07-29] MEDS: NS 1/2 1000 ML IV 1,000 ML IV SCH ×2 (01:43→15:27)
[2018-07-29 05:29] LABS: BASOPHILS % (AUTO) 0.1 % (0.2-1.0); EOSINOPHILS # (AUTO) 0.1 x10^3/uL (0.0-0.2); EOSINOPHILS % (AUTO) 2.5 % (0.9-2.9); HEMATOCRIT 30.5 % (42.0-54.0); HEMOGLOBIN 10.6 g/dL (13.5-18.0); LYMPHOCYTES # (AUTO) 1.2 X10^3/uL (1.3-2.9); LYMPHOCYTES % (AUTO) 25.9 % (21.0-51.0); MEAN CORPUSCULAR HEMOGLOBIN 33.6 pg (27.0-34.0); MEAN CORPUSCULAR HGB CONC 34.8 g/dL (33.0-35.0); MEAN CORPUSCULAR VOLUME 96.7 fL (80.0-100.0); MEAN PLATELET VOLUME 8.9 fL (7.4-11.0); MONOCYTES # (AUTO) 0.5 x10^3/uL (0.3-0.8); MONOCYTES % (AUTO) 10.1 % (0.0-13.0); NEUTROPHILS # (AUTO) 2.8 x10^3/uL (2.2-4.8); NEUTROPHILS % (AUTO) 61.4 % (42.0-75.0); PLATELET COUNT 131 X10^3/uL (150.0-450.0); RED BLOOD COUNT 3.15 X10^6/uL (4.7-6.0); RED CELL DISTRIBUTION WIDTH 21.2 % (11.6-16.5); WHITE BLOOD COUNT 4.6 X10^3/uL (3.6-10.0)
[2018-07-29 05:39] LABS: ALANINE AMINOTRANSFERASE 22 Units/L (12-78); ALBUMIN 2.3 g/dL (3.4-5.0); ALKALINE PHOSPHATASE 98 Units/L (46-116); ASPARTATE AMINO TRANSFERASE 15 Units/L (15-37); BLOOD UREA NITROGEN 25 mg/dL (7-18); CALCIUM 8.2 mg/dL (8.5-10.1); CARBON DIOXIDE 31.6 mmol/L (21-32); CHLORIDE 100 mmol/L (98-107); COR CA(FOR HYPOALB) 9.6 mg/dL (8.5-10.1); COR NA(FOR HYPERGLY) 137 mmol/L (136-145); CREATININE 1.14 mg/dL (0.70-1.30); SODIUM 135 mmol/L (136-145); TOTAL PROTEIN 5.6 g/dL (6.4-8.2); eGFR NON BLACK RACES > 60 (>60)
[2018-07-29 06:25] LABS: ANISOCYTOSIS 1+; HYPOCHROMASIA SLIGHT; PLATELET MORPHOLOGY COMMENT NORMAL (NORMAL)
[2018-07-29 07:25] LABS: ANTITHROMBIN III ACTIVITY 92 % (76-128); APC RESISTANCE 3.86 (>=2.00)
[2018-07-29 07:26] LABS: PROTEIN C ACTIVITY 119 % (83-168)
[2018-07-29 07:50] LABS: THROMBIN TIME 16.4
[2018-07-29] MEDS: HumaLOG SC SCH ×3 (07:51→17:15)
--- NOTE | 2018-07-29 08:54 | RAD ---
HISTORY: CHF, shortness of breath, pneumonia Study: Single view chest Comparison: 07/26/2018 Findings: Chronic sternotomy changes, cardiomegaly and AICD are noted. There are bilateral pleural effusions, larger on the left with central vascular congestion as well as scattered alveolar opacities suggestive of CHF. No pneumothorax identified. IMPRESSION: 1. Stable pulmonary edema pattern with bilateral pleural effusions. Reported By:
[2018-07-29] MEDS: MILK OF MAGNESIA PO SCH ×2 (09:43→20:26)
[2018-07-29] MEDS: ZITHROMAX INJ 500 MG VIAL 500 MG in NS 250 ML IV 250 ML IV SCH (09:43)
[2018-07-29] MEDS: LOVENOX INJ 40 MG SYR SC SCH (09:44)
[2018-07-29] MEDS: LEVAQUIN PREMIX IV 750 MG 750 MG/150 ML BAG IV SCH (09:44)
[2018-07-29] MEDS: ENTRESTO 24/26 MG TAB PO SCH ×2 (09:45→20:28)
[2018-07-29] MEDS: ISOSORBIDE MONONITRATE ER PO SCH (09:45)
[2018-07-29] MEDS: RANEXA PO SCH ×2 (09:45→20:28)
[2018-07-29] MEDS: ALDACTONE TAB 25 MG PO SCH (09:46)
[2018-07-29] MEDS: PLAVIX PO SCH (09:46)
[2018-07-29] MEDS: ASPIRIN EC 81 MG PO SCH (09:46)
[2018-07-29] MEDS: COREG TAB 3.125 MG PO SCH ×2 (09:46→20:27)
[2018-07-29] MEDS: COLACE CAP 100 MG PO SCH (09:46)
[2018-07-29] MEDS: PriLOSEC PO SCH (09:47)
[2018-07-29] MEDS: ZOLOFT PO SCH (09:47)
[2018-07-29] MEDS: LASIX IVP SCH ×2 (09:47→20:28)
[2018-07-29] MEDS: NEURONTIN CAP 100 MG PO SCH ×2 (09:47→20:27)
[2018-07-29] MEDS: DUONEB 0.5 MG/3 MG NEB SCH ×4 (09:52→21:46)
[2018-07-29] MEDS: LEVSIN/MAALOX/LIDOC VISC PO SCH ×4 (11:53→22:21)
[2018-07-29] MEDS: HumuLIN R SC PRN ×2 (11:55→20:29)
[2018-07-29] MEDS: PERCOCET TAB 5/325 MG PO PRN ×2 (13:07→20:27)
[2018-07-29] MEDS: LIPITOR TAB 40 MG PO SCH (20:26)
[2018-07-29] MEDS: SNACK - Diabetic Appropriate PO SCH (20:35)
[2018-07-29] MEDS: LANTUS SC SCH (22:23)
[2018-07-30 05:25] LABS: BASOPHILS % (AUTO) 0.2 % (0.2-1.0); EOSINOPHILS # (AUTO) 0.1 x10^3/uL (0.0-0.2); EOSINOPHILS % (AUTO) 2.5 % (0.9-2.9); HEMATOCRIT 30.3 % (42.0-54.0); HEMOGLOBIN 10.5 g/dL (13.5-18.0); LYMPHOCYTES # (AUTO) 1.1 X10^3/uL (1.3-2.9); LYMPHOCYTES % (AUTO) 23.3 % (21.0-51.0); MEAN CORPUSCULAR HEMOGLOBIN 33.4 pg (27.0-34.0); MEAN CORPUSCULAR HGB CONC 34.6 g/dL (33.0-35.0); MEAN CORPUSCULAR VOLUME 96.4 fL (80.0-100.0); MEAN PLATELET VOLUME 8.5 fL (7.4-11.0); MONOCYTES # (AUTO) 0.5 x10^3/uL (0.3-0.8); MONOCYTES % (AUTO) 9.4 % (0.0-13.0); NEUTROPHILS # (AUTO) 3.2 x10^3/uL (2.2-4.8); NEUTROPHILS % (AUTO) 64.6 % (42.0-75.0); PLATELET COUNT 123 X10^3/uL (150.0-450.0); RED BLOOD COUNT 3.14 X10^6/uL (4.7-6.0); RED CELL DISTRIBUTION WIDTH 20.7 % (11.6-16.5); WHITE BLOOD COUNT 4.9 X10^3/uL (3.6-10.0)
[2018-07-30 05:38] LABS: ALANINE AMINOTRANSFERASE 20 Units/L (12-78); ALBUMIN 2.3 g/dL (3.4-5.0); ALKALINE PHOSPHATASE 94 Units/L (46-116); ASPARTATE AMINO TRANSFERASE 14 Units/L (15-37); BLOOD UREA NITROGEN 22 mg/dL (7-18); CALCIUM 8.3 mg/dL (8.5-10.1); CARBON DIOXIDE 33.5 mmol/L (21-32); CHLORIDE 99 mmol/L (98-107); COR CA(FOR HYPOALB) 9.7 mg/dL (8.5-10.1); COR NA(FOR HYPERGLY) 138 mmol/L (136-145); CREATININE 1.19 mg/dL (0.70-1.30); SODIUM 137 mmol/L (136-145); TOTAL PROTEIN 5.7 g/dL (6.4-8.2); eGFR NON BLACK RACES > 60 (>60)
[2018-07-30] MEDS: NS 1/2 1000 ML IV 1,000 ML IV SCH (05:58)
[2018-07-30 06:14] LABS: ANISOCYTOSIS 1+; HYPOCHROMASIA SLIGHT; PLATELET MORPHOLOGY COMMENT NORMAL (NORMAL)
[2018-07-30] MEDS: MAALOX or MYLANTA PO PRN (07:31)
[2018-07-30] MEDS: HumaLOG SC SCH ×3 (07:32→16:16)
[2018-07-30] MEDS: ZITHROMAX INJ 500 MG VIAL 500 MG in NS 250 ML IV 250 ML IV SCH (08:23)
[2018-07-30] MEDS: COLACE CAP 100 MG PO SCH (08:25)
[2018-07-30] MEDS: LEVAQUIN PREMIX IV 750 MG 750 MG/150 ML BAG IV SCH (08:25)
[2018-07-30] MEDS: MILK OF MAGNESIA PO SCH ×2 (08:26→21:26)
[2018-07-30] MEDS: ISOSORBIDE MONONITRATE ER PO SCH (08:26)
[2018-07-30] MEDS: ALDACTONE TAB 25 MG PO SCH (08:26)
[2018-07-30] MEDS: NEURONTIN CAP 100 MG PO SCH ×2 (08:26→21:25)
[2018-07-30] MEDS: RANEXA PO SCH ×2 (08:26→21:25)
[2018-07-30] MEDS: PriLOSEC PO SCH (08:26)
[2018-07-30] MEDS: ASPIRIN EC 81 MG PO SCH (08:26)
[2018-07-30] MEDS: ENTRESTO 24/26 MG TAB PO SCH ×2 (08:26→21:24)
[2018-07-30] MEDS: PLAVIX PO SCH (08:27)
[2018-07-30] MEDS: COREG TAB 3.125 MG PO SCH ×2 (08:27→21:25)
[2018-07-30] MEDS: ZOLOFT PO SCH (08:27)
[2018-07-30] MEDS: LEVSIN/MAALOX/LIDOC VISC PO SCH ×4 (08:28→21:26)
[2018-07-30] MEDS: LOVENOX INJ 40 MG SYR SC SCH (08:28)
[2018-07-30] MEDS: DUONEB 0.5 MG/3 MG NEB SCH ×4 (09:16→21:41)
--- NOTE | 2018-07-30 10:19 | RAD ---
HISTORY: CHF COPD Study: Two-view chest Comparison: Two-view chest 07/29/2018. Technique: PA and lateral chest Findings: Pacemaker is in place battery over the left anterior thorax 1 lead in the right atrium 1 in the inferior right ventricle. Battery overlies the superior lateral thorax. There are sternotomy wires from CABG surgery. The heart size is normal airway is normal but there is central vascular congestion interstitial edema and bilateral left larger than right pleural effusions. The effusions vascular congestion and interstitial edema present yesterday but there is mild worsening of the interstitial edema on current film. IMPRESSION: 1. Postsurgical chest with pacemaker in place 2. Findings of CHF with vascular congestion interstitial edema and bilateral pleural effusions larger on the left than the right. The interstitial edema has increased slightly compared to yesterday's study in the right upper lung field. Reported By:
[2018-07-30] MEDS: HumuLIN R SC PRN (11:50)
[2018-07-30] MEDS: PERCOCET TAB 5/325 MG PO PRN ×2 (15:30→21:38)
[2018-07-30] MEDS: LASIX IVP SCH (16:15)
[2018-07-30] MEDS: LANTUS SC SCH (21:25)
[2018-07-30] MEDS: LIPITOR TAB 40 MG PO SCH (21:25)
[2018-07-30] MEDS: SNACK - Diabetic Appropriate PO SCH (21:27)
[2018-07-30] MEDS: RESTORIL CAP 15 MG PO PRN (21:37)
--- NOTE | 2018-07-31 05:22 | RAD ---
Examination: AP chest History: COPD CHF Comparison 07/30/2018 Findings: Continued normal heart size with bilateral pulmonary infiltrates/edema and pleural effusions. Stable position of pacing device. Impression: Findings continue to suggest CHF with pulmonary edema and bilateral pleural effusions. There is no change identified since 1 day earlier. Reported By:
[2018-07-31] MEDS: NS 1/2 1000 ML IV 1,000 ML IV SCH ×3 (05:49→08:33)
[2018-07-31 05:55] LABS: BASOPHILS % (AUTO) 0.1 % (0.2-1.0); EOSINOPHILS # (AUTO) 0.1 x10^3/uL (0.0-0.2); EOSINOPHILS % (AUTO) 3.4 % (0.9-2.9); HEMATOCRIT 28.4 % (42.0-54.0); HEMOGLOBIN 9.9 g/dL (13.5-18.0); LYMPHOCYTES # (AUTO) 0.8 X10^3/uL (1.3-2.9); MEAN CORPUSCULAR HEMOGLOBIN 33.4 pg (27.0-34.0); MEAN CORPUSCULAR HGB CONC 34.7 g/dL (33.0-35.0); MEAN CORPUSCULAR VOLUME 96.4 fL (80.0-100.0); MEAN PLATELET VOLUME 8.3 fL (7.4-11.0); MONOCYTES # (AUTO) 0.6 x10^3/uL (0.3-0.8); MONOCYTES % (AUTO) 13.4 % (0.0-13.0); NEUTROPHILS # (AUTO) 2.6 x10^3/uL (2.2-4.8); NEUTROPHILS % (AUTO) 64.1 % (42.0-75.0); PLATELET COUNT 109 X10^3/uL (150.0-450.0); RED BLOOD COUNT 2.95 X10^6/uL (4.7-6.0); RED CELL DISTRIBUTION WIDTH 20.6 % (11.6-16.5); WHITE BLOOD COUNT 4.1 X10^3/uL (3.6-10.0)
[2018-07-31 06:11] LABS: ALANINE AMINOTRANSFERASE 19 Units/L (12-78); ALBUMIN 2.2 g/dL (3.4-5.0); ALKALINE PHOSPHATASE 99 Units/L (46-116); ASPARTATE AMINO TRANSFERASE 13 Units/L (15-37); BLOOD UREA NITROGEN 15 mg/dL (7-18); CALCIUM 8.2 mg/dL (8.5-10.1); CARBON DIOXIDE 32.8 mmol/L (21-32); CHLORIDE 98 mmol/L (98-107); COR CA(FOR HYPOALB) 9.6 mg/dL (8.5-10.1); COR NA(FOR HYPERGLY) 137 mmol/L (136-145); CREATININE 0.97 mg/dL (0.70-1.30); SODIUM 134 mmol/L (136-145); TOTAL PROTEIN 5.5 g/dL (6.4-8.2); eGFR NON BLACK RACES > 60 (>60)
[2018-07-31 06:19] LABS: ANISOCYTOSIS 1+; PLATELET MORPHOLOGY COMMENT NORMAL (NORMAL)
[2018-07-31] MEDS: HumaLOG SC SCH ×3 (06:47→17:25)
[2018-07-31] MEDS ORDERED: CHLORASEPTIC SPRAY MT PRN (07:11)
[2018-07-31] MEDS: LASIX IVP SCH (08:19)
[2018-07-31] MEDS: LOVENOX INJ 40 MG SYR SC SCH (08:19)
[2018-07-31] MEDS: ZITHROMAX INJ 500 MG VIAL 500 MG in NS 250 ML IV 250 ML IV SCH (08:19)
[2018-07-31] MEDS: LEVSIN/MAALOX/LIDOC VISC PO SCH ×4 (08:20→20:51)
[2018-07-31] MEDS: ISOSORBIDE MONONITRATE ER PO SCH (08:20)
[2018-07-31] MEDS: COREG TAB 3.125 MG PO SCH ×2 (08:21→20:50)
[2018-07-31] MEDS: ENTRESTO 24/26 MG TAB PO SCH ×2 (08:21→20:50)
[2018-07-31] MEDS: RANEXA PO SCH ×2 (08:21→20:50)
[2018-07-31] MEDS: ASPIRIN EC 81 MG PO SCH (08:22)
[2018-07-31] MEDS: PriLOSEC PO SCH (08:22)
[2018-07-31] MEDS: NEURONTIN CAP 100 MG PO SCH ×2 (08:22→20:50)
[2018-07-31] MEDS: ALDACTONE TAB 25 MG PO SCH (08:22)
[2018-07-31] MEDS: ZOLOFT PO SCH (08:22)
[2018-07-31] MEDS: PLAVIX PO SCH (08:23)
[2018-07-31] MEDS: COLACE CAP 100 MG PO SCH (08:32)
[2018-07-31] MEDS: LEVAQUIN PREMIX IV 750 MG 750 MG/150 ML BAG IV SCH (08:32)
[2018-07-31] MEDS: MILK OF MAGNESIA PO SCH ×2 (08:33→20:51)
[2018-07-31] MEDS: DUONEB 0.5 MG/3 MG NEB SCH ×4 (08:52→21:00)
[2018-07-31 08:55] LABS: PROTHROMBIN G20210A Negative
[2018-07-31] MEDS: HumuLIN R SC PRN (11:39)
[2018-07-31] MEDS: PERCOCET TAB 5/325 MG PO PRN (14:55)
--- NOTE | 2018-07-31 15:51 | PCM.PROG ---
Progress Note - Progress Note for Day of Date of Exam: 07/31/18 - Subjective Subjective: IS BEING TREATED FOR BILATERAL PNEUMONIA AND CHF. TODAY, HE IS ALERT AND ORIENTED, LYING IN BED ON MORNING ROUNDS. HE CONTINUES WITH COMPLAINTS OF SHORTNESS OF BREATH AND A PRODUCTIVE COUGH TODAY. HE IS NOTED WITH SCATTERED WHEEZING AND RHONCHI THROUGHOUT. HIS VITALS THIS MORNING ARE 99.1-85-16-93%-106/63. LABS WERE OBTAINED. ABNORMAL LAB VALUES INCLUDE THE FOLLOWING: RBC 2.95, HGB 9.9, HCT 28.4, SODIUM 134, CARBON DIOXIDE 32.8, GLUCOSE 206, CALCIUM 8.2, AST 13, TOTAL PROTEIN 5.5, ALBUMIN 2.2. CHEST XRAY REVEALED: Findings continue to suggest CHF with pulmonary edema and bilateral pleural effusions. There is no change identified since 1 day earlier. SPUTUM POSITIVE FOR ENTEROBACTER INTERMEDIUS. HE IS CURRENTLY RECEIVING IV LEVAQUIN, IV AZITHROMYCIN, LASIX, AND RESPIRATORY TX. WE WILL CONTINUE WITH CURRENT PLAN OF CARE TODAY. OTHERWISE, WE WILL FOLLOW UP WITH AM LABS AND CONTINUE TO MONITOR. - Past Medical Family Social History Past Med/Fam/Surg Hx: No changes since H&P Allergies: Allergies chocolate flavor Allergy (Verified 06/20/18 16:03) Penicillins Allergy (Verified 06/20/18 16:03) CHOCOLATE Allergy (Uncoded 06/20/18 16:03) - Review of Systems ROS: No change since H&P - Vital Signs and I&O's Vital Signs: Temperature 98.6 F Pulse Rate [Left Brachial] 85 Pulse Rate 85 Respiratory Rate 13 Blood Pressure [Left Arm] 98/54 Blood Pressure [Right Arm] 86/61 Blood Pressure 102/59 O2 Sat by Pulse Oximetry 91 Intake and Output: Intake & Output 07/29/18 07/30/18 07/31/18 08/01/18 11:59 11:59 11:59 11:59 Intake Total 2440 / 2440 1160 / 1160 2128 / 2128 Output Total 2250 / 2250 1425 / 1425 1300 / 1300 Balance 190 / 190 -265 / -265 828 / 828 - Physical Exam Oriented: Normal Eyes: Normal, Diplopia Nose: Normal Throat: Normal Respiratory: Diminished, Wheezes, Rhonchi Cardiovascular: Normal : Normal Auscultation: Bowel Sounds: Normal Tenderness: Normal Skin: Decreased Turgur, Wound (NECROTIC WOUND TO 3RD, 4TH TOES) Musculoskeletal: Right, Left, Back:Lumbar, Tender Psychiatric: Anxiety Mood Description: Anxious Affect: Anxious Speech Pattern: Clear, Appropriate - Laboratory and Diagnostics Result Diagrams: 07/31/18 05:23 07/31/18 05:23 Labs: 07/24/18 16:55 Blood Blood Culture - Final 07/24/18 19:58 Blood Blood Culture - Final 07/24/18 23:24 Sputum - Expectorated Sputum Sputum Culture - Final Enterobacter Intermedius 07/24/18 23:24 Sputum - Expectorated Sputum - Final Laboratory WBC 4.1 X10^3/uL (3.6-10.0) 07/31/18 05:23 RBC 2.95 X10^6/uL (4.7-6.0) L 07/31/18 05:23 Hgb 9.9 g/dL (13.5-18.0) L 07/31/18 05:23 Hct 28.4 % (42.0-54.0) L 07/31/18 05:23 MCV 96.4 fL (80.0-100.0) 07/31/18 05:23 MCH 33.4 pg (27.0-34.0) 07/31/18 05:23 MCHC 34.7 g/dL (33.0-35.0) 07/31/18 05:23 RDW 20.6 % (11.6-16.5) H 07/31/18 05:23 Plt Count 109 X10^3/uL (150.0-450.0) L 07/31/18 05:23 Plt Count Comment Decreased (ADEQUATE) 07/31/18 05:23 MPV 8.3 fL (7.4-11.0) 07/31/18 05:23 Neut % (Auto) 64.1 % (42.0-75.0) 07/31/18 05:23 Lymph % (Auto) 19.0 % (21.0-51.0) L 07/31/18 05:23 [place] % (Auto) 13.4 % (0.0-13.0) H 07/31/18 05:23 Eos % (Auto) 3.4 % (0.9-2.9) H 07/31/18 05:23 Baso % (Auto) 0.1 % (0.2-1.0) L 07/31/18 05:23 Neut # (Auto) 2.6 x10^3/uL (2.2-4.8) 07/31/18 05:23 Lymph # (Auto) 0.8 X10^3/uL (1.3-2.9) L 07/31/18 05:23 [place] # (Auto) 0.6 x10^3/uL (0.3-0.8) 07/31/18 05:23 Eos # (Auto) 0.1 x10^3/uL (0.0-0.2) 07/31/18 05:23 Baso # (Auto) 0.0 X10^3/uL (0.0-0.1) 07/31/18 05:23 Absolute Nucleated RBC 0.0 /100WBC 07/31/18 05:23 Total Counted 100 07/26/18 04:39 Neutrophils % (Manual) 93 % (39-76) H 07/26/18 04:39 Band Neutrophils % 3 % (0-10) 07/26/18 04:39 Lymphocytes % (Manual) 4 % (13-43) L 07/26/18 04:39 Plt Morphology Comment Normal (NORMAL) 07/31/18 05:23 RBC Morphology Abnormal (NORMAL) 07/31/18 05:23 Hypochromasia Slight A 07/30/18 04:20 Anisocytosis 1+ A 07/31/18 05:23 ESR 55 MM/HOUR (0-15) H 07/24/18 21:55 PT 12.3 07/24/18 21:55 INR Target Range - 07/24/18 19:58 INR 1.05 (0.8-1.3) 07/24/18 19:58 APTT 34.3 SECONDS (22.9-36.5) 07/24/18 19:58 PTT Heparin Neutraliz TNP 07/24/18 21:55 PTT Comment - 07/24/18 19:58 Reptilase Time TNP 07/24/18 21:55 D-Dimer 1270 ng/mL (0-400) H* 07/24/18 19:58 Plt Neutralization TNP 07/24/18 21:55 LA PTT Screen 49 07/24/18 21:55 Lupus Anticoag PTT Mix 41 07/24/18 21:55 LA Thrombin Time 16.4 07/24/18 21:55 LA dRVVT Screen Ratio 32 07/24/18 21:55 dRVVT Confirm Interp TNP 07/24/18 21:55 dRVVT Mix Interpret TNP 07/24/18 21:55 Hexag Phospholip Neutrl TNP 07/24/18 21:55 Lupus Anticoag Interp See note 07/24/18 21:55 Prot C Funct Activity 119 % (83-168) 07/24/18 21:55 APC Resistance Ratio 3.86 (>=2.00) 07/24/18 21:55 Protein S Activity 119 % (66-143) 07/24/18 21:55 Antithrombin III Activ 92 % (76-128) 07/24/18 21:55 Sample Site Rb 07/24/18 20:12 ABG pH 7.460 (7.35-7.45) H 07/24/18 20:12 ABG pCO2 42.0 mmHg (35.0-45.0) 07/24/18 20:12 ABG pO2 58.0 mmHg (80.0-100.0) L 07/24/18 20:12 ABG HCO3 29.9 mmol/L (22-26) H 07/24/18 20:12 ABG O2 Saturation 91.0 % (90-100) 07/24/18 20:12 ABG Base Excess 5.5 mmol/L (-2.0-2.0) H 07/24/18 20:12 David Test N/a 07/24/18 20:12 A-a Gradient 118.0 mmHg 07/24/18 20:12 FiO2 32.0 07/24/18 20:12 Blood Gas Comments Dejah well ae 07/24/18 20:12 Sodium 134 mmol/L (136-145) L 07/31/18 05:23 Corrected Sodium 137 mmol/L (136-145) 07/31/18 05:23 Potassium 4.3 mmol/L (3.5-5.1) 07/31/18 05:23 Chloride 98 mmol/L (98-107) 07/31/18 05:23 Carbon Dioxide 32.8 mmol/L (21-32) H 07/31/18 05:23 BUN 15 mg/dL (7-18) 07/31/18 05:23 Creatinine 0.97 mg/dL (0.70-1.30) 07/31/18 05:23 Est GFR (MDRD) Af Amer > 60 (>60) 07/31/18 05:23 Est GFR (MDRD) Non-Af > 60 (>60) 07/31/18 05:23 Glucose 206 mg/dL (65-99) H 07/31/18 05:23 POC Glucose (mg/dL) 282 mg/dL (65-99) H 07/31/18 11:31 Calcium 8.2 mg/dL (8.5-10.1) L 07/31/18 05:23 Corrected Calcium 9.6 mg/dL (8.5-10.1) 07/31/18 05:23 Magnesium 1.8 mg/dL (1.7-2.9) 07/24/18 19:58 Total Bilirubin 0.50 mg/dL (0.2-1.0) 07/31/18 05:23 AST 13 Units/L (15-37) L 07/31/18 05:23 ALT 19 Units/L (12-78) 07/31/18 05:23 Alkaline Phosphatase 99 Units/L (46-116) 07/31/18 05:23 Creatine Kinase 93 Units/L (39-308) 07/24/18 19:58 CK-MB (CK-2) 5.9 ng/mL (0-4.0) H* 07/24/18 19:58 CK/CKMB % Calc 6.3 % (<4) 07/24/18 19:58 Troponin I 0.04 ng/mL (0-1.5) 07/24/18 19:58 C-Reactive Protein 33.70 mg/L (0-3.0) H 07/24/18 21:55 B-Natriuretic Peptide 3690 pg/mL (0-79) H* 07/24/18 19:58 Total Protein 5.5 g/dL (6.4-8.2) L 07/31/18 05:23 Albumin 2.2 g/dL (3.4-5.0) L 07/31/18 05:23 Globulin 3.3 g/dL (2.5-4.5) 07/31/18 05:23 Albumin/Globulin Ratio 0.7 Ratio (1.1-2.1) L 07/31/18 05:23 Homocysteine 9 umol/L (<=10) 07/24/18 21:55 PONCHO Screen None detected (None Detected) 07/24/18 21:55 PONCHO Titer TNP 07/24/18 21:55 PONCHO Pattern TNP 07/24/18 21:55 Prothrombin [id number] Mut Negative 07/24/18 21:55 Prothromb Gene Review Not Reportable 07/24/18 21:55
[2018-07-31] MEDS: RESTORIL CAP 15 MG PO PRN (20:50)
[2018-07-31] MEDS: LIPITOR TAB 40 MG PO SCH (20:50)
[2018-07-31] MEDS: BUMEX TAB 1 MG PO SCH (20:51)
[2018-07-31] MEDS: SNACK - Diabetic Appropriate PO SCH (20:51)
[2018-07-31] MEDS ORDERED: NS 1/2 1000 ML IV 1,000 ML ONE (21:02)
[2018-07-31] MEDS: LANTUS SC SCH (22:54)
[2018-08-01] MEDS: PERCOCET TAB 5/325 MG PO PRN ×3 (00:37→20:11)
[2018-08-01] MEDS: NS 1/2 1000 ML IV 1,000 ML IV SCH ×2 (03:44→14:54)
--- NOTE | 2018-08-01 06:01 | RAD ---
Examination: Portable AP chest History: CHF SOB Comparison 07/31/2018 Findings: Continued normal heart size with stable appearance of the lungs and pleural spaces. Extensive bilateral infiltrates and pleural effusions are again noted. There is no evidence for complicating pneumothorax. Impression: No change in appearance of the chest since 1 day prior. Reported By:
[2018-08-01 06:19] LABS: BASOPHILS % (AUTO) 0.1 % (0.2-1.0); EOSINOPHILS # (AUTO) 0.1 x10^3/uL (0.0-0.2); EOSINOPHILS % (AUTO) 2.8 % (0.9-2.9); HEMATOCRIT 31.6 % (42.0-54.0); HEMOGLOBIN 10.8 g/dL (13.5-18.0); LYMPHOCYTES # (AUTO) 1.3 X10^3/uL (1.3-2.9); LYMPHOCYTES % (AUTO) 29.3 % (21.0-51.0); MEAN CORPUSCULAR HEMOGLOBIN 33.2 pg (27.0-34.0); MEAN CORPUSCULAR HGB CONC 34.3 g/dL (33.0-35.0); MEAN CORPUSCULAR VOLUME 96.9 fL (80.0-100.0); MEAN PLATELET VOLUME 8.5 fL (7.4-11.0); MONOCYTES # (AUTO) 0.5 x10^3/uL (0.3-0.8); MONOCYTES % (AUTO) 11.8 % (0.0-13.0); NEUTROPHILS # (AUTO) 2.6 x10^3/uL (2.2-4.8); PLATELET COUNT 131 X10^3/uL (150.0-450.0); RED BLOOD COUNT 3.26 X10^6/uL (4.7-6.0); RED CELL DISTRIBUTION WIDTH 19.9 % (11.6-16.5); WHITE BLOOD COUNT 4.6 X10^3/uL (3.6-10.0)
[2018-08-01 06:24] LABS: ALANINE AMINOTRANSFERASE 21 Units/L (12-78); ALBUMIN 2.6 g/dL (3.4-5.0); ALKALINE PHOSPHATASE 105 Units/L (46-116); ASPARTATE AMINO TRANSFERASE 18 Units/L (15-37); BLOOD UREA NITROGEN 11 mg/dL (7-18); CALCIUM 8.3 mg/dL (8.5-10.1); CARBON DIOXIDE 30.1 mmol/L (21-32); CHLORIDE 97 mmol/L (98-107); COR CA(FOR HYPOALB) 9.4 mg/dL (8.5-10.1); COR NA(FOR HYPERGLY) 133 mmol/L (136-145); CREATININE 0.95 mg/dL (0.70-1.30); SODIUM 132 mmol/L (136-145); TOTAL PROTEIN 6.2 g/dL (6.4-8.2); eGFR NON BLACK RACES > 60 (>60)
[2018-08-01] MEDS: HumaLOG SC SCH ×3 (07:25→17:38)
[2018-08-01] MEDS: MAALOX or MYLANTA PO PRN (07:26)
[2018-08-01] MEDS: DUONEB 0.5 MG/3 MG NEB SCH ×4 (08:32→20:06)
[2018-08-01] MEDS: ALDACTONE TAB 25 MG PO SCH (09:21)
[2018-08-01] MEDS: COREG TAB 3.125 MG PO SCH ×2 (09:21→20:10)
[2018-08-01] MEDS: ASPIRIN EC 81 MG PO SCH (09:22)
[2018-08-01] MEDS: BUMEX TAB 1 MG PO SCH ×2 (09:23→20:12)
[2018-08-01] MEDS: ENTRESTO 24/26 MG TAB PO SCH ×2 (09:23→20:10)
[2018-08-01] MEDS: ISOSORBIDE MONONITRATE ER PO SCH (09:24)
[2018-08-01] MEDS: LEVAQUIN PREMIX IV 750 MG 750 MG/150 ML BAG IV SCH (09:24)
[2018-08-01] MEDS: LOVENOX INJ 40 MG SYR SC SCH (09:24)
[2018-08-01] MEDS: NEURONTIN CAP 100 MG PO SCH ×2 (09:24→20:12)
[2018-08-01] MEDS: ZOLOFT PO SCH (09:25)
[2018-08-01] MEDS: PriLOSEC PO SCH (09:25)
[2018-08-01] MEDS: PLAVIX PO SCH (09:25)
[2018-08-01] MEDS: LEVSIN/MAALOX/LIDOC VISC PO SCH ×4 (09:51→21:14)
[2018-08-01] MEDS: RANEXA PO SCH ×2 (09:51→22:00)
[2018-08-01] MEDS: MILK OF MAGNESIA PO SCH ×2 (09:52→20:13)
[2018-08-01] MEDS: ZITHROMAX INJ 500 MG VIAL 500 MG in NS 250 ML IV 250 ML IV SCH (09:52)
[2018-08-01] MEDS: COLACE CAP 100 MG PO SCH (09:52)
[2018-08-01] MEDS: HumuLIN R SC PRN (12:41)
[2018-08-01] MEDS: SNACK - Diabetic Appropriate PO SCH (20:10)
[2018-08-01] MEDS: RESTORIL CAP 15 MG PO PRN (20:12)
--- NOTE | 2018-08-01 21:12 | PCM.PROG ---
Progress Note - Progress Note for Day of Date of Exam: 08/01/18 - Subjective Subjective: IS BEING TREATED FOR BILATERAL PNEUMONIA AND CHF. TODAY, HE IS ALERT AND ORIENTED, LYING IN BED ON MORNING ROUNDS. HE CONTINUES WITH COMPLAINTS OF SHORTNESS OF BREATH AND A PRODUCTIVE COUGH TODAY. HE IS NOTED WITH SCATTERED WHEEZING AND RHONCHI THROUGHOUT. HIS VITALS THIS MORNING ARE 99.0-93-21-91%-113/60. LABS WERE OBTAINED. ABNORMAL LAB VALUES INCLUDE THE FOLLOWING: RBC 3.26, HGB 10.8, HCT 31.6, SODIUM 132, CHLORIDE 97, GLUCOSE 157, CALCIUM 8.3, TOTAL PROTEIN 6.2, ALBUMIN 2.6. CHEST XRAY REVEALED: No change in appearance of the chest since 1 day prior. SPUTUM POSITIVE FOR ENTEROBACTER INTERMEDIUS. HE IS CURRENTLY RECEIVING IV LEVAQUIN, IV AZITHROMYCIN, LASIX, AND RESPIRATORY TX. WE WILL CONTINUE WITH CURRENT PLAN OF CARE TODAY. OTHERWISE, WE WILL FOLLOW UP WITH AM LABS AND CONTINUE TO MONITOR. - Past Medical Family Social History Past Med/Fam/Surg Hx: No changes since H&P Allergies: Allergies chocolate flavor Allergy (Verified 06/20/18 16:03) Penicillins Allergy (Verified 06/20/18 16:03) CHOCOLATE Allergy (Uncoded 06/20/18 16:03) - Review of Systems ROS: No change since H&P - Vital Signs and I&O's Vital Signs: Temperature 98.9 F Pulse Rate [Left Brachial] 85 Pulse Rate 90 Respiratory Rate 20 Blood Pressure [Left Arm] 98/54 Blood Pressure [Right Arm] 86/61 Blood Pressure 113/74 O2 Sat by Pulse Oximetry 90 Intake and Output: Intake & Output 07/30/18 07/31/18 08/01/18 08/02/18 11:59 11:59 11:59 11:59 Intake Total 1160 / 1160 2128 / 2128 1052 / 1052 377 / 377 Output Total 1425 / 1425 1300 / 1300 950 / 950 1000 / 1000 Balance -265 / -265 828 / 828 102 / 102 -623 / -623 - Physical Exam Oriented: Normal Eyes: Normal, Diplopia Nose: Normal Throat: Normal Respiratory: Diminished, Wheezes, Rhonchi Cardiovascular: Normal : Normal Auscultation: Bowel Sounds: Normal Tenderness: Normal Skin: Decreased Turgur, Wound (NECROTIC WOUND TO 3RD, 4TH TOES) Musculoskeletal: Right, Left, Back:Lumbar, Tender Psychiatric: Anxiety Mood Description: Anxious Affect: Anxious Speech Pattern: Clear, Appropriate - Laboratory and Diagnostics Result Diagrams: 08/01/18 05:15 08/01/18 05:15 Labs: 07/24/18 16:55 Blood Blood Culture - Final 07/24/18 19:58 Blood Blood Culture - Final 07/24/18 23:24 Sputum - Expectorated Sputum Sputum Culture - Final Enterobacter Intermedius 07/24/18 23:24 Sputum - Expectorated Sputum - Final Laboratory WBC 4.6 X10^3/uL (3.6-10.0) 08/01/18 05:15 RBC 3.26 X10^6/uL (4.7-6.0) L 08/01/18 05:15 Hgb 10.8 g/dL (13.5-18.0) L 08/01/18 05:15 Hct 31.6 % (42.0-54.0) L 08/01/18 05:15 MCV 96.9 fL (80.0-100.0) 08/01/18 05:15 MCH 33.2 pg (27.0-34.0) 08/01/18 05:15 MCHC 34.3 g/dL (33.0-35.0) 08/01/18 05:15 RDW 19.9 % (11.6-16.5) H 08/01/18 05:15 Plt Count 131 X10^3/uL (150.0-450.0) L 08/01/18 05:15 Plt Count Comment Decreased (ADEQUATE) 07/31/18 05:23 MPV 8.5 fL (7.4-11.0) 08/01/18 05:15 Neut % (Auto) 56.0 % (42.0-75.0) 08/01/18 05:15 Lymph % (Auto) 29.3 % (21.0-51.0) 08/01/18 05:15 [place] % (Auto) 11.8 % (0.0-13.0) 08/01/18 05:15 Eos % (Auto) 2.8 % (0.9-2.9) 08/01/18 05:15 Baso % (Auto) 0.1 % (0.2-1.0) L 08/01/18 05:15 Neut # (Auto) 2.6 x10^3/uL (2.2-4.8) 08/01/18 05:15 Lymph # (Auto) 1.3 X10^3/uL (1.3-2.9) 08/01/18 05:15 [place] # (Auto) 0.5 x10^3/uL (0.3-0.8) 08/01/18 05:15 Eos # (Auto) 0.1 x10^3/uL (0.0-0.2) 08/01/18 05:15 Baso # (Auto) 0.0 X10^3/uL (0.0-0.1) 08/01/18 05:15 Absolute Nucleated RBC 0.0 /100WBC 08/01/18 05:15 Total Counted 100 07/26/18 04:39 Neutrophils % (Manual) 93 % (39-76) H 07/26/18 04:39 Band Neutrophils % 3 % (0-10) 07/26/18 04:39 Lymphocytes % (Manual) 4 % (13-43) L 07/26/18 04:39 Plt Morphology Comment Normal (NORMAL) 07/31/18 05:23 RBC Morphology Abnormal (NORMAL) 07/31/18 05:23 Hypochromasia Slight A 07/30/18 04:20 Anisocytosis 1+ A 07/31/18 05:23 ESR 55 MM/HOUR (0-15) H 07/24/18 21:55 PT 12.3 07/24/18 21:55 INR Target Range - 07/24/18 19:58 INR 1.05 (0.8-1.3) 07/24/18 19:58 APTT 34.3 SECONDS (22.9-36.5) 07/24/18 19:58 PTT Heparin Neutraliz TNP 07/24/18 21:55 PTT Comment - 07/24/18 19:58 Reptilase Time TNP 07/24/18 21:55 D-Dimer 1270 ng/mL (0-400) H* 07/24/18 19:58 Plt Neutralization TNP 07/24/18 21:55 LA PTT Screen 49 07/24/18 21:55 Lupus Anticoag PTT Mix 41 07/24/18 21:55 LA Thrombin Time 16.4 07/24/18 21:55 LA dRVVT Screen Ratio 32 07/24/18 21:55 dRVVT Confirm Interp TNP 07/24/18 21:55 dRVVT Mix Interpret TNP 07/24/18 21:55 Hexag Phospholip Neutrl TNP 07/24/18 21:55 Lupus Anticoag Interp See note 07/24/18 21:55 Prot C Funct Activity 119 % (83-168) 07/24/18 21:55 APC Resistance Ratio 3.86 (>=2.00) 07/24/18 21:55 Protein S Activity 119 % (66-143) 07/24/18 21:55 Antithrombin III Activ 92 % (76-128) 07/24/18 21:55 Sample Site Rb 07/24/18 20:12 ABG pH 7.460 (7.35-7.45) H 07/24/18 20:12 ABG pCO2 42.0 mmHg (35.0-45.0) 07/24/18 20:12 ABG pO2 58.0 mmHg (80.0-100.0) L 07/24/18 20:12 ABG HCO3 29.9 mmol/L (22-26) H 07/24/18 20:12 ABG O2 Saturation 91.0 % (90-100) 07/24/18 20:12 ABG Base Excess 5.5 mmol/L (-2.0-2.0) H 07/24/18 20:12 David Test N/a 07/24/18 20:12 A-a Gradient 118.0 mmHg 07/24/18 20:12 FiO2 32.0 07/24/18 20:12 Blood Gas Comments Dejah well ae 07/24/18 20:12 Sodium 132 mmol/L (136-145) L 08/01/18 05:15 Corrected Sodium 133 mmol/L (136-145) L 08/01/18 05:15 Potassium 4.2 mmol/L (3.5-5.1) 08/01/18 05:15 Chloride 97 mmol/L (98-107) L 08/01/18 05:15 Carbon Dioxide 30.1 mmol/L (21-32) 08/01/18 05:15 BUN 11 mg/dL (7-18) 08/01/18 05:15 Creatinine 0.95 mg/dL (0.70-1.30) 08/01/18 05:15 Est GFR (MDRD) Af Amer > 60 (>60) 08/01/18 05:15 Est GFR (MDRD) Non-Af > 60 (>60) 08/01/18 05:15 Glucose 157 mg/dL (65-99) H 08/01/18 05:15 POC Glucose (mg/dL) 124 mg/dL (65-99) H 08/01/18 19:37 Calcium 8.3 mg/dL (8.5-10.1) L 08/01/18 05:15 Corrected Calcium 9.4 mg/dL (8.5-10.1) 08/01/18 05:15 Magnesium 1.8 mg/dL (1.7-2.9) 07/24/18 19:58 Total Bilirubin 0.60 mg/dL (0.2-1.0) 08/01/18 05:15 AST 18 Units/L (15-37) 08/01/18 05:15 ALT 21 Units/L (12-78) 08/01/18 05:15 Alkaline Phosphatase 105 Units/L (46-116) 08/01/18 05:15 Creatine Kinase 93 Units/L (39-308) 07/24/18 19:58 CK-MB (CK-2) 5.9 ng/mL (0-4.0) H* 07/24/18 19:58 CK/CKMB % Calc 6.3 % (<4) 07/24/18 19:58 Troponin I 0.04 ng/mL (0-1.5) 07/24/18 19:58 C-Reactive Protein 33.70 mg/L (0-3.0) H 07/24/18 21:55 B-Natriuretic Peptide 3690 pg/mL (0-79) H* 07/24/18 19:58 Total Protein 6.2 g/dL (6.4-8.2) L 08/01/18 05:15 Albumin 2.6 g/dL (3.4-5.0) L 08/01/18 05:15 Globulin 3.6 g/dL (2.5-4.5) 08/01/18 05:15 Albumin/Globulin Ratio 0.7 Ratio (1.1-2.1) L 08/01/18 05:15 Homocysteine 9 umol/L (<=10) 07/24/18 21:55 PONCHO Screen None detected (None Detected) 07/24/18 21:55 PONCHO Titer TNP 07/24/18 21:55 PONCHO Pattern TNP 07/24/18 21:55 Prothrombin [id number] Mut Negative 07/24/18 21:55 Prothromb Gene Review Not Reportable 07/24/18 21:55
[2018-08-01] MEDS: LIPITOR TAB 40 MG PO SCH (21:15)
[2018-08-01] MEDS: LANTUS SC SCH (22:17)
[2018-08-02] MEDS: PERCOCET TAB 5/325 MG PO PRN ×2 (01:56→08:38)
[2018-08-02] MEDS: NS 1/2 1000 ML IV 1,000 ML IV SCH (03:46)
[2018-08-02 06:05] LABS: BASOPHILS % (AUTO) 0.1 % (0.2-1.0); EOSINOPHILS % (AUTO) 0.8 % (0.9-2.9); HEMATOCRIT 27.8 % (42.0-54.0); HEMOGLOBIN 9.6 g/dL (13.5-18.0); LYMPHOCYTES # (AUTO) 0.7 X10^3/uL (1.3-2.9); LYMPHOCYTES % (AUTO) 16.8 % (21.0-51.0); MEAN CORPUSCULAR HEMOGLOBIN 33.5 pg (27.0-34.0); MEAN CORPUSCULAR HGB CONC 34.6 g/dL (33.0-35.0); MEAN CORPUSCULAR VOLUME 96.8 fL (80.0-100.0); MEAN PLATELET VOLUME 8.3 fL (7.4-11.0); MONOCYTES # (AUTO) 0.5 x10^3/uL (0.3-0.8); MONOCYTES % (AUTO) 11.8 % (0.0-13.0); NEUTROPHILS % (AUTO) 70.5 % (42.0-75.0); PLATELET COUNT 112 X10^3/uL (150.0-450.0); RED BLOOD COUNT 2.87 X10^6/uL (4.7-6.0); RED CELL DISTRIBUTION WIDTH 19.8 % (11.6-16.5); WHITE BLOOD COUNT 4.2 X10^3/uL (3.6-10.0)
--- NOTE | 2018-08-02 06:09 | RAD ---
History: Shortness of breath Study: Portable AP chest Comparison: Yesterday Findings: The heart size appears prominent status post old sternotomy. There are bilateral mild to moderately large pleural effusions as before, left larger than right. There is mild vascular congestion. There is chronic interstitial lung disease. There are unchanged pacer and AICD C wires via the left subclavian vein. Impression: No significant change of pleural effusions. There may be improved vascular congestion. Reported By:
[2018-08-02 06:36] LABS: ALANINE AMINOTRANSFERASE 20 Units/L (12-78); ALBUMIN 2.4 g/dL (3.4-5.0); ALKALINE PHOSPHATASE 121 Units/L (46-116); ASPARTATE AMINO TRANSFERASE 19 Units/L (15-37); BLOOD UREA NITROGEN 13 mg/dL (7-18); CARBON DIOXIDE 29.1 mmol/L (21-32); CHLORIDE 97 mmol/L (98-107); COR CA(FOR HYPOALB) 9.3 mg/dL (8.5-10.1); COR NA(FOR HYPERGLY) 132 mmol/L (136-145); CREATININE 1.07 mg/dL (0.70-1.30); SODIUM 130 mmol/L (136-145); TOTAL PROTEIN 5.8 g/dL (6.4-8.2); eGFR NON BLACK RACES > 60 (>60)
[2018-08-02] MEDS: ENTRESTO 24/26 MG TAB PO SCH (08:30)
[2018-08-02] MEDS: LEVAQUIN PREMIX IV 750 MG 750 MG/150 ML BAG IV SCH (08:30)
[2018-08-02] MEDS: LEVSIN/MAALOX/LIDOC VISC PO SCH ×2 (08:30→12:07)
[2018-08-02] MEDS: NEURONTIN CAP 100 MG PO SCH (08:32)
[2018-08-02] MEDS: ASPIRIN EC 81 MG PO SCH (08:32)
[2018-08-02] MEDS: BUMEX TAB 1 MG PO SCH (08:32)
[2018-08-02] MEDS: ISOSORBIDE MONONITRATE ER PO SCH (08:33)
[2018-08-02] MEDS: PriLOSEC PO SCH (08:33)
[2018-08-02] MEDS: HumaLOG SC SCH ×2 (08:36→12:09)
[2018-08-02] MEDS: PLAVIX PO SCH (08:36)
[2018-08-02] MEDS: HumuLIN R SC PRN (08:37)
[2018-08-02] MEDS: ZOLOFT PO SCH (08:40)
[2018-08-02] MEDS: COLACE CAP 100 MG PO SCH (08:41)
[2018-08-02] MEDS: ALDACTONE TAB 25 MG PO SCH (08:41)
[2018-08-02] MEDS: COREG TAB 3.125 MG PO SCH (08:41)
[2018-08-02] MEDS: MILK OF MAGNESIA PO SCH (08:43)
[2018-08-02] MEDS: LOVENOX INJ 40 MG SYR SC SCH (08:43)
[2018-08-02] MEDS: ZITHROMAX INJ 500 MG VIAL 500 MG in NS 250 ML IV 250 ML IV SCH (08:44)
[2018-08-02] MEDS: DUONEB 0.5 MG/3 MG NEB SCH ×2 (08:46→11:59)
[2018-08-02 10:04] LABS: ABG BASE EXCESS 5.3 mmol/L (-2.0-2.0); ABG HCO3 29.9 mmol/L (22-26)
[2018-08-02 10:05] LABS: ABG ALLEN TEST POS
[2018-08-02] MEDS ORDERED: DRUG FILTER EXTENSION SET ONE (10:41)
[2018-08-02 15:22] VITALS: BP 103/77
[2018-08-02] MEDS: RANEXA PO SCH (15:25)
== END 2018-08-02 15:57 | disposition home health service (06) | DRG 194 ==
LOC: ER 19:43 → ICU 22:52
PROVIDERS: ADMIT Internal Medicine; ATTEND Internal Medicine
DX: R07.2 Precordial pain; F41.8 Other specified anxiety disorders; E78.2 Mixed hyperlipidemia; B96.89 Other specified bacterial agents as the cause of diseases classified elsewhere; R06.02 Shortness of breath; Z95.0 Presence of cardiac pacemaker; L97.508 Non-pressure chronic ulcer of other part of unspecified foot with other specified severity; E11.65 Type 2 diabetes mellitus with hyperglycemia; R70.0 Elevated erythrocyte sedimentation rate; I73.89 Other specified peripheral vascular diseases; J90 Pleural effusion, not elsewhere classified; R94.31 Abnormal electrocardiogram [ECG] [EKG]; J18.8 Other pneumonia, unspecified organism; R79.82 Elevated C-reactive protein (CRP); I11.0 Hypertensive heart disease with heart failure; I50.9 Heart failure, unspecified; J44.9 Chronic obstructive pulmonary disease, unspecified; I25.10 Atherosclerotic heart disease of native coronary artery without angina pectoris
CPT/HCPCS: 36415; 36600; 71010; 71020; 71045; 71046; 78582; 80053; 81240; 82550; 82553; 82615; 82803; 82947; 83090; 83735; 83880; 84484; 85025; 85300; 85303; 85305; 85306; 85307; 85378; 85597; 85610; 85613; 85635; 85652; 85670; 85730; 85732; 86038; 86140; 86308; 87040; 87070; 87077; 87186; 87205; 93005; 94640; 96365; 96374; 96375; 97110; 97112; 97162; 97166; 99285; A4216; A4222; J0456; J1650; J1815; J1817; J1940; J1956; J2270; J2920; J2930; J7050; J7620

== ENCOUNTER 2018-08-03 19:27 | Inpatient (IN) ==
[2018-08-03 19:58] LABS: ABG ALLEN TEST POS; ABG BASE EXCESS 3.3 mmol/L (-2.0-2.0); ABG HCO3 29.1 mmol/L (22-26)
[2018-08-03 20:02] LABS: BASOPHILS % (AUTO) 0 % (0.2-1.0); EOSINOPHILS % (AUTO) 0.1 % (0.9-2.9); HEMATOCRIT 31.5 % (42.0-54.0); HEMOGLOBIN 10.7 g/dL (13.5-18.0); LYMPHOCYTES # (AUTO) 0.6 X10^3/uL (1.3-2.9); LYMPHOCYTES % (AUTO) 6.7 % (21.0-51.0); MEAN CORPUSCULAR HEMOGLOBIN 33.3 pg (27.0-34.0); MEAN CORPUSCULAR HGB CONC 33.8 g/dL (33.0-35.0); MEAN CORPUSCULAR VOLUME 98.6 fL (80.0-100.0); MEAN PLATELET VOLUME 8.5 fL (7.4-11.0); MONOCYTES # (AUTO) 0.6 x10^3/uL (0.3-0.8); NEUTROPHILS # (AUTO) 8.4 x10^3/uL (2.2-4.8); NEUTROPHILS % (AUTO) 87.2 % (42.0-75.0); PLATELET COUNT 155 X10^3/uL (150.0-450.0); RED CELL DISTRIBUTION WIDTH 19.5 % (11.6-16.5); WHITE BLOOD COUNT 9.6 X10^3/uL (3.6-10.0)
--- NOTE | 2018-08-03 20:06 | DR.SOBA ---
HPI Time Seen Time Seen by Provider: 08/03/18 20:05 Primary Care Physician Primary Care Physician: HAROON HPI Comment HPI Comment: AGREE WITH CHIEF COMPLAINT. O2 SAT IN LOW 90S ON NR 100% OXYGEN. PATIENT DISCHARGE FROM HOSPITAL AFTER PNEUMONIA AND CHF TREATMENT. HE WAS IN HOSPITAL FOR SEVERAL DAYS. DENIES FEVER. Complaints Chief Complaint Doctors Comments: INCREASING SOB SINCE DISCHARGE FROM HOSPITAL THAT GOT WORSE TONIGHT. Chief Complaint:: [facility] RESPONDED TO CALL FOR SHORTNESS OF BREATH. UPON ARRIVAL PATIENT IN TRIPOD POSITION, IN RESPIRATORY DISTRESS. UPON ARRIVAL TO ED, PATIENT IN TRIPOD POSITION , RESPIRATORY DISTRESS WITH SIMPLE MASK INTACT @ 10L/MIN. NOTED ACCESSORY MUSCLE USE, RETRACTIONS. SP02 NOTED TO BE 80%. SKIN PALE, WARM, DRY. PATIENT ALERT ORIENTED, MAKES EYE CONTACT WITH CONVERSATION. PATIENT STATES, "SOMETHING NEEDS TO BE DONE, I CAN'T BREATHE. YOU KNOW WHERE I WANT THAT IV, IN MY ARM. I WOULD RATHER BEFORE I HAVE IT IM MY HAND!" Reviewed Nurses Notes Reviewed: Yes Source History Provided: Patient and EMS Mode of Arrival Mode of Arrival: EMS Timing Onset of Chief Complaint: 08/03/18 Duration Duration: Days Context Onset:: At Rest PE Risk Factors:: None History of:: COPD and CHF Currently on:: Inhaled Bronchodilators Prehospital Care:: O2 and Inhaled B2 Modifying Factors Worsens:: Exertion and Lying Flat Improves:: Sitting Up Associated Signs and Symptoms Associated Signs and Symptoms: Wheeze, Cough, Chest Pain and Leg Swelling If Chest Pain Quality: Pleuritic (TIGHTNESS.) If Cough Cough: Productive and Yellow Other History Other History: COPD. PMH PMH Past Medical History: Yes Past Medical History: Anxiety, Arthritis, CHF, COPD, Coronary Artery Disease, D iabetes, Dyslipidemia, GERD and Hypertension Past Surgical History: Yes Surgical History: CABG/Valve Surgery, Mastectomy and Other Family History History of Family Medical Conditions: Yes Family Medical History: Diabetes Mellitus and Heart Failure Social History Does patient currently use any type of tobacco product: No Have you used tobacco products in the last 12 months: No Type of Tobacco Use: None Does any household member use tobacco: No Alcohol Use: None Do you use any recreational Drugs:: No Lives With: Spouse Lives Where: Home infectious screening Have you traveled outside the country in the last 6 months?: No Isolation: Standard ROS Review of Systems Constitutional: Weakness and Fatigue; negative Fever Eyes: No Symptoms Reported ENTM: Nose Congestion Respiratoy: Productive Cough, Short of Breath and Wheezing Cardiovascular: Chest Pain Gastrointestinal/Abdominal: No Symptoms Reported Genitourinary: No Symptoms Reported Neurological: Weakness Musculoskeletal: Muscle Pain Integumentary: Change in Color and Dryness Hematologic/Lymphatic: Easy Bleeding and Easy Bruising Endocrine: No Symptoms Reported Psychiatric: Anxiety All Other Systems: Reviewed and Negative PE Vital Signs Vitals: Temperature 97.7 F Pulse Rate [Apical] 85 Pulse Rate 92 Respiratory Rate 24 Blood Pressure [Left Arm] 116/71 Blood Pressure [Right Arm] 86/61 Blood Pressure 143/76 O2 Sat by Pulse Oximetry 100 General Limitations: No Limitations General Appearance: Alert and In Distress Head Head Exam: Normal Inspection Eyes Eye exam: PERRL; negative Scleral Icterus and Conjunctival Injection ENT ENT Exam: Normal Exam Neck Neck Exam: Other (NECK VEINS DISTENDED.) Chest Chest Inspection: Symmetric Chest Wall Rise Respiratory Respiratory Exam: Respiratory Distress Respiratory Exam: Bilateral: Wheezing, Bilateral: Rales and Bilateral: Rhonchi, Left: Wheezing, Left: Rales and Left: Rhonchi, Right: Wheezing, Right: Rales and Right: Rhonchi and Lower: Wheezing, Lower: Rales and Lower: Rhonchi Cardiovascular Cardiovascular Exam: Regular Rate and Normal Rhythm Abdominal Exam Abdominal Exam: Normal Inspection Extremities Extremities Exam: Edema Back Back Exam: Paraspinal Tenderness Neurologic Neurological Exam: Alert and Oriented X3; negative Motor Sensory Deficit Psychiatric Psychiatric Exam: Anxious Skin Skin Exam: Dry and Erythema MDM Additional Information Obtained Additional Information Obtained From: Old Records Differential Diagnosis Differential Diagnosis: Bronchitis, CHF, COPD, Dysrhythmia, Mycardial Infarction, Pneumonia, Pneumothorax, Pulmonary embolism and Respiratory Failure COURSE Treatment Treatment: SEE ORDERS. NEB RX WITH DUONEB, SOLUMEDROL AND IV LASIX IN ED. MORPHIN AND ZOFRAN IV AND ATIVAN IV IN ED. O2 SAT NOT IMPROVING. RESP. DISTRESS. BI-PAP STARTED. Reevaluation 1st: Unchanged Consultation Consultation Comments: DR. PATIÑO ACCEPTED PATIENT FOR TRANSFER. Education/Counseling Education/Counseling: Patient Educated On: Diagnosis ROR Labs Reviewed Laboratory Results Reviewed?: Yes Result Diagrams: 08/04/18 05:27 08/04/18 05:27 Laboratory: WBC 6.6 X10^3/uL (3.6-10.0) 08/04/18 05:27 RBC 3.18 X10^6/uL (4.7-6.0) L 08/04/18 05:27 Hgb 10.7 g/dL (13.5-18.0) L 08/04/18 05:27 Hct 31.4 % (42.0-54.0) L 08/04/18 05:27 MCV 98.8 fL (80.0-100.0) 08/04/18 05:27 MCH 33.7 pg (27.0-34.0) 08/04/18 05:27 MCHC 34.1 g/dL (33.0-35.0) 08/04/18 05:27 RDW 19.0 % (11.6-16.5) H 08/04/18 05:27 Plt Count 119 X10^3/uL (150.0-450.0) L 08/04/18 05:27 Plt Count Comment Decreased (ADEQUATE) 08/04/18 05:27 MPV 8.7 fL (7.4-11.0) 08/04/18 05:27 Neut % (Auto) 94.5 % (42.0-75.0) H 08/04/18 05:27 Lymph % (Auto) 4.3 % (21.0-51.0) L 08/04/18 05:27 [place] % (Auto) 1.1 % (0.0-13.0) 08/04/18 05:27 Eos % (Auto) 0.0 % (0.9-2.9) L 08/04/18 05:27 Baso % (Auto) 0.1 % (0.2-1.0) L 08/04/18 05:27 Neut # (Auto) 6.2 x10^3/uL (2.2-4.8) H 08/04/18 05:27 Lymph # (Auto) 0.3 X10^3/uL (1.3-2.9) L 08/04/18 05:27 [place] # (Auto) 0.1 x10^3/uL (0.3-0.8) L 08/04/18 05:27 Eos # (Auto) 0.0 x10^3/uL (0.0-0.2) 08/04/18 05:27 Baso # (Auto) 0.0 X10^3/uL (0.0-0.1) 08/04/18 05:27 Absolute Nucleated RBC 0.1 /100WBC 08/04/18 05:27 Total Counted 100 08/04/18 05:27 Neutrophils % (Manual) 95 % (39-76) H 08/04/18 05:27 Lymphocytes % (Manual) 4 % (13-43) L 08/04/18 05:27 Monocytes % (Manual) 1 % (4-9) L 08/04/18 05:27 Plt Morphology Comment Normal (NORMAL) 08/04/18 05:27 RBC Morphology Normal (NORMAL) 08/04/18 05:27 D-Dimer 952 ng/mL (0-400) H* 08/03/18 19:35 Sample Site Lt rad 08/04/18 13:40 ABG pH 7.460 (7.35-7.45) H 08/04/18 13:40 ABG pCO2 43.0 mmHg (35.0-45.0) 08/04/18 13:40 ABG pO2 71.0 mmHg (80.0-100.0) L 08/04/18 13:40 ABG HCO3 30.6 mmol/L (22-26) H* 08/04/18 13:40 ABG O2 Saturation 95.0 % (90-100) 08/04/18 13:40 ABG Base Excess 6.1 mmol/L (-2.0-2.0) H 08/04/18 13:40 David Test Pos 08/04/18 13:40 A-a Gradient 232.0 mmHg 08/04/18 13:40 FiO2 50.0 08/04/18 13:40 Blood Gas Comments Dejah well mm 08/04/18 13:40 Sodium 129 mmol/L (136-145) L 08/04/18 05:27 Corrected Sodium 133 mmol/L (136-145) L 08/04/18 05:27 Potassium 5.5 mmol/L (3.5-5.1) H 08/04/18 05:27 Chloride 93 mmol/L (98-107) L 08/04/18 05:27 Carbon Dioxide 27.6 mmol/L (21-32) 08/04/18 05:27 BUN 24 mg/dL (7-18) H 08/04/18 05:27 Creatinine 1.09 mg/dL (0.70-1.30) 08/04/18 05:27 Est GFR (MDRD) Af Amer > 60 (>60) 08/04/18 05:27 Est GFR (MDRD) Non-Af > 60 (>60) 08/04/18 05:27 Glucose 283 mg/dL (65-99) H 08/04/18 05:27 POC Glucose (mg/dL) 175 mg/dL (65-99) H 08/04/18 20:03 Calcium 8.5 mg/dL (8.5-10.1) 08/04/18 05:27 Corrected Calcium 9.4 mg/dL (8.5-10.1) 08/03/18 19:35 Total Bilirubin 0.70 mg/dL (0.2-1.0) 08/03/18 19:35 AST 41 Units/L (15-37) H 08/03/18 19:35 ALT 56 Units/L (12-78) 08/03/18 19:35 Alkaline Phosphatase 223 Units/L (46-116) H 08/03/18 19:35 Creatine Kinase 104 Units/L (39-308) 08/04/18 13:05 CK-MB (CK-2) 6.1 ng/mL (0-4.0) H* 08/04/18 13:05 CK/CKMB % Calc 5.9 % (<4) 08/04/18 13:05 Troponin I 0.58 ng/mL (0-1.5) 08/04/18 13:05 Total Protein 6.6 g/dL (6.4-8.2) 08/03/18 19:35 Albumin 2.7 g/dL (3.4-5.0) L 08/03/18 19:35 Globulin 3.9 g/dL (2.5-4.5) 08/03/18 19:35 Albumin/Globulin Ratio 0.7 Ratio (1.1-2.1) L 08/03/18 19:35 Specimen Type Clean catch urine 08/04/18 01:06 Urine Color Dark yellow (YELLOW) 08/04/18 01:06 Urine Appearance Slightly hazy (CLEAR) 08/04/18 01:06 Urine pH 5.0 (5.0 - 8.0) 08/04/18 01:06 Ur Specific [place] 1.025 (1.000-1.030) 08/04/18 01:06 Urine Protein 3+ (NEGATIVE) 08/04/18 01:06 Urine Glucose (UA) Negative (NEGATIVE) 08/04/18 01:06 Urine Ketones Negative (NEGATIVE) 08/04/18 01:06 Urine Occult Blood 5+ (NEGATIVE) 08/04/18 01:06 Urine Nitrite Negative (NEGATIVE) 08/04/18 01:06 Urine Bilirubin Negative (NEGATIVE) 08/04/18 01:06 Urine Urobilinogen Normal (NORMAL) 08/04/18 01:06 Ur Leukocyte Esterase Negative (NEGATIVE) 08/04/18 01:06 Urine RBC 20-30 /HPF (NONE SEEN) 08/04/18 01:06 Urine WBC None seen /HPF (NONE SEEN) 08/04/18 01:06 Ur Squamous Epith Cells Few /HPF (NEGATIVE) 08/04/18 01:06 Ur Renal Epithelial Cell Few /HPF (NEGATIVE) 08/04/18 01:06 Amorphous Sediment 1+ /HPF (NEGATIVE) 08/04/18 01:06 Urine Bacteria Trace /HPF (NEGATIVE) 08/04/18 01:06 Hyaline Casts Few /LPF (NEGATIVE) 08/04/18 01:06 Urine Mucus Moderate /HPF (NEGATIVE) 08/04/18 01:06 Ur Culture Indicated? No/not indicated 08/04/18 01:06 XRAY XRAY Interpreted by: Radiologist XRAY Findings: REPORT ON RECORD NOTED AND DISCUSS WITH PATIENT. EKG Rate: 90 [place]: Normal Rhythm: Paced Diagnosis Discharge Problem: Respiratory distress
[2018-08-03 20:11] LABS: ALANINE AMINOTRANSFERASE 56 Units/L (12-78); ALBUMIN 2.7 g/dL (3.4-5.0); ALKALINE PHOSPHATASE 223 Units/L (46-116); ASPARTATE AMINO TRANSFERASE 41 Units/L (15-37); BLOOD UREA NITROGEN 21 mg/dL (7-18); CALCIUM 8.4 mg/dL (8.5-10.1); CARBON DIOXIDE 29.5 mmol/L (21-32); CHLORIDE 93 mmol/L (98-107); COR CA(FOR HYPOALB) 9.4 mg/dL (8.5-10.1); COR NA(FOR HYPERGLY) 133 mmol/L (136-145); CREATININE 1.25 mg/dL (0.70-1.30); SODIUM 128 mmol/L (136-145); TOTAL PROTEIN 6.6 g/dL (6.4-8.2); eGFR NON BLACK RACES > 60 (>60)
[2018-08-03 21:00] LABS: CKMB % 6.1 % (<4); TROPONIN I 0.05 ng/mL (0-1.5)
[2018-08-03] MEDS ORDERED: ZOFRAN INJ 4 MG VIAL IVP ONE (21:22)
[2018-08-03] MEDS ORDERED: MORPHINE SULFATE INJ 2 MG INJ IVP ONE (21:22)
[2018-08-03] MEDS ORDERED: ZOFRAN INJ 4 MG VIAL ONE (21:23)
[2018-08-03] MEDS ORDERED: MORPHINE SULFATE INJ 2 MG INJ ONE (21:24)
[2018-08-03] MEDS ORDERED: ATIVAN INJ 2 MG VIAL IVP ONE (22:56)
[2018-08-03] MEDS ORDERED: ATIVAN INJ 2 MG VIAL ONE (22:57)
[2018-08-03] MEDS ORDERED: SOLU-Medrol 125 MG VIAL IVP ONE (23:17)
[2018-08-03] MEDS ORDERED: DUONEB 0.5 MG/3 MG NEB ONE (23:20)
[2018-08-03] MEDS ORDERED: SOLU-Medrol 125 MG VIAL ONE (23:30)
[2018-08-03] MEDS: LEVAQUIN PREMIX IV 500 MG 500 MG/100 ML BAG IV SCH (23:37)
[2018-08-04] MEDS: DUONEB 0.5 MG/3 MG NEB SCH ×6 (00:11→21:42)
[2018-08-04] MEDS ORDERED: LASIX IVP ONE ×2 (00:22→00:30)
[2018-08-04] MEDS ORDERED: DUONEB 0.5 MG/3 MG NEB SCH (01:00)
[2018-08-04 01:12] LABS: BILIRUBIN,URINE NEGATIVE (NEGATIVE); BLOOD/HEMOGLOBIN,URINE 5+ (NEGATIVE); GLUCOSE, URINE NEGATIVE (NEGATIVE); KETONES,URINE NEGATIVE (NEGATIVE); LEUKOCYTE ESTERASE ,URINE NEGATIVE (NEGATIVE); NITRITES,URINE NEGATIVE (NEGATIVE); PROTEIN,URINE 3+ (NEGATIVE); UROBILINOGEN,URINE NORMAL (NORMAL)
[2018-08-04 01:19] LABS: COLOR,URINE DARK YELLOW (YELLOW)
[2018-08-04 01:20] LABS: AMORPHOUS SEDIMENT,UR 1+ /HPF (NEGATIVE); APPEARANCE,URINE SLIGHTLY HAZY (CLEAR); BACTERIA,URINE TRACE /HPF (NEGATIVE); HYALINE CASTS, URINE FEW /LPF (NEGATIVE); MUCUS,URINE MODERATE /HPF (NEGATIVE); RBC,URINE 20-30 /HPF (NONE SEEN); RENAL EPITHELIAL CELLS,URINE FEW /HPF (NEGATIVE); SQUAMOUS EPITHELIAL CELL,UR FEW /HPF (NEGATIVE)
[2018-08-04 01:26] VITALS: BMI 28.6
[2018-08-04] MEDS ORDERED: NS 1000 ML 1,000 ML ONE (01:30)
[2018-08-04] MEDS: NS 1000 ML 1,000 ML IV SCH (01:35)
[2018-08-04 01:57] LABS: ABG BASE EXCESS 3.3 mmol/L (-2.0-2.0); ABG HCO3 29.1 mmol/L (22-26)
[2018-08-04] MEDS ORDERED: HumuLIN R ONE (05:22)
[2018-08-04] MEDS: HumuLIN R SUBCUT PRN ×3 (05:46→16:48)
[2018-08-04 07:11] LABS: BLOOD UREA NITROGEN 24 mg/dL (7-18); CALCIUM 8.5 mg/dL (8.5-10.1); CARBON DIOXIDE 27.6 mmol/L (21-32); CHLORIDE 93 mmol/L (98-107); COR NA(FOR HYPERGLY) 133 mmol/L (136-145); CREATININE 1.09 mg/dL (0.70-1.30); SODIUM 129 mmol/L (136-145); eGFR NON BLACK RACES > 60 (>60)
[2018-08-04 07:14] LABS: TROPONIN I 0.51 ng/mL (0-1.5)
[2018-08-04 07:15] LABS: CREATINE KINASE MB 9.3 ng/mL (0-4.0)
[2018-08-04 07:23] LABS: BASOPHILS % (AUTO) 0.1 % (0.2-1.0); HEMATOCRIT 31.4 % (42.0-54.0); HEMOGLOBIN 10.7 g/dL (13.5-18.0); LYMPHOCYTES # (AUTO) 0.3 X10^3/uL (1.3-2.9); LYMPHOCYTES % (AUTO) 4.3 % (21.0-51.0); MEAN CORPUSCULAR HEMOGLOBIN 33.7 pg (27.0-34.0); MEAN CORPUSCULAR HGB CONC 34.1 g/dL (33.0-35.0); MEAN CORPUSCULAR VOLUME 98.8 fL (80.0-100.0); MEAN PLATELET VOLUME 8.7 fL (7.4-11.0); MONOCYTES # (AUTO) 0.1 x10^3/uL (0.3-0.8); MONOCYTES % (AUTO) 1.1 % (0.0-13.0); NEUTROPHILS # (AUTO) 6.2 x10^3/uL (2.2-4.8); NEUTROPHILS % (AUTO) 94.5 % (42.0-75.0); PLATELET COUNT 119 X10^3/uL (150.0-450.0); RED BLOOD COUNT 3.18 X10^6/uL (4.7-6.0); WHITE BLOOD COUNT 6.6 X10^3/uL (3.6-10.0)
[2018-08-04 08:00] LABS: PLATELET MORPHOLOGY COMMENT NORMAL (NORMAL)
--- NOTE | 2018-08-04 08:08 | RAD ---
HISTORY: Shortness of breath Study: Chest AP portable Comparison: 08/03/2018 Findings: There is a pacemaker present on the left. The patient is status post median sternotomy and CABG. Heart size difficult to assess due to obscuration of the left heart border by left pleural effusion. Diffuse interstitial and alveolar infiltrates are present most likely representing congestive heart failure in the form of interstitial and alveolar edema although bilateral pneumonia could have this appearance and clinical correlation is recommended. Increasing right pleural effusion is identified. The bony thorax is unremarkable. IMPRESSION: No significant change diffuse bilateral interstitial and alveolar infiltrates likely due to interstitial and alveolar pulmonary edema although pneumonia could not be excluded. Bilateral pleural effusions increasing on the right Reported By:
[2018-08-04] MEDS: SOLU-Medrol 40 MG VIAL IVP SCH ×2 (08:25→20:23)
[2018-08-04] MEDS: LEVAQUIN PREMIX IV 500 MG 500 MG/100 ML BAG IV SCH (08:26)
[2018-08-04] MEDS ORDERED: MORPHINE SULFATE INJ 2 MG INJ ONE (10:06)
[2018-08-04] MEDS: PROTONIX INJ 40 MG VIAL IVP SCH (10:18)
[2018-08-04] MEDS: LASIX IVP SCH ×2 (10:18→20:22)
[2018-08-04] MEDS: MORPHINE SULFATE INJ 2 MG INJ IVP PRN ×2 (10:18→18:05)
--- NOTE | 2018-08-04 13:05 | DR.H&P ---
H&P - History & Physical for Day of: H&P Date: 08/03/18 - Chief Complaint Chief Complaint: SOB - History of Present Illness History of Present Illness: 73 [facility] ER ADMISSION WITH CO SOB. PRESENTED TO THE ER VIA EMS WITH CO SOB, PT WAS RECENTLY INPT FOR COPD, PNEUMONIA AND CHF. PT CXR WITH BILATERAL PLEURAL EFFUSIONS, ABG PO2 69. PTHAS PMH OF CHF, COPD, CAD, OA, YASMIN, PAD. PT ADMITTED TO ICU FOR RESP DISTRESS. - Past Medical History Past Medical History: Coronary Artery Disease, Hypertension, Dyslipidemia, Diabetes, Anxiety, COPD, GERD, Arthritis, CHF - Past Surgical History Surgical History: CABG/Valve Surgery - Family History Family Medical History: Diabetes Mellitus, Heart Failure - Social History Does patient currently use any type of tobacco product: No Have you used tobacco products in the last 12 months: No Type of Tobacco Use: None How many years tobacco product used: 15 Does any household member use tobacco: No Alcohol Use: None Drug Use: Prescription Drugs - Medications Home Medications: chocolate flavor Allergy (Verified 08/03/18 19:46) Penicillins Allergy (Verified 08/03/18 19:46) CHOCOLATE Allergy (Uncoded 08/03/18 19:46) - Review of Systems Constitutional: Weakness Eyes: No Symptoms Reported ENT: No Symptoms Reported Respiratory: Shortness of Breath Cardiovascular: No Symptoms Reported, Light Headedness Gastrointestinal: No Symptoms Reported Genitourinary: No Symptoms Reported Musculoskeletal: Back Pain Skin: Wound Neurological: Weakness - Physical Exam Vital Signs: Temperature 97.9 F Pulse Rate [Apical] 85 Pulse Rate 93 Respiratory Rate 24 Blood Pressure [Left Arm] 116/71 Blood Pressure [Right Arm] 86/61 Blood Pressure 116/97 O2 Sat by Pulse Oximetry 99 Oriented: Person Eyes: Normal Ear: Normal Nose: Normal Throat: Normal Respiratory: RLL Diminished, LLL Diminished Cardiovascular: Tachycardia. negative: Edema : Normal Auscultation: Bowel Sounds: Normal Palpation: Normal Tenderness: Normal Skin: Decreased Turgur, Wound (NECROTIC WOUND LEFT 3RD, 4TH TOES) Psychiatric: Anxiety Affect: Anxious Speech Pattern: Clear, Appropriate - Assessment/Plan (1) Respiratory distress Status: Acute Plan: ADMIT, ICU, RESP THERAPY. BIPAP, IV HYDRATION WEBER CATH, STRICT I & OS. BB, CONTINOUR CARDIAC MONITORING. ABG,SERIAL CE AND EKG. SOLU MEDROL, IV ATBX. (2) CAD (coronary artery disease) Qualifiers: Coronary Disease-Associated Artery/Lesion type: bypass graft Status: Acute (3) COPD exacerbation Status: Acute (4) PAD (peripheral artery disease) Status: Acute (5) Foot ulcer with necrosis of muscle Status: Acute (6) Pleural effusion, bilateral Status: Acute (7) Hypertension Status: Chronic (8) Diabetes mellitus, type 2 Status: Chronic - Allergies Allergies/Adverse Reactions: Allergies Allergy/AdvReac Type Severity Reaction Status Date / Time chocolate flavor Allergy Verified 08/03/18 19:46 Penicillins Allergy Verified 08/03/18 19:46 CHOCOLATE Allergy Uncoded 08/03/18 19:46
[2018-08-04 13:45] LABS: ABG BASE EXCESS 6.1 mmol/L (-2.0-2.0)
[2018-08-04 13:48] LABS: ABG ALLEN TEST POS; ABG HCO3 30.6 mmol/L (22-26)
[2018-08-04 13:56] LABS: CKMB % 5.9 % (<4); TROPONIN I 0.58 ng/mL (0-1.5)
[2018-08-04 13:59] LABS: CREATINE KINASE MB 6.1 ng/mL (0-4.0)
[2018-08-04] MEDS: LOVENOX INJ 40 MG SYR SC SCH (18:31)
[2018-08-04] MEDS: SNACK - Diabetic Appropriate PO SCH (20:22)
[2018-08-04] MEDS ORDERED: BUTT CREAM (COMPOUND) TOP PRN (21:36)
[2018-08-05] MEDS: MORPHINE SULFATE INJ 2 MG INJ IVP PRN ×3 (00:01→15:06)
[2018-08-05] MEDS: NS 1000 ML 1,000 ML IV SCH (00:32)
[2018-08-05] MEDS: DUONEB 0.5 MG/3 MG NEB SCH ×3 (01:09→08:32)
[2018-08-05] MEDS: HumuLIN R SUBCUT PRN ×4 (05:35→20:49)
[2018-08-05 06:22] LABS: BASOPHILS % (AUTO) 0 % (0.2-1.0); HEMATOCRIT 30.8 % (42.0-54.0); HEMOGLOBIN 10.5 g/dL (13.5-18.0); LYMPHOCYTES # (AUTO) 0.3 X10^3/uL (1.3-2.9); MEAN CORPUSCULAR HEMOGLOBIN 33.5 pg (27.0-34.0); MEAN CORPUSCULAR HGB CONC 34.1 g/dL (33.0-35.0); MEAN CORPUSCULAR VOLUME 98.2 fL (80.0-100.0); MEAN PLATELET VOLUME 8.7 fL (7.4-11.0); MONOCYTES # (AUTO) 0.5 x10^3/uL (0.3-0.8); MONOCYTES % (AUTO) 4.1 % (0.0-13.0); NEUTROPHILS # (AUTO) 12.5 x10^3/uL (2.2-4.8); NEUTROPHILS % (AUTO) 93.9 % (42.0-75.0); PLATELET COUNT 146 X10^3/uL (150.0-450.0); RED BLOOD COUNT 3.14 X10^6/uL (4.7-6.0); RED CELL DISTRIBUTION WIDTH 19.5 % (11.6-16.5); WHITE BLOOD COUNT 13.3 X10^3/uL (3.6-10.0)
[2018-08-05 06:42] LABS: ALANINE AMINOTRANSFERASE 39 Units/L (12-78); ALBUMIN 2.7 g/dL (3.4-5.0); ALKALINE PHOSPHATASE 184 Units/L (46-116); ASPARTATE AMINO TRANSFERASE 31 Units/L (15-37); BLOOD UREA NITROGEN 32 mg/dL (7-18); CARBON DIOXIDE 28.2 mmol/L (21-32); CHLORIDE 95 mmol/L (98-107); COR NA(FOR HYPERGLY) 137 mmol/L (136-145); CREATININE 1.28 mg/dL (0.70-1.30); SODIUM 133 mmol/L (136-145); TOTAL PROTEIN 6.6 g/dL (6.4-8.2); eGFR NON BLACK RACES 59 (>60)
[2018-08-05 06:55] LABS: BAND NEUTROPHILS % 2 % (0-10)
[2018-08-05 06:56] LABS: PLATELET MORPHOLOGY COMMENT NORMAL (NORMAL)
[2018-08-05 08:09] LABS: CKMB % 4.4 % (<4); TROPONIN I 0.3 ng/mL (0-1.5)
[2018-08-05 08:11] LABS: CREATINE KINASE MB 5.5 ng/mL (0-4.0)
[2018-08-05] MEDS: PROTONIX INJ 40 MG VIAL IVP SCH (08:33)
[2018-08-05] MEDS: LOVENOX INJ 40 MG SYR SC SCH (08:33)
[2018-08-05] MEDS: SOLU-Medrol 40 MG VIAL IVP SCH ×2 (08:33→20:48)
[2018-08-05] MEDS: LEVAQUIN PREMIX IV 500 MG 500 MG/100 ML BAG IV SCH (08:33)
[2018-08-05] MEDS ORDERED: NORCO 5/325 MG TAB PO PRN (09:21)
[2018-08-05] MEDS ORDERED: NORCO 10/325 TAB ONE (09:23)
[2018-08-05] MEDS ORDERED: NORCO 5/325 MG TAB ONE (09:25)
[2018-08-05] MEDS ORDERED: PERCOCET TAB 5/325 MG ONE (09:32)
[2018-08-05] MEDS: PERCOCET TAB 5/325 MG PO PRN (09:50)
--- NOTE | 2018-08-05 14:11 | RAD ---
History: Shortness of breath Study: Portable AP chest Comparison: Yesterday Findings: There are bilateral pleural effusions, left larger than right, overall small. There is improved vascular congestion. The heart size is normal status post sternotomy. There are intact AICD wires via the left subclavian vein. Impression: Congestive heart failure with persistent pleural effusions in slightly improved pulmonary edema Reported By:
[2018-08-05] MEDS: LASIX IVP SCH ×2 (15:06→20:46)
[2018-08-05] MEDS: PROVENTIL NEB TX 0.083% 2.5MG/ 3ML NEB PRN (17:04)
[2018-08-05] MEDS: Atrovent NEB TX 0.02% NEB SCH (17:04)
[2018-08-05] MEDS: FLONASE NASAL SPRAY ENOSTRIL SCH (17:05)
[2018-08-05] MEDS: ISOSORBIDE MONONITRATE ER PO SCH (17:05)
[2018-08-05] MEDS: ZOLOFT PO SCH (17:05)
[2018-08-05] MEDS: ASPIRIN EC 81 MG PO SCH (17:06)
[2018-08-05] MEDS: FOLIC ACID TAB 1 MG PO SCH (17:06)
[2018-08-05] MEDS: ALDACTONE TAB 25 MG PO SCH (17:06)
[2018-08-05] MEDS: PLAVIX PO SCH (17:06)
[2018-08-05] MEDS: ZANAFLEX PO PRN (17:06)
[2018-08-05] MEDS: PULMICORT NEB TX 0.5 MG NEB SCH (20:20)
[2018-08-05] MEDS: BROVANA IN SCH (20:27)
[2018-08-05] MEDS: SNACK - Diabetic Appropriate PO SCH ×2 (20:45)
[2018-08-05] MEDS: LIPITOR TAB 40 MG PO SCH ×2 (20:45→23:38)
[2018-08-05] MEDS: COREG TAB 3.125 MG PO SCH ×2 (20:46→23:36)
[2018-08-05] MEDS: ENTRESTO 24/26 MG TAB PO SCH ×2 (20:46→23:37)
[2018-08-05] MEDS: LANTUS SC SCH (20:47)
[2018-08-05] MEDS: RANEXA PO SCH ×2 (20:48→23:38)
[2018-08-05] MEDS: NEURONTIN CAP 100 MG PO SCH ×2 (20:48→23:37)
[2018-08-05] MEDS: REQUIP PO SCH ×2 (21:16→23:35)
[2018-08-06] MEDS: Atrovent NEB TX 0.02% NEB SCH ×4 (00:54→23:10)
[2018-08-06] MEDS: MORPHINE SULFATE INJ 2 MG INJ IVP PRN (01:35)
[2018-08-06] MEDS: NS 1000 ML 1,000 ML IV SCH (01:35)
[2018-08-06] MEDS: PERCOCET TAB 5/325 MG PO PRN ×3 (03:51→22:37)
[2018-08-06] MEDS: PROVENTIL NEB TX 0.083% 2.5MG/ 3ML NEB PRN ×5 (04:00→23:10)
[2018-08-06] MEDS: REQUIP PO SCH ×3 (05:16→22:08)
[2018-08-06] MEDS: HumuLIN R SUBCUT PRN ×4 (05:43→21:05)
[2018-08-06 05:54] LABS: BASOPHILS % (AUTO) 0.1 % (0.2-1.0); HEMATOCRIT 28.9 % (42.0-54.0); HEMOGLOBIN 9.9 g/dL (13.5-18.0); LYMPHOCYTES # (AUTO) 0.2 X10^3/uL (1.3-2.9); MEAN CORPUSCULAR HEMOGLOBIN 33.6 pg (27.0-34.0); MEAN CORPUSCULAR HGB CONC 34.3 g/dL (33.0-35.0); MEAN CORPUSCULAR VOLUME 98.1 fL (80.0-100.0); MEAN PLATELET VOLUME 8.4 fL (7.4-11.0); MONOCYTES # (AUTO) 0.5 x10^3/uL (0.3-0.8); MONOCYTES % (AUTO) 4.5 % (0.0-13.0); NEUTROPHILS # (AUTO) 10.6 x10^3/uL (2.2-4.8); NEUTROPHILS % (AUTO) 93.4 % (42.0-75.0); PLATELET COUNT 140 X10^3/uL (150.0-450.0); RED BLOOD COUNT 2.95 X10^6/uL (4.7-6.0); RED CELL DISTRIBUTION WIDTH 19.5 % (11.6-16.5); WHITE BLOOD COUNT 11.3 X10^3/uL (3.6-10.0)
[2018-08-06 06:09] LABS: ALANINE AMINOTRANSFERASE 49 Units/L (12-78); ALBUMIN 2.6 g/dL (3.4-5.0); ALKALINE PHOSPHATASE 277 Units/L (46-116); ASPARTATE AMINO TRANSFERASE 43 Units/L (15-37); BLOOD UREA NITROGEN 37 mg/dL (7-18); CALCIUM 8.6 mg/dL (8.5-10.1); CARBON DIOXIDE 29.9 mmol/L (21-32); CHLORIDE 97 mmol/L (98-107); COR CA(FOR HYPOALB) 9.7 mg/dL (8.5-10.1); COR NA(FOR HYPERGLY) 139 mmol/L (136-145); CREATININE 1.32 mg/dL (0.70-1.30); SODIUM 134 mmol/L (136-145); TOTAL PROTEIN 6.1 g/dL (6.4-8.2); eGFR NON BLACK RACES 57 (>60)
[2018-08-06 06:17] LABS: ANISOCYTOSIS SLIGHT; HYPOCHROMASIA SLIGHT; PLATELET MORPHOLOGY COMMENT NORMAL (NORMAL)
[2018-08-06] MEDS: LOVENOX INJ 40 MG SYR SC SCH (09:02)
[2018-08-06] MEDS: LASIX IVP SCH ×2 (09:03→20:55)
[2018-08-06] MEDS: ENTRESTO 24/26 MG TAB PO SCH ×2 (09:03→20:54)
[2018-08-06] MEDS: RANEXA PO SCH ×2 (09:03→20:56)
[2018-08-06] MEDS: PLAVIX PO SCH (09:03)
[2018-08-06] MEDS: LEVAQUIN PREMIX IV 500 MG 500 MG/100 ML BAG IV SCH (09:03)
[2018-08-06] MEDS: ISOSORBIDE MONONITRATE ER PO SCH (09:03)
[2018-08-06] MEDS: PROTONIX INJ 40 MG VIAL IVP SCH (09:03)
[2018-08-06] MEDS: COREG TAB 3.125 MG PO SCH ×2 (09:04→21:04)
[2018-08-06] MEDS: ALDACTONE TAB 25 MG PO SCH (09:04)
[2018-08-06] MEDS: SOLU-Medrol 40 MG VIAL IVP SCH ×2 (09:04→20:55)
[2018-08-06] MEDS: ZANAFLEX PO PRN (09:04)
[2018-08-06] MEDS: NEURONTIN CAP 100 MG PO SCH ×2 (09:04→20:55)
[2018-08-06] MEDS: ZOLOFT PO SCH (09:04)
[2018-08-06] MEDS: ASPIRIN EC 81 MG PO SCH (09:05)
[2018-08-06] MEDS: FLONASE NASAL SPRAY ENOSTRIL SCH (09:05)
[2018-08-06] MEDS: FOLIC ACID TAB 1 MG PO SCH (09:05)
[2018-08-06] MEDS: BROVANA IN SCH ×2 (09:27→20:00)
[2018-08-06] MEDS: PULMICORT NEB TX 0.5 MG NEB SCH ×2 (09:27→20:10)
[2018-08-06] MEDS: LIPITOR TAB 40 MG PO SCH (20:56)
[2018-08-06] MEDS: MILK OF MAGNESIA PO PRN (20:56)
[2018-08-06] MEDS: COLACE CAP 100 MG PO PRN (20:56)
[2018-08-06] MEDS: SNACK - Diabetic Appropriate PO SCH (21:04)
[2018-08-06] MEDS: LANTUS SC SCH (21:04)
[2018-08-07] MEDS ORDERED: PEPCID TAB 20 MG ONE (00:04)
[2018-08-07] MEDS ORDERED: PEPCID TAB 20 MG PO ONE (00:10)
[2018-08-07] MEDS: ZANAFLEX PO PRN ×2 (00:13→17:41)
[2018-08-07 05:25] LABS: BASOPHILS % (AUTO) 0.1 % (0.2-1.0); HEMATOCRIT 27.6 % (42.0-54.0); HEMOGLOBIN 9.5 g/dL (13.5-18.0); LYMPHOCYTES # (AUTO) 0.3 X10^3/uL (1.3-2.9); LYMPHOCYTES % (AUTO) 4.1 % (21.0-51.0); MEAN CORPUSCULAR HEMOGLOBIN 33.9 pg (27.0-34.0); MEAN CORPUSCULAR HGB CONC 34.5 g/dL (33.0-35.0); MEAN CORPUSCULAR VOLUME 98.1 fL (80.0-100.0); MEAN PLATELET VOLUME 8.8 fL (7.4-11.0); MONOCYTES # (AUTO) 0.2 x10^3/uL (0.3-0.8); MONOCYTES % (AUTO) 2.9 % (0.0-13.0); NEUTROPHILS # (AUTO) 6.3 x10^3/uL (2.2-4.8); NEUTROPHILS % (AUTO) 92.9 % (42.0-75.0); PLATELET COUNT 117 X10^3/uL (150.0-450.0); RED BLOOD COUNT 2.81 X10^6/uL (4.7-6.0); RED CELL DISTRIBUTION WIDTH 19.4 % (11.6-16.5); WHITE BLOOD COUNT 6.8 X10^3/uL (3.6-10.0)
[2018-08-07] MEDS: Atrovent NEB TX 0.02% NEB SCH ×3 (05:33→17:43)
[2018-08-07 05:43] LABS: ALANINE AMINOTRANSFERASE 39 Units/L (12-78); ALBUMIN 2.3 g/dL (3.4-5.0); ALKALINE PHOSPHATASE 207 Units/L (46-116); ASPARTATE AMINO TRANSFERASE 17 Units/L (15-37); BLOOD UREA NITROGEN 33 mg/dL (7-18); CALCIUM 8.5 mg/dL (8.5-10.1); CARBON DIOXIDE 33.6 mmol/L (21-32); CHLORIDE 99 mmol/L (98-107); COR CA(FOR HYPOALB) 9.9 mg/dL (8.5-10.1); COR NA(FOR HYPERGLY) 138 mmol/L (136-145); CREATININE 1.04 mg/dL (0.70-1.30); SODIUM 135 mmol/L (136-145); TOTAL PROTEIN 5.5 g/dL (6.4-8.2); eGFR NON BLACK RACES > 60 (>60)
[2018-08-07] MEDS: REQUIP PO SCH ×3 (05:44→21:24)
[2018-08-07] MEDS: NS 1000 ML 1,000 ML IV SCH ×2 (05:44→23:45)
[2018-08-07] MEDS: HumuLIN R SUBCUT PRN ×4 (05:44→21:26)
[2018-08-07 06:00] LABS: HYPOCHROMASIA SLIGHT; PLATELET MORPHOLOGY COMMENT NORMAL (NORMAL)
[2018-08-07] MEDS: LASIX IVP SCH ×2 (08:19→21:24)
[2018-08-07] MEDS: PROTONIX INJ 40 MG VIAL IVP SCH (08:19)
[2018-08-07] MEDS: SOLU-Medrol 40 MG VIAL IVP SCH (08:20)
[2018-08-07] MEDS: LEVAQUIN PREMIX IV 500 MG 500 MG/100 ML BAG IV SCH (08:20)
[2018-08-07] MEDS: FOLIC ACID TAB 1 MG PO SCH (08:20)
[2018-08-07] MEDS: ENTRESTO 24/26 MG TAB PO SCH ×2 (08:21→21:24)
[2018-08-07] MEDS: ZOLOFT PO SCH (08:22)
[2018-08-07] MEDS: ALDACTONE TAB 25 MG PO SCH (08:22)
[2018-08-07] MEDS: ASPIRIN EC 81 MG PO SCH (08:22)
[2018-08-07] MEDS: PLAVIX PO SCH (08:22)
[2018-08-07] MEDS: RANEXA PO SCH ×2 (08:22→21:24)
[2018-08-07] MEDS: NEURONTIN CAP 100 MG PO SCH ×2 (08:22→21:24)
[2018-08-07] MEDS: COREG TAB 3.125 MG PO SCH ×2 (08:22→21:25)
[2018-08-07] MEDS: ISOSORBIDE MONONITRATE ER PO SCH (08:23)
[2018-08-07] MEDS: FLONASE NASAL SPRAY ENOSTRIL SCH (08:23)
[2018-08-07] MEDS: LOVENOX INJ 40 MG SYR SC SCH (08:23)
[2018-08-07] MEDS: BROVANA IN SCH ×2 (09:51→20:19)
[2018-08-07] MEDS: PULMICORT NEB TX 0.5 MG NEB SCH ×2 (09:56→20:12)
[2018-08-07] MEDS: PROVENTIL NEB TX 0.083% 2.5MG/ 3ML NEB PRN ×3 (09:56→17:43)
[2018-08-07] MEDS: MORPHINE SULFATE INJ 2 MG INJ IVP PRN (18:35)
[2018-08-07] MEDS: SNACK - Diabetic Appropriate PO SCH (20:52)
[2018-08-07] MEDS: COLACE CAP 100 MG PO PRN (21:24)
[2018-08-07] MEDS: LIPITOR TAB 40 MG PO SCH (21:24)
[2018-08-07] MEDS: MILK OF MAGNESIA PO PRN (21:25)
[2018-08-07] MEDS: LANTUS SC SCH (21:25)
[2018-08-08] MEDS: PROVENTIL NEB TX 0.083% 2.5MG/ 3ML NEB PRN ×5 (00:27→17:28)
[2018-08-08] MEDS: Atrovent NEB TX 0.02% NEB SCH ×4 (00:27→17:28)
[2018-08-08] MEDS: PERCOCET TAB 5/325 MG PO PRN ×3 (01:59→20:34)
[2018-08-08] MEDS ORDERED: DULCOLAX SUPPOSITORY 10 MG ONE (05:21)
[2018-08-08] MEDS ORDERED: DULCOLAX SUPPOSITORY 10 MG RECTAL ONE (05:33)
[2018-08-08] MEDS: REQUIP PO SCH ×3 (05:35→22:20)
[2018-08-08] MEDS: HumuLIN R SUBCUT PRN ×3 (05:37→20:37)
--- NOTE | 2018-08-08 05:38 | RAD ---
Examination: Portable AP chest History: CHF Comparison 08/05/2018 Findings: Stable cardiac size. Persistent pulmonary vascular congestion and significant bilateral pleural effusions. Diffuse interstitial pulmonary prominence is again noted consistent with perivascular edema. Impression: Persistent radiographic findings consistent with CHF. Superimposed pneumonia in 1 or both lower lobes may be present. Reported By:
[2018-08-08 05:47] LABS: BASOPHILS % (AUTO) 0.1 % (0.2-1.0); EOSINOPHILS % (AUTO) 0.1 % (0.9-2.9); HEMATOCRIT 30.5 % (42.0-54.0); HEMOGLOBIN 10.5 g/dL (13.5-18.0); LYMPHOCYTES % (AUTO) 10.9 % (21.0-51.0); MEAN CORPUSCULAR HEMOGLOBIN 33.9 pg (27.0-34.0); MEAN CORPUSCULAR HGB CONC 34.4 g/dL (33.0-35.0); MEAN CORPUSCULAR VOLUME 98.7 fL (80.0-100.0); MEAN PLATELET VOLUME 8.8 fL (7.4-11.0); MONOCYTES # (AUTO) 0.7 x10^3/uL (0.3-0.8); MONOCYTES % (AUTO) 7.5 % (0.0-13.0); NEUTROPHILS # (AUTO) 7.5 x10^3/uL (2.2-4.8); NEUTROPHILS % (AUTO) 81.4 % (42.0-75.0); PLATELET COUNT 137 X10^3/uL (150.0-450.0); RED CELL DISTRIBUTION WIDTH 19.4 % (11.6-16.5); WHITE BLOOD COUNT 9.2 X10^3/uL (3.6-10.0)
[2018-08-08 05:58] LABS: ALANINE AMINOTRANSFERASE 29 Units/L (12-78); ALBUMIN 2.2 g/dL (3.4-5.0); ALKALINE PHOSPHATASE 198 Units/L (46-116); ASPARTATE AMINO TRANSFERASE 13 Units/L (15-37); BLOOD UREA NITROGEN 31 mg/dL (7-18); CALCIUM 8.3 mg/dL (8.5-10.1); CARBON DIOXIDE 36.2 mmol/L (21-32); CHLORIDE 98 mmol/L (98-107); COR CA(FOR HYPOALB) 9.7 mg/dL (8.5-10.1); COR NA(FOR HYPERGLY) 137 mmol/L (136-145); CREATININE 1.04 mg/dL (0.70-1.30); SODIUM 134 mmol/L (136-145); TOTAL PROTEIN 5.4 g/dL (6.4-8.2); eGFR NON BLACK RACES > 60 (>60)
[2018-08-08] MEDS ORDERED: GYLCERIN ADULT SUPP RECTAL SCH (06:00)
[2018-08-08] MEDS: PROTONIX INJ 40 MG VIAL IVP SCH (08:15)
[2018-08-08] MEDS: LASIX IVP SCH ×2 (08:15→20:36)
[2018-08-08] MEDS: ISOSORBIDE MONONITRATE ER PO SCH (08:16)
[2018-08-08] MEDS: ASPIRIN EC 81 MG PO SCH (08:16)
[2018-08-08] MEDS: RANEXA PO SCH ×2 (08:16→20:36)
[2018-08-08] MEDS: ENTRESTO 24/26 MG TAB PO SCH ×2 (08:16→20:34)
[2018-08-08] MEDS: LEVAQUIN PREMIX IV 500 MG 500 MG/100 ML BAG IV SCH (08:16)
[2018-08-08] MEDS: ALDACTONE TAB 25 MG PO SCH (08:17)
[2018-08-08] MEDS: FOLIC ACID TAB 1 MG PO SCH (08:17)
[2018-08-08] MEDS: COREG TAB 3.125 MG PO SCH ×2 (08:17→20:36)
[2018-08-08] MEDS: ZOLOFT PO SCH (08:17)
[2018-08-08] MEDS: NEURONTIN CAP 100 MG PO SCH ×2 (08:17→20:35)
[2018-08-08] MEDS: PLAVIX PO SCH (08:19)
[2018-08-08] MEDS: LOVENOX INJ 40 MG SYR SC SCH (08:19)
[2018-08-08] MEDS: FLONASE NASAL SPRAY ENOSTRIL SCH (08:20)
[2018-08-08] MEDS: BROVANA IN SCH ×2 (09:27→21:59)
[2018-08-08] MEDS: PULMICORT NEB TX 0.5 MG NEB SCH ×2 (09:35→21:53)
[2018-08-08] MEDS ORDERED: ZOFRAN INJ 4 MG VIAL ONE (10:56)
[2018-08-08] MEDS: ZOFRAN INJ 4 MG VIAL IVP PRN (11:01)
[2018-08-08] MEDS: LIPITOR TAB 40 MG PO SCH (20:34)
[2018-08-08] MEDS: MILK OF MAGNESIA PO PRN (20:36)
[2018-08-08] MEDS: COLACE CAP 100 MG PO PRN (20:36)
[2018-08-08] MEDS: LANTUS SC SCH (20:37)
[2018-08-08] MEDS: SNACK - Diabetic Appropriate PO SCH (20:38)
[2018-08-09] MEDS: Atrovent NEB TX 0.02% NEB SCH ×4 (01:07→17:10)
[2018-08-09] MEDS: MORPHINE SULFATE INJ 2 MG INJ IVP PRN ×3 (01:15→20:00)
[2018-08-09] MEDS: NS 1000 ML 1,000 ML IV SCH ×2 (01:24→23:45)
[2018-08-09] MEDS: ZOFRAN INJ 4 MG VIAL IVP PRN ×2 (01:24→20:02)
[2018-08-09 05:29] LABS: BASOPHILS % (AUTO) 0.1 % (0.2-1.0); EOSINOPHILS # (AUTO) 0.1 x10^3/uL (0.0-0.2); EOSINOPHILS % (AUTO) 1.5 % (0.9-2.9); HEMATOCRIT 29.8 % (42.0-54.0); HEMOGLOBIN 10.4 g/dL (13.5-18.0); LYMPHOCYTES # (AUTO) 0.9 X10^3/uL (1.3-2.9); LYMPHOCYTES % (AUTO) 12.7 % (21.0-51.0); MEAN CORPUSCULAR HEMOGLOBIN 34.2 pg (27.0-34.0); MEAN CORPUSCULAR HGB CONC 34.8 g/dL (33.0-35.0); MEAN CORPUSCULAR VOLUME 98.2 fL (80.0-100.0); MEAN PLATELET VOLUME 8.6 fL (7.4-11.0); MONOCYTES # (AUTO) 0.5 x10^3/uL (0.3-0.8); NEUTROPHILS # (AUTO) 5.5 x10^3/uL (2.2-4.8); NEUTROPHILS % (AUTO) 78.7 % (42.0-75.0); PLATELET COUNT 127 X10^3/uL (150.0-450.0); RED BLOOD COUNT 3.04 X10^6/uL (4.7-6.0); RED CELL DISTRIBUTION WIDTH 19.2 % (11.6-16.5)
[2018-08-09] MEDS: PERCOCET TAB 5/325 MG PO PRN (05:43)
[2018-08-09] MEDS: REQUIP PO SCH ×3 (05:43→21:40)
[2018-08-09] MEDS: HumuLIN R SUBCUT PRN ×4 (05:50→20:38)
[2018-08-09 05:52] LABS: ALANINE AMINOTRANSFERASE 24 Units/L (12-78); ALBUMIN 1.9 g/dL (3.4-5.0); ALKALINE PHOSPHATASE 158 Units/L (46-116); ASPARTATE AMINO TRANSFERASE 14 Units/L (15-37); BLOOD UREA NITROGEN 26 mg/dL (7-18); CALCIUM 7.9 mg/dL (8.5-10.1); CARBON DIOXIDE 36.2 mmol/L (21-32); CHLORIDE 98 mmol/L (98-107); COR CA(FOR HYPOALB) 9.6 mg/dL (8.5-10.1); COR NA(FOR HYPERGLY) 138 mmol/L (136-145); SODIUM 136 mmol/L (136-145); TOTAL PROTEIN 4.8 g/dL (6.4-8.2); eGFR NON BLACK RACES > 60 (>60)
[2018-08-09] MEDS: COREG TAB 3.125 MG PO SCH ×2 (08:16→20:04)
[2018-08-09] MEDS: ASPIRIN EC 81 MG PO SCH (08:16)
[2018-08-09] MEDS: LEVAQUIN PREMIX IV 500 MG 500 MG/100 ML BAG IV SCH (08:16)
[2018-08-09] MEDS: ALDACTONE TAB 25 MG PO SCH (08:16)
[2018-08-09] MEDS: ZOLOFT PO SCH (08:17)
[2018-08-09] MEDS: RANEXA PO SCH ×2 (08:17→20:04)
[2018-08-09] MEDS: ENTRESTO 24/26 MG TAB PO SCH ×2 (08:18→20:04)
[2018-08-09] MEDS: ISOSORBIDE MONONITRATE ER PO SCH (08:18)
[2018-08-09] MEDS: NEURONTIN CAP 100 MG PO SCH ×2 (08:18→20:04)
[2018-08-09] MEDS: FOLIC ACID TAB 1 MG PO SCH (08:18)
[2018-08-09] MEDS: PROTONIX INJ 40 MG VIAL IVP SCH (08:19)
[2018-08-09] MEDS: LOVENOX INJ 40 MG SYR SC SCH (08:19)
[2018-08-09] MEDS: LASIX IVP SCH ×2 (08:19→20:02)
[2018-08-09] MEDS: PLAVIX PO SCH (08:19)
[2018-08-09] MEDS: FLONASE NASAL SPRAY ENOSTRIL SCH (09:01)
[2018-08-09] MEDS: BROVANA IN SCH ×2 (09:41→20:50)
[2018-08-09] MEDS: PROVENTIL NEB TX 0.083% 2.5MG/ 3ML NEB PRN ×4 (09:47→20:24)
[2018-08-09] MEDS: PULMICORT NEB TX 0.5 MG NEB SCH ×2 (09:47→20:24)
[2018-08-09] MEDS ORDERED: SALINE 3% 15 ML NEB TX NEB ONE (10:16)
[2018-08-09] MEDS: COLACE CAP 100 MG PO PRN (20:03)
[2018-08-09] MEDS: LIPITOR TAB 40 MG PO SCH (20:04)
[2018-08-09] MEDS: MILK OF MAGNESIA PO PRN (20:04)
[2018-08-09] MEDS: LANTUS SC SCH (20:39)
[2018-08-09] MEDS: SNACK - Diabetic Appropriate PO SCH (21:00)
[2018-08-10] MEDS: Atrovent NEB TX 0.02% NEB SCH ×5 (00:54→19:07)
[2018-08-10] MEDS: PERCOCET TAB 5/325 MG PO PRN ×3 (04:28→21:48)
[2018-08-10 05:12] LABS: BASOPHILS % (AUTO) 0.1 % (0.2-1.0); EOSINOPHILS # (AUTO) 0.2 x10^3/uL (0.0-0.2); EOSINOPHILS % (AUTO) 4.1 % (0.9-2.9); HEMATOCRIT 30.6 % (42.0-54.0); HEMOGLOBIN 10.5 g/dL (13.5-18.0); LYMPHOCYTES # (AUTO) 0.8 X10^3/uL (1.3-2.9); MEAN CORPUSCULAR HGB CONC 34.4 g/dL (33.0-35.0); MEAN CORPUSCULAR VOLUME 98.9 fL (80.0-100.0); MEAN PLATELET VOLUME 8.8 fL (7.4-11.0); MONOCYTES # (AUTO) 0.3 x10^3/uL (0.3-0.8); MONOCYTES % (AUTO) 5.2 % (0.0-13.0); NEUTROPHILS # (AUTO) 3.9 x10^3/uL (2.2-4.8); NEUTROPHILS % (AUTO) 75.6 % (42.0-75.0); PLATELET COUNT 114 X10^3/uL (150.0-450.0); RED BLOOD COUNT 3.09 X10^6/uL (4.7-6.0); RED CELL DISTRIBUTION WIDTH 19.2 % (11.6-16.5); WHITE BLOOD COUNT 5.1 X10^3/uL (3.6-10.0)
[2018-08-10 05:35] LABS: ALANINE AMINOTRANSFERASE 20 Units/L (12-78); ALBUMIN 2.1 g/dL (3.4-5.0); ALKALINE PHOSPHATASE 167 Units/L (46-116); ASPARTATE AMINO TRANSFERASE 16 Units/L (15-37); BLOOD UREA NITROGEN 21 mg/dL (7-18); CALCIUM 8.1 mg/dL (8.5-10.1); CARBON DIOXIDE 35.6 mmol/L (21-32); CHLORIDE 98 mmol/L (98-107); COR CA(FOR HYPOALB) 9.6 mg/dL (8.5-10.1); COR NA(FOR HYPERGLY) 138 mmol/L (136-145); CREATININE 0.97 mg/dL (0.70-1.30); SODIUM 136 mmol/L (136-145); TOTAL PROTEIN 5.4 g/dL (6.4-8.2); eGFR NON BLACK RACES > 60 (>60)
[2018-08-10] MEDS: REQUIP PO SCH ×3 (05:40→21:02)
[2018-08-10] MEDS: HumuLIN R SUBCUT PRN ×4 (05:50→21:15)
--- NOTE | 2018-08-10 06:32 | RAD ---
HISTORY: Follow-up congestive heart failure, pneumonia Study: Chest AP portable Comparison: 08/08/2018 Findings: There is a pacemaker present on the left. The patient is status post median sternotomy and CABG. The heart is within normal limits in size. Congestive heart failure has improved. Diffuse interstitial lung changes are present. Bilateral moderately large pleural effusions are present increasing on the left. Density in the left mid lung likely represents fluid within the fissure. The pleural effusions obscure the lung markings in the lower lobes. Underlying infiltrates cannot be excluded. IMPRESSION: Improving congestive heart failure Stable interstitial lung changes Bilateral pleural effusions unchanged on the right and increasing on the left with fluid likely in the fissure on the left. The effusions obscure the lower lobes and underlying infiltrates cannot be excluded. Reported By:
[2018-08-10] MEDS: MORPHINE SULFATE INJ 2 MG INJ IVP PRN (07:33)
[2018-08-10] MEDS: BROVANA IN SCH ×2 (08:02→20:38)
[2018-08-10] MEDS: ASPIRIN EC 81 MG PO SCH (08:02)
[2018-08-10] MEDS: RANEXA PO SCH ×2 (08:02→20:46)
[2018-08-10] MEDS: ENTRESTO 24/26 MG TAB PO SCH ×2 (08:02→20:47)
[2018-08-10] MEDS: ISOSORBIDE MONONITRATE ER PO SCH (08:03)
[2018-08-10] MEDS: PLAVIX PO SCH (08:03)
[2018-08-10] MEDS: FOLIC ACID TAB 1 MG PO SCH (08:03)
[2018-08-10] MEDS: ALDACTONE TAB 25 MG PO SCH (08:03)
[2018-08-10] MEDS: NEURONTIN CAP 100 MG PO SCH ×2 (08:04→20:48)
[2018-08-10] MEDS: PROTONIX INJ 40 MG VIAL IVP SCH (08:04)
[2018-08-10] MEDS: COREG TAB 3.125 MG PO SCH ×2 (08:04→20:49)
[2018-08-10] MEDS: ZOLOFT PO SCH (08:04)
[2018-08-10] MEDS: LOVENOX INJ 40 MG SYR SC SCH (08:05)
[2018-08-10] MEDS: PULMICORT NEB TX 0.5 MG NEB SCH ×2 (08:05→20:48)
[2018-08-10] MEDS: LASIX IVP SCH ×2 (08:06→20:47)
[2018-08-10] MEDS: FLONASE NASAL SPRAY ENOSTRIL SCH (08:07)
[2018-08-10] MEDS: LEVAQUIN PREMIX IV 500 MG 500 MG/100 ML BAG IV SCH (08:09)
[2018-08-10] MEDS: TORADOL 15 MG VIAL IVP PRN (10:07)
--- NOTE | 2018-08-10 17:19 | PCM.PROG ---
Progress Note - Progress Note for Day of Date of Exam: 08/10/18 - Subjective Subjective: Mr. Hopper is a 73-year-old white male admitted on 08/03/18, with chronic obstructive pulmonary disease exacerbation and pneumonia. The patient had a ct chest revealed persistent findings consistent with congestive heart failure and superimposed pneumonia in both lower lobes. The patient did have sputum and blood cultures collected with normal resp monica, bc negative at this time. The patient had not had a sputum collected since admission and those are currently pending. He continues to complain of left lateral rib pain. The patient states that it is lung pain, possibly pleurisy. Pt is on lasix iv, toradol 15mg iv x 2 dose for pleuritic pain ordered, continue with bipap. We have encouraged the patient for pulmonary toileting. He continues with a Peters catheter, bladder training. case management consulted for possible swing bed placement. - Past Medical Family Social History Past Med/Fam/Surg Hx: No changes since H&P Allergies: Allergies chocolate flavor Allergy (Verified 08/03/18 19:46) Penicillins Allergy (Verified 08/03/18 19:46) CHOCOLATE Allergy (Uncoded 08/03/18 19:46) - Review of Systems ROS: No change since H&P - Vital Signs and I&O's Vital Signs: Temperature 98.0 F Pulse Rate [Apical] 85 Pulse Rate 85 Respiratory Rate 12 Blood Pressure [Left Arm] 116/71 Blood Pressure [Right Arm] 86/61 Blood Pressure 109/58 O2 Sat by Pulse Oximetry 99 Intake and Output: Intake & Output 08/08/18 08/09/18 08/10/18 08/11/18 11:59 11:59 11:59 11:59 Intake Total 2532 / 2532 2547 / 2547 2069 / 206 942 / 942 Output Total 3100 / 3100 2702 / 2702 2125 / 2125 900 / 900 Balance -568 / -568 -155 / -155 -56 / -56 42 / 42 - Physical Exam Oriented: Person Eyes: Normal Ear: Normal Nose: Normal Throat: Normal Respiratory: Diminished, Wheezes Cardiovascular: Tachycardia. negative: Edema : Normal Auscultation: Bowel Sounds: Normal Tenderness: Normal Skin: Decreased Turgur, Wound (NECROTIC WOUND LEFT 3RD, 4TH TOES) Musculoskeletal: Left, Foot, Back:Thoracic, Back:Lumbar, Deformity, Sensory Deficit Psychiatric: Anxiety Affect: Anxious Speech Pattern: Clear, Appropriate - Laboratory and Diagnostics Result Diagrams: 08/10/18 04:01 08/10/18 04:01 Labs: 08/09/18 11:05 Sputum - Expectorated Sputum Sputum Culture - Preliminary 08/09/18 11:05 Sputum - Expectorated Sputum - Final Laboratory WBC 5.1 X10^3/uL (3.6-10.0) 08/10/18 04:01 RBC 3.09 X10^6/uL (4.7-6.0) L 08/10/18 04:01 Hgb 10.5 g/dL (13.5-18.0) L 08/10/18 04:01 Hct 30.6 % (42.0-54.0) L 08/10/18 04:01 MCV 98.9 fL (80.0-100.0) 08/10/18 04:01 MCH 34.0 pg (27.0-34.0) 08/10/18 04:01 MCHC 34.4 g/dL (33.0-35.0) 08/10/18 04:01 RDW 19.2 % (11.6-16.5) H 08/10/18 04:01 Plt Count 114 X10^3/uL (150.0-450.0) L 08/10/18 04:01 Plt Count Comment Decreased (ADEQUATE) 08/07/18 04:59 MPV 8.8 fL (7.4-11.0) 08/10/18 04:01 Neut % (Auto) 75.6 % (42.0-75.0) H 08/10/18 04:01 Lymph % (Auto) 15.0 % (21.0-51.0) L 08/10/18 04:01 [place] % (Auto) 5.2 % (0.0-13.0) 08/10/18 04:01 Eos % (Auto) 4.1 % (0.9-2.9) H 08/10/18 04:01 Baso % (Auto) 0.1 % (0.2-1.0) L 08/10/18 04:01 Neut # (Auto) 3.9 x10^3/uL (2.2-4.8) 08/10/18 04:01 Lymph # (Auto) 0.8 X10^3/uL (1.3-2.9) L 08/10/18 04:01 [place] # (Auto) 0.3 x10^3/uL (0.3-0.8) 08/10/18 04:01 Eos # (Auto) 0.2 x10^3/uL (0.0-0.2) 08/10/18 04:01 Baso # (Auto) 0.0 X10^3/uL (0.0-0.1) 08/10/18 04:01 Absolute Nucleated RBC 0.0 /100WBC 08/10/18 04:01 Total Counted 100 08/07/18 04:59 Neutrophils % (Manual) 98 % (39-76) H 08/07/18 04:59 Band Neutrophils % 2 % (0-10) 08/05/18 05:33 Lymphocytes % (Manual) 1 % (13-43) L 08/07/18 04:59 Monocytes % (Manual) 1 % (4-9) L 08/07/18 04:59 Plt Morphology Comment Normal (NORMAL) 08/07/18 04:59 RBC Morphology Abnormal (NORMAL) 08/07/18 04:59 Hypochromasia Slight A 08/07/18 04:59 Anisocytosis Slight A 08/06/18 05:35 D-Dimer 952 ng/mL (0-400) H* 08/03/18 19:35 Sample Site Lt rad 08/04/18 13:40 ABG pH 7.460 (7.35-7.45) H 08/04/18 13:40 ABG pCO2 43.0 mmHg (35.0-45.0) 08/04/18 13:40 ABG pO2 71.0 mmHg (80.0-100.0) L 08/04/18 13:40 ABG HCO3 30.6 mmol/L (22-26) H* 08/04/18 13:40 ABG O2 Saturation 95.0 % (90-100) 08/04/18 13:40 ABG Base Excess 6.1 mmol/L (-2.0-2.0) H 08/04/18 13:40 David Test Pos 08/04/18 13:40 A-a Gradient 232.0 mmHg 04/03/19 13:40 FiO2 50.0 08/04/18 13:40 Blood Gas Comments Dejah well mm 08/04/18 13:40 Sodium 136 mmol/L (136-145) 08/10/18 04:01 Corrected Sodium 138 mmol/L (136-145) 08/10/18 04:01 Potassium 4.3 mmol/L (3.5-5.1) 08/10/18 04:01 Chloride 98 mmol/L (98-107) 08/10/18 04:01 Carbon Dioxide 35.6 mmol/L (21-32) H 08/10/18 04:01 BUN 21 mg/dL (7-18) H 08/10/18 04:01 Creatinine 0.97 mg/dL (0.70-1.30) 08/10/18 04:01 Est GFR (MDRD) Af Amer > 60 (>60) 08/10/18 04:01 Est GFR (MDRD) Non-Af > 60 (>60) 08/10/18 04:01 Glucose 201 mg/dL (65-99) H 08/10/18 04:01 POC Glucose (mg/dL) 181 mg/dL (65-99) H 08/10/18 16:00 Calcium 8.1 mg/dL (8.5-10.1) L 08/10/18 04:01 Corrected Calcium 9.6 mg/dL (8.5-10.1) 08/10/18 04:01 Total Bilirubin 0.40 mg/dL (0.2-1.0) 08/10/18 04:01 AST 16 Units/L (15-37) 08/10/18 04:01 ALT 20 Units/L (12-78) 08/10/18 04:01 Alkaline Phosphatase 167 Units/L (46-116) H 08/10/18 04:01 Creatine Kinase 125 Units/L (39-308) 08/05/18 05:33 CK-MB (CK-2) 5.5 ng/mL (0-4.0) H* 08/05/18 05:33 CK/CKMB % Calc 4.4 % (<4) 08/05/18 05:33 Troponin I 0.30 ng/mL (0-1.5) 08/05/18 05:33 Total Protein 5.4 g/dL (6.4-8.2) L 08/10/18 04:01 Albumin 2.1 g/dL (3.4-5.0) L 08/10/18 04:01 Globulin 3.3 g/dL (2.5-4.5) 08/10/18 04:01 Albumin/Globulin Ratio 0.6 Ratio (1.1-2.1) L 08/10/18 04:01 Specimen Type Clean catch urine 08/04/18 01:06 Urine Color Dark yellow (YELLOW) 08/04/18 01:06 Urine Appearance Slightly hazy (CLEAR) 08/04/18 01:06 Urine pH 5.0 (5.0 - 8.0) 08/04/18 01:06 Ur Specific [place] 1.025 (1.000-1.030) 08/04/18 01:06 Urine Protein 3+ (NEGATIVE) 08/04/18 01:06 Urine Glucose (UA) Negative (NEGATIVE) 08/04/18 01:06 Urine Ketones Negative (NEGATIVE) 08/04/18 01:06 Urine Occult Blood 5+ (NEGATIVE) 08/04/18 01:06 Urine Nitrite Negative (NEGATIVE) 08/04/18 01:06 Urine Bilirubin Negative (NEGATIVE) 08/04/18 01:06 Urine Urobilinogen Normal (NORMAL) 08/04/18 01:06 Ur Leukocyte Esterase Negative (NEGATIVE) 08/04/18 01:06 Urine RBC 20-30 /HPF (NONE SEEN) 08/04/18 01:06 Urine WBC None seen /HPF (NONE SEEN) 08/04/18 01:06 Ur Squamous Epith Cells Few /HPF (NEGATIVE) 08/04/18 01:06 Ur Renal Epithelial Cell Few /HPF (NEGATIVE) 08/04/18 01:06 Amorphous Sediment 1+ /HPF (NEGATIVE) 08/04/18 01:06 Urine Bacteria Trace /HPF (NEGATIVE) 08/04/18 01:06 Hyaline Casts Few /LPF (NEGATIVE) 08/04/18 01:06 Urine Mucus Moderate /HPF (NEGATIVE) 08/04/18 01:06 Ur Culture Indicated? No/not indicated 08/04/18 01:06 - Plan (1) Respiratory distress Status: Acute Plan: ICU, RESP THERAPY. BIPAP, STRICT I & OS. BB, CONTINOUR CARDIAC MONITORING. ABG,SERIAL CE AND EKG OBTAINED ON ADMISSION. IV ATBX, IV LASIX (2) CAD (coronary artery disease) Status: Acute Qualifiers: Coronary Disease-Associated Artery/Lesion type: bypass graft (3) COPD exacerbation Status: Acute (4) PAD (peripheral artery disease) Status: Acute (5) Foot ulcer with necrosis of muscle Status: Acute (6) Pleural effusion, bilateral Status: Acute (7) Hypertension Status: Chronic (8) Diabetes mellitus, type 2 Status: Chronic
[2018-08-10] MEDS: LIPITOR TAB 40 MG PO SCH (20:47)
[2018-08-10] MEDS: SNACK - Diabetic Appropriate PO SCH (21:00)
[2018-08-10] MEDS: LANTUS SC SCH (21:01)
[2018-08-10] MEDS: MILK OF MAGNESIA PO PRN (21:30)
[2018-08-10] MEDS ORDERED: DULCOLAX SUPPOSITORY 10 MG RECTAL ONE (22:58)
[2018-08-10] MEDS: NS 1000 ML 1,000 ML IV SCH (23:00)
[2018-08-11] MEDS: Atrovent NEB TX 0.02% NEB SCH ×4 (00:30→17:09)
[2018-08-11] MEDS: NS 1000 ML 1,000 ML IV SCH (00:43)
[2018-08-11] MEDS: PERCOCET TAB 5/325 MG PO PRN ×4 (03:04→21:36)
[2018-08-11 05:23] LABS: BASOPHILS % (AUTO) 0.1 % (0.2-1.0); EOSINOPHILS # (AUTO) 0.3 x10^3/uL (0.0-0.2); EOSINOPHILS % (AUTO) 6.5 % (0.9-2.9); HEMATOCRIT 28.1 % (42.0-54.0); HEMOGLOBIN 9.8 g/dL (13.5-18.0); LYMPHOCYTES # (AUTO) 0.6 X10^3/uL (1.3-2.9); LYMPHOCYTES % (AUTO) 13.6 % (21.0-51.0); MEAN CORPUSCULAR HEMOGLOBIN 34.3 pg (27.0-34.0); MEAN CORPUSCULAR HGB CONC 34.7 g/dL (33.0-35.0); MEAN CORPUSCULAR VOLUME 98.9 fL (80.0-100.0); MEAN PLATELET VOLUME 8.5 fL (7.4-11.0); MONOCYTES # (AUTO) 0.3 x10^3/uL (0.3-0.8); MONOCYTES % (AUTO) 7.8 % (0.0-13.0); PLATELET COUNT 104 X10^3/uL (150.0-450.0); RED BLOOD COUNT 2.85 X10^6/uL (4.7-6.0); WHITE BLOOD COUNT 4.2 X10^3/uL (3.6-10.0)
[2018-08-11] MEDS: REQUIP PO SCH ×3 (05:47→21:35)
[2018-08-11] MEDS: HumuLIN R SUBCUT PRN ×3 (05:48→20:40)
[2018-08-11 05:49] LABS: ALANINE AMINOTRANSFERASE 17 Units/L (12-78); ALBUMIN 1.9 g/dL (3.4-5.0); ALKALINE PHOSPHATASE 154 Units/L (46-116); ASPARTATE AMINO TRANSFERASE 15 Units/L (15-37); BLOOD UREA NITROGEN 18 mg/dL (7-18); CALCIUM 7.7 mg/dL (8.5-10.1); CARBON DIOXIDE 35.2 mmol/L (21-32); CHLORIDE 97 mmol/L (98-107); COR CA(FOR HYPOALB) 9.4 mg/dL (8.5-10.1); COR NA(FOR HYPERGLY) 138 mmol/L (136-145); CREATININE 0.98 mg/dL (0.70-1.30); SODIUM 134 mmol/L (136-145); eGFR NON BLACK RACES > 60 (>60)
[2018-08-11] MEDS: TORADOL 15 MG VIAL IVP PRN (07:38)
[2018-08-11] MEDS: LEVAQUIN PREMIX IV 500 MG 500 MG/100 ML BAG IV SCH ×2 (07:49→10:08)
[2018-08-11] MEDS: LOVENOX INJ 30 MG SYR SC SCH ×2 (07:49→10:06)
[2018-08-11] MEDS: PROTONIX INJ 40 MG VIAL IVP SCH ×2 (07:50→10:05)
[2018-08-11] MEDS: ASPIRIN EC 81 MG PO SCH ×2 (07:50→10:06)
[2018-08-11] MEDS: ENTRESTO 24/26 MG TAB PO SCH ×3 (07:50→20:39)
[2018-08-11] MEDS: LASIX IVP SCH ×3 (07:50→20:36)
[2018-08-11] MEDS: NEURONTIN CAP 100 MG PO SCH ×3 (07:51→20:39)
[2018-08-11] MEDS: ALDACTONE TAB 25 MG PO SCH ×2 (07:51→10:05)
[2018-08-11] MEDS: ZOLOFT PO SCH ×2 (07:51→10:05)
[2018-08-11] MEDS: ISOSORBIDE MONONITRATE ER PO SCH ×2 (07:51→10:07)
[2018-08-11] MEDS: RANEXA PO SCH ×3 (07:51→20:36)
[2018-08-11] MEDS: FOLIC ACID TAB 1 MG PO SCH ×2 (07:51→10:07)
[2018-08-11] MEDS: COREG TAB 3.125 MG PO SCH ×3 (07:52→20:38)
[2018-08-11] MEDS: PLAVIX PO SCH ×2 (07:52→10:08)
[2018-08-11] MEDS: FLONASE NASAL SPRAY ENOSTRIL SCH ×2 (07:53→10:05)
[2018-08-11] MEDS: BROVANA IN SCH ×2 (08:45→20:34)
[2018-08-11] MEDS: PULMICORT NEB TX 0.5 MG NEB SCH ×2 (08:51→20:19)
[2018-08-11] MEDS ORDERED: MILK OF MAGNESIA PO SCH (13:00)
[2018-08-11] MEDS ORDERED: COLACE CAP 100 MG PO SCH (13:00)
[2018-08-11] MEDS: MORPHINE SULFATE INJ 2 MG INJ IVP PRN (14:36)
--- NOTE | 2018-08-11 18:29 | PCM.PROG ---
Progress Note - Progress Note for Day of Date of Exam: 08/11/18 - Subjective Subjective: Mr. Hopper is a 73-year-old white male admitted on 08/03/18, with chronic obstructive pulmonary disease exacerbation and pneumonia. The patient had a ct chest revealed persistent findings consistent with congestive heart failure and superimposed pneumonia in both lower lobes. The patient did have sputum and blood cultures collected with normal resp monica, bc negative at this time. The patient had not had a sputum collected since admission and those are currently pending. He continues to complain of left lateral rib pain. The patient states that it is lung pain, possibly pleurisy. Pt is on lasix iv, toradol 15mg iv x 2 dose for pleuritic pain yesterday with pt reporting some improvement, will continue with bipap. We have encouraged the patient for pulmonary toileting. He continues with a Peters catheter, bladder training. case management consulted for possible swing bed placement for rehab placement, repeat am cxr - Past Medical Family Social History Past Med/Fam/Surg Hx: No changes since H&P Allergies: Allergies chocolate flavor Allergy (Verified 08/03/18 19:46) Penicillins Allergy (Verified 08/03/18 19:46) CHOCOLATE Allergy (Uncoded 08/03/18 19:46) - Review of Systems ROS: No change since H&P - Vital Signs and I&O's Vital Signs: Temperature 98.6 F Pulse Rate [Apical] 85 Pulse Rate 88 Respiratory Rate 18 Blood Pressure [Left Arm] 116/71 Blood Pressure [Right Arm] 86/61 Blood Pressure 103/63 O2 Sat by Pulse Oximetry 96 Intake and Output: Intake & Output 08/09/18 08/10/18 08/11/18 08/12/18 11:59 11:59 11:59 11:59 Intake Total 2547 / 2547 2069 / 2069 1722 / 1722 1781 / 1781 Output Total 2702 / 2702 2125 / 2125 1999 700 / 700 Balance -155 / -155 -56 / -56 -278 / -278 1081 / 1081 - Physical Exam Oriented: Person Eyes: Normal Ear: Normal Nose: Normal Throat: Normal Respiratory: Diminished, Wheezes Cardiovascular: Tachycardia. negative: Edema : Normal Auscultation: Bowel Sounds: Normal Tenderness: Normal Skin: Decreased Turgur, Wound (NECROTIC WOUND LEFT 3RD, 4TH TOES) Musculoskeletal: Left, Foot, Back:Thoracic, Back:Lumbar, Deformity, Sensory Deficit Psychiatric: Anxiety Affect: Anxious Speech Pattern: Clear, Appropriate - Laboratory and Diagnostics Result Diagrams: 08/11/18 04:38 08/11/18 04:38 Labs: 08/09/18 10:32 Blood Blood Culture - Preliminary 08/09/18 11:05 Sputum - Expectorated Sputum Sputum Culture - Final 08/09/18 11:05 Sputum - Expectorated Sputum - Final Laboratory WBC 4.2 X10^3/uL (3.6-10.0) 08/11/18 04:38 RBC 2.85 X10^6/uL (4.7-6.0) L 08/11/18 04:38 Hgb 9.8 g/dL (13.5-18.0) L 08/11/18 04:38 Hct 28.1 % (42.0-54.0) L 08/11/18 04:38 MCV 98.9 fL (80.0-100.0) 08/11/18 04:38 MCH 34.3 pg (27.0-34.0) H 08/11/18 04:38 MCHC 34.7 g/dL (33.0-35.0) 08/11/18 04:38 RDW 19.0 % (11.6-16.5) H 08/11/18 04:38 Plt Count 104 X10^3/uL (150.0-450.0) L 08/11/18 04:38 Plt Count Comment Decreased (ADEQUATE) 08/07/18 04:59 MPV 8.5 fL (7.4-11.0) 08/11/18 04:38 Neut % (Auto) 72.0 % (42.0-75.0) 08/11/18 04:38 Lymph % (Auto) 13.6 % (21.0-51.0) L 08/11/18 04:38 [place] % (Auto) 7.8 % (0.0-13.0) 08/11/18 04:38 Eos % (Auto) 6.5 % (0.9-2.9) H 08/11/18 04:38 Baso % (Auto) 0.1 % (0.2-1.0) L 08/11/18 04:38 Neut # (Auto) 3.0 x10^3/uL (2.2-4.8) 08/11/18 04:38 Lymph # (Auto) 0.6 X10^3/uL (1.3-2.9) L 08/11/18 04:38 [place] # (Auto) 0.3 x10^3/uL (0.3-0.8) 08/11/18 04:38 Eos # (Auto) 0.3 x10^3/uL (0.0-0.2) H 08/11/18 04:38 Baso # (Auto) 0.0 X10^3/uL (0.0-0.1) 08/11/18 04:38 Absolute Nucleated RBC 0.0 /100WBC 08/11/18 04:38 Total Counted 100 08/07/18 04:59 Neutrophils % (Manual) 98 % (39-76) H 08/07/18 04:59 Band Neutrophils % 2 % (0-10) 08/05/18 05:33 Lymphocytes % (Manual) 1 % (13-43) L 08/07/18 04:59 Monocytes % (Manual) 1 % (4-9) L 08/07/18 04:59 Plt Morphology Comment Normal (NORMAL) 08/07/18 04:59 RBC Morphology Abnormal (NORMAL) 08/07/18 04:59 Hypochromasia Slight A 08/07/18 04:59 Anisocytosis Slight A 08/06/18 05:35 D-Dimer 952 ng/mL (0-400) H* 08/03/18 19:35 Sample Site Lt rad 08/04/18 13:40 ABG pH 7.460 (7.35-7.45) H 08/04/18 13:40 ABG pCO2 43.0 mmHg (35.0-45.0) 08/04/18 13:40 ABG pO2 71.0 mmHg (80.0-100.0) L 08/04/18 13:40 ABG HCO3 30.6 mmol/L (22-26) H* 08/04/18 13:40 ABG O2 Saturation 95.0 % (90-100) 08/04/18 13:40 ABG Base Excess 6.1 mmol/L (-2.0-2.0) H 08/04/18 13:40 David Test Pos 08/04/18 13:40 A-a Gradient 232.0 mmHg 08/04/18 13:40 FiO2 50.0 08/04/18 13:40 Blood Gas Comments Dejah well mm 08/04/18 13:40 Sodium 134 mmol/L (136-145) L 08/11/18 04:38 Corrected Sodium 138 mmol/L (136-145) 08/11/18 04:38 Potassium 4.0 mmol/L (3.5-5.1) 08/11/18 04:38 Chloride 97 mmol/L (98-107) L 08/11/18 04:38 Carbon Dioxide 35.2 mmol/L (21-32) H 08/11/18 04:38 BUN 18 mg/dL (7-18) 08/11/18 04:38 Creatinine 0.98 mg/dL (0.70-1.30) 08/11/18 04:38 Est GFR (MDRD) Af Amer > 60 (>60) 08/11/18 04:38 Est GFR (MDRD) Non-Af > 60 (>60) 08/11/18 04:38 Glucose 266 mg/dL (65-99) H 08/11/18 04:38 POC Glucose (mg/dL) 218 mg/dL (65-99) H 08/11/18 15:41 Calcium 7.7 mg/dL (8.5-10.1) L 08/11/18 04:38 Corrected Calcium 9.4 mg/dL (8.5-10.1) 08/11/18 04:38 Total Bilirubin 0.30 mg/dL (0.2-1.0) 08/11/18 04:38 AST 15 Units/L (15-37) 08/11/18 04:38 ALT 17 Units/L (12-78) 08/11/18 04:38 Alkaline Phosphatase 154 Units/L (46-116) H 08/11/18 04:38 Creatine Kinase 125 Units/L (39-308) 08/05/18 05:33 CK-MB (CK-2) 5.5 ng/mL (0-4.0) H* 08/05/18 05:33 CK/CKMB % Calc 4.4 % (<4) 08/05/18 05:33 Troponin I 0.30 ng/mL (0-1.5) 08/05/18 05:33 Total Protein 5.0 g/dL (6.4-8.2) L 08/11/18 04:38 Albumin 1.9 g/dL (3.4-5.0) L 08/11/18 04:38 Globulin 3.1 g/dL (2.5-4.5) 08/11/18 04:38 Albumin/Globulin Ratio 0.6 Ratio (1.1-2.1) L 08/11/18 04:38 Specimen Type Clean catch urine 08/04/18 01:06 Urine Color Dark yellow (YELLOW) 08/04/18 01:06 Urine Appearance Slightly hazy (CLEAR) 08/04/18 01:06 Urine pH 5.0 (5.0 - 8.0) 08/04/18 01:06 Ur Specific [place] 1.025 (1.000-1.030) 08/04/18 01:06 Urine Protein 3+ (NEGATIVE) 08/04/18 01:06 Urine Glucose (UA) Negative (NEGATIVE) 08/04/18 01:06 Urine Ketones Negative (NEGATIVE) 08/04/18 01:06 Urine Occult Blood 5+ (NEGATIVE) 08/04/18 01:06 Urine Nitrite Negative (NEGATIVE) 08/04/18 01:06 Urine Bilirubin Negative (NEGATIVE) 08/04/18 01:06 Urine Urobilinogen Normal (NORMAL) 08/04/18 01:06 Ur Leukocyte Esterase Negative (NEGATIVE) 08/04/18 01:06 Urine RBC 20-30 /HPF (NONE SEEN) 08/04/18 01:06 Urine WBC None seen /HPF (NONE SEEN) 08/04/18 01:06 Ur Squamous Epith Cells Few /HPF (NEGATIVE) 08/04/18 01:06 Ur Renal Epithelial Cell Few /HPF (NEGATIVE) 08/04/18 01:06 Amorphous Sediment 1+ /HPF (NEGATIVE) 08/04/18 01:06 Urine Bacteria Trace /HPF (NEGATIVE) 08/04/18 01:06 Hyaline Casts Few /LPF (NEGATIVE) 08/04/18 01:06 Urine Mucus Moderate /HPF (NEGATIVE) 08/04/18 01:06 Ur Culture Indicated? No/not indicated 08/04/18 01:06 - Plan (1) Respiratory distress Status: Acute Plan: ICU, RESP THERAPY. BIPAP, STRICT I & OS. BB, CONTINOUR CARDIAC MONITORING. ABG,SERIAL CE AND EKG OBTAINED ON ADMISSION. IV ATBX, IV LASIX (2) CAD (coronary artery disease) Status: Acute Qualifiers: Coronary Disease-Associated Artery/Lesion type: bypass graft (3) COPD exacerbation Status: Acute (4) PAD (peripheral artery disease) Status: Acute (5) Foot ulcer with necrosis of muscle Status: Acute (6) Pleural effusion, bilateral Status: Acute (7) Hypertension Status: Chronic (8) Diabetes mellitus, type 2 Status: Chronic
[2018-08-11] MEDS: LIPITOR TAB 40 MG PO SCH (20:36)
[2018-08-11] MEDS: MILK OF MAGNESIA PO SCH (20:37)
[2018-08-11] MEDS: COLACE CAP 100 MG PO SCH (20:38)
[2018-08-11] MEDS: LANTUS SC SCH (20:39)
[2018-08-11] MEDS: SNACK - Diabetic Appropriate PO SCH (21:24)
[2018-08-11 22:38] LABS: CKMB % 8.3 % (<4); CREATINE KINASE MB 3.3 ng/mL (0-4.0); TROPONIN I 0.06 ng/mL (0-1.5)
[2018-08-12] MEDS: NS 1000 ML 1,000 ML IV SCH (00:16)
[2018-08-12] MEDS: Atrovent NEB TX 0.02% NEB SCH ×3 (00:41→11:44)
[2018-08-12] MEDS: REQUIP PO SCH (05:06)
[2018-08-12 05:22] LABS: BASOPHILS % (AUTO) 0.2 % (0.2-1.0); EOSINOPHILS # (AUTO) 0.2 x10^3/uL (0.0-0.2); HEMATOCRIT 28.7 % (42.0-54.0); HEMOGLOBIN 9.8 g/dL (13.5-18.0); LYMPHOCYTES # (AUTO) 0.8 X10^3/uL (1.3-2.9); LYMPHOCYTES % (AUTO) 19.6 % (21.0-51.0); MEAN CORPUSCULAR HEMOGLOBIN 33.9 pg (27.0-34.0); MEAN CORPUSCULAR HGB CONC 34.2 g/dL (33.0-35.0); MEAN CORPUSCULAR VOLUME 99.1 fL (80.0-100.0); MEAN PLATELET VOLUME 8.6 fL (7.4-11.0); MONOCYTES # (AUTO) 0.4 x10^3/uL (0.3-0.8); MONOCYTES % (AUTO) 8.9 % (0.0-13.0); NEUTROPHILS # (AUTO) 2.6 x10^3/uL (2.2-4.8); NEUTROPHILS % (AUTO) 66.3 % (42.0-75.0); PLATELET COUNT 118 X10^3/uL (150.0-450.0); RED BLOOD COUNT 2.89 X10^6/uL (4.7-6.0); RED CELL DISTRIBUTION WIDTH 18.5 % (11.6-16.5)
[2018-08-12 05:41] LABS: ALANINE AMINOTRANSFERASE 16 Units/L (12-78); ALBUMIN 2.1 g/dL (3.4-5.0); ALKALINE PHOSPHATASE 158 Units/L (46-116); ASPARTATE AMINO TRANSFERASE 15 Units/L (15-37); BLOOD UREA NITROGEN 17 mg/dL (7-18); CALCIUM 7.8 mg/dL (8.5-10.1); CARBON DIOXIDE 35.8 mmol/L (21-32); CHLORIDE 99 mmol/L (98-107); COR CA(FOR HYPOALB) 9.3 mg/dL (8.5-10.1); COR NA(FOR HYPERGLY) 138 mmol/L (136-145); SODIUM 134 mmol/L (136-145); TOTAL PROTEIN 5.3 g/dL (6.4-8.2); eGFR NON BLACK RACES > 60 (>60)
[2018-08-12] MEDS: HumuLIN R SUBCUT PRN (05:55)
--- NOTE | 2018-08-12 06:11 | RAD ---
HISTORY: Shortness of breath Study: Chest PA and lateral Comparison: 08/10/2018 Findings: There is a pacemaker present on the left. The patient is status post median sternotomy and CABG. Heart size difficult to assess due to obscuration of the left heart border by and increasing left pleural effusion. Right pleural effusion is unchanged. Diffuse interstitial lung changes are unchanged. These are most prominent in the left upper lobe where there is now some associated alveolar infiltrate. This could represent asymmetric edema or pneumonia. Bony thorax is unremarkable. IMPRESSION: Increasing left pleural effusion, no change right pleural effusion Diffuse interstitial lung changes, stable Increasing alveolar filling in the left upper lobe which could represent asymmetric edema or developing pneumonia. Reported By:
[2018-08-12 07:56] LABS: CREATINE KINASE MB 3.4 ng/mL (0-4.0); TROPONIN I 0.05 ng/mL (0-1.5)
[2018-08-12] MEDS: BROVANA IN SCH (09:09)
[2018-08-12] MEDS: PROVENTIL NEB TX 0.083% 2.5MG/ 3ML NEB PRN ×2 (09:21→11:43)
[2018-08-12] MEDS: PULMICORT NEB TX 0.5 MG NEB SCH (09:21)
[2018-08-12] MEDS: COLACE CAP 100 MG PO SCH (10:30)
[2018-08-12] MEDS ORDERED: PROTONIX TAB 40 MG ONE (10:30)
[2018-08-12] MEDS: RANEXA PO SCH (10:30)
[2018-08-12] MEDS: ENTRESTO 24/26 MG TAB PO SCH (10:31)
[2018-08-12] MEDS: FOLIC ACID TAB 1 MG PO SCH (10:31)
[2018-08-12] MEDS: ZOLOFT PO SCH (10:31)
[2018-08-12] MEDS: ASPIRIN EC 81 MG PO SCH (10:31)
[2018-08-12] MEDS: NEURONTIN CAP 100 MG PO SCH (10:32)
[2018-08-12] MEDS: ALDACTONE TAB 25 MG PO SCH (10:33)
[2018-08-12] MEDS: MILK OF MAGNESIA PO SCH (10:34)
[2018-08-12] MEDS: FLONASE NASAL SPRAY ENOSTRIL SCH (10:35)
[2018-08-12] MEDS: ISOSORBIDE MONONITRATE ER PO SCH (10:37)
[2018-08-12] MEDS: PLAVIX PO SCH (10:38)
[2018-08-12] MEDS: COREG TAB 3.125 MG PO SCH (10:39)
[2018-08-12] MEDS: LOVENOX INJ 30 MG SYR SC SCH (10:41)
[2018-08-12] MEDS: PERCOCET TAB 5/325 MG PO PRN (10:43)
[2018-08-12] MEDS: LASIX IVP SCH (10:46)
[2018-08-12] MEDS: LEVAQUIN PREMIX IV 500 MG 500 MG/100 ML BAG IV SCH (10:52)
[2018-08-12] MEDS ORDERED: PROTONIX TAB 40 MG PO SCH (11:00)
[2018-08-12 12:02] VITALS: BP 119/57
[2018-08-12] MEDS: PROTONIX INJ 40 MG VIAL IVP SCH (13:22)
== END 2018-08-12 09:00 | disposition home or self-care (01) | DRG 190 ==
LOC: ER 19:27 → ICU 19:27 → OBSVTOIN 23:28 → ICU 08-04 00:58 → MED/SURG 08-10 17:32
PROVIDERS: ADMIT Internal Medicine; ATTEND Internal Medicine
DX: J18.8 Other pneumonia, unspecified organism; R94.31 Abnormal electrocardiogram [ECG] [EKG]; J44.1 Chronic obstructive pulmonary disease with (acute) exacerbation; I50.9 Heart failure, unspecified; R26.89 Other abnormalities of gait and mobility; K21.9 Gastro-esophageal reflux disease without esophagitis; J96.20 Acute and chronic respiratory failure, unspecified whether with hypoxia or hypercapnia; I11.0 Hypertensive heart disease with heart failure; E78.2 Mixed hyperlipidemia; L97.509 Non-pressure chronic ulcer of other part of unspecified foot with unspecified severity; F41.8 Other specified anxiety disorders; J90 Pleural effusion, not elsewhere classified; I25.10 Atherosclerotic heart disease of native coronary artery without angina pectoris; I73.9 Peripheral vascular disease, unspecified; E11.65 Type 2 diabetes mellitus with hyperglycemia
CPT/HCPCS: 36415; 36600; 71010; 71020; 71045; 71046; 80048; 80053; 81001; 82550; 82553; 82803; 84484; 85025; 85378; 87040; 87070; 87205; 93005; 94640; 94660; 96365; 96374; 96375; 97110; 97116; 97162; 99284; 99285; A4222; A4618; A7030; C9113; J1650; J1815; J1885; J1940; J1956; J2060; J2270; J2405; J2920; J2930; J7030; J7613; J7620; J7626; J7644

== ENCOUNTER 2018-08-12 09:00 | Inpatient (IN) ==
[2018-08-12] MEDS ORDERED: BUTT CREAM (COMPOUND) TOP PRN (12:12)
[2018-08-12] MEDS ORDERED: HumuLIN R ONE (12:26)
[2018-08-12] MEDS: HumuLIN R SUBCUT PRN ×3 (12:29→21:01)
--- NOTE | 2018-08-12 13:37 | DR.UPDATE ---
H&P Update History and Physical Update: History and Physical reviewed and patient examined. H&P ON 08/05 Yes with the following: RESOLVED ACUTE RESPIRATORY DISTRESS
[2018-08-12] MEDS: ZANAFLEX PO PRN (14:05)
[2018-08-12] MEDS: REQUIP PO SCH ×2 (14:05→21:00)
[2018-08-12] MEDS: PROVENTIL NEB TX 0.083% 2.5MG/ 3ML NEB PRN (17:05)
[2018-08-12] MEDS: Atrovent NEB TX 0.02% NEB SCH (17:05)
[2018-08-12] MEDS ORDERED: NS 1/2 1000 ML IV 0 ML ONE (17:23)
[2018-08-12] MEDS: PERCOCET TAB 5/325 MG PO PRN ×2 (17:40→23:45)
[2018-08-12] MEDS ORDERED: NS 1000 ML 1,000 ML ONE (17:46)
--- NOTE | 2018-08-12 17:56 | PT/OTEVAL ---
PT/OT OBJECTIVES - HISTORY Prescription: OT consult Diagnosis: s/p pneumonia, COPD exacerbation, generalized weakness Precautions: falls, SOB, pain on L foot PMH: GERD, neuropathy, respiratory distress, PAD, pneumonia, HLD, HTN, DM II, non-ST elevated [place], CAD Prior Level of Function: Independent Other, comment: As per pts report, pt is independent in all areas of self care tasks. - COGNITION Mental Status: Alert, Oriented, Name, Date, Place, Purpose Communication Status: Verbal Ability to Follow Directions: 2 Step Memory Loss: None - PAIN Left Foot Pain Scale: Unbearable (9-10) Comments: Pain on touch Abdomen Pain Scale: Unbearable (9-10) Comments: aggravated with leg movement. - TRANSFERS Safety (requires cues for:): Hand Placement Precaution - ADL'S Feeding: Setup Grooming: Supervision, N/A Upper Body ADL: Supervision, N/A Lower Body ADL: Supervision, Moderate Toileting: Supervision Toileting Comment: Pt currently utilizes a urinal for bladder mgt. - BALANCE Static Sitting: Not Tested Standing: Not Tested Balance Comment: Pt refused to sit and stand d/t L foot pain. Dynamic Sitting: Not Tested Standing: Not Tested Balance Comment: Pt refused to sit and stand d/t L foot pain. - NEUROMOTOR/SENSATION [place]. Upper Ext Sensation: WFL Coordination: WFL - HAND DOMINANCE Extremity Function: Hand Dominance: Right - ROM Bilateral UE Muscle Tone: WFL - STRENGTH Bilateral LE Strength Number: 3 Other comment: B LE mm strength grossly graded 3-/5 Bilateral UE Strength Number: 4 Other comment: 4-/5 PT/OT ASSESSMENT - PT Other, Comment: decreased toileting, decreaed FAT - OT Problem List: Decreased Mobility ADL's, Decreased Safety Aware, Decreased Dressing, Decreased Grooming, Decreased UE Strength Other, comment: decreased toileting, decreased FAT - OT GOALS Licensed Weigher Goals Days: 20 Mobility for ADL's: Pt will demo I toilet tfrs and hygiene using AD with no SOB. Safety Awareness: Pt will demo knowledge of ECTs, WSTs, and PBMs during ADLs/transfers. Dressing: Pt will demo UB/LB dressing I using AEs as needed. Grooming: Pt will demo grooming/oral hygiene with I at sink level. Upper Ext. Strength/Use: Pt will demo inc on BUE strength to 1/2-1 mm grade increments. Other: Pt will demo G FAT during exercises/ADLs. Short Term Goals Days: 10 Mobility for ADL's: Pt will demo supv toilet tfrs and hygiene using AD with no SOB. Safety Awareness: Pt will be educated with ECTs, WSTs, and PBMs during ADLs/tr ansfers. Dressing: Pt will demo UB/LB dressing setup using AEs as needed. Grooming: Pt will demo grooming/oral hygiene with supv at sink level. Upper Ext. Strength/Use: Pt will tolerate UE strengthening exercises/activities s c/o of pain. Other: Pt will demo F FAT during exercises/ADLs. - PATIENT GOALS Patient/Family Goals: To increase strength and FAT needed for ADLs. Goals Discussed with Patient/Family: Yes Rehabilitation Potential: Good Justification for Potential: High PLOF, good caregiver support - PLAN Suggested Treatment Plan: Therapeutic Activity, Neuro Re-education, Therapeutic Ex with HEP, Patient Education - FREQUENCY AND DURATION OT: 5x/wk for 20 days Expected Continuation of Care at Discharge: Determined on Progress
[2018-08-12] MEDS ORDERED: SNACK - Diabetic Appropriate PO SCH (20:00)
[2018-08-12] MEDS: PULMICORT NEB TX 0.5 MG NEB SCH (20:55)
[2018-08-12] MEDS: LIPITOR TAB 40 MG PO SCH (20:58)
[2018-08-12] MEDS: COLACE CAP 100 MG PO SCH (20:58)
[2018-08-12] MEDS: RANEXA PO SCH (20:59)
[2018-08-12] MEDS: COREG TAB 3.125 MG PO SCH ×2 (20:59→21:00)
[2018-08-12] MEDS: ENTRESTO 24/26 MG TAB PO SCH (20:59)
[2018-08-12] MEDS: LASIX IVP SCH (21:00)
[2018-08-12] MEDS: MILK OF MAGNESIA PO SCH (21:00)
[2018-08-12] MEDS ORDERED: LANTUS SC SCH (21:00)
[2018-08-12] MEDS: NEURONTIN CAP 100 MG PO SCH (21:00)
[2018-08-12] MEDS: SNACK - Diabetic Appropriate PO SCH (21:03)
[2018-08-12] MEDS: BROVANA IN SCH (21:04)
[2018-08-12] MEDS ORDERED: MAALOX or MYLANTA ONE (22:26)
[2018-08-12] MEDS: MAALOX or MYLANTA PO PRN (22:29)
[2018-08-13] MEDS: NS 1000 ML 1,000 ML IV SCH (00:40)
[2018-08-13] MEDS: Atrovent NEB TX 0.02% NEB SCH ×4 (01:01→17:25)
[2018-08-13] MEDS: ZANAFLEX PO PRN ×3 (04:11→22:49)
[2018-08-13] MEDS: MAALOX or MYLANTA PO PRN (05:06)
[2018-08-13] MEDS: REQUIP PO SCH ×3 (05:06→21:55)
[2018-08-13] MEDS: PERCOCET TAB 5/325 MG PO PRN ×3 (05:07→15:02)
[2018-08-13] MEDS: HumuLIN R SUBCUT PRN ×5 (05:32→20:15)
[2018-08-13] MEDS: MILK OF MAGNESIA PO SCH ×2 (09:02→20:09)
[2018-08-13] MEDS: ZOLOFT PO SCH (09:03)
[2018-08-13] MEDS: NEURONTIN CAP 100 MG PO SCH ×2 (09:03→21:55)
[2018-08-13] MEDS: LASIX IVP SCH ×2 (09:03→20:13)
[2018-08-13] MEDS: PLAVIX PO SCH (09:03)
[2018-08-13] MEDS: COLACE CAP 100 MG PO SCH ×2 (09:04→20:09)
[2018-08-13] MEDS: ALDACTONE TAB 25 MG PO SCH (09:04)
[2018-08-13] MEDS: ASPIRIN EC 81 MG PO SCH (09:04)
[2018-08-13] MEDS: ENTRESTO 24/26 MG TAB PO SCH ×2 (09:04→20:11)
[2018-08-13] MEDS: COREG TAB 3.125 MG PO SCH ×2 (09:04→20:10)
[2018-08-13] MEDS: LEVAQUIN PREMIX IV 500 MG 500 MG/100 ML BAG IV SCH (09:04)
[2018-08-13] MEDS: RANEXA PO SCH ×2 (09:04→20:11)
[2018-08-13] MEDS: PROTONIX TAB 40 MG PO SCH (09:04)
[2018-08-13] MEDS: FOLIC ACID TAB 1 MG PO SCH (09:04)
[2018-08-13] MEDS: ISOSORBIDE MONONITRATE ER PO SCH (09:04)
[2018-08-13] MEDS: LOVENOX INJ 30 MG SYR SC SCH (09:05)
[2018-08-13] MEDS: FLONASE NASAL SPRAY ENOSTRIL SCH (09:08)
[2018-08-13] MEDS: PULMICORT NEB TX 0.5 MG NEB SCH ×2 (09:14→21:00)
[2018-08-13] MEDS: BROVANA IN SCH ×2 (09:17→21:10)
[2018-08-13 09:41] LABS: ABG BASE EXCESS 10.5 mmol/L (-2.0-2.0)
[2018-08-13 09:42] LABS: ABG ALLEN TEST POS; ABG HCO3 35.7 mmol/L (22-26)
[2018-08-13] MEDS ORDERED: PERCOCET TAB 5/325 MG ONE ×2 (09:42→09:47)
--- NOTE | 2018-08-13 13:59 | PCM.PROG ---
Progress Note - Progress Note for Day of Date of Exam: 08/13/18 - Subjective Subjective: 73 WM CURRENTLY UNDER PT FOR GENERALIZED WEAKNESS FOLLOWED EXTENDED ILLNESS WITH PNEUMONIA AND CHF. PT HAS CO LEFT RIB PAIN, "SIDE PAIN" PT CXR ON 11/11 WITH CONTINUED EFFUSION. PT IS ON IV LEVAQUIN AND IV LASIX, SUPPLEMENTAL O2 AND BIPAP AT NIGHT. PLAN TO OBTAIN CT CHEST AND ABD/PELVIS. PAIN CONTROL AND RESP THERAPY. - Past Medical Family Social History Past Med/Fam/Surg Hx: No changes since H&P Allergies: Allergies chocolate flavor Allergy (Verified 08/03/18 19:46) Penicillins Allergy (Verified 08/03/18 19:46) CHOCOLATE Allergy (Uncoded 08/03/18 19:46) - Review of Systems ROS: No change since H&P - Vital Signs and I&O's Vital Signs: Temperature 98.0 F Pulse Rate [Left Brachial] 88 Pulse Rate 88 Respiratory Rate 22 Blood Pressure [Left Arm] 129/71 Blood Pressure [Right Arm] 86/61 Blood Pressure 114/65 O2 Sat by Pulse Oximetry 90 Intake and Output: Intake & Output 08/11/18 08/12/18 08/13/18 08/14/18 11:59 11:59 11:59 11:59 Intake Total 2105 / 2105 Output Total 4050 / 4050 Balance -1944 / -1944 - Physical Exam Oriented: Normal Eyes: Normal Ear: Normal Nose: Normal Throat: Normal Respiratory: Diminished Cardiovascular: Normal. negative: Edema : Normal Auscultation: Bowel Sounds: Normal Palpation: Normal Tenderness: Normal Skin: Decreased Turgur, Wound Musculoskeletal: Back:Thoracic, Back:Lumbar Psychiatric: Anxiety Affect: Anxious Speech Pattern: Clear, Appropriate - Laboratory and Diagnostics Labs: Laboratory Sample Site Rr 08/13/18 09:35 ABG pH 7.470 (7.35-7.45) H 08/13/18 09:35 ABG pCO2 49.0 mmHg (35.0-45.0) H 08/13/18 09:35 ABG pO2 61.0 mmHg (80.0-100.0) L 08/13/18 09:35 ABG HCO3 35.7 mmol/L (22-26) H* 08/13/18 09:35 ABG O2 Saturation 93.0 % (90-100) 08/13/18 09:35 ABG Base Excess 10.5 mmol/L (-2.0-2.0) H 08/13/18 09:35 David Test Pos 08/13/18 09:35 A-a Gradient 127.0 mmHg 08/13/18 09:35 FiO2 35.0 08/13/18 09:35 Blood Gas Comments Dejah well cb 08/13/18 09:35 POC Glucose (mg/dL) 234 mg/dL (65-99) H 08/13/18 10:55 - Plan (1) Weakness Status: Acute Plan: PT. ROUTINE LABS, CONTINUE LEVAQUIN AND IV LASIX. VISIT MEDICATION CONTINUED. I & OS, BS CONTROL (2) CAD (coronary artery disease) Status: Acute Qualifiers: Coronary Disease-Associated Artery/Lesion type: bypass graft (3) PAD (peripheral artery disease) Status: Acute (4) Foot ulcer with necrosis of muscle Status: Acute (5) CHF (congestive heart failure) Status: Acute Qualifiers: Heart failure type: unspecified Heart failure chronicity: acute on chronic Qualified Code(s): I50.9 - Heart failure, unspecified (6) Pleural effusion, bilateral Status: Acute (7) Hypertension Status: Chronic (8) GERD (gastroesophageal reflux disease) Status: Chronic (9) Diabetes mellitus, type 2 Status: Chronic
--- NOTE | 2018-08-13 14:08 | PT/OTEVAL ---
PT/OT OBJECTIVES - HISTORY Prescription: PT consult Diagnosis: S/P pneumonia, COPD exacerbation, general weakness Precautions: Falls, SOB PMH: GERD, neuropathy, respiratory distress, PAD, pneumonia, HLD, HTN, DM II, non-ST elevated IL, CAD Prior Level of Function: Independent - COGNITION Mental Status: Alert, Oriented, Name, Date, Place, Purpose, Agitated, Decreased Safety Awarenes Communication Status: Verbal Ability to Follow Directions: 2 Step, 3 Step - PAIN Left Foot Pain Scale: Unbearable (9-10) Comments: Pain on touch Abdomen Pain Scale: Unbearable (9-10) Comments: aggravated with leg movement. - BED MOBILITY Rolling: Supervision Scooting: Supervision Bridging: Supervision - TRANSFERS Supine to Sit: Moderate Sit to Stand: Moderate, Not Tested Sit to Stand Comment: Pt refused STS activites due to L f oot pain 10 Sit or Stand Pivot: Moderate, Not Tested Sit or Stand Pivot Comment: Pt refused STS activities due to L foot pain 01/11 Safety (requires cues for:): Hand Placement Precaution - BALANCE Static Sitting: Good Standing: Not Tested Balance Comment: Pt refused to sit and stand d/t L foot pain. Dynamic Sitting: Fair Standing: Not Tested Balance Comment: Pt refused to sit and stand d/t L foot pain. - NEUROMOTOR/SENSATION [place]. Upper Ext Sensation: WFL Coordination: WFL - ROM Bilateral LE Muscle Tone: WFL Comment: L ROM N/A due to increased pain on any motion. - STRENGTH Bilateral LE Strength Number: 3 Other comment: B LE mm strength grossly graded 3-/5 Bilateral UE Strength Number: 4 Other comment: 4-/5 - GAIT Type of Assistive Device: None, Rolling Walker Comments: pt refused gait traning during eval d/t incnreased pain on L foot PT/OT ASSESSMENT - PT Problem List: Decreased Bed Mobility, Decreased Transfers, Decreased Gait, Decreased Balance, Decreased Safety, Decreased LE Strength - PT GOALS Short Term Goals Days: 10 Mobility: To be independent with bed mobility to allow return to PLOF Transfers: To be independent with transfers to allow return to PLOF Gait: To ambulate 30 ft with RW to increase activity tolerance. Balance: To improve sitting S/D balance to G+/G+ Assortment Planner Goals Days: 20 Gait: To ambulate 150 ft with RW to increase activity tolerance. Balance: To improve standing S/D to G+/G+ to prevent from falls ROM/Strength: To improve B LE mm strength 1-2 mm increments for increased stability. - OT GOALS Fpc Goals Days: 20 Mobility for ADL's: Pt will demo I toilet tfrs and hygiene using AD with no SOB. Safety Awareness: Pt will demo knowledge of ECTs, WSTs, and PBMs during ADLs/transfers. Dressing: Pt will demo UB/LB dressing I using AEs as needed. Grooming: Pt will demo grooming/oral hygiene with I at sink level. Upper Ext. Strength/Use: Pt will demo inc on BUE strength to 1/2-1 mm grade increments. Other: Pt will demo G FAT during exercises/ADLs. Short Term Goals Days: 10 Mobility for ADL's: Pt will demo supv toilet tfrs and hygiene using AD with no SOB. Safety Awareness: Pt will be educated with ECTs, WSTs, and PBMs during ADLs/transfers. Dressing: Pt will demo UB/LB dressing setup using AEs as needed. Grooming: Pt will demo grooming/oral hygiene with supv at sink level. Upper Ext. Strength/Use: Pt will tolerate UE strengthening exercises/activities s c/o of pain. Other: Pt will demo F FAT during exercises/ADLs. - PATIENT GOALS Goals Discussed with Patient/Family: Yes Weakness and Barriers: Decreased Participation If yes, explain: high rated pain L foot - PLAN Suggested Treatment Plan: Bed Mobility Training, Therapeutic Activity, Gait Training, Neuro Re-education, Therapeutic Ex with HEP, Patient Education - FREQUENCY AND DURATION Expected Continuation of Care at Discharge: Determined on Progress
[2018-08-13] MEDS ORDERED: TORADOL 15 MG VIAL IVP ONE (15:01)
[2018-08-13] MEDS: LIPITOR TAB 40 MG PO SCH (20:09)
[2018-08-13] MEDS: SNACK - Diabetic Appropriate PO SCH (20:11)
[2018-08-13] MEDS: LANTUS SC SCH (20:12)
[2018-08-14] MEDS: PERCOCET TAB 5/325 MG PO PRN ×3 (01:19→20:32)
[2018-08-14] MEDS: NS 1000 ML 1,000 ML IV SCH (01:38)
[2018-08-14] MEDS: Atrovent NEB TX 0.02% NEB SCH ×4 (01:57→16:06)
[2018-08-14] MEDS: REQUIP PO SCH ×3 (05:06→21:21)
[2018-08-14] MEDS: HumuLIN R SUBCUT PRN (05:44)
--- NOTE | 2018-08-14 07:48 | CT ---
History: Shortness of breath Exam: CT chest without contrast Comparison: None Technique: Axial spiral images were obtained from the level above the clavicles through the adrenals without contrast. Automated dose control was utilized. Findings: The thyroid gland is unremarkable. There is moderate calcified plaque throughout the aorta which is normal caliber. The pulmonary arteries are top normal in size . There are small lymph nodes in the AP window measuring up to 1.7 cm. There are several pretracheal lymph nodes with the largest at the kavya measuring 1.2 cm . There is a moderate left pleural effusion along the lung base extending superiorly and laterally into the apex . There is a moderate right pleural effusion along the lung base extending superiorly and posteriorly along the apex . There is severe atelectasis and consolidation along both lower lobes posteriorly and extending superiorly with no endobronchial lesion is seen. The adrenals are normal. There are hazy interstitial and ground-glass opacities along both upper lobes extending inferiorly into the perihilar regions and into the lingula and right middle lobe laterally. No pulmonary nodule or mass is seen. Moderate degenerative changes are seen in the spine. No aggressive osseous lesion is seen. IMPRESSION: Moderate bibasilar pleural effusions which may be loculated on the left and is causing severe atelectasis and consolidation along both lung bases posteriorly and extending into the lingula and right middle lobe laterally. Hazy interstitial and airspace opacity scattered along the upper lobes extending into the perihilar regions which could represent pulmonary edema or pneumonia, recommend follow-up . Mild mediastinal adenopathy which may be reactive in etiology. Recommend follow-up. Reported By:
[2018-08-14 08:10] LABS: BASOPHILS % (AUTO) 0.1 % (0.2-1.0); EOSINOPHILS # (AUTO) 0.1 x10^3/uL (0.0-0.2); EOSINOPHILS % (AUTO) 3.1 % (0.9-2.9); HEMATOCRIT 31.3 % (42.0-54.0); HEMOGLOBIN 10.7 g/dL (13.5-18.0); LYMPHOCYTES # (AUTO) 0.7 X10^3/uL (1.3-2.9); LYMPHOCYTES % (AUTO) 16.7 % (21.0-51.0); MEAN CORPUSCULAR HEMOGLOBIN 33.7 pg (27.0-34.0); MEAN CORPUSCULAR HGB CONC 34.2 g/dL (33.0-35.0); MEAN CORPUSCULAR VOLUME 98.6 fL (80.0-100.0); MEAN PLATELET VOLUME 8.1 fL (7.4-11.0); MONOCYTES # (AUTO) 0.4 x10^3/uL (0.3-0.8); MONOCYTES % (AUTO) 9.8 % (0.0-13.0); NEUTROPHILS # (AUTO) 3.1 x10^3/uL (2.2-4.8); NEUTROPHILS % (AUTO) 70.3 % (42.0-75.0); PLATELET COUNT 133 X10^3/uL (150.0-450.0); RED BLOOD COUNT 3.17 X10^6/uL (4.7-6.0); RED CELL DISTRIBUTION WIDTH 18.3 % (11.6-16.5); WHITE BLOOD COUNT 4.5 X10^3/uL (3.6-10.0)
[2018-08-14 08:20] LABS: ALANINE AMINOTRANSFERASE 22 Units/L (12-78); ALBUMIN 2.4 g/dL (3.4-5.0); ALKALINE PHOSPHATASE 165 Units/L (46-116); ASPARTATE AMINO TRANSFERASE 19 Units/L (15-37); BLOOD UREA NITROGEN 17 mg/dL (7-18); CALCIUM 8.6 mg/dL (8.5-10.1); CARBON DIOXIDE 34.8 mmol/L (21-32); CHLORIDE 98 mmol/L (98-107); COR CA(FOR HYPOALB) 9.9 mg/dL (8.5-10.1); COR NA(FOR HYPERGLY) 136 mmol/L (136-145); CREATININE 0.88 mg/dL (0.70-1.30); SODIUM 135 mmol/L (136-145); TOTAL PROTEIN 6.1 g/dL (6.4-8.2); eGFR NON BLACK RACES > 60 (>60)
[2018-08-14 08:23] LABS: ABG BASE EXCESS 8.7 mmol/L (-2.0-2.0)
[2018-08-14 08:24] LABS: ABG HCO3 34.1 mmol/L (22-26)
[2018-08-14 08:25] LABS: ABG ALLEN TEST POS
--- NOTE | 2018-08-14 08:27 | CT ---
History: Pain Exam: CT abdomen and pelvis without contrast Comparison: None Technique: Axial spiral images were obtained from lung bases through the pubic symphysis without contrast. Automated dose control was utilized. Findings: There are moderate bibasilar pleural effusions and associated moderate atelectasis and consolidation along the lung bases posteriorly and extending anteriorly. The liver and spleen are normal size and density. The gallbladder, pancreas , and bile ducts are normal. The adrenals are normal. The kidneys are normal size with atherosclerotic calcifications in the renal arteries bilaterally. No hydronephrosis, renal stone, or mass is seen. There is moderate feces throughout the colon with no obvious bowel obstruction . The appendix is not well visualized with no obvious pericecal inflammation . The bladder is mildly distended with a small air-fluid level in the lumen . There is no pelvic mass or inflammation. The mesentery is unremarkable. No adenopathy or ascites is seen. The bones are intact. IMPRESSION: Mild constipation with no bowel obstruction. Moderate bibasilar pleural effusions with associated moderate atelectasis and consolidation scattered along the lung bases , recommend follow-up. Atherosclerotic calcifications throughout the aorta and renal arteries with no hydronephrosis or urinary obstruction . Air in the bladder lumen which is probably due to recent bladder instrumentation, recommend clinical follow-up Reported By:
[2018-08-14] MEDS: LASIX IVP SCH ×2 (09:08→20:28)
[2018-08-14] MEDS: LEVAQUIN PREMIX IV 500 MG 500 MG/100 ML BAG IV SCH (09:08)
[2018-08-14] MEDS: MILK OF MAGNESIA PO SCH ×2 (09:08→20:28)
[2018-08-14] MEDS: COLACE CAP 100 MG PO SCH ×2 (09:09→20:29)
[2018-08-14] MEDS: FOLIC ACID TAB 1 MG PO SCH (09:10)
[2018-08-14] MEDS: LOVENOX INJ 30 MG SYR SC SCH (09:10)
[2018-08-14] MEDS: ENTRESTO 24/26 MG TAB PO SCH ×2 (09:10→20:28)
[2018-08-14] MEDS: NEURONTIN CAP 100 MG PO SCH ×2 (09:11→20:31)
[2018-08-14] MEDS: PROTONIX TAB 40 MG PO SCH (09:11)
[2018-08-14] MEDS: COREG TAB 3.125 MG PO SCH ×2 (09:13→20:29)
[2018-08-14] MEDS: ASPIRIN EC 81 MG PO SCH (09:13)
[2018-08-14] MEDS: ISOSORBIDE MONONITRATE ER PO SCH (09:13)
[2018-08-14] MEDS: ZOLOFT PO SCH (09:13)
[2018-08-14] MEDS: ALDACTONE TAB 25 MG PO SCH (09:13)
[2018-08-14] MEDS: PLAVIX PO SCH (09:13)
[2018-08-14] MEDS: FLONASE NASAL SPRAY ENOSTRIL SCH (09:17)
[2018-08-14] MEDS: RANEXA PO SCH ×2 (09:17→20:28)
[2018-08-14] MEDS: BROVANA IN SCH ×2 (09:22→21:15)
[2018-08-14] MEDS: PULMICORT NEB TX 0.5 MG NEB SCH ×2 (09:27→21:04)
[2018-08-14] MEDS ORDERED: DULCOLAX SUPPOSITORY 10 MG RECTAL ONE (17:24)
[2018-08-14] MEDS: CHRONULAC PO SCH (20:28)
[2018-08-14] MEDS: SNACK - Diabetic Appropriate PO SCH (20:28)
[2018-08-14] MEDS: LIPITOR TAB 40 MG PO SCH (20:29)
[2018-08-14] MEDS: LANTUS SC SCH (20:30)
[2018-08-14] MEDS: MAALOX or MYLANTA PO PRN (21:21)
[2018-08-15] MEDS: Atrovent NEB TX 0.02% NEB SCH ×5 (00:37→16:07)
[2018-08-15] MEDS: CHRONULAC PO SCH ×4 (03:18→20:42)
[2018-08-15] MEDS: REQUIP PO SCH ×3 (05:31→21:40)
[2018-08-15] MEDS: NS 1000 ML 1,000 ML IV SCH (05:31)
[2018-08-15] MEDS: HumuLIN R SUBCUT PRN ×3 (05:32→15:48)
[2018-08-15] MEDS: FLONASE NASAL SPRAY ENOSTRIL SCH (09:14)
[2018-08-15] MEDS: ASPIRIN EC 81 MG PO SCH (09:14)
[2018-08-15] MEDS: ENTRESTO 24/26 MG TAB PO SCH ×2 (09:14→20:34)
[2018-08-15] MEDS: ALDACTONE TAB 25 MG PO SCH (09:14)
[2018-08-15] MEDS: LASIX IVP SCH ×2 (09:14→20:34)
[2018-08-15] MEDS: COLACE CAP 100 MG PO SCH ×2 (09:15→20:34)
[2018-08-15] MEDS: PROTONIX TAB 40 MG PO SCH (09:15)
[2018-08-15] MEDS: RANEXA PO SCH ×2 (09:15→20:34)
[2018-08-15] MEDS: ZOLOFT PO SCH (09:16)
[2018-08-15] MEDS: COREG TAB 3.125 MG PO SCH ×2 (09:16→20:47)
[2018-08-15] MEDS: PLAVIX PO SCH (09:16)
[2018-08-15] MEDS: FOLIC ACID TAB 1 MG PO SCH (09:16)
[2018-08-15] MEDS: NEURONTIN CAP 100 MG PO SCH ×2 (09:16→20:35)
[2018-08-15] MEDS: ISOSORBIDE MONONITRATE ER PO SCH (09:16)
[2018-08-15] MEDS: LOVENOX INJ 30 MG SYR SC SCH (09:17)
[2018-08-15] MEDS: LEVAQUIN PREMIX IV 500 MG 500 MG/100 ML BAG IV SCH (09:18)
[2018-08-15] MEDS: MILK OF MAGNESIA PO SCH ×2 (09:19→20:42)
[2018-08-15] MEDS: BROVANA IN SCH ×2 (09:22→20:57)
[2018-08-15] MEDS: PULMICORT NEB TX 0.5 MG NEB SCH ×2 (09:22→20:46)
[2018-08-15] MEDS: PERCOCET TAB 5/325 MG PO PRN ×2 (09:23→20:46)
[2018-08-15] MEDS: MAALOX or MYLANTA PO PRN ×3 (09:23→20:33)
[2018-08-15] MEDS: ZANAFLEX PO PRN (10:37)
[2018-08-15] MEDS: SNACK - Diabetic Appropriate PO SCH (19:52)
[2018-08-15] MEDS: LIPITOR TAB 40 MG PO SCH (20:34)
[2018-08-15] MEDS: LANTUS SC SCH (20:35)
[2018-08-16] MEDS: Atrovent NEB TX 0.02% NEB SCH ×5 (00:17→16:23)
[2018-08-16] MEDS: CHRONULAC PO SCH ×2 (03:15→09:14)
[2018-08-16] MEDS: NS 1000 ML 1,000 ML IV SCH ×2 (03:18→05:57)
[2018-08-16] MEDS: HumuLIN R SUBCUT PRN ×2 (05:56→21:20)
[2018-08-16] MEDS: REQUIP PO SCH ×3 (05:56→21:19)
[2018-08-16] MEDS: ZANAFLEX PO PRN (07:15)
[2018-08-16] MEDS: BROVANA IN SCH ×2 (08:10→20:27)
[2018-08-16] MEDS: PULMICORT NEB TX 0.5 MG NEB SCH ×2 (08:10→20:14)
[2018-08-16] MEDS: PERCOCET TAB 5/325 MG PO PRN ×3 (09:02→21:18)
[2018-08-16] MEDS: ISOSORBIDE MONONITRATE ER PO SCH (09:04)
[2018-08-16] MEDS: MILK OF MAGNESIA PO SCH ×2 (09:04→21:19)
[2018-08-16] MEDS: LASIX IVP SCH ×3 (09:04→21:19)
[2018-08-16] MEDS: COREG TAB 3.125 MG PO SCH ×2 (09:05→21:18)
[2018-08-16] MEDS: ALDACTONE TAB 25 MG PO SCH (09:06)
[2018-08-16] MEDS: RANEXA PO SCH ×2 (09:06→21:18)
[2018-08-16] MEDS: ENTRESTO 24/26 MG TAB PO SCH ×2 (09:06→21:19)
[2018-08-16] MEDS: NEURONTIN CAP 100 MG PO SCH ×2 (09:06→21:19)
[2018-08-16] MEDS: PROTONIX TAB 40 MG PO SCH (09:06)
[2018-08-16] MEDS: ZOLOFT PO SCH (09:06)
[2018-08-16] MEDS: COLACE CAP 100 MG PO SCH ×2 (09:06→21:19)
[2018-08-16] MEDS: FOLIC ACID TAB 1 MG PO SCH (09:07)
[2018-08-16] MEDS: PLAVIX PO SCH (09:07)
[2018-08-16] MEDS: LOVENOX INJ 30 MG SYR SC SCH (09:07)
[2018-08-16] MEDS: ASPIRIN EC 81 MG PO SCH (09:07)
[2018-08-16] MEDS: LEVAQUIN PREMIX IV 500 MG 500 MG/100 ML BAG IV SCH (09:10)
[2018-08-16] MEDS: FLONASE NASAL SPRAY ENOSTRIL SCH (09:13)
[2018-08-16 11:12] LABS: ABG BASE EXCESS 9.1 mmol/L (-2.0-2.0)
[2018-08-16 11:13] LABS: ABG HCO3 33.5 mmol/L (22-26)
[2018-08-16 11:14] LABS: ABG ALLEN TEST POS
[2018-08-16 11:22] LABS: BASOPHILS % (AUTO) 0.1 % (0.2-1.0); EOSINOPHILS # (AUTO) 0.1 x10^3/uL (0.0-0.2); EOSINOPHILS % (AUTO) 1.7 % (0.9-2.9); HEMATOCRIT 27.5 % (42.0-54.0); HEMOGLOBIN 9.2 g/dL (13.5-18.0); LYMPHOCYTES # (AUTO) 0.9 X10^3/uL (1.3-2.9); LYMPHOCYTES % (AUTO) 14.9 % (21.0-51.0); MEAN CORPUSCULAR HEMOGLOBIN 33.8 pg (27.0-34.0); MEAN CORPUSCULAR HGB CONC 33.6 g/dL (33.0-35.0); MEAN CORPUSCULAR VOLUME 100.5 fL (80.0-100.0); MEAN PLATELET VOLUME 8.3 fL (7.4-11.0); MONOCYTES # (AUTO) 0.7 x10^3/uL (0.3-0.8); MONOCYTES % (AUTO) 11.5 % (0.0-13.0); NEUTROPHILS # (AUTO) 4.4 x10^3/uL (2.2-4.8); NEUTROPHILS % (AUTO) 71.8 % (42.0-75.0); PLATELET COUNT 130 X10^3/uL (150.0-450.0); RED BLOOD COUNT 2.73 X10^6/uL (4.7-6.0); WHITE BLOOD COUNT 6.2 X10^3/uL (3.6-10.0)
[2018-08-16 11:44] LABS: ALANINE AMINOTRANSFERASE 24 Units/L (12-78); ALBUMIN 2.4 g/dL (3.4-5.0); ALKALINE PHOSPHATASE 148 Units/L (46-116); ASPARTATE AMINO TRANSFERASE 22 Units/L (15-37); BLOOD UREA NITROGEN 14 mg/dL (7-18); CALCIUM 8.6 mg/dL (8.5-10.1); CARBON DIOXIDE 32.6 mmol/L (21-32); CHLORIDE 97 mmol/L (98-107); COR CA(FOR HYPOALB) 9.9 mg/dL (8.5-10.1); COR NA(FOR HYPERGLY) 133 mmol/L (136-145); CREATININE 0.93 mg/dL (0.70-1.30); SODIUM 132 mmol/L (136-145); eGFR NON BLACK RACES > 60 (>60)
[2018-08-16] MEDS: MAALOX or MYLANTA PO PRN (12:28)
--- NOTE | 2018-08-16 13:02 | RAD ---
History: CHF Study: Portable AP chest Comparison: August 12 Findings: There are bilateral pleural effusions which have increased in size from August 12, left larger than right. The heart size is prominent status post sternotomy with intact AICD wires from the left subclavian vein. There is prominent vascular congestion and pulmonary edema. Impression: Persistent CHF with increasing size of pleural effusions Reported By:
[2018-08-16] MEDS ORDERED: TORADOL 15 MG VIAL IM ONE (15:55)
--- NOTE | 2018-08-16 17:33 | PCM.PROG ---
Progress Note - Progress Note for Day of Date of Exam: 08/16/18 - Subjective Subjective: 73 WM CURRENTLY UNDER PT FOR GENERALIZED WEAKNESS FOLLOWED EXTENDED ILLNESS WITH PNEUMONIA AND CHF. PT HAS CO LEFT RIB PAIN, "SIDE PAIN" PT CXR ON 11/11 WITH CONTINUED EFFUSION. PT IS ON IV LEVAQUIN AND IV LASIX, SUPPLEMENTAL O2 AND BIPAP AT NIGHT. INCREASED LASIX TO 40MG IV Q 8HRS. BUN 14, CREAT 0.93 NA 132. WILL REPEAT AM CXR - Past Medical Family Social History Past Med/Fam/Surg Hx: No changes since H&P Allergies: Allergies chocolate flavor Allergy (Verified 08/03/18 19:46) Penicillins Allergy (Verified 08/03/18 19:46) CHOCOLATE Allergy (Uncoded 08/03/18 19:46) - Review of Systems ROS: No change since H&P - Vital Signs and I&O's Vital Signs: Temperature 97.6 F Pulse Rate [Left Brachial] 86 Pulse Rate 106 Respiratory Rate 18 Blood Pressure [Left Arm] 131/63 Blood Pressure [Right Arm] 86/61 Blood Pressure 114/65 O2 Sat by Pulse Oximetry 99 Intake and Output: Intake & Output 08/14/18 08/15/18 08/16/18 08/17/18 11:59 11:59 11:59 11:59 Intake Total 1908 / 1908 1180 / 1180 2156 / 2156 980 / 980 Output Total 3050 / 3050 1800 / 1800 1250 / 1250 Balance -1142 / -1142 -620 / -620 2156 / 2156 -270 / -270 - Physical Exam Oriented: Normal Eyes: Normal Ear: Normal Nose: Normal Throat: Normal Respiratory: Diminished Cardiovascular: Normal. negative: Edema : Normal Auscultation: Bowel Sounds: Normal Tenderness: Normal Skin: Decreased Turgur, Wound Musculoskeletal: Back:Thoracic, Back:Lumbar Psychiatric: Anxiety Affect: Anxious Speech Pattern: Clear, Appropriate - Laboratory and Diagnostics Result Diagrams: 08/16/18 11:10 08/16/18 11:10 Labs: Laboratory WBC 6.2 X10^3/uL (3.6-10.0) 08/16/18 11:10 RBC 2.73 X10^6/uL (4.7-6.0) L 08/16/18 11:10 Hgb 9.2 g/dL (13.5-18.0) L 08/16/18 11:10 Hct 27.5 % (42.0-54.0) L 08/16/18 11:10 MCV 100.5 fL (80.0-100.0) H 08/16/18 11:10 MCH 33.8 pg (27.0-34.0) 08/16/18 11:10 MCHC 33.6 g/dL (33.0-35.0) 08/16/18 11:10 RDW 18.0 % (11.6-16.5) H 08/16/18 11:10 Plt Count 130 X10^3/uL (150.0-450.0) L 08/16/18 11:10 MPV 8.3 fL (7.4-11.0) 08/16/18 11:10 Neut % (Auto) 71.8 % (42.0-75.0) 08/16/18 11:10 Lymph % (Auto) 14.9 % (21.0-51.0) L 08/16/18 11:10 Pershing % (Auto) 11.5 % (0.0-13.0) 08/16/18 11:10 Eos % (Auto) 1.7 % (0.9-2.9) 08/16/18 11:10 Baso % (Auto) 0.1 % (0.2-1.0) L 08/16/18 11:10 Neut # (Auto) 4.4 x10^3/uL (2.2-4.8) 08/16/18 11:10 Lymph # (Auto) 0.9 X10^3/uL (1.3-2.9) L 08/16/18 11:10 Pershing # (Auto) 0.7 x10^3/uL (0.3-0.8) 08/16/18 11:10 Eos # (Auto) 0.1 x10^3/uL (0.0-0.2) 08/16/18 11:10 Baso # (Auto) 0.0 X10^3/uL (0.0-0.1) 08/16/18 11:10 Absolute Nucleated RBC 0.1 /100WBC 08/16/18 11:10 Sample Site Rbra 08/16/18 10:52 ABG pH 7.490 (7.35-7.45) H 08/16/18 10:52 ABG pCO2 44.0 mmHg (35.0-45.0) 08/16/18 10:52 ABG pO2 46.0 mmHg (80.0-100.0) L* 08/16/18 10:52 ABG HCO3 33.5 mmol/L (22-26) H* 08/16/18 10:52 ABG O2 Saturation 85.0 % (90-100) L 08/16/18 10:52 ABG Base Excess 9.1 mmol/L (-2.0-2.0) H 08/16/18 10:52 David Test Pos 08/16/18 10:52 A-a Gradient 156.0 mmHg 08/16/18 10:52 FiO2 36.0 08/16/18 10:52 Blood Gas Comments Dejah well-sd sao2 86 08/16/18 10:52 Sodium 132 mmol/L (136-145) L 08/16/18 11:10 Corrected Sodium 133 mmol/L (136-145) L 08/16/18 11:10 Potassium 4.5 mmol/L (3.5-5.1) 08/16/18 11:10 Chloride 97 mmol/L (98-107) L 08/16/18 11:10 Carbon Dioxide 32.6 mmol/L (21-32) H 08/16/18 11:10 BUN 14 mg/dL (7-18) 08/16/18 11:10 Creatinine 0.93 mg/dL (0.70-1.30) 08/16/18 11:10 Est GFR (MDRD) Af Amer > 60 (>60) 08/16/18 11:10 Est GFR (MDRD) Non-Af > 60 (>60) 08/16/18 11:10 Glucose 132 mg/dL (65-99) H 08/16/18 11:10 POC Glucose (mg/dL) 125 mg/dL (65-99) H 08/14/18 11:09 Calcium 8.6 mg/dL (8.5-10.1) 08/16/18 11:10 Corrected Calcium 9.9 mg/dL (8.5-10.1) 08/16/18 11:10 Total Bilirubin 0.40 mg/dL (0.2-1.0) 08/16/18 11:10 AST 22 Units/L (15-37) 08/16/18 11:10 ALT 24 Units/L (12-78) 08/16/18 11:10 Alkaline Phosphatase 148 Units/L (46-116) H 08/16/18 11:10 Total Protein 6.0 g/dL (6.4-8.2) L 08/16/18 11:10 Albumin 2.4 g/dL (3.4-5.0) L 08/16/18 11:10 Globulin 3.6 g/dL (2.5-4.5) 08/16/18 11:10 Albumin/Globulin Ratio 0.7 Ratio (1.1-2.1) L 08/16/18 11:10 - Plan (1) Weakness Status: Acute Plan: PT. ROUTINE LABS, CONTINUE LEVAQUIN AND IV LASIX. VISIT MEDICATION CONTINUED. I & OS, BS CONTROL (2) CAD (coronary artery disease) Status: Acute Qualifiers: Coronary Disease-Associated Artery/Lesion type: bypass graft (3) PAD (peripheral artery disease) Status: Acute (4) Foot ulcer with necrosis of muscle Status: Acute (5) CHF (congestive heart failure) Status: Acute Qualifiers: Heart failure type: unspecified Heart failure chronicity: acute on chronic Qualified Code(s): I50.9 - Heart failure, unspecified (6) Pleural effusion, bilateral Status: Acute (7) Hypertension Status: Chronic (8) GERD (gastroesophageal reflux disease) Status: Chronic (9) Diabetes mellitus, type 2 Status: Chronic
[2018-08-16] MEDS: SNACK - Diabetic Appropriate PO SCH (21:17)
[2018-08-16] MEDS: LIPITOR TAB 40 MG PO SCH (21:19)
[2018-08-16] MEDS: LANTUS SC SCH (21:20)
[2018-08-17] MEDS: NS 1000 ML 1,000 ML IV SCH (01:13)
[2018-08-17] MEDS: Atrovent NEB TX 0.02% NEB SCH ×5 (01:16→16:05)
[2018-08-17] MEDS: LASIX IVP SCH ×3 (05:54→21:50)
[2018-08-17] MEDS: REQUIP PO SCH ×3 (05:55→21:50)
[2018-08-17] MEDS: BROVANA IN SCH ×2 (08:42→21:21)
[2018-08-17] MEDS: MILK OF MAGNESIA PO SCH ×2 (08:49→21:51)
[2018-08-17] MEDS: PERCOCET TAB 5/325 MG PO PRN ×2 (08:49→21:51)
[2018-08-17] MEDS: COLACE CAP 100 MG PO SCH ×2 (08:50→21:51)
[2018-08-17] MEDS: NEURONTIN CAP 100 MG PO SCH ×2 (08:50→21:51)
[2018-08-17] MEDS: FOLIC ACID TAB 1 MG PO SCH (08:51)
[2018-08-17] MEDS: ALDACTONE TAB 25 MG PO SCH (08:51)
[2018-08-17] MEDS: COREG TAB 3.125 MG PO SCH ×2 (08:51→21:50)
[2018-08-17] MEDS: ISOSORBIDE MONONITRATE ER PO SCH (08:51)
[2018-08-17] MEDS: PROTONIX TAB 40 MG PO SCH (08:51)
[2018-08-17] MEDS: ASPIRIN EC 81 MG PO SCH (08:51)
[2018-08-17] MEDS: ZOLOFT PO SCH (08:51)
[2018-08-17] MEDS: LOVENOX INJ 30 MG SYR SC SCH (08:52)
[2018-08-17] MEDS: PLAVIX PO SCH (08:52)
[2018-08-17] MEDS: FLONASE NASAL SPRAY ENOSTRIL SCH (08:54)
[2018-08-17] MEDS: LEVAQUIN PREMIX IV 500 MG 500 MG/100 ML BAG IV SCH (08:55)
[2018-08-17] MEDS: RANEXA PO SCH ×2 (08:55→21:50)
[2018-08-17] MEDS: ENTRESTO 24/26 MG TAB PO SCH ×2 (08:56→21:50)
[2018-08-17] MEDS: PULMICORT NEB TX 0.5 MG NEB SCH ×2 (08:57→21:10)
--- NOTE | 2018-08-17 09:08 | RAD ---
History: Shortness of breath, congestive heart failure Study: Portable AP chest Comparison: Yesterday Findings: There are unchanged pleural effusions, left larger than right. There is vascular congestion superimposed over pulmonary fibrosis. The heart size is enlarged with intact AICD wires via the left subclavian vein. There has been CABG Impression: Persistent severe CHF not significantly improved Reported By:
[2018-08-17] MEDS ORDERED: TORADOL 15 MG VIAL IVP PRN (09:42)
[2018-08-17] MEDS ORDERED: SOLU-Medrol 40 MG VIAL IVP ONE (09:42)
[2018-08-17 10:14] LABS: ABG BASE EXCESS 9.2 mmol/L (-2.0-2.0)
[2018-08-17 10:15] LABS: ABG ALLEN TEST POS; ABG HCO3 34.2 mmol/L (22-26)
[2018-08-17] MEDS ORDERED: TORADOL 15 MG VIAL ONE (10:46)
[2018-08-17] MEDS ORDERED: SOLU-Medrol 40 MG VIAL ONE (10:47)
[2018-08-17] MEDS: MAALOX or MYLANTA PO PRN ×2 (12:02→21:51)
[2018-08-17] MEDS: HumuLIN R SUBCUT PRN ×3 (18:16→21:53)
[2018-08-17] MEDS: SNACK - Diabetic Appropriate PO SCH (20:00)
[2018-08-17] MEDS: LIPITOR TAB 40 MG PO SCH (21:50)
[2018-08-17] MEDS: LANTUS SC SCH (21:52)
[2018-08-18] MEDS: NS 1000 ML 1,000 ML IV SCH (00:10)
[2018-08-18] MEDS: Atrovent NEB TX 0.02% NEB SCH ×6 (01:15→23:32)
[2018-08-18] MEDS: PERCOCET TAB 5/325 MG PO PRN ×4 (02:49→21:22)
[2018-08-18] MEDS: LASIX IVP SCH ×3 (06:26→21:12)
[2018-08-18] MEDS: REQUIP PO SCH ×3 (06:26→21:13)
[2018-08-18] MEDS: HumuLIN R SUBCUT PRN ×4 (06:28→21:14)
[2018-08-18 06:44] LABS: ALANINE AMINOTRANSFERASE 20 Units/L (12-78); ALBUMIN 2.3 g/dL (3.4-5.0); ALKALINE PHOSPHATASE 151 Units/L (46-116); ASPARTATE AMINO TRANSFERASE 14 Units/L (15-37); BLOOD UREA NITROGEN 19 mg/dL (7-18); CALCIUM 8.5 mg/dL (8.5-10.1); CARBON DIOXIDE 31.4 mmol/L (21-32); CHLORIDE 97 mmol/L (98-107); COR CA(FOR HYPOALB) 9.9 mg/dL (8.5-10.1); COR NA(FOR HYPERGLY) 134 mmol/L (136-145); CREATININE 1.05 mg/dL (0.70-1.30); SODIUM 131 mmol/L (136-145); TOTAL PROTEIN 5.8 g/dL (6.4-8.2); eGFR NON BLACK RACES > 60 (>60)
[2018-08-18] MEDS: LOVENOX INJ 30 MG SYR SC SCH (08:42)
[2018-08-18] MEDS: ENTRESTO 24/26 MG TAB PO SCH ×2 (08:42→21:14)
[2018-08-18] MEDS: COLACE CAP 100 MG PO SCH ×2 (08:42→21:14)
[2018-08-18] MEDS: PLAVIX PO SCH (08:43)
[2018-08-18] MEDS: PROTONIX TAB 40 MG PO SCH (08:43)
[2018-08-18] MEDS: ISOSORBIDE MONONITRATE ER PO SCH (08:43)
[2018-08-18] MEDS: ALDACTONE TAB 25 MG PO SCH (08:43)
[2018-08-18] MEDS: COREG TAB 3.125 MG PO SCH ×2 (08:43→21:14)
[2018-08-18] MEDS: ZOLOFT PO SCH (08:44)
[2018-08-18] MEDS: RANEXA PO SCH ×2 (08:44→21:14)
[2018-08-18] MEDS: FOLIC ACID TAB 1 MG PO SCH (08:44)
[2018-08-18] MEDS: NEURONTIN CAP 100 MG PO SCH ×2 (08:46→21:14)
[2018-08-18] MEDS: MILK OF MAGNESIA PO SCH ×2 (08:46→21:21)
[2018-08-18] MEDS: LEVAQUIN PREMIX IV 500 MG 500 MG/100 ML BAG IV SCH (08:46)
[2018-08-18] MEDS: FLONASE NASAL SPRAY ENOSTRIL SCH (08:47)
[2018-08-18] MEDS: ASPIRIN EC 81 MG PO SCH (08:47)
[2018-08-18] MEDS: BROVANA IN SCH ×2 (09:59→21:13)
[2018-08-18] MEDS: PROVENTIL NEB TX 0.083% 2.5MG/ 3ML NEB PRN ×3 (10:03→16:59)
[2018-08-18] MEDS: PULMICORT NEB TX 0.5 MG NEB SCH ×2 (10:03→21:04)
[2018-08-18] MEDS: MAALOX or MYLANTA PO PRN ×2 (12:03→18:50)
[2018-08-18] MEDS: SNACK - Diabetic Appropriate PO SCH (21:00)
[2018-08-18] MEDS: LIPITOR TAB 40 MG PO SCH (21:14)
[2018-08-18] MEDS: LANTUS SC SCH (21:16)
[2018-08-18] MEDS: LEVSIN/MAALOX/LIDOC VISC PO PRN (21:21)
[2018-08-19] MEDS: NS 1000 ML 1,000 ML IV SCH (02:14)
[2018-08-19] MEDS: Atrovent NEB TX 0.02% NEB SCH ×3 (05:09→17:12)
[2018-08-19] MEDS: MAALOX or MYLANTA PO PRN ×2 (06:09→13:22)
[2018-08-19] MEDS: REQUIP PO SCH ×3 (06:09→22:08)
[2018-08-19] MEDS: LASIX IVP SCH ×3 (06:09→22:08)
[2018-08-19] MEDS: HumuLIN R SUBCUT PRN ×2 (06:10→20:45)
[2018-08-19 06:37] LABS: ALANINE AMINOTRANSFERASE 15 Units/L (12-78); ALBUMIN 2.2 g/dL (3.4-5.0); ALKALINE PHOSPHATASE 153 Units/L (46-116); ASPARTATE AMINO TRANSFERASE 22 Units/L (15-37); BLOOD UREA NITROGEN 18 mg/dL (7-18); CALCIUM 8.3 mg/dL (8.5-10.1); CARBON DIOXIDE 30.2 mmol/L (21-32); CHLORIDE 95 mmol/L (98-107); COR CA(FOR HYPOALB) 9.7 mg/dL (8.5-10.1); COR NA(FOR HYPERGLY) 135 mmol/L (136-145); CREATININE 0.99 mg/dL (0.70-1.30); SODIUM 132 mmol/L (136-145); TOTAL PROTEIN 5.7 g/dL (6.4-8.2); eGFR NON BLACK RACES > 60 (>60)
--- NOTE | 2018-08-19 06:59 | RAD ---
HISTORY: Follow-up congestive heart failure Study: Chest PA and lateral Comparison: 08/17/2018 Findings: There is a pacemaker present on the left. The patient is status post median sternotomy and CABG. Heart size is difficult to assess due to obscuration of both heart borders by bilateral pleural effusions unchanged from the prior examination. Congestive heart failure is present in the form of interstitial edema likely superimposed on more chronic interstitial lung disease. No definite alveolar edema is identified. The bony thorax is unremarkable. IMPRESSION: No significant change from the prior examination Reported By:
[2018-08-19] MEDS: LOVENOX INJ 30 MG SYR SC SCH (08:13)
[2018-08-19] MEDS: LEVAQUIN PREMIX IV 500 MG 500 MG/100 ML BAG IV SCH (08:13)
[2018-08-19] MEDS: ENTRESTO 24/26 MG TAB PO SCH ×2 (08:14→20:44)
[2018-08-19] MEDS: ISOSORBIDE MONONITRATE ER PO SCH (08:14)
[2018-08-19] MEDS: COLACE CAP 100 MG PO SCH ×2 (08:14→20:44)
[2018-08-19] MEDS: PROTONIX TAB 40 MG PO SCH (08:14)
[2018-08-19] MEDS: ZOLOFT PO SCH (08:15)
[2018-08-19] MEDS: ALDACTONE TAB 25 MG PO SCH (08:15)
[2018-08-19] MEDS: PLAVIX PO SCH (08:15)
[2018-08-19] MEDS: ASPIRIN EC 81 MG PO SCH (08:15)
[2018-08-19] MEDS: COREG TAB 3.125 MG PO SCH ×2 (08:16→20:43)
[2018-08-19] MEDS: RANEXA PO SCH ×2 (08:16→20:44)
[2018-08-19] MEDS: PERCOCET TAB 5/325 MG PO PRN ×2 (08:16→13:19)
[2018-08-19] MEDS: FLONASE NASAL SPRAY ENOSTRIL SCH (08:17)
[2018-08-19] MEDS: MILK OF MAGNESIA PO SCH ×2 (08:17→20:43)
[2018-08-19] MEDS: NEURONTIN CAP 100 MG PO SCH ×2 (08:17→20:44)
[2018-08-19] MEDS: FOLIC ACID TAB 1 MG PO SCH (08:18)
[2018-08-19] MEDS: BROVANA IN SCH ×2 (09:04→20:39)
[2018-08-19] MEDS: PULMICORT NEB TX 0.5 MG NEB SCH ×2 (09:09→20:20)
[2018-08-19] MEDS: PROVENTIL NEB TX 0.083% 2.5MG/ 3ML NEB PRN ×3 (09:09→17:12)
--- NOTE | 2018-08-19 12:06 | CT ---
HISTORY: Congestive heart failure, pneumonia, and shortness of breath. Study: CT chest without contrast Comparison: Chest x-ray dated same day and CT chest dated August 13, 2018. Technique: Multiple axial images of the chest were obtained from the thoracic inlet to the upper abdomen without the administration of IV contrast. MIP images were obtained. Dose reduction techniques including Automated Exposure Control (AEC) and adjustment of mA and kV were utilized. Study limited secondary to lack of IV contrast. Findings: Multiple enlarged mediastinal/hilar lymph nodes, which may be reactive in nature. Cardiomegaly with small pericardial effusion. Postsurgical changes status post CABG. Left chest cardiac pacemaker. Moderate thoracic aortic calcifications and severe coronary artery calcifications. The thoracic aorta is normal in its contour without evidence for aneurysmal dilatation. Large bilateral pleural effusions with associated compressive atelectasis versus infiltrate. Severe centrilobular and paraseptal emphysematous changes. Centrilobular septal thickening appears slightly improved from prior exam. No obvious pulmonary nodule, mass, or pneumothorax. The visualized upper abdominal structures appear unchanged given technique. Degenerative changes of the spine. No aggressive osseous lesions. IMPRESSION: 1. Constellation of findings likely representing pulmonary edema secondary to congestive heart failure. Underlying infiltrate not entirely excluded. This appears slightly improved given technique. 2. Other chronic findings as above. Reported By:
--- NOTE | 2018-08-19 13:08 | PCM.PROG ---
Progress Note - Progress Note for Day of Date of Exam: 08/19/18 - Subjective Subjective: 73 WM CURRENTLY UNDER PT FOR GENERALIZED WEAKNESS FOLLOWED EXTENDED ILLNESS WITH PNEUMONIA AND CHF. PT HAS CO LEFT RIB PAIN, "SIDE PAIN" PT CXR ON 11/11 WITH CONTINUED EFFUSION. PT IS ON IV LEVAQUIN AND IV LASIX, SUPPLEMENTAL O2 AND BIPAP AT NIGHT. INCREASED LASIX TO 40MG IV Q 8HRS. BUN 18, CREAT 0.99 NA 132. PT STATES HE FEELS A LITTLE BIT BETTER THIS AM, CONTINUES WITH LEFT LATERAL RIB PAIN. PT HAD CT CHEST THIS AM WITH RESULTS-. appears slightly improved. PT STATES HE CANNOT PERFORM ADLS AT HOME WITHOUT O2. WILL CONSULT RESP FOR EVALUATION OF AT HOME CPAP/TRILOGY. - Past Medical Family Social History Past Med/Fam/Surg Hx: No changes since H&P Allergies: Allergies chocolate flavor Allergy (Verified 08/03/18 19:46) Penicillins Allergy (Verified 08/03/18 19:46) CHOCOLATE Allergy (Uncoded 08/03/18 19:46) - Review of Systems ROS: No change since H&P - Vital Signs and I&O's Vital Signs: Temperature 97.5 F Pulse Rate [Left Brachial] 91 Pulse Rate 78 Respiratory Rate 20 Blood Pressure [Left Arm] 117/61 Blood Pressure [Right Arm] 86/61 Blood Pressure 114/65 O2 Sat by Pulse Oximetry 91 Intake and Output: Intake & Output 08/17/18 08/18/18 08/19/18 08/20/18 11:59 11:59 11:59 11:59 Intake Total 0 / 2060 1650 / 1650 1410 / 1410 Output Total 2600 / 2600 1725 / 1725 2099 / 2100 Balance -540 / -540 -75 / -75 -690 / -690 - Physical Exam Oriented: Normal Eyes: Normal Ear: Normal Nose: Normal Throat: Normal Respiratory: Diminished Cardiovascular: Normal. negative: Edema : Normal Auscultation: Bowel Sounds: Normal Tenderness: Normal Skin: Decreased Turgur, Wound Musculoskeletal: Back:Thoracic, Back:Lumbar Psychiatric: Anxiety Affect: Anxious Speech Pattern: Clear, Appropriate - Laboratory and Diagnostics Result Diagrams: 08/16/18 11:10 08/19/18 05:22 Labs: Laboratory WBC 6.2 X10^3/uL (3.6-10.0) 08/16/18 11:10 RBC 2.73 X10^6/uL (4.7-6.0) L 08/16/18 11:10 Hgb 9.2 g/dL (13.5-18.0) L 08/16/18 11:10 Hct 27.5 % (42.0-54.0) L 08/16/18 11:10 MCV 100.5 fL (80.0-100.0) H 08/16/18 11:10 MCH 33.8 pg (27.0-34.0) 08/16/18 11:10 MCHC 33.6 g/dL (33.0-35.0) 08/16/18 11:10 RDW 18.0 % (11.6-16.5) H 08/16/18 11:10 Plt Count 130 X10^3/uL (150.0-450.0) L 08/16/18 11:10 MPV 8.3 fL (7.4-11.0) 08/16/18 11:10 Neut % (Auto) 71.8 % (42.0-75.0) 08/16/18 11:10 Lymph % (Auto) 14.9 % (21.0-51.0) L 08/16/18 11:10 Mcpherson % (Auto) 11.5 % (0.0-13.0) 08/16/18 11:10 Eos % (Auto) 1.7 % (0.9-2.9) 08/16/18 11:10 Baso % (Auto) 0.1 % (0.2-1.0) L 08/16/18 11:10 Neut # (Auto) 4.4 x10^3/uL (2.2-4.8) 08/16/18 11:10 Lymph # (Auto) 0.9 X10^3/uL (1.3-2.9) L 08/16/18 11:10 Mcpherson # (Auto) 0.7 x10^3/uL (0.3-0.8) 08/16/18 11:10 Eos # (Auto) 0.1 x10^3/uL (0.0-0.2) 08/16/18 11:10 Baso # (Auto) 0.0 X10^3/uL (0.0-0.1) 08/16/18 11:10 Absolute Nucleated RBC 0.1 /100WBC 08/16/18 11:10 Sample Site Rr 08/17/18 10:09 ABG pH 7.470 (7.35-7.45) H 08/17/18 10:09 ABG pCO2 47.0 mmHg (35.0-45.0) H 08/17/18 10:09 ABG pO2 66.0 mmHg (80.0-100.0) L 08/17/18 10:09 ABG HCO3 34.2 mmol/L (22-26) H* 08/17/18 10:09 ABG O2 Saturation 94.0 % (90-100) 08/17/18 10:09 ABG Base Excess 9.2 mmol/L (-2.0-2.0) H 08/17/18 10:09 David Test Pos 08/17/18 10:09 A-a Gradient 132.0 mmHg 08/17/18 10:09 FiO2 36.0 08/17/18 10:09 Blood Gas Comments Dejah well cb 08/17/18 10:09 Sodium 132 mmol/L (136-145) L 08/19/18 05:22 Corrected Sodium 135 mmol/L (136-145) L 08/19/18 05:22 Potassium 4.4 mmol/L (3.5-5.1) 08/19/18 05:22 Chloride 95 mmol/L (98-107) L 08/19/18 05:22 Carbon Dioxide 30.2 mmol/L (21-32) 08/19/18 05:22 BUN 18 mg/dL (7-18) 08/19/18 05:22 Creatinine 0.99 mg/dL (0.70-1.30) 08/19/18 05:22 Est GFR (MDRD) Af Amer > 60 (>60) 08/19/18 05:22 Est GFR (MDRD) Non-Af > 60 (>60) 08/19/18 05:22 Glucose 209 mg/dL (65-99) H 08/19/18 05:22 POC Glucose (mg/dL) 125 mg/dL (65-99) H 08/14/18 11:09 Calcium 8.3 mg/dL (8.5-10.1) L 08/19/18 05:22 Corrected Calcium 9.7 mg/dL (8.5-10.1) 08/19/18 05:22 Total Bilirubin 0.40 mg/dL (0.2-1.0) 08/19/18 05:22 AST 22 Units/L (15-37) 08/19/18 05:22 ALT 15 Units/L (12-78) 08/19/18 05:22 Alkaline Phosphatase 153 Units/L (46-116) H 08/19/18 05:22 Total Protein 5.7 g/dL (6.4-8.2) L 08/19/18 05:22 Albumin 2.2 g/dL (3.4-5.0) L 08/19/18 05:22 Globulin 3.5 g/dL (2.5-4.5) 08/19/18 05:22 Albumin/Globulin Ratio 0.6 Ratio (1.1-2.1) L 08/19/18 05:22 - Plan (1) Weakness Status: Acute Plan: PT. ROUTINE LABS, CONTINUE LEVAQUIN AND IV LASIX. VISIT MEDICATION CONTINUED. I & OS, BS CONTROL (2) CAD (coronary artery disease) Status: Acute Qualifiers: Coronary Disease-Associated Artery/Lesion type: bypass graft (3) PAD (peripheral artery disease) Status: Acute (4) Foot ulcer with necrosis of muscle Status: Acute (5) CHF (congestive heart failure) Status: Acute Qualifiers: Heart failure type: unspecified Heart failure chronicity: acute on chronic Qualified Code(s): I50.9 - Heart failure, unspecified (6) Pleural effusion, bilateral Status: Acute (7) Hypertension Status: Chronic (8) GERD (gastroesophageal reflux disease) Status: Chronic (9) Diabetes mellitus, type 2 Status: Chronic (10) Respiratory failure Status: Acute
[2018-08-19] MEDS: LANTUS SC SCH (20:44)
[2018-08-19] MEDS: LIPITOR TAB 40 MG PO SCH (20:44)
[2018-08-19] MEDS: LEVSIN/MAALOX/LIDOC VISC PO PRN (20:46)
[2018-08-19] MEDS: SNACK - Diabetic Appropriate PO SCH (20:46)
[2018-08-20] MEDS: NS 1000 ML 1,000 ML IV SCH ×3 (00:13→23:33)
[2018-08-20] MEDS: Atrovent NEB TX 0.02% NEB SCH ×4 (00:20→17:52)
[2018-08-20] MEDS: PERCOCET TAB 5/325 MG PO PRN ×3 (02:04→13:10)
[2018-08-20] MEDS: ZANAFLEX PO PRN ×2 (04:01→16:45)
[2018-08-20] MEDS: REQUIP PO SCH ×3 (06:01→20:59)
[2018-08-20] MEDS: LASIX IVP SCH ×3 (06:01→20:59)
[2018-08-20] MEDS: HumuLIN R SUBCUT PRN ×2 (06:02→16:43)
[2018-08-20] MEDS: MILK OF MAGNESIA PO SCH ×2 (08:42→20:48)
[2018-08-20] MEDS: BROVANA IN SCH ×2 (08:42→20:22)
[2018-08-20] MEDS: ISOSORBIDE MONONITRATE ER PO SCH (08:43)
[2018-08-20] MEDS: PLAVIX PO SCH (08:43)
[2018-08-20] MEDS: ALDACTONE TAB 25 MG PO SCH (08:44)
[2018-08-20] MEDS: ZOLOFT PO SCH (08:48)
[2018-08-20] MEDS: ASPIRIN EC 81 MG PO SCH (08:49)
[2018-08-20] MEDS: NEURONTIN CAP 100 MG PO SCH ×2 (08:49→20:48)
[2018-08-20] MEDS: FOLIC ACID TAB 1 MG PO SCH (08:49)
[2018-08-20] MEDS: ENTRESTO 24/26 MG TAB PO SCH ×2 (08:49→20:48)
[2018-08-20] MEDS: COLACE CAP 100 MG PO SCH ×2 (08:49→20:48)
[2018-08-20] MEDS: RANEXA PO SCH ×2 (08:49→20:49)
[2018-08-20] MEDS: PROTONIX TAB 40 MG PO SCH (08:50)
[2018-08-20] MEDS: COREG TAB 3.125 MG PO SCH ×2 (08:50→20:48)
[2018-08-20] MEDS: LOVENOX INJ 30 MG SYR SC SCH (08:50)
[2018-08-20] MEDS: FLONASE NASAL SPRAY ENOSTRIL SCH (08:51)
[2018-08-20] MEDS: PULMICORT NEB TX 0.5 MG NEB SCH ×2 (08:59→20:11)
[2018-08-20] MEDS: MAALOX or MYLANTA PO PRN (14:26)
[2018-08-20] MEDS: SNACK - Diabetic Appropriate PO SCH (20:48)
[2018-08-20] MEDS: LIPITOR TAB 40 MG PO SCH (20:48)
[2018-08-20] MEDS: LANTUS SC SCH (20:49)
[2018-08-21] MEDS: ZANAFLEX PO PRN ×3 (00:50→21:08)
[2018-08-21] MEDS: PERCOCET TAB 5/325 MG PO PRN ×3 (02:35→20:40)
[2018-08-21] MEDS ORDERED: MILK OF MAGNESIA PO PRN (03:04)
[2018-08-21 05:29] LABS: BASOPHILS % (AUTO) 0.1 % (0.2-1.0); EOSINOPHILS # (AUTO) 0.1 x10^3/uL (0.0-0.2); EOSINOPHILS % (AUTO) 2.2 % (0.9-2.9); HEMATOCRIT 26.6 % (42.0-54.0); HEMOGLOBIN 9.1 g/dL (13.5-18.0); LYMPHOCYTES # (AUTO) 0.5 X10^3/uL (1.3-2.9); LYMPHOCYTES % (AUTO) 14.4 % (21.0-51.0); MEAN CORPUSCULAR HEMOGLOBIN 34.5 pg (27.0-34.0); MEAN CORPUSCULAR HGB CONC 34.1 g/dL (33.0-35.0); MEAN CORPUSCULAR VOLUME 101.1 fL (80.0-100.0); MEAN PLATELET VOLUME 8.9 fL (7.4-11.0); MONOCYTES # (AUTO) 0.4 x10^3/uL (0.3-0.8); MONOCYTES % (AUTO) 9.2 % (0.0-13.0); NEUTROPHILS # (AUTO) 2.8 x10^3/uL (2.2-4.8); NEUTROPHILS % (AUTO) 74.1 % (42.0-75.0); PLATELET COUNT 123 X10^3/uL (150.0-450.0); RED BLOOD COUNT 2.63 X10^6/uL (4.7-6.0); RED CELL DISTRIBUTION WIDTH 16.6 % (11.6-16.5); WHITE BLOOD COUNT 3.8 X10^3/uL (3.6-10.0)
[2018-08-21 05:48] LABS: ALANINE AMINOTRANSFERASE 19 Units/L (12-78); ALBUMIN 2.4 g/dL (3.4-5.0); ALKALINE PHOSPHATASE 168 Units/L (46-116); ASPARTATE AMINO TRANSFERASE 19 Units/L (15-37); BLOOD UREA NITROGEN 19 mg/dL (7-18); CALCIUM 8.4 mg/dL (8.5-10.1); CHLORIDE 96 mmol/L (98-107); COR CA(FOR HYPOALB) 9.7 mg/dL (8.5-10.1); COR NA(FOR HYPERGLY) 136 mmol/L (136-145); CREATININE 0.98 mg/dL (0.70-1.30); SODIUM 133 mmol/L (136-145); TOTAL PROTEIN 5.8 g/dL (6.4-8.2); eGFR NON BLACK RACES > 60 (>60)
[2018-08-21] MEDS: MAALOX or MYLANTA PO PRN ×3 (06:12→20:36)
[2018-08-21] MEDS: HumuLIN R SUBCUT PRN ×2 (06:13→17:30)
[2018-08-21] MEDS: LASIX IVP SCH ×3 (06:13→21:08)
[2018-08-21] MEDS: REQUIP PO SCH ×3 (06:13→21:08)
[2018-08-21] MEDS: BROVANA IN SCH ×2 (08:49→20:12)
[2018-08-21] MEDS: PROVENTIL NEB TX 0.083% 2.5MG/ 3ML NEB PRN ×3 (08:53→17:12)
[2018-08-21] MEDS: Atrovent NEB TX 0.02% NEB SCH ×2 (08:54→20:12)
[2018-08-21] MEDS: PULMICORT NEB TX 0.5 MG NEB SCH ×2 (08:54→20:00)
[2018-08-21] MEDS: LOVENOX INJ 30 MG SYR SC SCH (09:11)
[2018-08-21] MEDS: ENTRESTO 24/26 MG TAB PO SCH ×2 (09:12→20:35)
[2018-08-21] MEDS: ZOLOFT PO SCH (09:12)
[2018-08-21] MEDS: ALDACTONE TAB 25 MG PO SCH (09:12)
[2018-08-21] MEDS: NEURONTIN CAP 100 MG PO SCH ×2 (09:12→20:35)
[2018-08-21] MEDS: PROTONIX TAB 40 MG PO SCH (09:12)
[2018-08-21] MEDS: PLAVIX PO SCH (09:12)
[2018-08-21] MEDS: FOLIC ACID TAB 1 MG PO SCH (09:12)
[2018-08-21] MEDS: ASPIRIN EC 81 MG PO SCH (09:12)
[2018-08-21] MEDS: ISOSORBIDE MONONITRATE ER PO SCH (09:12)
[2018-08-21] MEDS: COLACE CAP 100 MG PO SCH ×2 (09:13→20:34)
[2018-08-21] MEDS: COREG TAB 3.125 MG PO SCH ×2 (09:13→20:34)
[2018-08-21] MEDS: FLONASE NASAL SPRAY ENOSTRIL SCH (09:13)
[2018-08-21] MEDS: RANEXA PO SCH ×2 (09:18→20:39)
[2018-08-21] MEDS: LEVSIN/MAALOX/LIDOC VISC PO PRN ×2 (10:30→17:29)
[2018-08-21] MEDS: LIPITOR TAB 40 MG PO SCH (20:34)
[2018-08-21] MEDS: SNACK - Diabetic Appropriate PO SCH (20:34)
[2018-08-21] MEDS: LANTUS SC SCH (20:35)
[2018-08-21] MEDS ORDERED: MORPHINE SULFATE INJ 2 MG INJ IVP ONE (21:30)
[2018-08-22] MEDS: PROVENTIL NEB TX 0.083% 2.5MG/ 3ML NEB PRN ×3 (03:50→16:57)
[2018-08-22] MEDS: REQUIP PO SCH ×3 (05:04→21:01)
[2018-08-22] MEDS: LASIX IVP SCH ×3 (05:04→21:01)
[2018-08-22] MEDS: PERCOCET TAB 5/325 MG PO PRN ×4 (05:05→21:04)
[2018-08-22] MEDS: NS 1000 ML 1,000 ML IV SCH (05:05)
[2018-08-22 05:28] LABS: BASOPHILS % (AUTO) 0.2 % (0.2-1.0); EOSINOPHILS # (AUTO) 0.1 x10^3/uL (0.0-0.2); EOSINOPHILS % (AUTO) 2.8 % (0.9-2.9); HEMATOCRIT 27.4 % (42.0-54.0); HEMOGLOBIN 9.3 g/dL (13.5-18.0); LYMPHOCYTES # (AUTO) 0.6 X10^3/uL (1.3-2.9); LYMPHOCYTES % (AUTO) 21.1 % (21.0-51.0); MEAN CORPUSCULAR HEMOGLOBIN 34.3 pg (27.0-34.0); MEAN PLATELET VOLUME 8.7 fL (7.4-11.0); MONOCYTES # (AUTO) 0.3 x10^3/uL (0.3-0.8); MONOCYTES % (AUTO) 12.2 % (0.0-13.0); NEUTROPHILS # (AUTO) 1.8 x10^3/uL (2.2-4.8); NEUTROPHILS % (AUTO) 63.7 % (42.0-75.0); PLATELET COUNT 118 X10^3/uL (150.0-450.0); RED BLOOD COUNT 2.72 X10^6/uL (4.7-6.0); RED CELL DISTRIBUTION WIDTH 16.7 % (11.6-16.5); WHITE BLOOD COUNT 2.9 X10^3/uL (3.6-10.0)
[2018-08-22 05:43] LABS: ALANINE AMINOTRANSFERASE 22 Units/L (12-78); ALBUMIN 2.3 g/dL (3.4-5.0); ALKALINE PHOSPHATASE 163 Units/L (46-116); ASPARTATE AMINO TRANSFERASE 21 Units/L (15-37); BLOOD UREA NITROGEN 15 mg/dL (7-18); CALCIUM 8.3 mg/dL (8.5-10.1); CARBON DIOXIDE 33.9 mmol/L (21-32); CHLORIDE 96 mmol/L (98-107); COR CA(FOR HYPOALB) 9.7 mg/dL (8.5-10.1); COR NA(FOR HYPERGLY) 134 mmol/L (136-145); CREATININE 0.92 mg/dL (0.70-1.30); SODIUM 132 mmol/L (136-145); TOTAL PROTEIN 5.9 g/dL (6.4-8.2); eGFR NON BLACK RACES > 60 (>60)
[2018-08-22] MEDS: MAALOX or MYLANTA PO PRN ×3 (06:17→21:09)
--- NOTE | 2018-08-22 06:52 | RAD ---
HISTORY: Dyspnea Study: Single-view chest Comparison: August 19, 2018 Findings: Prior sternotomy and an AICD are noted. The trachea is midline. The cardiac silhouette is unremarkable. There is central vascular congestion with diffuse interstitial thickening some of which is chronic but with superimposed bibasilar fluid and consolidation which is grossly stable most consistent with pulmonary edema perhaps in the setting of congestive failure but with a component of pneumonia not excluded. There is no pneumothorax. The bony thorax is grossly unremarkable. IMPRESSION: Persistent overall stable findings of pulmonary edema/CHF and/or pneumonia. Reported By:
[2018-08-22] MEDS: BROVANA IN SCH ×2 (08:05→21:13)
[2018-08-22] MEDS: PULMICORT NEB TX 0.5 MG NEB SCH ×2 (08:05→21:13)
[2018-08-22] MEDS: Atrovent NEB TX 0.02% NEB SCH ×2 (08:05→21:13)
[2018-08-22] MEDS: ZANAFLEX PO PRN ×2 (08:43→21:05)
[2018-08-22] MEDS: LEVSIN/MAALOX/LIDOC VISC PO PRN ×2 (08:44→21:09)
[2018-08-22] MEDS: ALDACTONE TAB 25 MG PO SCH (08:46)
[2018-08-22] MEDS: ENTRESTO 24/26 MG TAB PO SCH ×2 (08:46→21:02)
[2018-08-22] MEDS: NEURONTIN CAP 100 MG PO SCH ×2 (08:46→21:03)
[2018-08-22] MEDS: ASPIRIN EC 81 MG PO SCH (08:46)
[2018-08-22] MEDS: COLACE CAP 100 MG PO SCH ×2 (08:46→21:01)
[2018-08-22] MEDS: PROTONIX TAB 40 MG PO SCH (08:47)
[2018-08-22] MEDS: PLAVIX PO SCH (08:47)
[2018-08-22] MEDS: COREG TAB 3.125 MG PO SCH ×2 (08:47→21:02)
[2018-08-22] MEDS: ZOLOFT PO SCH (08:47)
[2018-08-22] MEDS: FOLIC ACID TAB 1 MG PO SCH (08:47)
[2018-08-22] MEDS: ISOSORBIDE MONONITRATE ER PO SCH (08:47)
[2018-08-22] MEDS: LOVENOX INJ 30 MG SYR SC SCH (08:47)
[2018-08-22] MEDS: ZOFRAN INJ 4 MG VIAL IVP PRN (08:50)
[2018-08-22] MEDS: FLONASE NASAL SPRAY ENOSTRIL SCH (08:53)
[2018-08-22] MEDS ORDERED: PEPCID 20 MG IV PREMIX* 20 MG/50 ML BAG IV ONE (10:57)
[2018-08-22] MEDS ORDERED: PEPCID 20 MG IV PREMIX* 20 MG/50 ML BAG ONE (11:24)
[2018-08-22] MEDS: HumuLIN R SUBCUT PRN (12:42)
[2018-08-22] MEDS: RANEXA PO SCH ×2 (16:31→21:00)
[2018-08-22] MEDS: LIPITOR TAB 40 MG PO SCH (21:01)
[2018-08-22] MEDS: SNACK - Diabetic Appropriate PO SCH (21:01)
[2018-08-22] MEDS: LANTUS SC SCH (21:02)
[2018-08-23] MEDS: PROVENTIL NEB TX 0.083% 2.5MG/ 3ML NEB PRN ×5 (00:48→16:21)
[2018-08-23] MEDS: MAALOX or MYLANTA PO PRN ×3 (02:05→21:03)
[2018-08-23] MEDS: PERCOCET TAB 5/325 MG PO PRN ×4 (02:46→21:02)
[2018-08-23 05:24] LABS: BASOPHILS % (AUTO) 0.2 % (0.2-1.0); EOSINOPHILS # (AUTO) 0.1 x10^3/uL (0.0-0.2); EOSINOPHILS % (AUTO) 2.6 % (0.9-2.9); HEMATOCRIT 27.7 % (42.0-54.0); HEMOGLOBIN 9.4 g/dL (13.5-18.0); LYMPHOCYTES # (AUTO) 0.3 X10^3/uL (1.3-2.9); LYMPHOCYTES % (AUTO) 12.4 % (21.0-51.0); MEAN CORPUSCULAR HEMOGLOBIN 34.3 pg (27.0-34.0); MEAN CORPUSCULAR HGB CONC 34.1 g/dL (33.0-35.0); MEAN CORPUSCULAR VOLUME 100.6 fL (80.0-100.0); MEAN PLATELET VOLUME 8.5 fL (7.4-11.0); MONOCYTES # (AUTO) 0.3 x10^3/uL (0.3-0.8); MONOCYTES % (AUTO) 10.4 % (0.0-13.0); NEUTROPHILS # (AUTO) 2.1 x10^3/uL (2.2-4.8); NEUTROPHILS % (AUTO) 74.4 % (42.0-75.0); PLATELET COUNT 124 X10^3/uL (150.0-450.0); RED BLOOD COUNT 2.76 X10^6/uL (4.7-6.0); WHITE BLOOD COUNT 2.8 X10^3/uL (3.6-10.0)
[2018-08-23] MEDS: NS 1000 ML 1,000 ML IV SCH (05:35)
[2018-08-23] MEDS: REQUIP PO SCH ×3 (05:35→21:01)
[2018-08-23] MEDS: LASIX IVP SCH ×3 (05:35→21:01)
[2018-08-23] MEDS: HumuLIN R SUBCUT PRN ×3 (05:36→21:03)
[2018-08-23 05:39] LABS: ALANINE AMINOTRANSFERASE 25 Units/L (12-78); ALBUMIN 2.3 g/dL (3.4-5.0); ALKALINE PHOSPHATASE 193 Units/L (46-116); ASPARTATE AMINO TRANSFERASE 26 Units/L (15-37); BLOOD UREA NITROGEN 17 mg/dL (7-18); CALCIUM 8.5 mg/dL (8.5-10.1); CARBON DIOXIDE 35.5 mmol/L (21-32); CHLORIDE 96 mmol/L (98-107); COR CA(FOR HYPOALB) 9.9 mg/dL (8.5-10.1); COR NA(FOR HYPERGLY) 138 mmol/L (136-145); CREATININE 1.02 mg/dL (0.70-1.30); SODIUM 133 mmol/L (136-145); TOTAL PROTEIN 5.9 g/dL (6.4-8.2); eGFR NON BLACK RACES > 60 (>60)
[2018-08-23] MEDS: ZANAFLEX PO PRN ×2 (07:01→21:04)
[2018-08-23] MEDS: RANEXA PO SCH ×2 (08:30→20:58)
[2018-08-23] MEDS: COREG TAB 3.125 MG PO SCH ×2 (08:32→20:59)
[2018-08-23] MEDS: NEURONTIN CAP 100 MG PO SCH ×2 (08:32→20:59)
[2018-08-23] MEDS: PROTONIX TAB 40 MG PO SCH (08:32)
[2018-08-23] MEDS: FOLIC ACID TAB 1 MG PO SCH (08:32)
[2018-08-23] MEDS: ISOSORBIDE MONONITRATE ER PO SCH (08:32)
[2018-08-23] MEDS: ALDACTONE TAB 25 MG PO SCH (08:32)
[2018-08-23] MEDS: COLACE CAP 100 MG PO SCH ×2 (08:32→20:58)
[2018-08-23] MEDS: ASPIRIN EC 81 MG PO SCH (08:33)
[2018-08-23] MEDS: ZOLOFT PO SCH (08:33)
[2018-08-23] MEDS: ENTRESTO 24/26 MG TAB PO SCH ×2 (08:33→20:59)
[2018-08-23] MEDS: BROVANA IN SCH ×2 (09:06→21:07)
[2018-08-23] MEDS: Atrovent NEB TX 0.02% NEB SCH ×2 (09:15→20:56)
[2018-08-23] MEDS: PULMICORT NEB TX 0.5 MG NEB SCH ×2 (09:15→20:56)
--- NOTE | 2018-08-23 09:18 | RAD ---
HISTORY: COPD exacerbation Study: Chest PA and lateral Comparison: 08/22/2018 Findings: The patient is status post median sternotomy and CABG. There is a pacemaker present on the left obscuring a portion of the left mid lung. Heart size difficult to assess due to obscuration of the left heart border by a left pleural effusion which is unchanged from the prior examination. Right pleural effusion is also unchanged. Interstitial lung changes are not significantly changed from the prior examination and are likely due to interstitial edema and underlying chronic interstitial lung disease. IMPRESSION: No significant change from the prior examination Reported By:
[2018-08-23] MEDS: FLONASE NASAL SPRAY ENOSTRIL SCH (09:28)
[2018-08-23] MEDS: PLAVIX PO SCH (09:29)
[2018-08-23] MEDS: LOVENOX INJ 30 MG SYR SC SCH (09:29)
[2018-08-23] MEDS ORDERED: TYLENOL 325 MG TAB PO PRN (09:30)
[2018-08-23 10:02] LABS: CKMB % 8.8 % (<4); TROPONIN I 0.02 ng/mL (0-1.5)
[2018-08-23 10:06] LABS: CREATINE KINASE MB 4.5 ng/mL (0-4.0)
[2018-08-23] MEDS: LEVSIN/MAALOX/LIDOC VISC PO PRN ×2 (11:30→21:08)
--- NOTE | 2018-08-23 11:51 | CT ---
HISTORY: COPD and large pleural effusion Study: CT chest with contrast Comparison: without 08/19/2018 Technique: Multiple axial images of the chest were obtained from the thoracic inlet to the upper abdomen without the administration of IV contrast. Findings: No significant mediastinal or hilar lymphadenopathy can be identified. However, evaluation is limited without benefit of IV contrast. Large pleural effusions are observed right greater than left. Diffuse emphysematous lung changes throughout the right and left chest are noted to be present with associated compressive atelectasis. Increased interlobular septal thickening is noted for which developing fibrosis would be suspected. However, this is limited secondary to the mass effect from bilateral pleural effusion. Consolidation within the left lower lobe is observed and may represent superimposed pneumonitis. Continued follow-up will be needed. Clinical correlation for associated infectious etiologies is requested. The visualized portions of the upper abdomen are grossly unremarkable. The bony structures appear grossly intact. IMPRESSION: Moderate to large layering pleural effusions the right and left chest. The right pleural effusion does appear to be greater than the left. Findings are stable compared to prior examination. Compressive atelectasis of the right and left lower lobe is observed secondary to associated pleural effusions. However, airspace opacity within the left lower lobe is noted and superimposed bronchopneumonia cannot be entirely excluded. Correlation with clinical findings and or laboratory values is requested for underlying infectious etiologies. Diffuse emphysematous lung changes of the right and left chest with interlobular septal thickening thought to be present. However, evaluation is limited with mass effect of bilateral pleural effusions. Continued evaluation in this regard will be needed for developing pulmonary fibrosis. Reported By:
[2018-08-23] MEDS: CARAFATE ORAL SUSP PO SCH ×3 (13:19→20:57)
[2018-08-23] MEDS: PEPCID 20 MG IV PREMIX* 20 MG/50 ML BAG IV SCH (13:19)
--- NOTE | 2018-08-23 13:47 | PCM.PROG ---
Progress Note - Progress Note for Day of Date of Exam: 08/23/18 - Subjective Subjective: 73 WM CURRENTLY UNDER PT FOR GENERALIZED WEAKNESS FOLLOWED EXTENDED ILLNESS WITH PNEUMONIA AND CHF. PT HAS CO LEFT RIB PAIN, "SIDE PAIN" PT HAS BEEN IN IV LASIX Q 8HRS WITH GOOD URINE OUTPT, STABLE RENAL FUNCTION. PT CONTINUES TO CO INDIGESTION SYMPTOMS AND SOB. PT HAD REPEAT CE THIS AM, EKG AND CXR. CXR WITH CONTINUED PLEURAL EFFUSIONS. CT CHEST ORDERED TO COMPARE WITH 08/19 REPORT. PT STARTED ON IV PEPCID AND PO CARAFATE WITH ORAL PPI THERAPY. - Past Medical Family Social History Past Med/Fam/Surg Hx: No changes since H&P Allergies: Allergies chocolate flavor Allergy (Verified 08/03/18 19:46) Penicillins Allergy (Verified 08/03/18 19:46) CHOCOLATE Allergy (Uncoded 08/03/18 19:46) - Review of Systems ROS: No change since H&P - Vital Signs and I&O's Vital Signs: Temperature 97.5 F Pulse Rate [Left Brachial] 85 Pulse Rate 91 Respiratory Rate 20 Blood Pressure [Left Arm] 113/57 Blood Pressure [Right Arm] 86/61 Blood Pressure 114/65 O2 Sat by Pulse Oximetry 93 Intake and Output: Intake & Output 08/21/18 08/22/18 08/23/18 08/24/18 11:59 11:59 11:59 11:59 Intake Total 1983 / 1983 2205 / 2205 2175 / 2175 Output Total 1695 / 1695 2925 / 2925 2650 / 2650 Balance 289 / 289 -720 / -720 -475 / -475 - Physical Exam Oriented: Normal Eyes: Normal Ear: Normal Nose: Normal Throat: Normal Respiratory: Diminished Cardiovascular: Normal. negative: Edema : Normal Auscultation: Bowel Sounds: Normal Tenderness: Normal Skin: Decreased Turgur, Wound Musculoskeletal: Back:Thoracic, Back:Lumbar Psychiatric: Anxiety Affect: Anxious Speech Pattern: Clear, Appropriate - Laboratory and Diagnostics Result Diagrams: 08/23/18 04:14 08/23/18 04:14 Labs: Laboratory WBC 2.8 X10^3/uL (3.6-10.0) L 08/23/18 04:14 RBC 2.76 X10^6/uL (4.7-6.0) L 08/23/18 04:14 Hgb 9.4 g/dL (13.5-18.0) L 08/23/18 04:14 Hct 27.7 % (42.0-54.0) L 08/23/18 04:14 MCV 100.6 fL (80.0-100.0) H 08/23/18 04:14 MCH 34.3 pg (27.0-34.0) H 08/23/18 04:14 MCHC 34.1 g/dL (33.0-35.0) 08/23/18 04:14 RDW 16.0 % (11.6-16.5) 08/23/18 04:14 Plt Count 124 X10^3/uL (150.0-450.0) L 08/23/18 04:14 MPV 8.5 fL (7.4-11.0) 08/23/18 04:14 Neut % (Auto) 74.4 % (42.0-75.0) 08/23/18 04:14 Lymph % (Auto) 12.4 % (21.0-51.0) L 08/23/18 04:14 Bailey % (Auto) 10.4 % (0.0-13.0) 08/23/18 04:14 Eos % (Auto) 2.6 % (0.9-2.9) 08/23/18 04:14 Baso % (Auto) 0.2 % (0.2-1.0) 08/23/18 04:14 Neut # (Auto) 2.1 x10^3/uL (2.2-4.8) L 08/23/18 04:14 Lymph # (Auto) 0.3 X10^3/uL (1.3-2.9) L 08/23/18 04:14 Bailey # (Auto) 0.3 x10^3/uL (0.3-0.8) 08/23/18 04:14 Eos # (Auto) 0.1 x10^3/uL (0.0-0.2) 08/23/18 04:14 Baso # (Auto) 0.0 X10^3/uL (0.0-0.1) 08/23/18 04:14 Absolute Nucleated RBC 0.0 /100WBC 08/23/18 04:14 Sample Site Rr 08/17/18 10:09 ABG pH 7.470 (7.35-7.45) H 08/17/18 10:09 ABG pCO2 47.0 mmHg (35.0-45.0) H 08/17/18 10:09 ABG pO2 66.0 mmHg (80.0-100.0) L 08/17/18 10:09 ABG HCO3 34.2 mmol/L (22-26) H* 08/17/18 10:09 ABG O2 Saturation 94.0 % (90-100) 08/17/18 10:09 ABG Base Excess 9.2 mmol/L (-2.0-2.0) H 08/17/18 10:09 David Test Pos 08/17/18 10:09 A-a Gradient 132.0 mmHg 08/17/18 10:09 FiO2 36.0 08/17/18 10:09 Blood Gas Comments Dejah well cb 08/17/18 10:09 Sodium 133 mmol/L (136-145) L 08/23/18 04:14 Corrected Sodium 138 mmol/L (136-145) 08/23/18 04:14 Potassium 4.9 mmol/L (3.5-5.1) 08/23/18 04:14 Chloride 96 mmol/L (98-107) L 08/23/18 04:14 Carbon Dioxide 35.5 mmol/L (21-32) H 08/23/18 04:14 BUN 17 mg/dL (7-18) 08/23/18 04:14 Creatinine 1.02 mg/dL (0.70-1.30) 08/23/18 04:14 Est GFR (MDRD) Af Amer > 60 (>60) 08/23/18 04:14 Est GFR (MDRD) Non-Af > 60 (>60) 08/23/18 04:14 Glucose 291 mg/dL (65-99) H 08/23/18 04:14 POC Glucose (mg/dL) 147 mg/dL (65-99) H 08/23/18 11:32 Calcium 8.5 mg/dL (8.5-10.1) 08/23/18 04:14 Corrected Calcium 9.9 mg/dL (8.5-10.1) 08/23/18 04:14 Total Bilirubin 0.40 mg/dL (0.2-1.0) 08/23/18 04:14 AST 26 Units/L (15-37) 08/23/18 04:14 ALT 25 Units/L (12-78) 08/23/18 04:14 Alkaline Phosphatase 193 Units/L (46-116) H 08/23/18 04:14 Creatine Kinase 51 Units/L (39-308) 08/23/18 09:05 CK-MB (CK-2) 4.5 ng/mL (0-4.0) H* 08/23/18 09:05 CK/CKMB % Calc 8.8 % (<4) 08/23/18 09:05 Troponin I 0.02 ng/mL (0-1.5) 08/23/18 09:05 Total Protein 5.9 g/dL (6.4-8.2) L 08/23/18 04:14 Albumin 2.3 g/dL (3.4-5.0) L 08/23/18 04:14 Globulin 3.6 g/dL (2.5-4.5) 08/23/18 04:14 Albumin/Globulin Ratio 0.6 Ratio (1.1-2.1) L 08/23/18 04:14 - Plan (1) Weakness Status: Acute Plan: PT. ROUTINE LABS, CONTINUE LEVAQUIN AND IV LASIX. VISIT MEDICATION CONTINUED. I & OS, BS CONTROL (2) CAD (coronary artery disease) Status: Acute Qualifiers: Coronary Disease-Associated Artery/Lesion type: bypass graft (3) PAD (peripheral artery disease) Status: Acute (4) Foot ulcer with necrosis of muscle Status: Acute (5) CHF (congestive heart failure) Status: Acute Qualifiers: Heart failure type: unspecified Heart failure chronicity: acute on chronic Qualified Code(s): I50.9 - Heart failure, unspecified (6) Pleural effusion, bilateral Status: Acute (7) Hypertension Status: Chronic (8) GERD (gastroesophageal reflux disease) Status: Chronic (9) Diabetes mellitus, type 2 Status: Chronic (10) Respiratory failure Status: Acute
[2018-08-23] MEDS: ZOFRAN INJ 4 MG VIAL IVP PRN (16:52)
[2018-08-23] MEDS: SNACK - Diabetic Appropriate PO SCH (20:57)
[2018-08-23] MEDS: LIPITOR TAB 40 MG PO SCH (20:58)
[2018-08-23] MEDS: LANTUS SC SCH (20:59)
[2018-08-24] MEDS: MAALOX or MYLANTA PO PRN ×4 (00:51→15:21)
[2018-08-24] MEDS: PERCOCET TAB 5/325 MG PO PRN ×4 (00:51→14:43)
[2018-08-24] MEDS: LEVSIN/MAALOX/LIDOC VISC PO PRN ×2 (05:00→09:12)
[2018-08-24] MEDS: REQUIP PO SCH ×2 (05:01→14:42)
[2018-08-24] MEDS: LASIX IVP SCH ×2 (05:01→14:42)
[2018-08-24] MEDS: CARAFATE ORAL SUSP PO SCH ×3 (05:39→16:55)
[2018-08-24] MEDS: RANEXA PO SCH (08:04)
[2018-08-24] MEDS: COLACE CAP 100 MG PO SCH (08:04)
[2018-08-24] MEDS: LOVENOX INJ 30 MG SYR SC SCH (08:04)
[2018-08-24] MEDS: ENTRESTO 24/26 MG TAB PO SCH (08:04)
[2018-08-24] MEDS: ALDACTONE TAB 25 MG PO SCH (08:05)
[2018-08-24] MEDS: PROTONIX TAB 40 MG PO SCH (08:05)
[2018-08-24] MEDS: ASPIRIN EC 81 MG PO SCH (08:05)
[2018-08-24] MEDS: COREG TAB 3.125 MG PO SCH (08:05)
[2018-08-24] MEDS: ISOSORBIDE MONONITRATE ER PO SCH (08:05)
[2018-08-24] MEDS: ZOLOFT PO SCH (08:05)
[2018-08-24] MEDS: NEURONTIN CAP 100 MG PO SCH (08:05)
[2018-08-24] MEDS: FOLIC ACID TAB 1 MG PO SCH (08:06)
[2018-08-24] MEDS: PLAVIX PO SCH (08:06)
[2018-08-24] MEDS: BROVANA IN SCH (08:20)
[2018-08-24] MEDS: PULMICORT NEB TX 0.5 MG NEB SCH (08:20)
[2018-08-24] MEDS: Atrovent NEB TX 0.02% NEB SCH (08:20)
[2018-08-24 08:37] VITALS: BP 89/52
[2018-08-24] MEDS: PEPCID 20 MG IV PREMIX* 20 MG/50 ML BAG IV SCH (09:00)
[2018-08-24] MEDS: FLONASE NASAL SPRAY ENOSTRIL SCH (09:00)
[2018-08-24] MEDS: HumuLIN R SUBCUT PRN (11:56)
[2018-08-24 12:35] LABS: ABG BASE EXCESS 14.2 mmol/L (-2.0-2.0)
[2018-08-24 12:37] LABS: ABG ALLEN TEST POS
[2018-08-24] MEDS: PROVENTIL NEB TX 0.083% 2.5MG/ 3ML NEB PRN (16:39)
[2018-08-25 12:09] LABS: ABG HCO3 40.5 mmol/L (22-26)
--- NOTE | 2018-08-29 15:52 | PCM.DCPLAN ---
Discharge Summary - Admission Date Date of Admission: 08/12/18 - Discharge Date Discharge Date: 08/24/18 - Admission Diagnoses (1) CAD (coronary artery disease) Status: Acute (2) CHF (congestive heart failure) Status: Acute (3) COPD exacerbation Status: Acute (4) Chest pain Status: Acute (5) Foot ulcer with necrosis of muscle Status: Acute (6) PAD (peripheral artery disease) Status: Acute (7) Pleural effusion, bilateral Status: Acute (8) Pulmonary edema Status: Acute (9) Weakness Status: Acute (10) Diabetes mellitus, type 2 Status: Chronic (11) GERD (gastroesophageal reflux disease) Status: Chronic (12) Hyperlipidemia Status: Chronic (13) Hypertension Status: Chronic - Discharge Diagnoses Discharge Diagnosis: same as admission diagnosis - Discharge Medications Discharge Medications: Prescriptions: - Hospital Course Vital Signs: Temperature 98.3 F Pulse Rate [Right Brachial] 95 Pulse Rate [Left Brachial] 93 Pulse Rate 88 Respiratory Rate 20 Blood Pressure [Left Arm] 114/59 Blood Pressure [Right Arm] 89/52 Blood Pressure 114/65 O2 Sat by Pulse Oximetry 94 Latest Lab Results: Laboratory Last Values WBC 2.8 X10^3/uL (3.6-10.0) L 08/23/18 04:14 RBC 2.76 X10^6/uL (4.7-6.0) L 08/23/18 04:14 Hgb 9.4 g/dL (13.5-18.0) L 08/23/18 04:14 Hct 27.7 % (42.0-54.0) L 08/23/18 04:14 MCV 100.6 fL (80.0-100.0) H 08/23/18 04:14 MCH 34.3 pg (27.0-34.0) H 08/23/18 04:14 MCHC 34.1 g/dL (33.0-35.0) 08/23/18 04:14 RDW 16.0 % (11.6-16.5) 08/23/18 04:14 Plt Count 124 X10^3/uL (150.0-450.0) L 08/23/18 04:14 MPV 8.5 fL (7.4-11.0) 08/23/18 04:14 Neut % (Auto) 74.4 % (42.0-75.0) 08/23/18 04:14 Lymph % (Auto) 12.4 % (21.0-51.0) L 08/23/18 04:14 Dyer % (Auto) 10.4 % (0.0-13.0) 08/23/18 04:14 Eos % (Auto) 2.6 % (0.9-2.9) 08/23/18 04:14 Baso % (Auto) 0.2 % (0.2-1.0) 08/23/18 04:14 Neut # (Auto) 2.1 x10^3/uL (2.2-4.8) L 08/23/18 04:14 Lymph # (Auto) 0.3 X10^3/uL (1.3-2.9) L 08/23/18 04:14 Dyer # (Auto) 0.3 x10^3/uL (0.3-0.8) 08/23/18 04:14 Eos # (Auto) 0.1 x10^3/uL (0.0-0.2) 08/23/18 04:14 Baso # (Auto) 0.0 X10^3/uL (0.0-0.1) 08/23/18 04:14 Absolute Nucleated RBC 0.0 /100WBC 08/23/18 04:14 Sample Site Rbra 08/24/18 11:51 ABG pH 7.460 (7.35-7.45) H 08/24/18 11:51 ABG pCO2 57.0 mmHg (35.0-45.0) H* 08/24/18 11:51 ABG pO2 50.0 mmHg (80.0-100.0) L 08/24/18 11:51 ABG HCO3 40.5 mmol/L (22-26) H* 08/24/18 11:51 ABG O2 Saturation 87.0 % (90-100) L 08/24/18 11:51 ABG Base Excess 14.2 mmol/L (-2.0-2.0) H 08/24/18 11:51 David Test Pos 08/24/18 11:51 A-a Gradient 135.0 mmHg 08/24/18 11:51 FiO2 36.0 08/24/18 11:51 Blood Gas Comments Dejah well -sd [id number] 92 08/24/18 11:51 Sodium 133 mmol/L (136-145) L 08/23/18 04:14 Corrected Sodium 138 mmol/L (136-145) 08/23/18 04:14 Potassium 4.9 mmol/L (3.5-5.1) 08/23/18 04:14 Chloride 96 mmol/L (98-107) L 08/23/18 04:14 Carbon Dioxide 35.5 mmol/L (21-32) H 08/23/18 04:14 BUN 17 mg/dL (7-18) 08/23/18 04:14 Creatinine 1.02 mg/dL (0.70-1.30) 08/23/18 04:14 Est GFR (MDRD) Af Amer > 60 (>60) 08/23/18 04:14 Est GFR (MDRD) Non-Af > 60 (>60) 08/23/18 04:14 Glucose 291 mg/dL (65-99) H 08/23/18 04:14 POC Glucose (mg/dL) 201 mg/dL (65-99) H 08/24/18 16:26 Calcium 8.5 mg/dL (8.5-10.1) 08/23/18 04:14 Corrected Calcium 9.9 mg/dL (8.5-10.1) 08/23/18 04:14 Total Bilirubin 0.40 mg/dL (0.2-1.0) 08/23/18 04:14 AST 26 Units/L (15-37) 08/23/18 04:14 ALT 25 Units/L (12-78) 08/23/18 04:14 Alkaline Phosphatase 193 Units/L (46-116) H 08/23/18 04:14 Creatine Kinase 51 Units/L (39-308) 08/23/18 09:05 CK-MB (CK-2) 4.5 ng/mL (0-4.0) H* 08/23/18 09:05 CK/CKMB % Calc 8.8 % (<4) 08/23/18 09:05 Troponin I 0.02 ng/mL (0-1.5) 08/23/18 09:05 Total Protein 5.9 g/dL (6.4-8.2) L 08/23/18 04:14 Albumin 2.3 g/dL (3.4-5.0) L 08/23/18 04:14 Globulin 3.6 g/dL (2.5-4.5) 08/23/18 04:14 Albumin/Globulin Ratio 0.6 Ratio (1.1-2.1) L 08/23/18 04:14 Hospital Course: 73 WM WHO HAS HAD A LONG HOSPITALIZATION WITH SLOW IMPROVEMENT SECONDARY TO GENERALIZED WEAKNESS FOLLOWED EXTENDED ILLNESS WITH PNEUMONIA AND CHF. PT HAS CO LEFT RIB PAIN, "SIDE PAIN" PT HAS BEEN IN IV LASIX Q 8HRS WITH GOOD URINE OUTPT, STABLE RENAL FUNCTION. PT CO INDIGESTION SYMPTOMS AND SOB. PT HAD REPEAT CARDIAC ENZYMES THIS AM, EKG AND CXR. CXR WITH CONTINUED PLEURAL EFFUSIONS.PT WAS STARTED ON IV PEPCID AND PO CARAFATE WITH ORAL PPI THERAPY. PATIENT DID HAVE IMPROVEMENT. PATIENT WAS DISCHARGED HOME TO BE FOLLOWED ON OP BASIS. - Discharge Plan Disposition: 01 HOME, SELF-CARE Condition: Stable - Follow ups/Referrals Follow ups/Referrals: JESSE PATIÑO [Primary Care Provider] - 1 WEEK - Instructions
== END 2018-08-24 17:34 | disposition home or self-care (01) | DRG 949 ==
LOC: MED/SURG 09:00
PROVIDERS: ADMIT Internal Medicine; ATTEND Internal Medicine
DX: I50.9 Heart failure, unspecified; R26.89 Other abnormalities of gait and mobility; J18.8 Other pneumonia, unspecified organism; K21.9 Gastro-esophageal reflux disease without esophagitis; Z51.89 Encounter for other specified aftercare; E78.2 Mixed hyperlipidemia; I25.10 Atherosclerotic heart disease of native coronary artery without angina pectoris; E11.65 Type 2 diabetes mellitus with hyperglycemia; I11.0 Hypertensive heart disease with heart failure; I73.89 Other specified peripheral vascular diseases; R94.31 Abnormal electrocardiogram [ECG] [EKG]; R53.1 Weakness; J44.1 Chronic obstructive pulmonary disease with (acute) exacerbation; I73.9 Peripheral vascular disease, unspecified; L97.509 Non-pressure chronic ulcer of other part of unspecified foot with unspecified severity; F41.8 Other specified anxiety disorders; J96.20 Acute and chronic respiratory failure, unspecified whether with hypoxia or hypercapnia; J90 Pleural effusion, not elsewhere classified
CPT/HCPCS: 36415; 36600; 71010; 71020; 71045; 71046; 71250; 74176; 80053; 82550; 82553; 82803; 84484; 85025; 93005; 94640; 94660; 97110; 97112; 97116; 97162; 97167; 97530; 97535; A4216; A4222; S0028; J1650; J1815; J1885; J1940; J1956; J2270; J2405; J2920; J3490; J7030; J7613; J7626; J7644

== ENCOUNTER 2018-08-24 17:36 | Inpatient (IN) ==
[2018-08-24] MEDS ORDERED: TYLENOL 325 MG TAB PO PRN (17:49)
[2018-08-24] MEDS ORDERED: MILK OF MAGNESIA PO PRN (18:00)
[2018-08-24] MEDS ORDERED: ZOFRAN INJ 4 MG VIAL IVP PRN (18:00)
[2018-08-24] MEDS ORDERED: BUTT CREAM (COMPOUND) TOP PRN (18:00)
[2018-08-24 18:19] VITALS: BMI 22.6
[2018-08-24 19:48] LABS: CKMB % 12.5 % (<4); CREATINE KINASE 44 Units/L (39-308); TROPONIN I < 0.02 ng/mL (0-1.5)
[2018-08-24 19:55] LABS: CREATINE KINASE MB 5.5 ng/mL (0-4.0)
[2018-08-24] MEDS ORDERED: SNACK - Diabetic Appropriate PO SCH (20:00)
[2018-08-24] MEDS: COLACE CAP 100 MG PO SCH (20:05)
[2018-08-24] MEDS: ZANAFLEX PO PRN (20:05)
[2018-08-24] MEDS: CARAFATE ORAL SUSP PO SCH (20:05)
[2018-08-24] MEDS: RANEXA PO SCH (20:05)
[2018-08-24] MEDS: LEVSIN/MAALOX/LIDOC VISC PO PRN (20:06)
[2018-08-24] MEDS: MAALOX or MYLANTA PO PRN (20:06)
[2018-08-24] MEDS: ENTRESTO 24/26 MG TAB PO SCH (20:06)
[2018-08-24] MEDS: COREG TAB 3.125 MG PO SCH (20:06)
[2018-08-24] MEDS: NEURONTIN CAP 100 MG PO SCH (20:09)
[2018-08-24] MEDS: PERCOCET TAB 5/325 MG PO PRN (20:10)
[2018-08-24] MEDS: HumuLIN R SC PRN (20:15)
[2018-08-24] MEDS: Atrovent NEB TX 0.02% NEB SCH (20:34)
[2018-08-24] MEDS: PULMICORT NEB TX 0.5 MG NEB SCH (20:34)
[2018-08-24] MEDS: BROVANA IN SCH (20:49)
[2018-08-24] MEDS ORDERED: LANTUS SC SCH (21:00)
[2018-08-24] MEDS ORDERED: LIPITOR TAB 40 MG PO SCH (21:00)
[2018-08-24] MEDS: REQUIP PO SCH (21:12)
[2018-08-24] MEDS: LASIX IVP SCH (21:12)
[2018-08-24] MEDS: PROVENTIL NEB TX 0.083% 2.5MG/ 3ML NEB PRN (22:48)
[2018-08-25 01:43] LABS: CKMB % 11.3 % (<4); TROPONIN I 0.03 ng/mL (0-1.5)
[2018-08-25 01:47] LABS: CREATINE KINASE MB 5.1 ng/mL (0-4.0)
[2018-08-25] MEDS: PERCOCET TAB 5/325 MG PO PRN ×3 (02:11→15:01)
[2018-08-25] MEDS: MAALOX or MYLANTA PO PRN ×3 (02:11→15:01)
[2018-08-25] MEDS: PROVENTIL NEB TX 0.083% 2.5MG/ 3ML NEB PRN ×3 (02:38→15:54)
[2018-08-25] MEDS: ZANAFLEX PO PRN ×2 (04:17→11:27)
[2018-08-25] MEDS: LEVSIN/MAALOX/LIDOC VISC PO PRN ×2 (04:17→11:25)
[2018-08-25] MEDS: LASIX IVP SCH ×2 (05:05→14:09)
[2018-08-25] MEDS: REQUIP PO SCH ×2 (05:06→14:09)
[2018-08-25 05:20] LABS: BASOPHILS % (AUTO) 0.2 % (0.2-1.0); EOSINOPHILS # (AUTO) 0.1 x10^3/uL (0.0-0.2); EOSINOPHILS % (AUTO) 2.2 % (0.9-2.9); HEMATOCRIT 27.2 % (42.0-54.0); HEMOGLOBIN 9.3 g/dL (13.5-18.0); LYMPHOCYTES # (AUTO) 0.7 X10^3/uL (1.3-2.9); MEAN CORPUSCULAR HEMOGLOBIN 34.6 pg (27.0-34.0); MEAN CORPUSCULAR HGB CONC 34.4 g/dL (33.0-35.0); MEAN CORPUSCULAR VOLUME 100.7 fL (80.0-100.0); MEAN PLATELET VOLUME 8.6 fL (7.4-11.0); MONOCYTES # (AUTO) 0.4 x10^3/uL (0.3-0.8); NEUTROPHILS # (AUTO) 2.2 x10^3/uL (2.2-4.8); NEUTROPHILS % (AUTO) 64.6 % (42.0-75.0); PLATELET COUNT 137 X10^3/uL (150.0-450.0); RED CELL DISTRIBUTION WIDTH 16.2 % (11.6-16.5); WHITE BLOOD COUNT 3.4 X10^3/uL (3.6-10.0)
[2018-08-25] MEDS: CARAFATE ORAL SUSP PO SCH ×2 (05:36→11:27)
[2018-08-25] MEDS: HumuLIN R SC PRN (05:39)
[2018-08-25] MEDS: COLACE CAP 100 MG PO SCH (06:00)
[2018-08-25 06:21] LABS: ALANINE AMINOTRANSFERASE 26 Units/L (12-78); ALBUMIN 2.5 g/dL (3.4-5.0); ALKALINE PHOSPHATASE 184 Units/L (46-116); ASPARTATE AMINO TRANSFERASE 20 Units/L (15-37); BLOOD UREA NITROGEN 18 mg/dL (7-18); CALCIUM 8.9 mg/dL (8.5-10.1); CHLORIDE 94 mmol/L (98-107); COR CA(FOR HYPOALB) 10.1 mg/dL (8.5-10.1); COR NA(FOR HYPERGLY) 135 mmol/L (136-145); CREATININE 1.04 mg/dL (0.70-1.30); SODIUM 133 mmol/L (136-145); TOTAL PROTEIN 6.1 g/dL (6.4-8.2); eGFR NON BLACK RACES > 60 (>60)
[2018-08-25 06:24] LABS: ABG HCO3 41.9 mmol/L (22-26)
[2018-08-25 07:24] LABS: CKMB % 8.7 % (<4); CREATINE KINASE MB 3.4 ng/mL (0-4.0); TROPONIN I 0.03 ng/mL (0-1.5)
[2018-08-25] MEDS: PULMICORT NEB TX 0.5 MG NEB SCH (08:38)
[2018-08-25] MEDS: BROVANA IN SCH (08:38)
[2018-08-25] MEDS: Atrovent NEB TX 0.02% NEB SCH (08:38)
[2018-08-25] MEDS: RANEXA PO SCH (08:59)
[2018-08-25] MEDS ORDERED: ISOSORBIDE MONONITRATE ER PO SCH (09:00)
[2018-08-25] MEDS ORDERED: FLONASE NASAL SPRAY ENOSTRIL SCH (09:00)
[2018-08-25] MEDS ORDERED: LOVENOX INJ 30 MG SYR SC SCH (09:00)
[2018-08-25] MEDS ORDERED: ALDACTONE TAB 25 MG PO SCH (09:00)
[2018-08-25] MEDS ORDERED: ASPIRIN EC 81 MG PO SCH (09:00)
[2018-08-25] MEDS ORDERED: ZOLOFT PO SCH (09:00)
[2018-08-25] MEDS ORDERED: FOLIC ACID TAB 1 MG PO SCH (09:00)
[2018-08-25] MEDS: NEURONTIN CAP 100 MG PO SCH (09:00)
[2018-08-25] MEDS ORDERED: PEPCID 20 MG IV PREMIX* 20 MG/50 ML BAG IV SCH (09:00)
[2018-08-25] MEDS ORDERED: PLAVIX PO SCH (09:00)
[2018-08-25] MEDS ORDERED: PROTONIX TAB 40 MG PO SCH (09:00)
[2018-08-25] MEDS: COREG TAB 3.125 MG PO SCH (09:00)
[2018-08-25] MEDS: ENTRESTO 24/26 MG TAB PO SCH (09:00)
--- NOTE | 2018-08-25 09:26 | DR.H&P ---
H&P - History & Physical for Day of: H&P Date: 08/24/18 - Chief Complaint Chief Complaint: CHEST PAIN, SOB - History of Present Illness History of Present Illness: 73 WM ADMITTED WITH 08/24 WITH CO CHEST PAIN AND INCREASED SOB. PT HAD HX OF MULTI-VESSEL CAD, COPD WITH RESP FAILURE AND CHF. PT HAS BEEN IN REHAB THERAPY FOR EXTREME WEAKNESS FOLLOWING CHF EXACERBATION AND PNEUMONIA. PT HAD BILATERAL PLEURAL EFFUSIONS WITH LEFT LATERAL RIB PAIN. PT HAD HEART CATH IN AT [facility]. PT ADMITTED FOR SERIAL CE, EKG AND TREAMENT OF HYPOXIA. - Past Medical History Past Medical History: Coronary Artery Disease, Hypertension, Dyslipidemia, Diabetes, Anxiety, COPD, GERD, Arthritis, CHF - Past Surgical History Surgical History: CABG/Valve Surgery, Mastectomy, Other - Family History Family Medical History: Diabetes Mellitus, Heart Failure - Social History Does patient currently use any type of tobacco product: No Have you used tobacco products in the last 12 months: No Type of Tobacco Use: None Does any household member use tobacco: No Alcohol Use: None Drug Use: None - Medications Home Medications: chocolate flavor Allergy (Verified 08/03/18 19:46) Penicillins Allergy (Verified 08/03/18 19:46) CHOCOLATE Allergy (Uncoded 08/03/18 19:46) - Review of Systems Constitutional: Weakness Eyes: No Symptoms Reported ENT: No Symptoms Reported Respiratory: Cough, Shortness of Breath, SOB with Excertion, Pleuritic Pain, Wheezing Cardiovascular: No Symptoms Reported Gastrointestinal: Nausea Musculoskeletal: Back Pain Skin: No Symptoms Reported Neurological: Weakness - Physical Exam Vital Signs: Temperature 97.9 F Pulse Rate [Left Brachial] 86 Pulse Rate [Right Radial] 84 Pulse Rate 82 Respiratory Rate 18 Blood Pressure [Left Arm] 107/76 Blood Pressure [Right Arm] 124/63 Blood Pressure 89/52 O2 Sat by Pulse Oximetry 96 Oriented: Normal Eyes: Normal Ear: Normal Nose: Normal Throat: Normal Respiratory: Wheezes Throughout, RML Diminished, RLL Diminished, LML Diminished, LLL Diminished Cardiovascular: Normal, Edema : Normal Auscultation: Bowel Sounds: Normal Palpation: Normal, Spleen Enlarged Tenderness: Normal Skin: Decreased Turgur, Wound (LEFT 3RD, 4TH NECROTIC TOE WOUNDS) Musculoskeletal: Back:Thoracic, Back:Lumbar, Deformity, Sensory Deficit Psychiatric: Anxiety Mood Description: Anxious Affect: Anxious Speech Pattern: Clear, Appropriate - Assessment/Plan (1) Respiratory distress Status: Acute (2) Chest pain Qualifiers: Chest pain type: unspecified Qualified Code(s): R07.9 - Chest pain, unspecified Status: Acute Plan: ADMIT, SERIAL CE AND EKG. ABG, CT CHEST ON THURSDAY. CONTINUE HOME MEDS, BP AND LIPID CONTROL. SUPPLEMENTAL O2, TELEMETRY. PAIN CONTROL, RESP CONSULT, DUO NEBS (3) Pulmonary edema Status: Acute (4) CAD (coronary artery disease) Qualifiers: Coronary Disease-Associated Artery/Lesion type: bypass graft Status: Acute (5) Acute AK Status: Acute (6) PAD (peripheral artery disease) Status: Acute (7) Foot ulcer with necrosis of muscle Status: Acute (8) CHF (congestive heart failure) Qualifiers: Heart failure type: unspecified Heart failure chronicity: acute on chronic Qualified Code(s): I50.9 - Heart failure, unspecified Status: Acute (9) GERD (gastroesophageal reflux disease) Status: Chronic (10) Diabetes mellitus, type 2 Status: Chronic - Allergies Allergies/Adverse Reactions: Allergies Allergy/AdvReac Type Severity Reaction Status Date / Time chocolate flavor Allergy Verified 08/03/18 19:46 Penicillins Allergy Verified 08/03/18 19:46 CHOCOLATE Allergy Uncoded 08/03/18 19:46
[2018-08-25 10:29] LABS: BILIRUBIN,URINE NEGATIVE (NEGATIVE); BLOOD/HEMOGLOBIN,URINE 2+ (NEGATIVE); GLUCOSE, URINE NEGATIVE (NEGATIVE); KETONES,URINE NEGATIVE (NEGATIVE); LEUKOCYTE ESTERASE ,URINE NEGATIVE (NEGATIVE); NITRITES,URINE NEGATIVE (NEGATIVE); PROTEIN,URINE NEGATIVE (NEGATIVE); UROBILINOGEN,URINE NORMAL (NORMAL)
[2018-08-25 11:07] LABS: AMORPHOUS SEDIMENT,UR TRACE /HPF (NEGATIVE); APPEARANCE,URINE CLEAR (CLEAR); BACTERIA,URINE NEGATIVE /HPF (NEGATIVE); COLOR,URINE YELLOW (YELLOW); RBC,URINE 0-2 /HPF (NONE SEEN); SQUAMOUS EPITHELIAL CELL,UR RARE /HPF (NEGATIVE)
[2018-08-25 16:28] VITALS: BP 107/54
== END 2018-08-25 16:25 | disposition home or self-care (01) | DRG 313 ==
LOC: MED/SURG 17:36
PROVIDERS: ADMIT Internal Medicine; ATTEND Internal Medicine
DX: R94.31 Abnormal electrocardiogram [ECG] [EKG]; R06.02 Shortness of breath; J44.1 Chronic obstructive pulmonary disease with (acute) exacerbation; I11.0 Hypertensive heart disease with heart failure; E11.65 Type 2 diabetes mellitus with hyperglycemia; J90 Pleural effusion, not elsewhere classified; I25.10 Atherosclerotic heart disease of native coronary artery without angina pectoris; R07.89 Other chest pain; K21.9 Gastro-esophageal reflux disease without esophagitis; I50.1 Left ventricular failure, unspecified; L97.523 Non-pressure chronic ulcer of other part of left foot with necrosis of muscle; E78.2 Mixed hyperlipidemia; I73.89 Other specified peripheral vascular diseases
CPT/HCPCS: 36415; 36600; 80053; 81001; 82550; 82553; 82803; 84484; 85025; 93005; 94640; A4216; A4222; S0028; J1650; J1815; J1940; J7613; J7626; J7644

== ENCOUNTER 2018-12-21 04:33 | Inpatient (IN) ==
--- NOTE | 2018-12-21 04:43 | DR.SOBA ---
HPI Time Seen Time Seen by Provider: 12/21/18 04:42 HPI Comment HPI Comment: PATIENT IS 73YR OLD WHITE MALE HERE IN ED VIA EMS WITH SOB AND CHEST PAIN. PATIENT WOKE UP FROM SLEEP WITH SEVERE RESPIRATORY DISTRESS. Complaints Chief Complaint Doctors Comments: PATIENT WOKE UP FROM SLEE WITH SEVERE SOB AND CHEST PAIN TONIGHT. Reviewed Nurses Notes Reviewed: Yes Source History Provided: Patient and EMS Mode of Arrival Mode of Arrival: EMS Context Onset:: While Asleep PE Risk Factors:: None History of:: COPD Prehospital Care:: O2 and Inhaled B2 Modifying Factors Worsens:: Exertion Improves:: Rest and Sitting Up Associated Signs and Symptoms Associated Signs and Symptoms: Wheeze and Chest Pain PMH PMH Past Medical History: Anxiety, Arthritis, CHF, COPD, Coronary Artery Disease, D iabetes, Dyslipidemia, GERD and Hypertension Surgical History: CABG/Valve Surgery, Mastectomy and Other Family History Family Medical History: Diabetes Mellitus and Heart Failure Social History Do you use any recreational Drugs:: No PE Vital Signs Vitals: Temperature 97.5 F Pulse Rate [Brachial] 85 Pulse Rate 86 Respiratory Rate 18 Blood Pressure [Left Arm] 97/55 Blood Pressure [Right Arm] 124/63 Blood Pressure 106/55 O2 Sat by Pulse Oximetry 100 ROR Labs Reviewed Result Diagrams: 12/21/18 04:50 12/21/18 04:50 Laboratory: WBC 13.5 X10^3/uL (3.6-10.0) H 12/21/18 04:50 RBC 1.49 X10^6/uL (4.7-6.0) L 12/21/18 04:50 Hgb 5.1 g/dL (13.5-18.0) L* 12/21/18 04:50 Hct 15.5 % (42.0-54.0) L* 12/21/18 04:50 MCV 104.2 fL (80.0-100.0) H 12/21/18 04:50 MCH 34.0 pg (27.0-34.0) 12/21/18 04:50 MCHC 32.7 g/dL (33.0-35.0) L 12/21/18 04:50 RDW 18.5 % (11.6-16.5) H 12/21/18 04:50 Plt Count 224 X10^3/uL (150.0-450.0) 12/21/18 04:50 MPV 8.2 fL (7.4-11.0) 12/21/18 04:50 Neut % (Auto) 80.2 % (42.0-75.0) H 12/21/18 04:50 Lymph % (Auto) 8.7 % (21.0-51.0) L 12/21/18 04:50 Sierra % (Auto) 10.2 % (0.0-13.0) 12/21/18 04:50 Eos % (Auto) 0.7 % (0.9-2.9) L 12/21/18 04:50 Baso % (Auto) 0.2 % (0.2-1.0) 12/21/18 04:50 Neut # (Auto) 10.8 x10^3/uL (2.2-4.8) H 12/21/18 04:50 Lymph # (Auto) 1.2 X10^3/uL (1.3-2.9) L 12/21/18 04:50 Sierra # (Auto) 1.4 x10^3/uL (0.3-0.8) H 12/21/18 04:50 Eos # (Auto) 0.1 x10^3/uL (0.0-0.2) 12/21/18 04:50 Baso # (Auto) 0.0 X10^3/uL (0.0-0.1) 12/21/18 04:50 Absolute Nucleated RBC 0.0 /100WBC 12/21/18 04:50 APTT 33.8 SECONDS (22.9-36.5) 12/21/18 04:50 PTT Comment - 12/21/18 04:50 Sample Site Lb 12/21/18 05:25 ABG pH 7.450 (7.35-7.45) 12/21/18 05:25 ABG pCO2 45.0 mmHg (35.0-45.0) 12/21/18 05:25 ABG pO2 45.0 mmHg (80.0-100.0) L* 12/21/18 05:25 ABG HCO3 31.3 mmol/L (22-26) H* 12/21/18 05:25 ABG O2 Saturation 83.0 % (90-100) L* 12/21/18 05:25 ABG Base Excess 6.4 mmol/L (-2.0-2.0) H 12/21/18 05:25 David Test N/a 12/21/18 05:25 A-a Gradient 127.0 mmHg 12/21/18 05:25 FiO2 32.0 12/21/18 05:25 Blood Gas Comments Dejah well ae 12/21/18 05:25 Sodium 137 mmol/L (136-145) 12/21/18 04:50 Corrected Sodium 140 mmol/L (136-145) 12/21/18 04:50 Potassium 4.8 mmol/L (3.5-5.1) 12/21/18 04:50 Chloride 100 mmol/L (98-107) 12/21/18 04:50 Carbon Dioxide 29.8 mmol/L (21-32) 12/21/18 04:50 BUN 18 mg/dL (7-18) 12/21/18 04:50 Creatinine 0.89 mg/dL (0.70-1.30) 12/21/18 04:50 Est GFR (MDRD) Af Amer > 60 (>60) 12/21/18 04:50 Est GFR (MDRD) Non-Af > 60 (>60) 12/21/18 04:50 Glucose 229 mg/dL (65-99) H 12/21/18 04:50 Lactic Acid 2.9 mmol/L (0.4-2.0) H 12/21/18 05:46 Calcium 8.0 mg/dL (8.5-10.1) L 12/21/18 04:50 Corrected Calcium 9.8 mg/dL (8.5-10.1) 12/21/18 04:50 Magnesium 1.6 mg/dL (1.7-2.9) L 12/21/18 04:50 Total Bilirubin 0.70 mg/dL (0.2-1.0) 12/21/18 04:50 AST 26 Units/L (15-37) 12/21/18 04:50 ALT 10 Units/L (12-78) L 12/21/18 04:50 Alkaline Phosphatase 181 Units/L (46-116) H 12/21/18 04:50 Creatine Kinase 73 Units/L (39-308) 12/21/18 04:50 CK-MB (CK-2) 8.4 ng/mL (0-4.0) H* 12/21/18 04:50 CK/CKMB % Calc 11.5 % (<4) 12/21/18 04:50 Troponin I 0.26 ng/mL (0-1.5) 12/21/18 04:50 C-Reactive Protein 154.90 mg/L (0-3.0) H 12/21/18 05:46 B-Natriuretic Peptide > 5000 pg/mL (0-79) H* 12/21/18 04:50 Total Protein 6.5 g/dL (6.4-8.2) 12/21/18 04:50 Albumin 1.8 g/dL (3.4-5.0) L 12/21/18 04:50 Globulin 4.7 g/dL (2.5-4.5) H 12/21/18 04:50 Albumin/Globulin Ratio 0.4 Ratio (1.1-2.1) L 12/21/18 04:50 Blood Type AB POSITIVE 12/21/18 05:54 Antibody Screen Negative 12/21/18 05:54 Crossmatch See Detail 12/21/18 05:54 Opioid Opioid Risk Tool Total: 0 Total Score Risk Category: Low Risk Copyright: Vitaliy BURCH predicting aberrant behaviors Diagnosis Discharge Problem: Acute respiratory distress, Pneumonia, COPD with acute exacerbation, Acute exacerbation of congestive heart failure, Anemia, Gangrene of toe of left foot Instructions Forms: Excuse From Work
[2018-12-21] MEDS ORDERED: DUONEB 0.5 MG/3 MG NEB ONE (04:48)
[2018-12-21] MEDS ORDERED: SOLU-Medrol 125 MG VIAL IVP ONE (04:48)
[2018-12-21] MEDS ORDERED: SOLU-Medrol 125 MG VIAL ONE (05:00)
[2018-12-21 05:06] LABS: BASOPHILS % (AUTO) 0.2 % (0.2-1.0); EOSINOPHILS # (AUTO) 0.1 x10^3/uL (0.0-0.2); EOSINOPHILS % (AUTO) 0.7 % (0.9-2.9); LYMPHOCYTES # (AUTO) 1.2 X10^3/uL (1.3-2.9); LYMPHOCYTES % (AUTO) 8.7 % (21.0-51.0); MEAN CORPUSCULAR HGB CONC 32.7 g/dL (33.0-35.0); MEAN CORPUSCULAR VOLUME 104.2 fL (80.0-100.0); MEAN PLATELET VOLUME 8.2 fL (7.4-11.0); MONOCYTES # (AUTO) 1.4 x10^3/uL (0.3-0.8); MONOCYTES % (AUTO) 10.2 % (0.0-13.0); NEUTROPHILS # (AUTO) 10.8 x10^3/uL (2.2-4.8); NEUTROPHILS % (AUTO) 80.2 % (42.0-75.0); PLATELET COUNT 224 X10^3/uL (150.0-450.0); RED BLOOD COUNT 1.49 X10^6/uL (4.7-6.0); RED CELL DISTRIBUTION WIDTH 18.5 % (11.6-16.5); WHITE BLOOD COUNT 13.5 X10^3/uL (3.6-10.0)
[2018-12-21] MEDS ORDERED: DUONEB 0.5 MG/3 MG ONE (05:12)
--- NOTE | 2018-12-21 05:13 | RAD ---
Chest, 1 view Indication: Chest pain, shortness of breath Comparison: 08/23/2018 Findings: Cardiac silhouette enlargement is unchanged. There is left subclavian approach AICD and leads. There is moderate left and small right pleural effusion, with associated basilar atelectasis. There are diffuse interstitial and airspace opacities bilaterally, most marked within the right upper lobe. Impression: Cardiomegaly with diffuse parenchymal opacities, most marked within the right upper lobe and bilateral pleural effusions, left greater than right. These findings are most suggestive for CHF, although multifocal pneumonia is not excluded. Reported By:
[2018-12-21 05:19] LABS: BLOOD UREA NITROGEN 18 mg/dL (7-18); CARBON DIOXIDE 29.8 mmol/L (21-32); CHLORIDE 100 mmol/L (98-107); COR NA(FOR HYPERGLY) 140 mmol/L (136-145); CREATININE 0.89 mg/dL (0.70-1.30); SODIUM 137 mmol/L (136-145); TROPONIN I 0.26 ng/mL (0-1.5); eGFR NON BLACK RACES > 60 (>60)
[2018-12-21 05:29] LABS: HEMATOCRIT 15.5 % (42.0-54.0); HEMOGLOBIN 5.1 g/dL (13.5-18.0)
[2018-12-21] MEDS ORDERED: LEVAQUIN PREMIX IV 750 MG 750 MG/150 ML BAG IV ONE ×2 (05:31→05:47)
[2018-12-21 05:33] LABS: ABG BASE EXCESS 6.4 mmol/L (-2.0-2.0)
[2018-12-21 05:34] LABS: ABG HCO3 31.3 mmol/L (22-26)
[2018-12-21 05:42] LABS: ALANINE AMINOTRANSFERASE 10 Units/L (12-78); ALBUMIN 1.8 g/dL (3.4-5.0); ALKALINE PHOSPHATASE 181 Units/L (46-116); ASPARTATE AMINO TRANSFERASE 26 Units/L (15-37); COR CA(FOR HYPOALB) 9.8 mg/dL (8.5-10.1); CREATINE KINASE 73 Units/L (39-308); TOTAL PROTEIN 6.5 g/dL (6.4-8.2)
[2018-12-21] MEDS ORDERED: LASIX IVP ONE ×2 (05:42→05:43)
[2018-12-21 05:43] LABS: CKMB % 11.5 % (<4); CREATINE KINASE MB 8.4 ng/mL (0-4.0)
[2018-12-21] MEDS ORDERED: NS 250 ML IV 250 ML ONE (05:47)
[2018-12-21 06:20] LABS: LACTIC ACID 2.9 mmol/L (0.4-2.0)
[2018-12-21] MEDS ORDERED: SALINE 3% 15 ML NEB TX ONE (06:27)
[2018-12-21] MEDS ORDERED: SALINE 3% 15 ML NEB TX NEB ONE (06:31)
[2018-12-21] MEDS: DUONEB 0.5 MG/3 MG NEB SCH ×4 (08:46→21:00)
[2018-12-21] MEDS: PULMICORT NEB TX 0.5 MG NEB SCH ×2 (08:47→21:00)
[2018-12-21] MEDS ORDERED: LASIX IVP SCH (09:00)
--- NOTE | 2018-12-21 09:27 | DR.H&P ---
H&P - History & Physical for Day of: H&P Date: 12/21/18 - Chief Complaint Chief Complaint: SOB,CHEST PAIN - History of Present Illness History of Present Illness: 73 WM ER ADMISSION AFTER PRESENTING WITH CO WOKE UP FROM SLEEP WITH SEVERE SOB AND CHEST PAIN TONIGHT. PT HAS PMH OF CHF, CAD, COPD, DM, PAD WITH CHRONIC NECROTIC LEFT FOOT/TOE WOUND. PT STATES HE WAS IN [place] FOR SEVERAL WEEKS AFTER TRANSFER FROM HERE. PT WAS NOTED TO BE ANEMIC ON CBC IN ER, PT DENIES ANY STOOL CHANGES, NO N/V/D. - Past Medical History Past Medical History: Coronary Artery Disease, Hypertension, Dyslipidemia, Maura betes, Anxiety, COPD, GERD, Arthritis, CHF - Past Surgical History Surgical History: CABG/Valve Surgery, Mastectomy, Other - Family History Family Medical History: Diabetes Mellitus, Heart Failure - Social History Does patient currently use any type of tobacco product: No Have you used tobacco products in the last 12 months: No Type of Tobacco Use: None Does any household member use tobacco: No Alcohol Use: None Risks, benefits, and alternatives of opioids discussed: No - Medications Home Medications: chocolate flavor Allergy (Verified 08/03/18 19:46) Penicillins Allergy (Verified 08/03/18 19:46) CHOCOLATE Allergy (Uncoded 08/03/18 19:46) - Review of Systems Constitutional: Weakness Eyes: No Symptoms Reported ENT: No Symptoms Reported Respiratory: Shortness of Breath, SOB with Excertion, Sputum, Wheezing Cardiovascular: Chest Pain, Light Headedness Gastrointestinal: denies: Nausea, Vomiting, Diarrhea Genitourinary: No Symptoms Reported Musculoskeletal: Back Pain Skin: Wound (LEFT FOOT, 3RD, 4TH 5TH TOES, NECROTIC) Neurological: Weakness - Physical Exam Vital Signs: Temperature 97.5 F Pulse Rate [Brachial] 85 Pulse Rate 85 Respiratory Rate 18 Blood Pressure [Left Arm] 97/55 Blood Pressure [Right Arm] 124/63 Blood Pressure 106/55 O2 Sat by Pulse Oximetry 98 Oriented: Normal Eyes: Normal Ear: Normal Nose: Normal Throat: Normal Respiratory: Diminished Throughout Cardiovascular: Normal (PACER/DEFIBRILLATOR) : Normal Auscultation: Bowel Sounds: Normal Palpation: Normal Tenderness: Epigastric, Mild Skin: Wound Musculoskeletal: Left, Foot, Back:Lumbar, Deformity, Sensory Deficit Psychiatric: Anxiety Affect: Anxious Speech Pattern: Clear, Appropriate - Assessment/Plan (1) Chest pain Status: Acute Plan: ADMIT ICU, SERIAL CE, EKG. CONTINUOUS CARDIAC MONITORING. TYPE, CROSS MATCH TRANSFUSE SLOW PRBC. OCCULT STOOL, PPI THERAPY. BP CONTROL. WEBER CATH WITH STRICT I & OS, IV LASIX 40 Q 8HRS X 3 DOSES THEN Q12, RESP THERAPY, SUPPLEMENTAL O2, REPEAT ABG. BLOOD SUGAR CONTROL (2) CHF (congestive heart failure) Status: Acute (3) Respiratory distress Status: Acute (4) Necrotic toes Status: Acute (5) CAD (coronary artery disease) Qualifiers: Coronary Disease-Associated Artery/Lesion type: bypass graft Status: Acute (6) COPD exacerbation Status: Acute (7) GERD (gastroesophageal reflux disease) Status: Chronic (8) Anemia Status: Acute - Allergies Allergies/Adverse Reactions: Allergies Allergy/AdvReac Type Severity Reaction Status Date / Time chocolate flavor Allergy Verified 08/03/18 19:46 Penicillins Allergy Verified 08/03/18 19:46 CHOCOLATE Allergy Uncoded 08/03/18 19:46
[2018-12-21 09:56] LABS: ABG BASE EXCESS 8.7 mmol/L (-2.0-2.0)
[2018-12-21 09:57] LABS: ABG HCO3 33.5 mmol/L (22-26)
--- NOTE | 2018-12-21 10:32 | RAD ---
HISTORY: Constipation Study: KUB Comparison: None Findings: The abdominal gas pattern is nonspecific and nonobstructive. No abnormal masses or abnormal calcifications are identified. There is a large amount of stool throughout the colon suggestive of constipation. The regional skeleton is intact. IMPRESSION: Constipation Reported By:
[2018-12-21] MEDS: K-DUR TAB 20 MEQ PO SCH ×2 (10:45→20:32)
[2018-12-21] MEDS: LEVAQUIN PREMIX IV 750 MG 750 MG/150 ML BAG IV SCH (10:45)
[2018-12-21] MEDS: LASIX IVP SCH ×3 (10:45→20:32)
[2018-12-21] MEDS: PROTONIX INJ 40 MG VIAL IVP SCH (10:46)
[2018-12-21] MEDS: NS 1000 ML 1,000 ML IV SCH (10:46)
[2018-12-21] MEDS ORDERED: NS 500 ML IV 500 ML ONE (11:03)
[2018-12-21 11:11] LABS: BILIRUBIN,URINE NEGATIVE (NEGATIVE); BLOOD/HEMOGLOBIN,URINE 2+ (NEGATIVE); GLUCOSE, URINE NEGATIVE (NEGATIVE); KETONES,URINE NEGATIVE (NEGATIVE); LEUKOCYTE ESTERASE ,URINE 1+ (NEGATIVE); NITRITES,URINE NEGATIVE (NEGATIVE); PROTEIN,URINE 1+ (NEGATIVE); UROBILINOGEN,URINE 1+ (NORMAL)
[2018-12-21 11:13] LABS: APPEARANCE,URINE CLEAR (CLEAR); COLOR,URINE DARK YELLOW (YELLOW)
[2018-12-21 11:21] LABS: BACTERIA,URINE NEGATIVE /HPF (NEGATIVE); MUCUS,URINE FEW /HPF (NEGATIVE); RBC,URINE 0-2 /HPF (NONE SEEN); SQUAMOUS EPITHELIAL CELL,UR NEGATIVE /HPF (NEGATIVE)
--- NOTE | 2018-12-21 15:46 | DR.PROGNOT ---
Hospital Progress Notes - Progress Note for Day of: Progress Note Date: 12/21/18 - Chief Complaint Chief Complaint: pain Lt foot . long standing H/O ulcers Lt 2,3,4 toes . h/o PVD and stenting . - Past Medical Family Social History Past Med/Fam/Surg Hx: No changes since H&P (h/o PVD, CAD (CABG and valve surgery ),HTN, DM ,COPD ) Allergies: Allergies chocolate flavor Allergy (Verified 08/03/18 19:46) Penicillins Allergy (Verified 08/03/18 19:46) CHOCOLATE Allergy (Uncoded 08/03/18 19:46) - Review Of Systems ROS: No change since H&P - Vital Signs Vital Signs: Temperature 98.2 F Pulse Rate [Apical] 85 Pulse Rate [Brachial] 85 Pulse Rate 85 Respiratory Rate 22 Blood Pressure [Left Arm] 110/57 Blood Pressure [Right Arm] 124/63 Blood Pressure 106/55 O2 Sat by Pulse Oximetry 100 - Physical Exam Oriented: Normal Eyes: Normal Ear: Normal Nose: Normal Throat: Normal Cardiovascular: Normal (PACER/DEFIBRILLATOR) : Normal GI:Auscultation: Normal GI:Palpation: Normal GI: Tenderness: Epigastric, Mild Skin: Wound (Lt 2,3,4 toes with dry gangrene , no pulses felt .. positive with doppler only ) Musculoskeletal: Left, Foot, Back:Lumbar, Deformity, Sensory Deficit Psychiatric: Anxiety Affect: Anxious Speech Pattern: Clear, Appropriate - Laboratory and Diagnostics Result Diagrams: 12/21/18 04:50 12/21/18 04:50 Labs: Laboratory WBC 13.5 X10^3/uL (3.6-10.0) H 12/21/18 04:50 RBC 1.49 X10^6/uL (4.7-6.0) L 12/21/18 04:50 Hgb 5.1 g/dL (13.5-18.0) L* 12/21/18 04:50 Hct 15.5 % (42.0-54.0) L* 12/21/18 04:50 MCV 104.2 fL (80.0-100.0) H 12/21/18 04:50 MCH 34.0 pg (27.0-34.0) 12/21/18 04:50 MCHC 32.7 g/dL (33.0-35.0) L 12/21/18 04:50 RDW 18.5 % (11.6-16.5) H 12/21/18 04:50 Plt Count 224 X10^3/uL (150.0-450.0) 12/21/18 04:50 MPV 8.2 fL (7.4-11.0) 12/21/18 04:50 Neut % (Auto) 80.2 % (42.0-75.0) H 12/21/18 04:50 Lymph % (Auto) 8.7 % (21.0-51.0) L 12/21/18 04:50 [place] % (Auto) 10.2 % (0.0-13.0) 12/21/18 04:50 Eos % (Auto) 0.7 % (0.9-2.9) L 12/21/18 04:50 Baso % (Auto) 0.2 % (0.2-1.0) 12/21/18 04:50 Neut # (Auto) 10.8 x10^3/uL (2.2-4.8) H 12/21/18 04:50 Lymph # (Auto) 1.2 X10^3/uL (1.3-2.9) L 12/21/18 04:50 [place] # (Auto) 1.4 x10^3/uL (0.3-0.8) H 12/21/18 04:50 Eos # (Auto) 0.1 x10^3/uL (0.0-0.2) 12/21/18 04:50 Baso # (Auto) 0.0 X10^3/uL (0.0-0.1) 12/21/18 04:50 Absolute Nucleated RBC 0.0 /100WBC 12/21/18 04:50 APTT 33.8 SECONDS (22.9-36.5) 12/21/18 04:50 PTT Comment - 12/21/18 04:50 Sample Site Left brachial 12/21/18 09:46 ABG pH 7.470 (7.35-7.45) H 12/21/18 09:46 ABG pCO2 46.0 mmHg (35.0-45.0) H 12/21/18 09:46 ABG pO2 84.0 mmHg (80.0-100.0) 12/21/18 09:46 ABG HCO3 33.5 mmol/L (22-26) H* 12/21/18 09:46 ABG O2 Saturation 97.0 % (90-100) 12/21/18 09:46 ABG Base Excess 8.7 mmol/L (-2.0-2.0) H 12/21/18 09:46 David Test Na 12/21/18 09:46 A-a Gradient 87.0 mmHg 12/21/18 09:46 FiO2 32.0 12/21/18 09:46 Blood Gas Comments Dejah well aw 12/21/18 09:46 Sodium 137 mmol/L (136-145) 12/21/18 04:50 Corrected Sodium 140 mmol/L (136-145) 12/21/18 04:50 Potassium 4.8 mmol/L (3.5-5.1) 12/21/18 04:50 Chloride 100 mmol/L (98-107) 12/21/18 04:50 Carbon Dioxide 29.8 mmol/L (21-32) 12/21/18 04:50 BUN 18 mg/dL (7-18) 12/21/18 04:50 Creatinine 0.89 mg/dL (0.70-1.30) 12/21/18 04:50 Est GFR (MDRD) Af Amer > 60 (>60) 12/21/18 04:50 Est GFR (MDRD) Non-Af > 60 (>60) 12/21/18 04:50 Glucose 229 mg/dL (65-99) H 12/21/18 04:50 Lactic Acid 2.9 mmol/L (0.4-2.0) H 12/21/18 05:46 Calcium 8.0 mg/dL (8.5-10.1) L 12/21/18 04:50 Corrected Calcium 9.8 mg/dL (8.5-10.1) 12/21/18 04:50 Magnesium 1.6 mg/dL (1.7-2.9) L 12/21/18 04:50 Iron 57 ug/dL (50-175) 12/21/18 04:50 Transferrin 73 mg/dL (202-364) L 12/21/18 04:50 Ferritin 2342 ng/mL (26-388) H 12/21/18 04:50 Total Bilirubin 0.70 mg/dL (0.2-1.0) 12/21/18 04:50 AST 26 Units/L (15-37) 12/21/18 04:50 ALT 10 Units/L (12-78) L 12/21/18 04:50 Alkaline Phosphatase 181 Units/L (46-116) H 12/21/18 04:50 Creatine Kinase 73 Units/L (39-308) 12/21/18 04:50 CK-MB (CK-2) 8.4 ng/mL (0-4.0) H* 12/21/18 04:50 CK/CKMB % Calc 11.5 % (<4) 12/21/18 04:50 Troponin I 0.26 ng/mL (0-1.5) 12/21/18 04:50 C-Reactive Protein 154.90 mg/L (0-3.0) H 12/21/18 05:46 B-Natriuretic Peptide > 5000 pg/mL (0-79) H* 12/21/18 04:50 Total Protein 6.5 g/dL (6.4-8.2) 12/21/18 04:50 Albumin 1.8 g/dL (3.4-5.0) L 12/21/18 04:50 Globulin 4.7 g/dL (2.5-4.5) H 12/21/18 04:50 Albumin/Globulin Ratio 0.4 Ratio (1.1-2.1) L 12/21/18 04:50 Vitamin B12 654 pg/mL (193-986) 12/21/18 04:50 Folate 6.7 ng/mL (>8.6) L 12/21/18 04:50 Specimen Type Catherized urine 12/21/18 10:51 Urine Color Dark yellow (YELLOW) 12/21/18 10:51 Urine Appearance Clear (CLEAR) 12/21/18 10:51 Urine pH 5.0 (5.0 - 8.0) 12/21/18 10:51 Ur Specific [place] 1.025 (1.000-1.030) 12/21/18 10:51 Urine Protein 1+ (NEGATIVE) 12/21/18 10:51 Urine Glucose (UA) Negative (NEGATIVE) 12/21/18 10:51 Urine Ketones Negative (NEGATIVE) 12/21/18 10:51 Urine Occult Blood 2+ (NEGATIVE) 12/21/18 10:51 Urine Nitrite Negative (NEGATIVE) 12/21/18 10:51 Urine Bilirubin Negative (NEGATIVE) 12/21/18 10:51 Urine Urobilinogen 1+ (NORMAL) 12/21/18 10:51 Ur Leukocyte Esterase 1+ (NEGATIVE) 12/21/18 10:51 Urine RBC 0-2 /HPF (NONE SEEN) 12/21/18 10:51 Urine WBC 0-2 /HPF (NONE SEEN) 12/21/18 10:51 Ur Squamous Epith Cells Negative /HPF (NEGATIVE) 12/21/18 10:51 Urine Bacteria Negative /HPF (NEGATIVE) 12/21/18 10:51 Urine Mucus Few /HPF (NEGATIVE) 12/21/18 10:51 Ur Culture Indicated? No/not indicated 12/21/18 10:51 Blood Type AB POSITIVE 12/21/18 05:54 Antibody Screen Negative 12/21/18 05:54 Crossmatch See Detail 12/21/18 05:54 - Assessment and Plan 1: dry ischemic gangrene Lt 2,3,4 toes . DM , PVD , CAD. severe anemia . if continues to have severe pain then surgery will be indicated ..could end up. with BKA .. - Problem Patient Problems: Patient Problems Acute respiratory distress (Acute) R06.03 Pneumonia (Acute) J18.9 COPD with acute exacerbation (Acute) J44.1 Acute exacerbation of congestive heart failure (Acute) I50.9 Anemia (Acute) D64.9 Gangrene of toe of left foot (Acute) I96 Necrotic toes (Acute) I96 CHF (congestive heart failure) (Acute) I50.9 Anemia (Acute) D64.9
[2018-12-21] MEDS ORDERED: MAALOX or MYLANTA PO PRN (16:24)
[2018-12-21] MEDS ORDERED: ZOFRAN INJ 4 MG VIAL IVP PRN (16:24)
[2018-12-21 16:50] VITALS: BMI 21.9
[2018-12-21] MEDS: HumuLIN R SC PRN ×2 (17:15→20:33)
[2018-12-21] MEDS ORDERED: NORCO 5/325 MG TAB PO PRN (19:06)
[2018-12-21] MEDS: MILK OF MAGNESIA PO PRN (20:33)
[2018-12-21] MEDS: COLACE CAP 100 MG PO PRN (20:33)
[2018-12-21] MEDS ORDERED: PEPCID 20 MG IV PREMIX* 50 ML IV SCH (22:00)
[2018-12-21] MEDS: VISTARIL PO PRN (22:14)
[2018-12-21] MEDS: MORPHINE SULFATE INJ 2 MG INJ IVP PRN (23:36)
[2018-12-22] MEDS: DUONEB 0.5 MG/3 MG NEB SCH ×6 (00:50→23:02)
[2018-12-22] MEDS: LASIX IVP SCH (01:01)
[2018-12-22] MEDS: MORPHINE SULFATE INJ 2 MG INJ IVP PRN ×3 (04:20→14:57)
[2018-12-22] MEDS: HumuLIN R SC PRN (05:42)
[2018-12-22 06:32] LABS: BASOPHILS % (AUTO) 0.1 % (0.2-1.0); HEMATOCRIT 26.4 % (42.0-54.0); HEMOGLOBIN 9.1 g/dL (13.5-18.0); LYMPHOCYTES # (AUTO) 0.5 X10^3/uL (1.3-2.9); LYMPHOCYTES % (AUTO) 7.8 % (21.0-51.0); MEAN CORPUSCULAR HEMOGLOBIN 34.1 pg (27.0-34.0); MEAN CORPUSCULAR HGB CONC 34.4 g/dL (33.0-35.0); MONOCYTES # (AUTO) 0.5 x10^3/uL (0.3-0.8); MONOCYTES % (AUTO) 7.2 % (0.0-13.0); NEUTROPHILS # (AUTO) 5.7 x10^3/uL (2.2-4.8); NEUTROPHILS % (AUTO) 84.9 % (42.0-75.0); PLATELET COUNT 136 X10^3/uL (150.0-450.0); RED BLOOD COUNT 2.67 X10^6/uL (4.7-6.0); RED CELL DISTRIBUTION WIDTH 19.6 % (11.6-16.5); WHITE BLOOD COUNT 6.7 X10^3/uL (3.6-10.0)
[2018-12-22 06:37] LABS: ALANINE AMINOTRANSFERASE 9 Units/L (12-78); ALBUMIN 1.8 g/dL (3.4-5.0); ALKALINE PHOSPHATASE 156 Units/L (46-116); ASPARTATE AMINO TRANSFERASE 22 Units/L (15-37); BLOOD UREA NITROGEN 26 mg/dL (7-18); CALCIUM 8.3 mg/dL (8.5-10.1); CARBON DIOXIDE 30.3 mmol/L (21-32); CHLORIDE 99 mmol/L (98-107); COR CA(FOR HYPOALB) 10.1 mg/dL (8.5-10.1); COR NA(FOR HYPERGLY) 139 mmol/L (136-145); MAGNESIUM 1.7 mg/dL (1.7-2.9); SODIUM 137 mmol/L (136-145); TOTAL PROTEIN 6.9 g/dL (6.4-8.2); eGFR NON BLACK RACES > 60 (>60)
[2018-12-22] MEDS: MILK OF MAGNESIA PO PRN (07:36)
[2018-12-22] MEDS: COLACE CAP 100 MG PO PRN ×2 (07:36→20:32)
[2018-12-22] MEDS ORDERED: PHARMACY CONSULT - DOSE _____ XX SCH (08:00)
[2018-12-22] MEDS: VISTARIL PO PRN ×2 (08:31→22:34)
[2018-12-22] MEDS ORDERED: DULCOLAX SUPPOSITORY 10 MG RECTAL ONE (08:44)
[2018-12-22] MEDS: PULMICORT NEB TX 0.5 MG NEB SCH ×2 (09:01→23:02)
--- NOTE | 2018-12-22 09:34 | RAD ---
History: Shortness of breath graft study: Portable AP chest Comparison: Yesterday Findings: There is slight improvement in perihilar airspace disease or edema. There is persistent vascular congestion with small pleural effusions and moderate cardiomegaly. There is been prior CABG and there are intact pacer wire leads in place. impression: Improving findings of congestive heart failure Reported By:
[2018-12-22] MEDS: PROTONIX INJ 40 MG VIAL IVP SCH (09:52)
[2018-12-22] MEDS: K-DUR TAB 20 MEQ PO SCH ×2 (09:52→20:32)
[2018-12-22] MEDS: PEPCID 20 MG IV PREMIX* 20 MG/50 ML BAG IV SCH ×2 (09:53→20:32)
[2018-12-22] MEDS: LEVAQUIN PREMIX IV 750 MG 750 MG/150 ML BAG IV SCH (09:53)
[2018-12-22] MEDS: PERCOCET TAB 5/325 MG PO PRN (09:53)
[2018-12-22] MEDS: NS 1000 ML 1,000 ML IV SCH (09:54)
[2018-12-22 13:34] LABS: ABG BASE EXCESS 8.3 mmol/L (-2.0-2.0)
[2018-12-22 13:35] LABS: ABG HCO3 32.8 mmol/L (22-26)
[2018-12-22] MEDS ORDERED: ATIVAN INJ 2 MG VIAL IVP ONE (14:00)
[2018-12-22] MEDS: REQUIP PO SCH ×2 (15:29→21:04)
[2018-12-22] MEDS: ALDACTONE TAB 25 MG PO SCH (15:29)
[2018-12-22] MEDS: PLAVIX PO SCH (15:29)
[2018-12-22] MEDS: LIPITOR TAB 20 MG PO SCH ×2 (15:30→20:33)
[2018-12-23] MEDS: DUONEB 0.5 MG/3 MG NEB SCH ×5 (01:20→12:05)
[2018-12-23] MEDS: PERCOCET TAB 5/325 MG PO PRN ×2 (01:21→13:08)
[2018-12-23] MEDS: MORPHINE SULFATE INJ 2 MG INJ IVP PRN ×2 (02:50→08:46)
[2018-12-23] MEDS: REQUIP PO SCH ×2 (05:23→13:08)
[2018-12-23] MEDS: HumuLIN R SC PRN (05:31)
[2018-12-23 05:39] LABS: BASOPHILS % (AUTO) 0.1 % (0.2-1.0); HEMATOCRIT 28.9 % (42.0-54.0); HEMOGLOBIN 9.9 g/dL (13.5-18.0); LYMPHOCYTES # (AUTO) 0.5 X10^3/uL (1.3-2.9); LYMPHOCYTES % (AUTO) 6.7 % (21.0-51.0); MEAN CORPUSCULAR HEMOGLOBIN 34.4 pg (27.0-34.0); MEAN CORPUSCULAR HGB CONC 34.2 g/dL (33.0-35.0); MEAN CORPUSCULAR VOLUME 100.6 fL (80.0-100.0); MEAN PLATELET VOLUME 9.3 fL (7.4-11.0); MONOCYTES # (AUTO) 0.6 x10^3/uL (0.3-0.8); MONOCYTES % (AUTO) 7.9 % (0.0-13.0); NEUTROPHILS # (AUTO) 6.8 x10^3/uL (2.2-4.8); NEUTROPHILS % (AUTO) 85.3 % (42.0-75.0); PLATELET COUNT 152 X10^3/uL (150.0-450.0); RED BLOOD COUNT 2.87 X10^6/uL (4.7-6.0); RED CELL DISTRIBUTION WIDTH 19.8 % (11.6-16.5)
[2018-12-23 05:50] LABS: ALANINE AMINOTRANSFERASE 27 Units/L (12-78); ALBUMIN 1.9 g/dL (3.4-5.0); ALKALINE PHOSPHATASE 151 Units/L (46-116); ASPARTATE AMINO TRANSFERASE 39 Units/L (15-37); BLOOD UREA NITROGEN 29 mg/dL (7-18); CALCIUM 8.6 mg/dL (8.5-10.1); CARBON DIOXIDE 28.5 mmol/L (21-32); CHLORIDE 100 mmol/L (98-107); COR CA(FOR HYPOALB) 10.3 mg/dL (8.5-10.1); COR NA(FOR HYPERGLY) 139 mmol/L (136-145); CREATININE 0.98 mg/dL (0.70-1.30); SODIUM 136 mmol/L (136-145); eGFR NON BLACK RACES > 60 (>60)
[2018-12-23] MEDS: PULMICORT NEB TX 0.5 MG NEB SCH (08:32)
[2018-12-23] MEDS: PROTONIX INJ 40 MG VIAL IVP SCH (08:44)
[2018-12-23] MEDS: NS 1000 ML 1,000 ML IV SCH (08:44)
[2018-12-23] MEDS: VISTARIL PO PRN (08:44)
[2018-12-23] MEDS: K-DUR TAB 20 MEQ PO SCH (08:45)
[2018-12-23] MEDS: PLAVIX PO SCH (08:45)
[2018-12-23] MEDS: PEPCID 20 MG IV PREMIX* 20 MG/50 ML BAG IV SCH (08:46)
[2018-12-23] MEDS: ALDACTONE TAB 25 MG PO SCH (08:46)
[2018-12-23] MEDS: LEVAQUIN PREMIX IV 750 MG 750 MG/150 ML BAG IV SCH (08:46)
[2018-12-23 13:21] VITALS: BP 115/69
== END 2018-12-23 15:29 | disposition hospice, home (50) | DRG 291 ==
LOC: ER 04:34 → ICU 06:48
PROVIDERS: ADMIT Internal Medicine; ATTEND Internal Medicine
DX: K21.9 Gastro-esophageal reflux disease without esophagitis; E11.52 Type 2 diabetes mellitus with diabetic peripheral angiopathy with gangrene; R06.03 Acute respiratory distress; I25.10 Atherosclerotic heart disease of native coronary artery without angina pectoris; R94.31 Abnormal electrocardiogram [ECG] [EKG]; I96 Gangrene, not elsewhere classified; J44.1 Chronic obstructive pulmonary disease with (acute) exacerbation; K59.09 Other constipation; E78.2 Mixed hyperlipidemia; J18.9 Pneumonia, unspecified organism; D64.89 Other specified anemias; R07.89 Other chest pain; R79.82 Elevated C-reactive protein (CRP); I50.9 Heart failure, unspecified; I11.0 Hypertensive heart disease with heart failure; R79.89 Other specified abnormal findings of blood chemistry; F41.8 Other specified anxiety disorders
CPT/HCPCS: 36415; 36430; 36600; 71010; 71045; 74000; 74018; 80053; 81001; 82270; 82550; 82553; 82607; 82728; 82746; 82803; 83540; 83605; 83735; 83880; 84466; 84484; 85014; 85018; 85025; 85610; 85730; 86140; 86850; 86900; 86901; 86922; 87040; 93005; 94640; 96365; 96374; 96375; 97162; 97166; 99285; A4222; C9113; P9016; Q0177; S0028; J1815; J1940; J1956; J2060; J2270; J2930; J7030; J7040; J7050; J7620; J7626

== ENCOUNTER 2019-01-12 04:07 | Inpatient (IN) ==
[2019-01-12] MEDS ORDERED: DUONEB 0.5 MG/3 MG NEB ONE (04:19)
[2019-01-12] MEDS ORDERED: DUONEB 0.5 MG/3 MG ONE (04:19)
[2019-01-12] MEDS ORDERED: LASIX IVP ONE ×3 (04:28→08:20)
--- NOTE | 2019-01-12 04:40 | DR.SOBA ---
HPI Time Seen Time Seen by Provider: 01/12/19 04:27 Primary Care Physician Primary Care Physician: jeong Complaints Chief Complaint Doctors Comments: Pt. is a foul mouthed 73 y/o male presenting via EMS with c/o SOB. He wouldn't answer question about duration of dyspnea or if there was associated c/p. Reportedly, he is O2 dependent at home and is immediate O2 saturation was 88% according to EMS staff, and that the )2 cord is about 100 ft. long. His sat came up to 96% on 2L O2 in the ambulance. Chief Complaint:: pt c/o being sob and cp pt is on hospice Reviewed Nurses Notes Reviewed: Yes Source History Provided: EMS Mode of Arrival Mode of Arrival: EMS Timing Onset of Chief Complaint: 01/12/19 Context Onset:: At Rest PE Risk Factors:: None History of:: COPD and CHF Currently on:: Neither Prehospital Care:: O2 Modifying Factors Worsens:: Nothing Improves:: Nothing Associated Signs and Symptoms Associated Signs and Symptoms: None PMH PMH Past Medical History: Yes Past Medical History: Anxiety, Arthritis, CHF, COPD, Coronary Artery Disease, Diabetes, Dyslipidemia, GERD and Hypertension Past Surgical History: Yes Surgical History: CABG/Valve Surgery, Mastectomy and Other Family History History of Family Medical Conditions: Yes Family Medical History: Diabetes Mellitus and Heart Failure Social History Does any household member use tobacco: No Alcohol Use: None Do you use any recreational Drugs:: No Lives With: Family Lives Where: Home infectious screening In the last 2 months have you had wt loss of >10#?: NO Have you had fever, night sweats or hemotysis?: No Have you traveled outside the country in the last 6 months?: No Isolation: Standard ROS Review of Systems Constitutional: No Symptoms Reported Eyes: No Symptoms Reported ENTM: No Symptoms Reported Respiratoy: Short of Breath Cardiovascular: No Symptoms Reported Gastrointestinal/Abdominal: No Symptoms Reported Genitourinary: No Symptoms Reported Neurological: No Symptoms Reported Musculoskeletal: No Symptoms Reported Integumentary: No Symptoms Reported Hematologic/Lymphatic: No Symptoms Reported Endocrine: No Symptoms Reported Psychiatric: No Symptoms Reported PE Vital Signs Vitals: Temperature 98.1 F Pulse Rate 88 Respiratory Rate 20 Blood Pressure [Left Arm] 116/65 Blood Pressure [Right Arm] 124/63 Blood Pressure 135/73 O2 Sat by Pulse Oximetry 96 General Limitations: No Limitations General Appearance: Alert and In No Apparent Distress Head Head Exam: Normal Inspection, Atraumatic and Normocephalic Eyes Eye exam: Normal Appearance and EOMI ENT ENT Exam: Normal Oropharynx and Mucous Membranes Moist Neck Neck Exam: Normal Inspection, Full ROM and Trachea Midline Chest Chest Inspection: Normal Inspection, Symmetric Chest Wall Rise and Other (palpable defibrillator on Lt. upper chest) Respiratory Respiratory Exam: negative Normal Lung Sounds Bilat, Accessory Muscle Use, Chest Wall Tenderness, Prolonged Expiratory Phase, Respiratory Distress and Stridor Respiratory Exam: Bilateral: Rales Cardiovascular Cardiovascular Exam: Regular Rate, Normal Rhythm, Normal Heart Sounds, +S1 and +S2 Abdominal Exam Abdominal Exam: Normal Inspection, Normal Bowel Sounds and Soft Extremities Extremities Exam: Edema (2+ (Chronic)) Back Back Exam: Normal Inspection and Full ROM Neurologic Neurological Exam: Alert and Oriented X3 Psychiatric Psychiatric Exam: Normal Affect and Normal Mood Skin Skin Exam: Dry and Normal Color MDM Differential Diagnosis Differential Diagnosis: CHF, COPD, Mycardial Infarction, Pneumonia and Respiratory Failure COURSE Reevaluation 1st: Improved 2nd: Improved Consultation Consultation Comments: Dr. Norton is on called and upon speaking with him, he agrees with the recommended admission. Education/Counseling Education/Counseling: Patient, Education and Counseling Educated On: Treatment, Diagnosis, Prognosis and Needs for Follow Up ROR Labs Reviewed Laboratory Results Reviewed?: Yes Result Diagrams: 01/12/19 04:40 01/12/19 04:40 Laboratory: WBC 4.7 X10^3/uL (3.6-10.0) 01/12/19 04:40 RBC 2.54 X10^6/uL (4.7-6.0) L 01/12/19 04:40 Hgb 8.6 g/dL (13.5-18.0) L 01/12/19 04:40 Hct 26.0 % (42.0-54.0) L 01/12/19 04:40 MCV 102.4 fL (80.0-100.0) H 01/12/19 04:40 MCH 33.8 pg (27.0-34.0) 01/12/19 04:40 MCHC 33.0 g/dL (33.0-35.0) 01/12/19 04:40 RDW 19.3 % (11.6-16.5) H 01/12/19 04:40 Plt Count 129 X10^3/uL (150.0-450.0) L 01/12/19 04:40 MPV 8.1 fL (7.4-11.0) 01/12/19 04:40 Neut % (Auto) 64.8 % (42.0-75.0) 01/12/19 04:40 Lymph % (Auto) 18.9 % (21.0-51.0) L 01/12/19 04:40 [place] % (Auto) 14.1 % (0.0-13.0) H 01/12/19 04:40 Eos % (Auto) 1.9 % (0.9-2.9) 01/12/19 04:40 Baso % (Auto) 0.3 % (0.2-1.0) 01/12/19 04:40 Neut # (Auto) 3.1 x10^3/uL (2.2-4.8) 01/12/19 04:40 Lymph # (Auto) 0.9 X10^3/uL (1.3-2.9) L 01/12/19 04:40 [place] # (Auto) 0.7 x10^3/uL (0.3-0.8) 01/12/19 04:40 Eos # (Auto) 0.1 x10^3/uL (0.0-0.2) 01/12/19 04:40 Baso # (Auto) 0.0 X10^3/uL (0.0-0.1) 01/12/19 04:40 Absolute Nucleated RBC 0.0 /100WBC 01/12/19 04:40 PT 15.4 SECONDS (11.8-14.3) 01/12/19 04:40 INR Target Range - 01/12/19 04:40 INR 1.27 (0.8-1.3) 01/12/19 04:40 APTT 35.4 SECONDS (22.9-36.5) 01/12/19 04:40 PTT Comment - 01/12/19 04:40 Sodium 140 mmol/L (136-145) 01/12/19 04:40 Corrected Sodium TNP 01/12/19 04:40 Potassium 3.8 mmol/L (3.5-5.1) 01/12/19 04:40 Chloride 101 mmol/L (98-107) 01/12/19 04:40 Carbon Dioxide 36.0 mmol/L (21-32) H 01/12/19 04:40 BUN 11 mg/dL (7-18) 01/12/19 04:40 Creatinine 0.70 mg/dL (0.70-1.30) 01/12/19 04:40 Est GFR (MDRD) Af Amer > 60 (>60) 01/12/19 04:40 Est GFR (MDRD) Non-Af > 60 (>60) 01/12/19 04:40 Glucose 92 mg/dL (65-99) 01/12/19 04:40 Calcium 7.7 mg/dL (8.5-10.1) L 01/12/19 04:40 Corrected Calcium 9.5 mg/dL (8.5-10.1) 01/12/19 04:40 Total Bilirubin 0.60 mg/dL (0.2-1.0) 01/12/19 04:40 AST 19 Units/L (15-37) 01/12/19 04:40 ALT 19 Units/L (12-78) 01/12/19 04:40 Alkaline Phosphatase 189 Units/L (46-116) H 01/12/19 04:40 B-Natriuretic Peptide 3120 pg/mL (0-79) H* 01/12/19 04:40 Total Protein 6.0 g/dL (6.4-8.2) L 01/12/19 04:40 Albumin 1.8 g/dL (3.4-5.0) L 01/12/19 04:40 Globulin 4.2 g/dL (2.5-4.5) 01/12/19 04:40 Albumin/Globulin Ratio 0.4 Ratio (1.1-2.1) L 01/12/19 04:40 XRAY XRAY Interpreted by: Radiologist XRAY Findings: CXR: Multifocal pneumonia is favored, CHF is possibble as well. Opioid Opioid Risk Tool Family Hx of Substance Abuse: Prescription Drugs Personal Hx of Substance Abuse: Prescription Drugs Age (Seamus box if 16-45): No History of Preadolescent Sexual Abuse: No Total: 0 Total Score Risk Category: Low Risk Copyright: Vitaliy BURCH predicting aberrant behaviors Diagnosis Discharge Problem: PAD (peripheral artery disease), Benign essential HTN Acute exacerbation of congestive heart failure Qualifiers: Heart failure type: unspecified Qualified Code(s): I50.9 - Heart failure, unspecified Hyperlipidemia Qualifiers: Hyperlipidemia type: mixed hyperlipidemia Qualified Code(s): E78.2 - Mixed hyperlipidemia GERD (gastroesophageal reflux disease) Qualifiers: Esophagitis presence: without esophagitis Qualified Code(s): K21.9 - Gastro- esophageal reflux disease without esophagitis CAD (coronary artery disease) Qualifiers: Coronary Disease-Associated Artery/Lesion type: [place] artery [place] vs. 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
[2019-01-12 04:47] LABS: BASOPHILS % (AUTO) 0.3 % (0.2-1.0); EOSINOPHILS # (AUTO) 0.1 x10^3/uL (0.0-0.2); EOSINOPHILS % (AUTO) 1.9 % (0.9-2.9); HEMOGLOBIN 8.6 g/dL (13.5-18.0); LYMPHOCYTES # (AUTO) 0.9 X10^3/uL (1.3-2.9); LYMPHOCYTES % (AUTO) 18.9 % (21.0-51.0); MEAN CORPUSCULAR HEMOGLOBIN 33.8 pg (27.0-34.0); MEAN CORPUSCULAR VOLUME 102.4 fL (80.0-100.0); MEAN PLATELET VOLUME 8.1 fL (7.4-11.0); MONOCYTES # (AUTO) 0.7 x10^3/uL (0.3-0.8); MONOCYTES % (AUTO) 14.1 % (0.0-13.0); NEUTROPHILS # (AUTO) 3.1 x10^3/uL (2.2-4.8); NEUTROPHILS % (AUTO) 64.8 % (42.0-75.0); PLATELET COUNT 129 X10^3/uL (150.0-450.0); RED BLOOD COUNT 2.54 X10^6/uL (4.7-6.0); RED CELL DISTRIBUTION WIDTH 19.3 % (11.6-16.5); WHITE BLOOD COUNT 4.7 X10^3/uL (3.6-10.0)
[2019-01-12 04:58] LABS: ALANINE AMINOTRANSFERASE 19 Units/L (12-78); ALBUMIN 1.8 g/dL (3.4-5.0); ALKALINE PHOSPHATASE 189 Units/L (46-116); ASPARTATE AMINO TRANSFERASE 19 Units/L (15-37); BLOOD UREA NITROGEN 11 mg/dL (7-18); CALCIUM 7.7 mg/dL (8.5-10.1); CHLORIDE 101 mmol/L (98-107); COR CA(FOR HYPOALB) 9.5 mg/dL (8.5-10.1); SODIUM 140 mmol/L (136-145); eGFR NON BLACK RACES > 60 (>60)
--- NOTE | 2019-01-12 05:17 | RAD ---
Chest AP portable Indication: Difficulty breathing and chest pain Comparison: 12/22/2018 Findings: There is cardiomegaly with pacemaker/AICD leads. There is no pneumothorax. There is moderate bilateral effusions and patchy pulmonary opacities, more dense on the right than on the prior. Left lower lung opacity persists. Impression: 1. Multifocal pneumonia favored. Underlying lesion cannot be excluded. Nonemergent cross-sectional follow-up recommended. 2. Given the effusions and cardiomegaly, congestive heart failure is possible as well. Reported By:
[2019-01-12] MEDS ORDERED: NS 1/2 1000 ML IV 1,000 ML IV ONE (06:02)
[2019-01-12] MEDS: NS 1/2 1000 ML IV 1,000 ML IV SCH ×2 (06:10→21:00)
[2019-01-12] MEDS: LEVAQUIN PREMIX IV 750 MG 750 MG/150 ML BAG IV SCH ×2 (06:10→09:19)
[2019-01-12] MEDS ORDERED: NITROSTAT SL PRN (06:14)
[2019-01-12 06:21] LABS: CKMB % 12.6 % (<4); TROPONIN I 0.06 ng/mL (0-1.5)
[2019-01-12 06:25] LABS: CREATINE KINASE MB 6.3 ng/mL (0-4.0)
[2019-01-12] MEDS ORDERED: SALINE 3% 15 ML NEB TX ONE (06:26)
[2019-01-12] MEDS ORDERED: SALINE 3% 15 ML NEB TX NEB ONE (06:46)
[2019-01-12] MEDS: DUONEB 0.5 MG/3 MG NEB SCH ×4 (08:03→20:06)
[2019-01-12] MEDS ORDERED: SOLU-Medrol 40 MG VIAL ONE (08:22)
[2019-01-12] MEDS ORDERED: MORPHINE SULFATE INJ 2 MG INJ ONE (08:22)
[2019-01-12] MEDS ORDERED: SOLU-Medrol 40 MG VIAL IVP ONE (08:24)
[2019-01-12] MEDS: COREG TAB 3.125 MG PO SCH ×2 (08:28→21:03)
[2019-01-12] MEDS: ROBITUSSIN DM PO SCH ×4 (08:28→20:53)
[2019-01-12] MEDS: VSL#3 PO SCH (08:28)
[2019-01-12] MEDS: K-DUR TAB 20 MEQ PO SCH ×2 (08:28→20:58)
[2019-01-12] MEDS: PLAVIX PO SCH (08:30)
[2019-01-12] MEDS: MORPHINE SULFATE INJ 2 MG INJ IVP PRN ×4 (08:32→23:28)
[2019-01-12] MEDS: REQUIP PO SCH ×3 (08:36→21:32)
[2019-01-12] MEDS: SOLU-Medrol 40 MG VIAL IVP ONE ×2 (08:39→10:25)
[2019-01-12 08:42] LABS: ABG BASE EXCESS 11.6 mmol/L (-2.0-2.0)
[2019-01-12 08:44] LABS: ABG HCO3 37.1 mmol/L (22-26)
[2019-01-12] MEDS: BUSPAR PO SCH ×2 (08:44→20:58)
[2019-01-12] MEDS: PROTONIX TAB 40 MG PO SCH (08:44)
[2019-01-12 08:45] LABS: ABG ALLEN TEST POS
[2019-01-12] MEDS ORDERED: DUONEB 0.5 MG/3 MG NEB SCH (09:00)
[2019-01-12] MEDS ORDERED: ENTRESTO 24/26 MG TAB PO SCH (09:00)
[2019-01-12] MEDS ORDERED: LASIX IVP SCH (09:00)
[2019-01-12] MEDS: LASIX IVP SCH ×2 (10:24→16:42)
[2019-01-12] MEDS ORDERED: TORADOL 30 MG VIAL IVP ONE (10:48)
[2019-01-12] MEDS ORDERED: TORADOL 30 MG VIAL ONE (10:48)
[2019-01-12] MEDS: ENTRESTO 24/26 MG TAB PO SCH ×2 (10:56→21:01)
[2019-01-12] MEDS ORDERED: D50W ABBOJECT SYR IV ONE (11:27)
[2019-01-12] MEDS ORDERED: D50W ABBOJECT SYR ONE (11:35)
[2019-01-12 13:01] LABS: TROPONIN I 0.07 ng/mL (0-1.5)
[2019-01-12 13:02] LABS: CKMB % 12.1 % (<4); CREATINE KINASE MB 5.1 ng/mL (0-4.0)
[2019-01-12 14:32] VITALS: BMI 28.0
--- NOTE | 2019-01-12 16:26 | DR.H&P ---
H&P - History & Physical for Day of: H&P Date: 01/12/19 - Chief Complaint Chief Complaint: SOB - History of Present Illness History of Present Illness: 73 WM ER ADMISSION AFTER PRESENTING VIA EMS WITH CO SEVERE SOB. PT HAD PMH OF CHF, COPD, RESP FAILURE, CAD, PAD, HTN, DM. PT HAD CXR IN ER REVEALING CHF EXACERBATION, PNEUMONIA. PT WAS UNDER THE CARE OF HOSPICE AT HOME. PT STATES "PLEASE DONT SEND ME BACK TO [facility]" PT ADMITTED TO ICU FOR EVALUATION AND TREATMENT OF ACUTE ILLNESS. - Past Medical History Past Medical History: Coronary Artery Disease, Hypertension, Dyslipidemia, Diabetes, Anxiety, COPD, GERD, Arthritis, CHF - Past Surgical History Surgical History: Angioplasty/Stents, CABG/Valve Surgery, Other - Family History Family Medical History: Diabetes Mellitus, Heart Failure - Social History Does patient currently use any type of tobacco product: No Have you used tobacco products in the last 12 months: No Type of Tobacco Use: None Does any household member use tobacco: No Alcohol Use: None Drug Use: None - Medications Home Medications: chocolate flavor Allergy (Verified 08/03/18 19:46) Penicillins Allergy (Verified 08/03/18 19:46) CHOCOLATE Allergy (Uncoded 08/03/18 19:46) - Review of Systems Constitutional: Weakness Eyes: No Symptoms Reported ENT: No Symptoms Reported Respiratory: Cough, Shortness of Breath, SOB with Excertion, Wheezing Cardiovascular: Light Headedness Gastrointestinal: Nausea Genitourinary: No Symptoms Reported Musculoskeletal: Back Pain, Leg Pain Skin: No Symptoms Reported Neurological: Weakness - Physical Exam Vital Signs: Temperature 98.9 F Pulse Rate [Brachial] 94 Pulse Rate 64 Respiratory Rate 25 Blood Pressure [Left Arm] 143/79 Blood Pressure [Right Arm] 124/63 Blood Pressure 135/73 O2 Sat by Pulse Oximetry 94 Oriented: Normal Eyes: Normal Ear: Normal Nose: Normal Throat: Normal Respiratory: Diminished Throughout Cardiovascular: Tachycardia, Other. negative: Edema Auscultation: Bowel Sounds: Normal Palpation: Normal Tenderness: Normal Skin: Decreased [place], Wound (LEFT FOOT, 3RD, 4TH 5TH TOES, NECROTIC)) Musculoskeletal: Left, Back:Lumbar, Sensory Deficit Psychiatric: Anxiety Mood Description: Fearful, Anxious Affect: Anxious Speech Pattern: Clear, Appropriate - Assessment/Plan (1) Respiratory distress Status: Acute Plan: ADMIT, CXR ON ADMISSION, IV LASIX 40MG IV Q8HRS WITH WEBER CATH FOR STRICT I & OS, CE, ABG ON ADMISSION, CONSULT RESP FOR PRN BIPAP THERAPY. CONTINUOUS SUPPLEMENTAL O2. IVF KVO, SOLU MEDROL IV, VERIFY HOME MEDICATION. BS CONTROL (2) Pulmonary edema Status: Acute (3) CAD (coronary artery disease) Qualifiers: Coronary Disease-Associated Artery/Lesion type: bypass graft Status: Acute (4) COPD exacerbation Status: Acute (5) PAD (peripheral artery disease) Status: Acute (6) Foot ulcer with necrosis of muscle Status: Acute (7) CHF (congestive heart failure) Status: Acute (8) CAD (coronary artery disease) Qualifiers: Coronary Disease-Associated Artery/Lesion type: [place] artery [place] vs. transplanted heart: [place] heart Associated angina: without angina Qualified Code(s): I25.10 - Atherosclerotic heart disease of [place] coronary artery without angina pectoris Status: Acute (9) Hypertension Status: Chronic (10) GERD (gastroesophageal reflux disease) Qualifiers: Esophagitis presence: without esophagitis Qualified Code(s): K21.9 - Gastro-esophageal reflux disease without esophagitis Status: Chronic - Allergies Allergies/Adverse Reactions: Allergies Allergy/AdvReac Type Severity Reaction Status Date / Time chocolate flavor Allergy Verified 08/03/18 19:46 Penicillins Allergy Verified 08/03/18 19:46 CHOCOLATE Allergy Uncoded 08/03/18 19:46
[2019-01-12 17:23] LABS: ABG BASE EXCESS 12.6 mmol/L (-2.0-2.0)
[2019-01-12 17:24] LABS: ABG ALLEN TEST POS; ABG HCO3 36.8 mmol/L (22-26)
[2019-01-12 18:44] LABS: CKMB % 11.5 % (<4); CREATINE KINASE MB 3.9 ng/mL (0-4.0); TROPONIN I 0.07 ng/mL (0-1.5)
[2019-01-12] MEDS ORDERED: PHARMACY CONSULT - DOSE _____ XX SCH (19:00)
[2019-01-12] MEDS: LIPITOR TAB 20 MG PO SCH (20:53)
[2019-01-12] MEDS: LOVENOX INJ 40 MG SYR SC SCH (21:04)
[2019-01-12] MEDS: MAALOX or MYLANTA PO PRN (22:01)
[2019-01-13] MEDS: LASIX IVP SCH ×4 (00:22→20:30)
[2019-01-13] MEDS ORDERED: VALIUM PO PRN (02:46)
[2019-01-13] MEDS ORDERED: VALIUM ONE (02:48)
[2019-01-13] MEDS: MORPHINE SULFATE INJ 2 MG INJ IVP PRN ×4 (03:31→17:24)
[2019-01-13] MEDS: REQUIP PO SCH ×2 (05:02→13:53)
[2019-01-13 05:23] LABS: ABG BASE EXCESS 11.6 mmol/L (-2.0-2.0)
[2019-01-13 05:24] LABS: ABG HCO3 37.1 mmol/L (22-26)
[2019-01-13 05:39] LABS: BASOPHILS % (AUTO) 0.1 % (0.2-1.0); HEMATOCRIT 26.2 % (42.0-54.0); HEMOGLOBIN 8.8 g/dL (13.5-18.0); LYMPHOCYTES # (AUTO) 0.6 X10^3/uL (1.3-2.9); LYMPHOCYTES % (AUTO) 9.8 % (21.0-51.0); MEAN CORPUSCULAR HEMOGLOBIN 34.3 pg (27.0-34.0); MEAN CORPUSCULAR HGB CONC 33.5 g/dL (33.0-35.0); MEAN CORPUSCULAR VOLUME 102.3 fL (80.0-100.0); MEAN PLATELET VOLUME 8.6 fL (7.4-11.0); MONOCYTES # (AUTO) 0.7 x10^3/uL (0.3-0.8); MONOCYTES % (AUTO) 11.1 % (0.0-13.0); NEUTROPHILS # (AUTO) 4.6 x10^3/uL (2.2-4.8); PLATELET COUNT 146 X10^3/uL (150.0-450.0); RED BLOOD COUNT 2.56 X10^6/uL (4.7-6.0); RED CELL DISTRIBUTION WIDTH 19.4 % (11.6-16.5); WHITE BLOOD COUNT 5.9 X10^3/uL (3.6-10.0)
[2019-01-13 05:48] LABS: ALANINE AMINOTRANSFERASE 16 Units/L (12-78); ALBUMIN 1.8 g/dL (3.4-5.0); ALKALINE PHOSPHATASE 151 Units/L (46-116); ASPARTATE AMINO TRANSFERASE 17 Units/L (15-37); BLOOD UREA NITROGEN 19 mg/dL (7-18); CALCIUM 8.1 mg/dL (8.5-10.1); CARBON DIOXIDE 33.9 mmol/L (21-32); CHLORIDE 100 mmol/L (98-107); CHOL/HDL RATIO 2.4 (0.0-5.0); CHOLESTEROL 96 mg/dL (0-200); COR CA(FOR HYPOALB) 9.9 mg/dL (8.5-10.1); COR NA(FOR HYPERGLY) 142 mmol/L (136-145); CREATININE 0.94 mg/dL (0.70-1.30); HDL CHOLESTEROL 40 mg/dL (40-60); SODIUM 138 mmol/L (136-145); TOTAL PROTEIN 6.3 g/dL (6.4-8.2); TRIGLYCERIDES 58 mg/dL (0-150); eGFR NON BLACK RACES > 60 (>60)
[2019-01-13] MEDS: HumuLIN R SC PRN ×4 (05:49→20:30)
--- NOTE | 2019-01-13 06:12 | RAD ---
Chest AP portable Indication: Dyspnea Comparison: 01/12/2019 Findings: There is cardiomegaly with sternotomy change. Pacemaker/AICD leads again noted. There is no pneumothorax. Bilateral effusions and patchy pulmonary opacities are noted. Impression: Cardiomegaly, effusions and patchy pulmonary opacities. Multifocal pneumonia favored. Background of CHF possible. Findings are similar to the previous day Reported By:
[2019-01-13] MEDS: DUONEB 0.5 MG/3 MG NEB SCH ×4 (08:08→20:48)
[2019-01-13] MEDS: ROBITUSSIN DM PO SCH ×4 (08:45→20:29)
[2019-01-13] MEDS: VSL#3 PO SCH (08:45)
[2019-01-13] MEDS: ENTRESTO 24/26 MG TAB PO SCH ×2 (08:45→20:33)
[2019-01-13] MEDS: PROTONIX TAB 40 MG PO SCH (08:46)
[2019-01-13] MEDS: COREG TAB 3.125 MG PO SCH ×2 (08:46→20:32)
[2019-01-13] MEDS: BUSPAR PO SCH ×2 (08:47→20:32)
[2019-01-13] MEDS: PLAVIX PO SCH (08:47)
[2019-01-13] MEDS: K-DUR TAB 20 MEQ PO SCH ×2 (08:48→20:31)
[2019-01-13] MEDS: LEVAQUIN PREMIX IV 750 MG 750 MG/150 ML BAG IV SCH (08:48)
[2019-01-13] MEDS: NS 1/2 1000 ML IV 1,000 ML IV SCH (12:38)
[2019-01-13] MEDS ORDERED: HALDOL PO PRN (18:20)
[2019-01-13] MEDS: LOVENOX INJ 40 MG SYR SC SCH (20:27)
[2019-01-13] MEDS: LIPITOR TAB 20 MG PO SCH (20:32)
[2019-01-13] MEDS: HALDOL PO PRN (20:32)
[2019-01-13] MEDS: NORCO 10/325 TAB PO PRN (20:33)
[2019-01-13] MEDS: MAALOX or MYLANTA PO PRN (21:20)
[2019-01-14] MEDS: NS 1/2 1000 ML IV 1,000 ML IV SCH ×3 (00:54→13:14)
[2019-01-14] MEDS: MORPHINE SULFATE INJ 2 MG INJ IVP PRN (03:30)
[2019-01-14] MEDS: DUONEB 0.5 MG/3 MG NEB SCH ×5 (04:31→20:50)
[2019-01-14] MEDS ORDERED: NS 1/2 1000 ML IV 1,000 ML IV ONE ×2 (05:34→20:32)
[2019-01-14 06:11] LABS: ALANINE AMINOTRANSFERASE 12 Units/L (12-78); ALBUMIN 1.5 g/dL (3.4-5.0); ALKALINE PHOSPHATASE 120 Units/L (46-116); ASPARTATE AMINO TRANSFERASE 19 Units/L (15-37); BLOOD UREA NITROGEN 16 mg/dL (7-18); CALCIUM 7.4 mg/dL (8.5-10.1); CARBON DIOXIDE 34.5 mmol/L (21-32); CHLORIDE 100 mmol/L (98-107); COR CA(FOR HYPOALB) 9.4 mg/dL (8.5-10.1); COR NA(FOR HYPERGLY) 139 mmol/L (136-145); CREATININE 0.69 mg/dL (0.70-1.30); SODIUM 137 mmol/L (136-145); TOTAL PROTEIN 5.3 g/dL (6.4-8.2); eGFR NON BLACK RACES > 60 (>60)
[2019-01-14 06:22] LABS: BASOPHILS % (AUTO) 0.2 % (0.2-1.0); EOSINOPHILS # (AUTO) 0.1 x10^3/uL (0.0-0.2); EOSINOPHILS % (AUTO) 1.4 % (0.9-2.9); HEMATOCRIT 26.7 % (42.0-54.0); HEMOGLOBIN 8.8 g/dL (13.5-18.0); LYMPHOCYTES # (AUTO) 1.1 X10^3/uL (1.3-2.9); LYMPHOCYTES % (AUTO) 18.3 % (21.0-51.0); MEAN CORPUSCULAR VOLUME 102.8 fL (80.0-100.0); MEAN PLATELET VOLUME 9.1 fL (7.4-11.0); MONOCYTES # (AUTO) 0.8 x10^3/uL (0.3-0.8); MONOCYTES % (AUTO) 12.7 % (0.0-13.0); NEUTROPHILS % (AUTO) 67.4 % (42.0-75.0); PLATELET COUNT 112 X10^3/uL (150.0-450.0); RED BLOOD COUNT 2.59 X10^6/uL (4.7-6.0); RED CELL DISTRIBUTION WIDTH 18.9 % (11.6-16.5)
[2019-01-14] MEDS: NORCO 10/325 TAB PO PRN ×2 (06:30→21:06)
[2019-01-14] MEDS: HumuLIN R SC PRN ×3 (06:59→22:00)
[2019-01-14 09:16] LABS: ABG BASE EXCESS 14.5 mmol/L (-2.0-2.0)
[2019-01-14 09:20] LABS: ABG ALLEN TEST POSITIVE; ABG HCO3 39.8 mmol/L (22-26)
[2019-01-14] MEDS: COREG TAB 3.125 MG PO SCH ×2 (09:24→21:05)
[2019-01-14] MEDS: ENTRESTO 24/26 MG TAB PO SCH ×2 (09:24→21:05)
[2019-01-14] MEDS: BUSPAR PO SCH ×2 (09:24→21:04)
[2019-01-14] MEDS: LASIX IVP SCH ×2 (09:24→21:07)
[2019-01-14] MEDS: K-DUR TAB 20 MEQ PO SCH ×2 (09:24→21:06)
[2019-01-14] MEDS: LEVAQUIN PREMIX IV 750 MG 750 MG/150 ML BAG IV SCH (09:24)
[2019-01-14] MEDS: PROTONIX TAB 40 MG PO SCH (09:25)
[2019-01-14] MEDS: PLAVIX PO SCH (09:25)
[2019-01-14] MEDS: ROBITUSSIN DM PO SCH ×4 (09:25→21:00)
[2019-01-14] MEDS: VSL#3 PO SCH (09:26)
[2019-01-14] MEDS: MAALOX or MYLANTA PO PRN (16:40)
[2019-01-14] MEDS: HALDOL PO PRN (21:05)
[2019-01-14] MEDS: LIPITOR TAB 20 MG PO SCH (21:06)
[2019-01-14] MEDS: LOVENOX INJ 40 MG SYR SC SCH (21:08)
[2019-01-15] MEDS: MORPHINE SULFATE INJ 2 MG INJ IVP PRN ×2 (03:00→11:30)
[2019-01-15] MEDS: NS 1/2 1000 ML IV 1,000 ML IV SCH (03:19)
[2019-01-15 06:29] LABS: BASOPHILS % (AUTO) 0.5 % (0.2-1.0); EOSINOPHILS # (AUTO) 0.1 x10^3/uL (0.0-0.2); EOSINOPHILS % (AUTO) 1.8 % (0.9-2.9); HEMATOCRIT 28.5 % (42.0-54.0); HEMOGLOBIN 9.3 g/dL (13.5-18.0); LYMPHOCYTES # (AUTO) 1.3 X10^3/uL (1.3-2.9); MEAN CORPUSCULAR HEMOGLOBIN 33.7 pg (27.0-34.0); MEAN CORPUSCULAR HGB CONC 32.7 g/dL (33.0-35.0); MEAN CORPUSCULAR VOLUME 102.9 fL (80.0-100.0); MEAN PLATELET VOLUME 8.8 fL (7.4-11.0); MONOCYTES # (AUTO) 0.9 x10^3/uL (0.3-0.8); MONOCYTES % (AUTO) 14.9 % (0.0-13.0); NEUTROPHILS # (AUTO) 3.5 x10^3/uL (2.2-4.8); NEUTROPHILS % (AUTO) 59.8 % (42.0-75.0); PLATELET COUNT 122 X10^3/uL (150.0-450.0); RED BLOOD COUNT 2.76 X10^6/uL (4.7-6.0); RED CELL DISTRIBUTION WIDTH 18.8 % (11.6-16.5); WHITE BLOOD COUNT 5.8 X10^3/uL (3.6-10.0)
[2019-01-15 06:39] LABS: ALANINE AMINOTRANSFERASE 14 Units/L (12-78); ALBUMIN 1.7 g/dL (3.4-5.0); ALKALINE PHOSPHATASE 123 Units/L (46-116); ASPARTATE AMINO TRANSFERASE 18 Units/L (15-37); BLOOD UREA NITROGEN 12 mg/dL (7-18); CALCIUM 7.9 mg/dL (8.5-10.1); CARBON DIOXIDE 33.3 mmol/L (21-32); CHLORIDE 99 mmol/L (98-107); COR CA(FOR HYPOALB) 9.7 mg/dL (8.5-10.1); COR NA(FOR HYPERGLY) 139 mmol/L (136-145); CREATININE 0.67 mg/dL (0.70-1.30); SODIUM 136 mmol/L (136-145); eGFR NON BLACK RACES > 60 (>60)
--- NOTE | 2019-01-15 06:49 | RAD ---
Examination: Portable AP chest History: SOB Comparison 01/13/2019 Findings: Continued cardiomegaly with bilateral infiltrates and pleural effusions. There is no change in position of the AICD. Impression: Stable appearance of bilateral infiltrates, pleural fluid and cardiac enlargement. No change since 01/13/2019. Reported By:
[2019-01-15] MEDS: NORCO 10/325 TAB PO PRN ×2 (08:12→18:46)
[2019-01-15] MEDS: DUONEB 0.5 MG/3 MG NEB SCH ×5 (08:45→21:30)
[2019-01-15] MEDS: COREG TAB 3.125 MG PO SCH ×2 (09:43→21:29)
[2019-01-15] MEDS: BUSPAR PO SCH ×2 (09:43→21:31)
[2019-01-15] MEDS: PLAVIX PO SCH (09:44)
[2019-01-15] MEDS: LEVAQUIN PREMIX IV 750 MG 750 MG/150 ML BAG IV SCH (09:44)
[2019-01-15] MEDS: K-DUR TAB 20 MEQ PO SCH ×2 (09:44→21:30)
[2019-01-15] MEDS: ENTRESTO 24/26 MG TAB PO SCH ×2 (09:44→21:29)
[2019-01-15] MEDS: ROBITUSSIN DM PO SCH ×4 (09:45→21:28)
[2019-01-15] MEDS: PROTONIX TAB 40 MG PO SCH (09:45)
[2019-01-15] MEDS: VSL#3 PO SCH (09:45)
[2019-01-15] MEDS: LASIX IVP SCH ×2 (09:45→21:33)
[2019-01-15] MEDS: HumuLIN R SC PRN ×3 (13:19→22:00)
[2019-01-15] MEDS ORDERED: NS 1/2 1000 ML IV 1,000 ML IV ONE (20:45)
[2019-01-15] MEDS: HALDOL PO PRN (21:28)
[2019-01-15] MEDS: LIPITOR TAB 20 MG PO SCH (21:29)
[2019-01-15] MEDS: NYSTATIN POWDER TOP SCH (21:33)
[2019-01-16] MEDS: LOVENOX INJ 40 MG SYR SC SCH ×2 (00:43→21:16)
[2019-01-16] MEDS: NS 1/2 1000 ML IV 1,000 ML IV SCH ×4 (00:45→22:15)
[2019-01-16] MEDS: NORCO 10/325 TAB PO PRN ×2 (02:30→21:15)
[2019-01-16 05:42] LABS: BASOPHILS % (AUTO) 0.2 % (0.2-1.0); EOSINOPHILS # (AUTO) 0.1 x10^3/uL (0.0-0.2); EOSINOPHILS % (AUTO) 1.6 % (0.9-2.9); HEMATOCRIT 26.3 % (42.0-54.0); HEMOGLOBIN 8.8 g/dL (13.5-18.0); LYMPHOCYTES # (AUTO) 0.9 X10^3/uL (1.3-2.9); LYMPHOCYTES % (AUTO) 17.6 % (21.0-51.0); MEAN CORPUSCULAR HEMOGLOBIN 33.9 pg (27.0-34.0); MEAN CORPUSCULAR HGB CONC 33.5 g/dL (33.0-35.0); MEAN CORPUSCULAR VOLUME 101.2 fL (80.0-100.0); MEAN PLATELET VOLUME 8.9 fL (7.4-11.0); MONOCYTES # (AUTO) 0.8 x10^3/uL (0.3-0.8); MONOCYTES % (AUTO) 15.4 % (0.0-13.0); NEUTROPHILS # (AUTO) 3.3 x10^3/uL (2.2-4.8); NEUTROPHILS % (AUTO) 65.2 % (42.0-75.0); PLATELET COUNT 104 X10^3/uL (150.0-450.0); RED CELL DISTRIBUTION WIDTH 18.5 % (11.6-16.5); WHITE BLOOD COUNT 5.1 X10^3/uL (3.6-10.0)
[2019-01-16 05:51] LABS: ALANINE AMINOTRANSFERASE 11 Units/L (12-78); ALBUMIN 1.8 g/dL (3.4-5.0); ALKALINE PHOSPHATASE 101 Units/L (46-116); ASPARTATE AMINO TRANSFERASE 16 Units/L (15-37); BLOOD UREA NITROGEN 11 mg/dL (7-18); CALCIUM 7.9 mg/dL (8.5-10.1); CARBON DIOXIDE 35.6 mmol/L (21-32); CHLORIDE 95 mmol/L (98-107); COR CA(FOR HYPOALB) 9.7 mg/dL (8.5-10.1); COR NA(FOR HYPERGLY) 135 mmol/L (136-145); CREATININE 0.65 mg/dL (0.70-1.30); SODIUM 134 mmol/L (136-145); eGFR NON BLACK RACES > 60 (>60)
--- NOTE | 2019-01-16 07:45 | RAD ---
History: Dyspnea and respiratory distress. Exam: Single portable view of the chest. Comparison: 01/15/2019. Findings: The trachea is midline. The cardiomediastinal silhouette is enlarged status post median sternotomy. There is a stable left-sided cardiac pacing device. There are is unchanged airspace and parenchymal disease in the right lung, especially in the RML and right lower lobe with unchanged parenchymal disease seen in the left mid lung zone and left lower lobe. Small volume bibasilar pleural effusions are also observed. Diffuse interstitial densities throughout the lung vanessa are also observed. These findings could reflect atypical pneumonia or CHF/pulmonary edema. Please correlate medically. These findings are unchanged, however. No pneumothorax or other changes are seen. The bones are intact. Impression: Cardiomegaly with unchanged airspace opacities and interstitial densities, as above, with small volume bibasilar effusions. Findings could reflect pneumonia or pulmonary edema. Reported By:
[2019-01-16] MEDS: DUONEB 0.5 MG/3 MG NEB SCH ×4 (08:50→20:13)
[2019-01-16] MEDS: VSL#3 PO SCH (09:00)
[2019-01-16] MEDS: PROTONIX TAB 40 MG PO SCH (09:00)
[2019-01-16] MEDS: ENTRESTO 24/26 MG TAB PO SCH ×2 (09:00→21:16)
[2019-01-16] MEDS: PLAVIX PO SCH (09:01)
[2019-01-16] MEDS: COREG TAB 3.125 MG PO SCH ×2 (09:01→21:16)
[2019-01-16] MEDS: BUSPAR PO SCH ×2 (09:01→21:19)
[2019-01-16] MEDS: K-DUR TAB 20 MEQ PO SCH ×2 (09:01→21:15)
[2019-01-16] MEDS: LASIX IVP SCH ×2 (09:01→21:30)
[2019-01-16] MEDS: LEVAQUIN PREMIX IV 750 MG 750 MG/150 ML BAG IV SCH (09:02)
[2019-01-16] MEDS: NYSTATIN POWDER TOP SCH ×2 (09:02→21:18)
[2019-01-16] MEDS: ROBITUSSIN DM PO SCH ×4 (09:02→21:16)
[2019-01-16 09:29] LABS: ABG BASE EXCESS 12.6 mmol/L (-2.0-2.0)
[2019-01-16] MEDS ORDERED: NS 1/2 1000 ML IV 1,000 ML IV ONE (13:14)
[2019-01-16] MEDS ORDERED: BUTT CREAM (COMPOUND) TOP PRN (13:50)
[2019-01-16] MEDS ORDERED: BUTT CREAM (COMPOUND) ONE (13:59)
[2019-01-16] MEDS ORDERED: NEOSPORIN OINT ONE (14:00)
[2019-01-16] MEDS: HALDOL PO PRN (15:00)
[2019-01-16] MEDS ORDERED: ZOFRAN INJ 4 MG VIAL ONE (17:58)
[2019-01-16] MEDS: ZOFRAN INJ 4 MG VIAL IVP PRN (17:59)
[2019-01-16] MEDS: HumuLIN R SC PRN ×2 (18:09→22:36)
[2019-01-16] MEDS: MAALOX or MYLANTA PO PRN (21:00)
[2019-01-16] MEDS: LIPITOR TAB 20 MG PO SCH (21:15)
--- NOTE | 2019-01-16 21:32 | PCM.PROG ---
Progress Note - Progress Note for Day of Date of Exam: 01/16/19 - Past Medical Family Social History Past Med/Fam/Surg Hx: No changes since H&P Allergies: Allergies chocolate flavor Allergy (Verified 08/03/18 19:46) Penicillins Allergy (Verified 08/03/18 19:46) CHOCOLATE Allergy (Uncoded 08/03/18 19:46) - Review of Systems ROS: No change since H&P - Vital Signs and I&O's Vital Signs: Temperature 98.5 F Pulse Rate [Brachial] 94 Pulse Rate 94 Respiratory Rate 20 Blood Pressure [Left Arm] 121/76 Blood Pressure [Right Arm] 124/63 Blood Pressure 135/73 O2 Sat by Pulse Oximetry 98 Intake and Output: Intake & Output 01/14/19 01/15/19 01/16/19 01/17/19 11:59 11:59 11:59 11:59 Intake Total 1960 / 1960 1880 / 1880 1900 / 1900 240 / 240 Output Total 3400 / 3400 3800 / 3800 2850 / 2850 1500 / 1500 Balance -1440 / -1440 -1920 / -1920 -950 / -950 -1260 / -1260 - Physical Exam Oriented: Normal Eyes: Normal Ear: Normal Nose: Normal Throat: Normal Respiratory: Generalized, Diminished Cardiovascular: Normal, Other. negative: Edema Auscultation: Bowel Sounds: Normal Palpation: Normal Tenderness: Normal Skin: Decreased Turgur, Wound (LEFT FOOT, 3RD, 4TH 5TH TOES, NECROTIC)) Musculoskeletal: Left, Back:Lumbar, Sensory Deficit Psychiatric: Anxiety Mood Description: Fearful, Anxious Affect: Anxious Speech Pattern: Clear - Laboratory and Diagnostics Result Diagrams: 01/16/19 05:07 01/16/19 05:07 Labs: 01/12/19 06:00 Blood Blood Culture - Preliminary 01/12/19 05:53 Blood Blood Culture - Preliminary 01/12/19 07:20 Sputum - Expectorated Sputum Sputum Culture - Final 01/12/19 07:20 Sputum - Expectorated Sputum - Final Laboratory WBC 5.1 X10^3/uL (3.6-10.0) 01/16/19 05:07 RBC 2.60 X10^6/uL (4.7-6.0) L 01/16/19 05:07 Hgb 8.8 g/dL (13.5-18.0) L 01/16/19 05:07 Hct 26.3 % (42.0-54.0) L 01/16/19 05:07 MCV 101.2 fL (80.0-100.0) H 01/16/19 05:07 MCH 33.9 pg (27.0-34.0) 01/16/19 05:07 MCHC 33.5 g/dL (33.0-35.0) 01/16/19 05:07 RDW 18.5 % (11.6-16.5) H 01/16/19 05:07 Plt Count 104 X10^3/uL (150.0-450.0) L 01/16/19 05:07 MPV 8.9 fL (7.4-11.0) 01/16/19 05:07 Neut % (Auto) 65.2 % (42.0-75.0) 01/16/19 05:07 Lymph % (Auto) 17.6 % (21.0-51.0) L 01/16/19 05:07 [place] % (Auto) 15.4 % (0.0-13.0) H 01/16/19 05:07 Eos % (Auto) 1.6 % (0.9-2.9) 01/16/19 05:07 Baso % (Auto) 0.2 % (0.2-1.0) 01/16/19 05:07 Neut # (Auto) 3.3 x10^3/uL (2.2-4.8) 01/16/19 05:07 Lymph # (Auto) 0.9 X10^3/uL (1.3-2.9) L 01/16/19 05:07 [place] # (Auto) 0.8 x10^3/uL (0.3-0.8) 01/16/19 05:07 Eos # (Auto) 0.1 x10^3/uL (0.0-0.2) 01/16/19 05:07 Baso # (Auto) 0.0 X10^3/uL (0.0-0.1) 01/16/19 05:07 Absolute Nucleated RBC 0.0 /100WBC 01/16/19 05:07 PT 15.4 SECONDS (11.8-14.3) 01/12/19 04:40 INR Target Range - 01/12/19 04:40 INR 1.27 (0.8-1.3) 01/12/19 04:40 APTT 35.4 SECONDS (22.9-36.5) 01/12/19 04:40 PTT Comment - 01/12/19 04:40 Sample Site Lbra 01/16/19 09:23 ABG pH 7.480 (7.35-7.45) H 01/16/19 09:23 ABG pCO2 51.0 mmHg (35.0-45.0) H* 01/16/19 09:23 ABG pO2 113.0 mmHg (80.0-100.0) H 01/16/19 09:23 ABG HCO3 38.0 mmol/L (22-26) H* 01/16/19 09:23 ABG O2 Saturation 99.0 % (90-100) 01/16/19 09:23 ABG Base Excess 12.6 mmol/L (-2.0-2.0) H 01/16/19 09:23 David Test N/a 01/16/19 09:23 A-a Gradient 108.0 mmHg 01/16/19 09:23 FiO2 40.0 01/16/19 09:23 Blood Gas Comments Pt jorge well elj 01/16/19 09:23 Sodium 134 mmol/L (136-145) L 01/16/19 05:07 Corrected Sodium 135 mmol/L (136-145) L 01/16/19 05:07 Potassium 3.9 mmol/L (3.5-5.1) 01/16/19 05:07 Chloride 95 mmol/L (98-107) L 01/16/19 05:07 Carbon Dioxide 35.6 mmol/L (21-32) H 01/16/19 05:07 BUN 11 mg/dL (7-18) 01/16/19 05:07 Creatinine 0.65 mg/dL (0.70-1.30) L 01/16/19 05:07 Est GFR (MDRD) Af Amer > 60 (>60) 01/16/19 05:07 Est GFR (MDRD) Non-Af > 60 (>60) 01/16/19 05:07 Glucose 125 mg/dL (65-99) H 01/16/19 05:07 POC Glucose (mg/dL) 188 mg/dL (65-99) H 01/14/19 11:06 Calcium 7.9 mg/dL (8.5-10.1) L 01/16/19 05:07 Corrected Calcium 9.7 mg/dL (8.5-10.1) 01/16/19 05:07 Total Bilirubin 0.90 mg/dL (0.2-1.0) 01/16/19 05:07 AST 16 Units/L (15-37) 01/16/19 05:07 ALT 11 Units/L (12-78) L 01/16/19 05:07 Alkaline Phosphatase 101 Units/L (46-116) 01/16/19 05:07 Creatine Kinase 34 Units/L (39-308) L 01/12/19 17:57 CK-MB (CK-2) 3.9 ng/mL (0-4.0) 01/12/19 17:57 CK/CKMB % Calc 11.5 % (<4) 01/12/19 17:57 Troponin I 0.07 ng/mL (0-1.5) 01/12/19 17:57 B-Natriuretic Peptide 3120 pg/mL (0-79) H* 01/12/19 04:40 Total Protein 6.0 g/dL (6.4-8.2) L 01/16/19 05:07 Albumin 1.8 g/dL (3.4-5.0) L 01/16/19 05:07 Globulin 4.2 g/dL (2.5-4.5) 01/16/19 05:07 Albumin/Globulin Ratio 0.4 Ratio (1.1-2.1) L 01/16/19 05:07 Triglycerides 58 mg/dL (0-150) 01/13/19 05:17 Cholesterol 96 mg/dL (0-200) 01/13/19 05:17 LDL Cholesterol, Calc 44 mg/dL (0-100) 01/13/19 05:17 HDL Cholesterol 40 mg/dL (40-60) 01/13/19 05:17 Cholesterol/HDL Ratio 2.4 (0.0-5.0) 01/13/19 05:17
--- NOTE | 2019-01-16 21:37 | PCM.PROG ---
Progress Note - Progress Note for Day of Date of Exam: 01/16/19 - Subjective Subjective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ardiomegaly with unchanged airspace opacities and interstitial densities, as above, with small volume bibasilar effusions. Findings could reflect pneumonia or pulmonary edema. HE IS CURRENTLY RECEIVING IV LASIX, IV ANTIBIOITICS, RESPIRATORY TREATMENTS, AND SUPPLEMENTAL OXYGEN. WE WILL CONTINUE WITH BIPAP AND CURRENT PLAN OF CARE TODAY. OTHERWISE, WE PLAN TO FOLLOW UP WITH AM LABS AND CONTINUE TO MONITOR. - Past Medical Family Social History Past Med/Fam/Surg Hx: No changes since H&P Allergies: Allergies chocolate flavor Allergy (Verified 08/03/18 19:46) Penicillins Allergy (Verified 08/03/18 19:46) CHOCOLATE Allergy (Uncoded 08/03/18 19:46) - Review of Systems ROS: No change since H&P - Vital Signs and I&O's Vital Signs: Temperature 98.5 F Pulse Rate [Brachial] 94 Pulse Rate 94 Respiratory Rate 20 Blood Pressure [Left Arm] 121/76 Blood Pressure [Right Arm] 124/63 Blood Pressure 135/73 O2 Sat by Pulse Oximetry 98 Intake and Output: Intake & Output 01/14/19 01/15/19 01/16/19 01/17/19 11:59 11:59 11:59 11:59 Intake Total 1959 19590 / 1879 1900 / 1900 240 / 240 Output Total 3400 / 3400 3800 / 3800 2850 / 2850 1500 / 1500 Balance -1440 / -1440 -1920 / -1920 -950 / -950 -1260 / -1260 - Physical Exam Oriented: Normal Eyes: Normal Ear: Normal Nose: Normal Throat: Normal Respiratory: Generalized, Diminished Cardiovascular: Normal, Other. negative: Edema Auscultation: Bowel Sounds: Normal Palpation: Normal Tenderness: Normal Skin: Decreased Turgur, Wound (LEFT FOOT, 3RD, 4TH 5TH TOES, NECROTIC)) Musculoskeletal: Left, Back:Lumbar, Sensory Deficit Psychiatric: Anxiety Mood Description: Fearful, Anxious Affect: Anxious Speech Pattern: Clear - Laboratory and Diagnostics Result Diagrams: 01/16/19 05:07 01/16/19 05:07 Labs: 01/12/19 06:00 Blood Blood Culture - Preliminary 01/12/19 05:53 Blood Blood Culture - Preliminary 01/12/19 07:20 Sputum - Expectorated Sputum Sputum Culture - Final 01/12/19 07:20 Sputum - Expectorated Sputum - Final Laboratory WBC 5.1 X10^3/uL (3.6-10.0) 01/16/19 05:07 RBC 2.60 X10^6/uL (4.7-6.0) L 01/16/19 05:07 Hgb 8.8 g/dL (13.5-18.0) L 01/16/19 05:07 Hct 26.3 % (42.0-54.0) L 01/16/19 05:07 MCV 101.2 fL (80.0-100.0) H 01/16/19 05:07 MCH 33.9 pg (27.0-34.0) 01/16/19 05:07 MCHC 33.5 g/dL (33.0-35.0) 01/16/19 05:07 RDW 18.5 % (11.6-16.5) H 01/16/19 05:07 Plt Count 104 X10^3/uL (150.0-450.0) L 01/16/19 05:07 MPV 8.9 fL (7.4-11.0) 01/16/19 05:07 Neut % (Auto) 65.2 % (42.0-75.0) 01/16/19 05:07 Lymph % (Auto) 17.6 % (21.0-51.0) L 01/16/19 05:07 [place] % (Auto) 15.4 % (0.0-13.0) H 01/16/19 05:07 Eos % (Auto) 1.6 % (0.9-2.9) 01/16/19 05:07 Baso % (Auto) 0.2 % (0.2-1.0) 01/16/19 05:07 Neut # (Auto) 3.3 x10^3/uL (2.2-4.8) 01/16/19 05:07 Lymph # (Auto) 0.9 X10^3/uL (1.3-2.9) L 01/16/19 05:07 [place] # (Auto) 0.8 x10^3/uL (0.3-0.8) 01/16/19 05:07 Eos # (Auto) 0.1 x10^3/uL (0.0-0.2) 01/16/19 05:07 Baso # (Auto) 0.0 X10^3/uL (0.0-0.1) 01/16/19 05:07 Absolute Nucleated RBC 0.0 /100WBC 01/16/19 05:07 PT 15.4 SECONDS (11.8-14.3) 01/12/19 04:40 INR Target Range - 01/12/19 04:40 INR 1.27 (0.8-1.3) 01/12/19 04:40 APTT 35.4 SECONDS (22.9-36.5) 01/12/19 04:40 PTT Comment - 01/12/19 04:40 Sample Site Lbra 01/16/19 09:23 ABG pH 7.480 (7.35-7.45) H 01/16/19 09:23 ABG pCO2 51.0 mmHg (35.0-45.0) H* 01/16/19 09:23 ABG pO2 113.0 mmHg (80.0-100.0) H 01/16/19 09:23 ABG HCO3 38.0 mmol/L (22-26) H* 01/16/19 09:23 ABG O2 Saturation 99.0 % (90-100) 01/16/19 09:23 ABG Base Excess 12.6 mmol/L (-2.0-2.0) H 01/16/19 09:23 David Test N/a 01/16/19 09:23 A-a Gradient 108.0 mmHg 01/16/19 09:23 FiO2 40.0 01/16/19 09:23 Blood Gas Comments Pt jorge well elj 01/16/19 09:23 Sodium 134 mmol/L (136-145) L 01/16/19 05:07 Corrected Sodium 135 mmol/L (136-145) L 01/16/19 05:07 Potassium 3.9 mmol/L (3.5-5.1) 01/16/19 05:07 Chloride 95 mmol/L (98-107) L 01/16/19 05:07 Carbon Dioxide 35.6 mmol/L (21-32) H 01/16/19 05:07 BUN 11 mg/dL (7-18) 01/16/19 05:07 Creatinine 0.65 mg/dL (0.70-1.30) L 01/16/19 05:07 Est GFR (MDRD) Af Amer > 60 (>60) 01/16/19 05:07 Est GFR (MDRD) Non-Af > 60 (>60) 01/16/19 05:07 Glucose 125 mg/dL (65-99) H 01/16/19 05:07 POC Glucose (mg/dL) 188 mg/dL (65-99) H 01/14/19 11:06 Calcium 7.9 mg/dL (8.5-10.1) L 01/16/19 05:07 Corrected Calcium 9.7 mg/dL (8.5-10.1) 01/16/19 05:07 Total Bilirubin 0.90 mg/dL (0.2-1.0) 01/16/19 05:07 AST 16 Units/L (15-37) 01/16/19 05:07 ALT 11 Units/L (12-78) L 01/16/19 05:07 Alkaline Phosphatase 101 Units/L (46-116) 01/16/19 05:07 Creatine Kinase 34 Units/L (39-308) L 01/12/19 17:57 CK-MB (CK-2) 3.9 ng/mL (0-4.0) 01/12/19 17:57 CK/CKMB % Calc 11.5 % (<4) 01/12/19 17:57 Troponin I 0.07 ng/mL (0-1.5) 01/12/19 17:57 B-Natriuretic Peptide 3120 pg/mL (0-79) H* 01/12/19 04:40 Total Protein 6.0 g/dL (6.4-8.2) L 01/16/19 05:07 Albumin 1.8 g/dL (3.4-5.0) L 01/16/19 05:07 Globulin 4.2 g/dL (2.5-4.5) 01/16/19 05:07 Albumin/Globulin Ratio 0.4 Ratio (1.1-2.1) L 01/16/19 05:07 Triglycerides 58 mg/dL (0-150) 01/13/19 05:17 Cholesterol 96 mg/dL (0-200) 01/13/19 05:17 LDL Cholesterol, Calc 44 mg/dL (0-100) 01/13/19 05:17 HDL Cholesterol 40 mg/dL (40-60) 01/13/19 05:17 Cholesterol/HDL Ratio 2.4 (0.0-5.0) 01/13/19 05:17
[2019-01-17] MEDS: HALDOL PO PRN (03:00)
--- NOTE | 2019-01-17 06:14 | RAD ---
HISTORY: Shortness of breath Study: Chest AP portable Comparison: 01/16/2019, 01/15/2019 Findings: There is a pacemaker present on the left obscuring a portion of the left upper lobe. The patient is status post median sternotomy. The heart remains enlarged. Right upper right middle and right lower lobe infiltrates are unchanged. Left perihilar infiltrates unchanged. Bilateral pleural effusions are unchanged. Findings could represent asymmetric pulmonary edema or bilateral pneumonia. IMPRESSION: No significant change from the prior examination Reported By:
[2019-01-17 06:31] LABS: ALANINE AMINOTRANSFERASE 13 Units/L (12-78); ALBUMIN 1.8 g/dL (3.4-5.0); ALKALINE PHOSPHATASE 111 Units/L (46-116); ASPARTATE AMINO TRANSFERASE 19 Units/L (15-37); BLOOD UREA NITROGEN 10 mg/dL (7-18); CALCIUM 7.7 mg/dL (8.5-10.1); CARBON DIOXIDE 34.2 mmol/L (21-32); CHLORIDE 94 mmol/L (98-107); COR CA(FOR HYPOALB) 9.5 mg/dL (8.5-10.1); COR NA(FOR HYPERGLY) 134 mmol/L (136-145); CREATININE 0.71 mg/dL (0.70-1.30); SODIUM 134 mmol/L (136-145); eGFR NON BLACK RACES > 60 (>60)
[2019-01-17 07:07] LABS: BASOPHILS % (AUTO) 0.2 % (0.2-1.0); EOSINOPHILS # (AUTO) 0.1 x10^3/uL (0.0-0.2); EOSINOPHILS % (AUTO) 1.1 % (0.9-2.9); HEMATOCRIT 26.6 % (42.0-54.0); HEMOGLOBIN 8.7 g/dL (13.5-18.0); LYMPHOCYTES # (AUTO) 1.3 X10^3/uL (1.3-2.9); LYMPHOCYTES % (AUTO) 18.8 % (21.0-51.0); MEAN CORPUSCULAR HEMOGLOBIN 33.5 pg (27.0-34.0); MEAN CORPUSCULAR HGB CONC 32.9 g/dL (33.0-35.0); MEAN PLATELET VOLUME 8.9 fL (7.4-11.0); MONOCYTES % (AUTO) 14.6 % (0.0-13.0); NEUTROPHILS # (AUTO) 4.4 x10^3/uL (2.2-4.8); NEUTROPHILS % (AUTO) 65.3 % (42.0-75.0); PLATELET COUNT 104 X10^3/uL (150.0-450.0); RED CELL DISTRIBUTION WIDTH 18.9 % (11.6-16.5); WHITE BLOOD COUNT 6.8 X10^3/uL (3.6-10.0)
[2019-01-17] MEDS: DUONEB 0.5 MG/3 MG NEB SCH ×4 (08:26→20:24)
[2019-01-17] MEDS ORDERED: LASIX IVP SCH ×2 (09:00→11:00)
[2019-01-17] MEDS ORDERED: SOLU-Medrol 125 MG VIAL IVP SCH ×2 (09:00→11:00)
[2019-01-17] MEDS: COREG TAB 3.125 MG PO SCH ×3 (09:48→20:17)
[2019-01-17] MEDS: ENTRESTO 24/26 MG TAB PO SCH ×2 (09:48→20:30)
[2019-01-17] MEDS: PLAVIX PO SCH (09:49)
[2019-01-17] MEDS: BUSPAR PO SCH ×2 (09:50→20:15)
[2019-01-17] MEDS: ROBITUSSIN DM PO SCH ×4 (09:50→20:15)
[2019-01-17] MEDS: NORCO 10/325 TAB PO PRN ×3 (09:50→20:20)
[2019-01-17] MEDS: K-DUR TAB 20 MEQ PO SCH ×2 (09:52→20:16)
[2019-01-17] MEDS: LEVAQUIN PREMIX IV 750 MG 750 MG/150 ML BAG IV SCH (09:52)
[2019-01-17] MEDS: VSL#3 PO SCH (09:52)
[2019-01-17] MEDS: PROTONIX TAB 40 MG PO SCH (09:53)
[2019-01-17] MEDS: NYSTATIN POWDER TOP SCH ×2 (09:59→20:16)
[2019-01-17] MEDS: HumuLIN R SC PRN ×3 (12:27→20:21)
[2019-01-17] MEDS: DIFLUCAN PO SCH (14:30)
[2019-01-17] MEDS: LASIX IVP SCH ×2 (14:30→21:25)
[2019-01-17] MEDS: SOLU-Medrol 125 MG VIAL IVP SCH ×2 (14:31→21:25)
--- NOTE | 2019-01-17 17:40 | PCM.PROG ---
Progress Note - Progress Note for Day of Date of Exam: 01/17/19 - Subjective Subjective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place] TO BE WITH HIS FAMILY IF WE CAN GET HIM WELL TO TRAVEL. CONTACTED FAMILY ABOUT ARRANGEMENTS FOR PLAN FOR D/C. PT WILL NEED SUPPLEMENTAL O2 AND NARCOTIC PAIN CONTROL ARRANGED PRIOR TO D/C HOME. - Past Medical Family Social History Past Med/Fam/Surg Hx: No changes since H&P Allergies: Allergies chocolate flavor Allergy (Verified 08/03/18 19:46) Penicillins Allergy (Verified 08/03/18 19:46) CHOCOLATE Allergy (Uncoded 08/03/18 19:46) - Review of Systems ROS: No change since H&P - Vital Signs and I&O's Vital Signs: Temperature 97.9 F Pulse Rate [Brachial] 87 Pulse Rate 85 Respiratory Rate 16 Blood Pressure [Left Arm] 105/54 Blood Pressure [Right Arm] 124/63 Blood Pressure 135/73 O2 Sat by Pulse Oximetry 100 Intake and Output: Intake & Output 01/15/19 01/16/19 01/17/19 01/18/19 11:59 11:59 11:59 11:59 Intake Total 1880 / 1880 1900 / 1900 780 / 780 480 / 480 Output Total 3800 / 3800 2850 / 2850 1950 / 1950 400 / 400 Balance -1920 / -1920 -950 / -950 -1170 / -1170 80 / 80 - Physical Exam Oriented: Normal Eyes: Normal Ear: Normal Nose: Normal Throat: Normal Respiratory: Generalized, Diminished Cardiovascular: Normal, Other. negative: Edema Auscultation: Bowel Sounds: Normal Tenderness: Normal Skin: Decreased Turgur, Wound (LEFT FOOT, 3RD, 4TH 5TH TOES, NECROTIC)) Musculoskeletal: Left, Back:Lumbar, Sensory Deficit Psychiatric: Anxiety Mood Description: Fearful, Anxious Affect: Anxious Speech Pattern: Clear - Laboratory and Diagnostics Result Diagrams: 01/17/19 05:10 01/17/19 05:10 Labs: 01/12/19 06:00 Blood Blood Culture - Final 01/12/19 05:53 Blood Blood Culture - Final 01/12/19 07:20 Sputum - Expectorated Sputum Sputum Culture - Final 01/12/19 07:20 Sputum - Expectorated Sputum - Final Laboratory WBC 6.8 X10^3/uL (3.6-10.0) 01/17/19 05:10 RBC 2.60 X10^6/uL (4.7-6.0) L 01/17/19 05:10 Hgb 8.7 g/dL (13.5-18.0) L 01/17/19 05:10 Hct 26.6 % (42.0-54.0) L 01/17/19 05:10 MCV 102.0 fL (80.0-100.0) H 01/17/19 05:10 MCH 33.5 pg (27.0-34.0) 01/17/19 05:10 MCHC 32.9 g/dL (33.0-35.0) L 01/17/19 05:10 RDW 18.9 % (11.6-16.5) H 01/17/19 05:10 Plt Count 104 X10^3/uL (150.0-450.0) L 01/17/19 05:10 MPV 8.9 fL (7.4-11.0) 01/17/19 05:10 Neut % (Auto) 65.3 % (42.0-75.0) 01/17/19 05:10 Lymph % (Auto) 18.8 % (21.0-51.0) L 01/17/19 05:10 [place] % (Auto) 14.6 % (0.0-13.0) H 01/17/19 05:10 Eos % (Auto) 1.1 % (0.9-2.9) 01/17/19 05:10 Baso % (Auto) 0.2 % (0.2-1.0) 01/17/19 05:10 Neut # (Auto) 4.4 x10^3/uL (2.2-4.8) 01/17/19 05:10 Lymph # (Auto) 1.3 X10^3/uL (1.3-2.9) 01/17/19 05:10 [place] # (Auto) 1.0 x10^3/uL (0.3-0.8) H 01/17/19 05:10 Eos # (Auto) 0.1 x10^3/uL (0.0-0.2) 01/17/19 05:10 Baso # (Auto) 0.0 X10^3/uL (0.0-0.1) 01/17/19 05:10 Absolute Nucleated RBC 0.1 /100WBC 01/17/19 05:10 PT 15.4 SECONDS (11.8-14.3) 01/12/19 04:40 INR Target Range - 01/12/19 04:40 INR 1.27 (0.8-1.3) 01/12/19 04:40 APTT 35.4 SECONDS (22.9-36.5) 01/12/19 04:40 PTT Comment - 01/12/19 04:40 Sample Site Lbra 01/16/19 09:23 ABG pH 7.480 (7.35-7.45) H 01/16/19 09:23 ABG pCO2 51.0 mmHg (35.0-45.0) H* 01/16/19 09:23 ABG pO2 113.0 mmHg (80.0-100.0) H 01/16/19 09:23 ABG HCO3 38.0 mmol/L (22-26) H* 01/16/19 09:23 ABG O2 Saturation 99.0 % (90-100) 01/16/19 09:23 ABG Base Excess 12.6 mmol/L (-2.0-2.0) H 01/16/19 09:23 David Test N/a 01/16/19 09:23 A-a Gradient 108.0 mmHg 01/16/19 09:23 FiO2 40.0 01/16/19 09:23 Blood Gas Comments Pt jorge well elj 01/16/19 09:23 Sodium 134 mmol/L (136-145) L 01/17/19 05:10 Corrected Sodium 134 mmol/L (136-145) L 01/17/19 05:10 Potassium 4.4 mmol/L (3.5-5.1) 01/17/19 05:10 Chloride 94 mmol/L (98-107) L 01/17/19 05:10 Carbon Dioxide 34.2 mmol/L (21-32) H 01/17/19 05:10 BUN 10 mg/dL (7-18) 01/17/19 05:10 Creatinine 0.71 mg/dL (0.70-1.30) 01/17/19 05:10 Est GFR (MDRD) Af Amer > 60 (>60) 01/17/19 05:10 Est GFR (MDRD) Non-Af > 60 (>60) 01/17/19 05:10 Glucose 115 mg/dL (65-99) H 01/17/19 05:10 POC Glucose (mg/dL) 188 mg/dL (65-99) H 01/14/19 11:06 Calcium 7.7 mg/dL (8.5-10.1) L 01/17/19 05:10 Corrected Calcium 9.5 mg/dL (8.5-10.1) 01/17/19 05:10 Total Bilirubin 0.90 mg/dL (0.2-1.0) 01/17/19 05:10 AST 19 Units/L (15-37) 01/17/19 05:10 ALT 13 Units/L (12-78) 01/17/19 05:10 Alkaline Phosphatase 111 Units/L (46-116) 01/17/19 05:10 Creatine Kinase 34 Units/L (39-308) L 01/12/19 17:57 CK-MB (CK-2) 3.9 ng/mL (0-4.0) 01/12/19 17:57 CK/CKMB % Calc 11.5 % (<4) 01/12/19 17:57 Troponin I 0.07 ng/mL (0-1.5) 01/12/19 17:57 B-Natriuretic Peptide 3120 pg/mL (0-79) H* 01/12/19 04:40 Total Protein 6.0 g/dL (6.4-8.2) L 01/17/19 05:10 Albumin 1.8 g/dL (3.4-5.0) L 01/17/19 05:10 Globulin 4.2 g/dL (2.5-4.5) 01/17/19 05:10 Albumin/Globulin Ratio 0.4 Ratio (1.1-2.1) L 01/17/19 05:10 Triglycerides 58 mg/dL (0-150) 01/13/19 05:17 Cholesterol 96 mg/dL (0-200) 01/13/19 05:17 LDL Cholesterol, Calc 44 mg/dL (0-100) 01/13/19 05:17 HDL Cholesterol 40 mg/dL (40-60) 01/13/19 05:17 Cholesterol/HDL Ratio 2.4 (0.0-5.0) 01/13/19 05:17 - Plan (1) Respiratory distress Status: Acute Plan: CXR Q AM, IV LASIX 40MG IV Q8HRS WITH WEBER CATH FOR STRICT I & OS, CE, ABG ON ADMISSION, CONSULT RESP FOR PRN BIPAP THERAPY. CONTINUOUS SUPPLEMENTAL O2. IVF KVO, SOLU MEDROL IV, VERIFY HOME MEDICATION. BS CONTROL (2) Pulmonary edema Status: Acute (3) CAD (coronary artery disease) Status: Acute Qualifiers: Coronary Disease-Associated Artery/Lesion type: bypass graft (4) COPD exacerbation Status: Acute (5) PAD (peripheral artery disease) Status: Acute (6) Foot ulcer with necrosis of muscle Status: Acute (7) CHF (congestive heart failure) Status: Acute (8) CAD (coronary artery disease) Status: Acute Qualifiers: Coronary Disease-Associated Artery/Lesion type: [place] artery [place] vs. transplanted heart: [place] heart Associated angina: without angina Qualified Code(s): I25.10 - Atherosclerotic heart disease of [place] coronary artery without angina pectoris (9) Hypertension Status: Chronic (10) GERD (gastroesophageal reflux disease) Status: Chronic Qualifiers: Esophagitis presence: without esophagitis Qualified Code(s): K21.9 - Gastro-esophageal reflux disease without esophagitis
[2019-01-17] MEDS: LIPITOR TAB 20 MG PO SCH (20:18)
[2019-01-17] MEDS: LOVENOX INJ 40 MG SYR SC SCH (20:20)
[2019-01-18] MEDS: HALDOL PO PRN ×3 (00:21→22:50)
[2019-01-18] MEDS: NORCO 10/325 TAB PO PRN ×2 (04:04→20:19)
[2019-01-18 05:03] LABS: BASOPHILS % (AUTO) 0 % (0.2-1.0); HEMATOCRIT 25.9 % (42.0-54.0); HEMOGLOBIN 8.5 g/dL (13.5-18.0); LYMPHOCYTES # (AUTO) 0.3 X10^3/uL (1.3-2.9); LYMPHOCYTES % (AUTO) 8.7 % (21.0-51.0); MEAN CORPUSCULAR HGB CONC 32.7 g/dL (33.0-35.0); MEAN CORPUSCULAR VOLUME 103.9 fL (80.0-100.0); MEAN PLATELET VOLUME 9.6 fL (7.4-11.0); MONOCYTES # (AUTO) 0.1 x10^3/uL (0.3-0.8); MONOCYTES % (AUTO) 2.3 % (0.0-13.0); NEUTROPHILS # (AUTO) 3.6 x10^3/uL (2.2-4.8); PLATELET COUNT 107 X10^3/uL (150.0-450.0); RED BLOOD COUNT 2.49 X10^6/uL (4.7-6.0); RED CELL DISTRIBUTION WIDTH 18.7 % (11.6-16.5)
[2019-01-18 05:11] LABS: ALANINE AMINOTRANSFERASE 12 Units/L (12-78); ALBUMIN 1.9 g/dL (3.4-5.0); ALKALINE PHOSPHATASE 107 Units/L (46-116); ASPARTATE AMINO TRANSFERASE 13 Units/L (15-37); BLOOD UREA NITROGEN 14 mg/dL (7-18); CALCIUM 8.4 mg/dL (8.5-10.1); CARBON DIOXIDE 34.1 mmol/L (21-32); CHLORIDE 93 mmol/L (98-107); COR CA(FOR HYPOALB) 10.1 mg/dL (8.5-10.1); COR NA(FOR HYPERGLY) 137 mmol/L (136-145); SODIUM 132 mmol/L (136-145); TOTAL PROTEIN 6.3 g/dL (6.4-8.2); eGFR NON BLACK RACES > 60 (>60)
[2019-01-18] MEDS: LASIX IVP SCH ×3 (05:14→21:43)
[2019-01-18] MEDS: SOLU-Medrol 125 MG VIAL IVP SCH ×3 (05:14→21:43)
[2019-01-18] MEDS: NS 1/2 1000 ML IV 1,000 ML IV SCH ×2 (05:15→18:00)
[2019-01-18] MEDS: HumuLIN R SC PRN ×4 (05:54→20:15)
[2019-01-18] MEDS: DUONEB 0.5 MG/3 MG NEB SCH ×4 (08:27→20:25)
[2019-01-18] MEDS ORDERED: LEVAQUIN PREMIX IV 750 MG 750 MG/150 ML BAG IV SCH (09:00)
[2019-01-18] MEDS: BUSPAR PO SCH ×2 (09:18→20:17)
[2019-01-18] MEDS: PLAVIX PO SCH (09:20)
[2019-01-18] MEDS: COREG TAB 3.125 MG PO SCH ×2 (09:21→20:17)
[2019-01-18] MEDS: PROTONIX TAB 40 MG PO SCH (09:22)
[2019-01-18] MEDS: ENTRESTO 24/26 MG TAB PO SCH ×2 (09:23→20:17)
[2019-01-18] MEDS: VSL#3 PO SCH (09:23)
[2019-01-18] MEDS: ROBITUSSIN DM PO SCH ×4 (09:24→20:16)
[2019-01-18] MEDS: DIFLUCAN PO SCH (09:25)
[2019-01-18] MEDS: NYSTATIN POWDER TOP SCH ×2 (09:25→20:19)
[2019-01-18] MEDS: MAALOX or MYLANTA PO PRN (13:30)
[2019-01-18] MEDS: K-DUR TAB 20 MEQ PO SCH ×2 (14:44→20:16)
[2019-01-18] MEDS ORDERED: NS 1/2 1000 ML IV 1,000 ML IV ONE (17:23)
[2019-01-18] MEDS: LIPITOR TAB 20 MG PO SCH (20:16)
[2019-01-18] MEDS: LOVENOX INJ 40 MG SYR SC SCH (20:18)
[2019-01-19] MEDS: NORCO 10/325 TAB PO PRN ×5 (01:09→21:01)
[2019-01-19] MEDS: MAALOX or MYLANTA PO PRN ×2 (04:47→08:53)
[2019-01-19] MEDS: SOLU-Medrol 125 MG VIAL IVP SCH ×3 (05:02→21:01)
[2019-01-19] MEDS: LASIX IVP SCH ×3 (05:02→20:59)
[2019-01-19 05:18] LABS: BASOPHILS % (AUTO) 0.1 % (0.2-1.0); HEMATOCRIT 24.5 % (42.0-54.0); HEMOGLOBIN 8.3 g/dL (13.5-18.0); LYMPHOCYTES # (AUTO) 0.2 X10^3/uL (1.3-2.9); LYMPHOCYTES % (AUTO) 5.3 % (21.0-51.0); MEAN CORPUSCULAR HEMOGLOBIN 34.4 pg (27.0-34.0); MEAN CORPUSCULAR HGB CONC 33.9 g/dL (33.0-35.0); MEAN CORPUSCULAR VOLUME 101.4 fL (80.0-100.0); MEAN PLATELET VOLUME 9.5 fL (7.4-11.0); MONOCYTES # (AUTO) 0.2 x10^3/uL (0.3-0.8); MONOCYTES % (AUTO) 3.7 % (0.0-13.0); NEUTROPHILS # (AUTO) 4.1 x10^3/uL (2.2-4.8); NEUTROPHILS % (AUTO) 90.9 % (42.0-75.0); PLATELET COUNT 82 X10^3/uL (150.0-450.0); RED BLOOD COUNT 2.41 X10^6/uL (4.7-6.0); RED CELL DISTRIBUTION WIDTH 18.6 % (11.6-16.5); WHITE BLOOD COUNT 4.5 X10^3/uL (3.6-10.0)
[2019-01-19 05:28] LABS: ALANINE AMINOTRANSFERASE 10 Units/L (12-78); ALBUMIN 1.9 g/dL (3.4-5.0); ALKALINE PHOSPHATASE 95 Units/L (46-116); ASPARTATE AMINO TRANSFERASE 12 Units/L (15-37); BLOOD UREA NITROGEN 19 mg/dL (7-18); CALCIUM 8.2 mg/dL (8.5-10.1); CARBON DIOXIDE 35.4 mmol/L (21-32); CHLORIDE 93 mmol/L (98-107); COR CA(FOR HYPOALB) 9.9 mg/dL (8.5-10.1); COR NA(FOR HYPERGLY) 133 mmol/L (136-145); CREATININE 0.95 mg/dL (0.70-1.30); SODIUM 130 mmol/L (136-145); eGFR NON BLACK RACES > 60 (>60)
[2019-01-19] MEDS: HumuLIN R SC PRN ×4 (05:37→20:58)
[2019-01-19 05:45] LABS: PLATELET MORPHOLOGY COMMENT NORMAL (NORMAL)
[2019-01-19] MEDS: ROBITUSSIN DM PO SCH ×4 (08:45→20:59)
[2019-01-19] MEDS: COREG TAB 3.125 MG PO SCH ×2 (08:46→21:00)
[2019-01-19] MEDS: BUSPAR PO SCH ×2 (08:46→21:00)
[2019-01-19] MEDS: DIFLUCAN PO SCH (08:47)
[2019-01-19] MEDS: VSL#3 PO SCH (08:47)
[2019-01-19] MEDS: PLAVIX PO SCH (08:47)
[2019-01-19] MEDS: PROTONIX TAB 40 MG PO SCH (08:47)
[2019-01-19] MEDS: ENTRESTO 24/26 MG TAB PO SCH ×2 (08:47→20:59)
[2019-01-19] MEDS: LEVAQUIN PREMIX IV 750 MG 750 MG/150 ML BAG IV SCH (08:51)
[2019-01-19] MEDS: DUONEB 0.5 MG/3 MG NEB SCH ×4 (10:14→21:22)
[2019-01-19] MEDS: MORPHINE SULFATE INJ 2 MG INJ IVP PRN ×2 (11:04→17:04)
[2019-01-19] MEDS: K-DUR TAB 20 MEQ PO SCH ×2 (12:45→21:00)
[2019-01-19] MEDS: ZOFRAN INJ 4 MG VIAL IVP PRN (12:59)
[2019-01-19] MEDS: HALDOL PO PRN (12:59)
[2019-01-19] MEDS: NYSTATIN POWDER TOP SCH ×2 (13:03→21:01)
[2019-01-19] MEDS: NS 1/2 1000 ML IV 1,000 ML IV SCH ×2 (19:06→21:01)
[2019-01-19] MEDS: LIPITOR TAB 20 MG PO SCH (20:59)
[2019-01-19] MEDS ORDERED: LOVENOX INJ 30 MG SYR SC SCH (21:00)
[2019-01-20] MEDS: HALDOL PO PRN (00:40)
[2019-01-20] MEDS: MORPHINE SULFATE INJ 2 MG INJ IVP PRN (00:40)
[2019-01-20] MEDS ORDERED: NS 1/2 1000 ML IV 1,000 ML IV ONE (05:25)
[2019-01-20] MEDS: NORCO 10/325 TAB PO PRN ×3 (06:00→21:42)
[2019-01-20] MEDS: NS 1/2 1000 ML IV 1,000 ML IV SCH ×2 (06:09→14:31)
[2019-01-20] MEDS: SOLU-Medrol 125 MG VIAL IVP SCH (06:09)
[2019-01-20] MEDS: HumuLIN R SC PRN ×4 (06:11→21:42)
[2019-01-20 06:45] LABS: BASOPHILS % (AUTO) 0.2 % (0.2-1.0); HEMATOCRIT 26.7 % (42.0-54.0); HEMOGLOBIN 8.6 g/dL (13.5-18.0); LYMPHOCYTES # (AUTO) 0.2 X10^3/uL (1.3-2.9); LYMPHOCYTES % (AUTO) 5.6 % (21.0-51.0); MEAN CORPUSCULAR HEMOGLOBIN 33.6 pg (27.0-34.0); MEAN CORPUSCULAR HGB CONC 32.2 g/dL (33.0-35.0); MEAN CORPUSCULAR VOLUME 104.4 fL (80.0-100.0); MEAN PLATELET VOLUME 10.2 fL (7.4-11.0); MONOCYTES # (AUTO) 0.2 x10^3/uL (0.3-0.8); MONOCYTES % (AUTO) 4.4 % (0.0-13.0); NEUTROPHILS # (AUTO) 3.3 x10^3/uL (2.2-4.8); NEUTROPHILS % (AUTO) 89.8 % (42.0-75.0); PLATELET COUNT 72 X10^3/uL (150.0-450.0); RED BLOOD COUNT 2.56 X10^6/uL (4.7-6.0); RED CELL DISTRIBUTION WIDTH 18.9 % (11.6-16.5); WHITE BLOOD COUNT 3.7 X10^3/uL (3.6-10.0)
[2019-01-20 06:59] LABS: ALANINE AMINOTRANSFERASE 10 Units/L (12-78); ALBUMIN 1.8 g/dL (3.4-5.0); ALKALINE PHOSPHATASE 90 Units/L (46-116); ASPARTATE AMINO TRANSFERASE 11 Units/L (15-37); BLOOD UREA NITROGEN 21 mg/dL (7-18); CALCIUM 7.9 mg/dL (8.5-10.1); CARBON DIOXIDE 32.6 mmol/L (21-32); COR CA(FOR HYPOALB) 9.7 mg/dL (8.5-10.1); CREATININE 0.87 mg/dL (0.70-1.30); TOTAL PROTEIN 5.6 g/dL (6.4-8.2); eGFR NON BLACK RACES > 60 (>60)
[2019-01-20 07:23] LABS: CHLORIDE 93 mmol/L (98-107); COR NA(FOR HYPERGLY) 132 mmol/L (136-145); SODIUM 128 mmol/L (136-145)
[2019-01-20] MEDS: DUONEB 0.5 MG/3 MG NEB SCH ×4 (08:15→20:54)
[2019-01-20] MEDS ORDERED: DILAUDID INJ IVP PRN (09:30)
[2019-01-20] MEDS: ROBITUSSIN DM PO SCH ×4 (10:17→21:34)
[2019-01-20] MEDS: COREG TAB 3.125 MG PO SCH ×2 (10:17→21:34)
[2019-01-20] MEDS: PROTONIX TAB 40 MG PO SCH (10:17)
[2019-01-20] MEDS: BUSPAR PO SCH ×2 (10:19→21:34)
[2019-01-20] MEDS: LASIX IVP SCH ×2 (10:19→21:42)
[2019-01-20] MEDS: ENTRESTO 24/26 MG TAB PO SCH ×2 (10:19→21:41)
[2019-01-20] MEDS: DIFLUCAN PO SCH (10:20)
[2019-01-20] MEDS: PLAVIX PO SCH (10:20)
[2019-01-20] MEDS: LEVAQUIN PREMIX IV 750 MG 750 MG/150 ML BAG IV SCH (10:20)
[2019-01-20] MEDS: VSL#3 PO SCH (10:20)
[2019-01-20] MEDS: NYSTATIN POWDER TOP SCH ×2 (10:21→21:41)
[2019-01-20] MEDS: K-DUR TAB 20 MEQ PO SCH ×2 (10:21→21:42)
--- NOTE | 2019-01-20 17:32 | PCM.PROG ---
Progress Note - Progress Note for Day of Date of Exam: 01/18/19 - Subjective Subjective: IS BEING TREATED FOR CHF AND MULTIFOCAL PNEUMONIA. TODAY, HE IS ALERT AND ORIENTED, LYING IN BED ON MORNING ROUNDS. HE CONTINUES WITH COMPLAINTS OF SHORTNESS OF BREATH AND COUGH THIS MORNING. HE HAS BEEN UTILIZING THE BIPAP AND SUPPLEMENTAL OXYGEN. ON EXAMINATION, HEART IS REGULAR IN RATE AND RHYTHM. BILATERAL LUNGS ARE NOTED WITH DIMINISHED LUNG SOUNDS THROUGHOUT. 3RD, 4TH, AND 5TH TOES ON THE LEFT FOOT ARE NECROTIC. HE IS CURRENTLY RECEIVING IV LASIX, IV ANTIBIOITICS, RESPIRATORY TREATMENTS, AND SUPPLEMENTAL OXYGEN. WE WILL CONTINUE WITH BIPAP AND CURRENT PLAN OF CARE TODAY. OTHERWISE, WE PLAN TO FOLLOW UP WITH AM LABS AND CONTINUE TO MONITOR. PT IS TEARFUL ON EXAM, CONCERNED ABOUT HIS FAMILY AND HIS ABILITY TO TRAVEL BY PRIVATE CARE TO INTERMEDIATE IN [place]. PT STATES HE IS READY TO GO HOME TO [place] TO BE WITH HIS FAMILY IF WE CAN GET HIM WELL TO TRAVEL. CONTACTED FAMILY ABOUT ARRANGEMENTS FOR PLAN FOR D/C. PT WILL NEED SUPPLEMENTAL O2. PT IS VERY ANXIOUS, CONTINUES TO CO LOWER LEG SWELLING, AND HAS TO SIT UP TO BREATH - Past Medical Family Social History Past Med/Fam/Surg Hx: No changes since H&P Allergies: Allergies chocolate flavor Allergy (Verified 08/03/18 19:46) Penicillins Allergy (Verified 08/03/18 19:46) CHOCOLATE Allergy (Uncoded 08/03/18 19:46) - Review of Systems ROS: No change since H&P - Vital Signs and I&O's Vital Signs: Temperature 97.4 F Pulse Rate [Brachial] 86 Pulse Rate 88 Respiratory Rate 21 Blood Pressure [Left Arm] 143/77 Blood Pressure [Right Arm] 124/63 Blood Pressure 135/73 O2 Sat by Pulse Oximetry 100 Intake and Output: Intake & Output 01/18/19 01/19/19 01/20/19 01/21/19 11:59 11:59 11:59 11:59 Intake Total 3572 / 3572 1330 / 1330 1620 / 1620 980 / 980 Output Total 1275 / 1275 950 / 950 2225 / 2225 700 / 700 Balance 2297 / 2297 380 / 380 -605 / -605 280 / 280 - Physical Exam Oriented: Normal Eyes: Normal Ear: Normal Nose: Normal Throat: Normal Respiratory: Generalized, Diminished Cardiovascular: Normal, Other. negative: Edema Auscultation: Bowel Sounds: Normal Tenderness: Normal Skin: Decreased Turgur, Wound (LEFT FOOT, 3RD, 4TH 5TH TOES, NECROTIC)) Musculoskeletal: Left, Back:Lumbar, Sensory Deficit Psychiatric: Anxiety Mood Description: Fearful, Anxious Affect: Anxious Speech Pattern: Clear - Laboratory and Diagnostics Result Diagrams: 01/20/19 05:05 01/20/19 05:05 Labs: 01/12/19 06:00 Blood Blood Culture - Final 01/12/19 05:53 Blood Blood Culture - Final 01/12/19 07:20 Sputum - Expectorated Sputum Sputum Culture - Final 01/12/19 07:20 Sputum - Expectorated Sputum - Final Laboratory WBC 3.7 X10^3/uL (3.6-10.0) 01/20/19 05:05 RBC 2.56 X10^6/uL (4.7-6.0) L 01/20/19 05:05 Hgb 8.6 g/dL (13.5-18.0) L 01/20/19 05:05 Hct 26.7 % (42.0-54.0) L 01/20/19 05:05 MCV 104.4 fL (80.0-100.0) H 01/20/19 05:05 MCH 33.6 pg (27.0-34.0) 01/20/19 05:05 MCHC 32.2 g/dL (33.0-35.0) L 01/20/19 05:05 RDW 18.9 % (11.6-16.5) H 01/20/19 05:05 Plt Count 72 X10^3/uL (150.0-450.0) L 01/20/19 05:05 Plt Count Comment Decreased (ADEQUATE) 01/19/19 04:34 MPV 10.2 fL (7.4-11.0) 01/20/19 05:05 Neut % (Auto) 89.8 % (42.0-75.0) H 01/20/19 05:05 Lymph % (Auto) 5.6 % (21.0-51.0) L 01/20/19 05:05 [place] % (Auto) 4.4 % (0.0-13.0) 01/20/19 05:05 Eos % (Auto) 0.0 % (0.9-2.9) L 01/20/19 05:05 Baso % (Auto) 0.2 % (0.2-1.0) 01/20/19 05:05 Neut # (Auto) 3.3 x10^3/uL (2.2-4.8) 01/20/19 05:05 Lymph # (Auto) 0.2 X10^3/uL (1.3-2.9) L 01/20/19 05:05 [place] # (Auto) 0.2 x10^3/uL (0.3-0.8) L 01/20/19 05:05 Eos # (Auto) 0.0 x10^3/uL (0.0-0.2) 01/20/19 05:05 Baso # (Auto) 0.0 X10^3/uL (0.0-0.1) 01/20/19 05:05 Absolute Nucleated RBC 0.2 /100WBC 01/20/19 05:05 Total Counted 100 01/19/19 04:34 Neutrophils % (Manual) 93 % (39-76) H 01/19/19 04:34 Lymphocytes % (Manual) 5 % (13-43) L 01/19/19 04:34 Monocytes % (Manual) 2 % (4-9) L 01/19/19 04:34 Plt Morphology Comment Normal (NORMAL) 01/19/19 04:34 RBC Morphology Normal (NORMAL) 01/19/19 04:34 PT 15.4 SECONDS (11.8-14.3) 01/12/19 04:40 INR Target Range - 01/12/19 04:40 INR 1.27 (0.8-1.3) 01/12/19 04:40 APTT 35.4 SECONDS (22.9-36.5) 01/12/19 04:40 PTT Comment - 01/12/19 04:40 Sample Site Lbra 01/16/19 09:23 ABG pH 7.480 (7.35-7.45) H 01/16/19 09:23 ABG pCO2 51.0 mmHg (35.0-45.0) H* 01/16/19 09:23 ABG pO2 113.0 mmHg (80.0-100.0) H 01/16/19 09:23 ABG HCO3 38.0 mmol/L (22-26) H* 01/16/19 09:23 ABG O2 Saturation 99.0 % (90-100) 01/16/19 09:23 ABG Base Excess 12.6 mmol/L (-2.0-2.0) H 01/16/19 09:23 David Test N/a 01/16/19 09:23 A-a Gradient 108.0 mmHg 01/16/19 09:23 FiO2 40.0 01/16/19 09:23 Blood Gas Comments Pt jorge well elj 01/16/19 09:23 Sodium 128 mmol/L (136-145) L 01/20/19 05:05 Corrected Sodium 132 mmol/L (136-145) L 01/20/19 05:05 Potassium 4.6 mmol/L (3.5-5.1) 01/20/19 05:05 Chloride 93 mmol/L (98-107) L 01/20/19 05:05 Carbon Dioxide 32.6 mmol/L (21-32) H 01/20/19 05:05 BUN 21 mg/dL (7-18) H 01/20/19 05:05 Creatinine 0.87 mg/dL (0.70-1.30) 01/20/19 05:05 Est GFR (MDRD) Af Amer > 60 (>60) 01/20/19 05:05 Est GFR (MDRD) Non-Af > 60 (>60) 01/20/19 05:05 Glucose 281 mg/dL (65-99) H 01/20/19 05:05 POC Glucose (mg/dL) 365 mg/dL (65-99) H 01/20/19 11:19 Calcium 7.9 mg/dL (8.5-10.1) L 01/20/19 05:05 Corrected Calcium 9.7 mg/dL (8.5-10.1) 01/20/19 05:05 Iron 68 ug/dL (50-175) 01/19/19 04:34 Transferrin 88 mg/dL (202-364) L 01/19/19 04:34 Ferritin 1942 ng/mL (26-388) H 01/19/19 04:34 Total Bilirubin 0.50 mg/dL (0.2-1.0) 01/20/19 05:05 AST 11 Units/L (15-37) L 01/20/19 05:05 ALT 10 Units/L (12-78) L 01/20/19 05:05 Alkaline Phosphatase 90 Units/L (46-116) 01/20/19 05:05 Creatine Kinase 34 Units/L (39-308) L 01/12/19 17:57 CK-MB (CK-2) 3.9 ng/mL (0-4.0) 01/12/19 17:57 CK/CKMB % Calc 11.5 % (<4) 01/12/19 17:57 Troponin I 0.07 ng/mL (0-1.5) 01/12/19 17:57 B-Natriuretic Peptide 3120 pg/mL (0-79) H* 01/12/19 04:40 Total Protein 5.6 g/dL (6.4-8.2) L 01/20/19 05:05 Albumin 1.8 g/dL (3.4-5.0) L 01/20/19 05:05 Globulin 3.8 g/dL (2.5-4.5) 01/20/19 05:05 Albumin/Globulin Ratio 0.5 Ratio (1.1-2.1) L 01/20/19 05:05 Triglycerides 58 mg/dL (0-150) 01/13/19 05:17 Cholesterol 96 mg/dL (0-200) 01/13/19 05:17 LDL Cholesterol, Calc 44 mg/dL (0-100) 01/13/19 05:17 HDL Cholesterol 40 mg/dL (40-60) 01/13/19 05:17 Cholesterol/HDL Ratio 2.4 (0.0-5.0) 01/13/19 05:17 Vitamin B12 801 pg/mL (193-986) 01/19/19 04:34 Folate 6.5 ng/mL (>8.6) L 01/19/19 04:34 - Plan (1) Respiratory distress Status: Acute Plan: CXR Q AM, IV LASIX, CONSULT RESP FOR PRN BIPAP THERAPY. CONTINUOUS SUPPLEMENTAL O2. IVF KVO, SOLU MEDROL IV, BP CONTROL, PT, PAIN CONTROL. BS CONTROL (2) Pulmonary edema Status: Acute (3) CAD (coronary artery disease) Status: Acute Qualifiers: Coronary Disease-Associated Artery/Lesion type: bypass graft (4) COPD exacerbation Status: Acute (5) PAD (peripheral artery disease) Status: Acute (6) Foot ulcer with necrosis of muscle Status: Acute (7) CHF (congestive heart failure) Status: Acute (8) CAD (coronary artery disease) Status: Acute Qualifiers: Coronary Disease-Associated Artery/Lesion type: [place] artery [place] vs. transplanted heart: [place] heart Associated angina: without angina Qualified Code(s): I25.10 - Atherosclerotic heart disease of [place] coronary artery without angina pectoris (9) Hypertension Status: Chronic (10) GERD (gastroesophageal reflux disease) Status: Chronic Qualifiers: Esophagitis presence: without esophagitis Qualified Code(s): K21.9 - Gastro-esophageal reflux disease without esophagitis
--- NOTE | 2019-01-20 17:34 | PCM.PROG ---
Progress Note - Progress Note for Day of Date of Exam: 01/19/19 - Subjective Subjective: IS BEING TREATED FOR CHF AND MULTIFOCAL PNEUMONIA. TODAY, HE IS ALERT AND ORIENTED, LYING IN BED ON MORNING ROUNDS. HE CONTINUES WITH COMPLAINTS OF SHORTNESS OF BREATH AND COUGH THIS MORNING. HE HAS BEEN UTILIZING THE BIPAP AND SUPPLEMENTAL OXYGEN. ON EXAMINATION, HEART IS REGULAR IN RATE AND RHYTHM. BILATERAL LUNGS ARE NOTED WITH DIMINISHED LUNG SOUNDS THROUGHOUT. 3RD, 4TH, AND 5TH TOES ON THE LEFT FOOT ARE NECROTIC. HE IS CURRENTLY RECEIVING IV LASIX, IV ANTIBIOITICS, RESPIRATORY TREATMENTS, AND SUPPLEMENTAL OXYGEN. WE WILL CONTINUE WITH BIPAP AND CURRENT PLAN OF CARE TODAY. OTHERWISE, WE PLAN TO FOLLOW UP WITH AM LABS AND CONTINUE TO MONITOR. PT IS TEARFUL ON EXAM, CONCERNED ABOUT HIS FAMILY AND HIS ABILITY TO TRAVEL BY PRIVATE CARE TO [facility] IN [place]. PT STATES HE IS READY TO GO HOME TO [place] TO BE WITH HIS FAMILY IF WE CAN GET HIM WELL TO TRAVEL. CONTACTED FAMILY ABOUT ARRANGEMENTS FOR PLAN FOR D/C. PT WILL NEED SUPPLEMENTAL O2. BUN 19, CREAT 0.95., ENCOURAGED ORAL HYDRATION. PT IS VERY ANXIOUS, CONTINUES TO CO LOWER LEG SWELLING, AND HAS TO SIT UP TO BREATH - Past Medical Family Social History Past Med/Fam/Surg Hx: No changes since H&P Allergies: Allergies chocolate flavor Allergy (Verified 08/03/18 19:46) Penicillins Allergy (Verified 08/03/18 19:46) CHOCOLATE Allergy (Uncoded 08/03/18 19:46) - Review of Systems ROS: No change since H&P - Vital Signs and I&O's Vital Signs: Temperature 97.4 F Pulse Rate [Brachial] 86 Pulse Rate 88 Respiratory Rate 21 Blood Pressure [Left Arm] 143/77 Blood Pressure [Right Arm] 124/63 Blood Pressure 135/73 O2 Sat by Pulse Oximetry 100 Intake and Output: Intake & Output 01/18/19 01/19/19 01/20/19 01/21/19 11:59 11:59 11:59 11:59 Intake Total 3572 / 3572 1330 / 1330 1620 / 1620 980 / 980 Output Total 1275 / 1275 950 / 950 2225 / 2225 700 / 700 Balance 2297 / 2297 380 / 380 -605 / -605 280 / 280 - Physical Exam Oriented: Normal Eyes: Normal Ear: Normal Nose: Normal Throat: Normal Respiratory: Generalized, Diminished Cardiovascular: Normal, Other. negative: Edema Auscultation: Bowel Sounds: Normal Tenderness: Normal Skin: Decreased Turgur, Wound (LEFT FOOT, 3RD, 4TH 5TH TOES, NECROTIC)) Musculoskeletal: Left, Back:Lumbar, Sensory Deficit Psychiatric: Anxiety Mood Description: Fearful, Anxious Affect: Anxious Speech Pattern: Clear - Laboratory and Diagnostics Result Diagrams: 01/20/19 05:05 01/20/19 05:05 Labs: 01/12/19 06:00 Blood Blood Culture - Final 01/12/19 05:53 Blood Blood Culture - Final 01/12/19 07:20 Sputum - Expectorated Sputum Sputum Culture - Final 01/12/19 07:20 Sputum - Expectorated Sputum - Final Laboratory WBC 3.7 X10^3/uL (3.6-10.0) 01/20/19 05:05 RBC 2.56 X10^6/uL (4.7-6.0) L 01/20/19 05:05 Hgb 8.6 g/dL (13.5-18.0) L 01/20/19 05:05 Hct 26.7 % (42.0-54.0) L 01/20/19 05:05 MCV 104.4 fL (80.0-100.0) H 01/20/19 05:05 MCH 33.6 pg (27.0-34.0) 01/20/19 05:05 MCHC 32.2 g/dL (33.0-35.0) L 01/20/19 05:05 RDW 18.9 % (11.6-16.5) H 01/20/19 05:05 Plt Count 72 X10^3/uL (150.0-450.0) L 01/20/19 05:05 Plt Count Comment Decreased (ADEQUATE) 01/19/19 04:34 MPV 10.2 fL (7.4-11.0) 01/20/19 05:05 Neut % (Auto) 89.8 % (42.0-75.0) H 01/20/19 05:05 Lymph % (Auto) 5.6 % (21.0-51.0) L 01/20/19 05:05 [place] % (Auto) 4.4 % (0.0-13.0) 01/20/19 05:05 Eos % (Auto) 0.0 % (0.9-2.9) L 01/20/19 05:05 Baso % (Auto) 0.2 % (0.2-1.0) 01/20/19 05:05 Neut # (Auto) 3.3 x10^3/uL (2.2-4.8) 01/20/19 05:05 Lymph # (Auto) 0.2 X10^3/uL (1.3-2.9) L 01/20/19 05:05 [place] # (Auto) 0.2 x10^3/uL (0.3-0.8) L 01/20/19 05:05 Eos # (Auto) 0.0 x10^3/uL (0.0-0.2) 01/20/19 05:05 Baso # (Auto) 0.0 X10^3/uL (0.0-0.1) 01/20/19 05:05 Absolute Nucleated RBC 0.2 /100WBC 01/20/19 05:05 Total Counted 100 01/19/19 04:34 Neutrophils % (Manual) 93 % (39-76) H 01/19/19 04:34 Lymphocytes % (Manual) 5 % (13-43) L 01/19/19 04:34 Monocytes % (Manual) 2 % (4-9) L 01/19/19 04:34 Plt Morphology Comment Normal (NORMAL) 01/19/19 04:34 RBC Morphology Normal (NORMAL) 01/19/19 04:34 PT 15.4 SECONDS (11.8-14.3) 01/12/19 04:40 INR Target Range - 01/12/19 04:40 INR 1.27 (0.8-1.3) 01/12/19 04:40 APTT 35.4 SECONDS (22.9-36.5) 01/12/19 04:40 PTT Comment - 01/12/19 04:40 Sample Site Lbra 01/16/19 09:23 ABG pH 7.480 (7.35-7.45) H 01/16/19 09:23 ABG pCO2 51.0 mmHg (35.0-45.0) H* 01/16/19 09:23 ABG pO2 113.0 mmHg (80.0-100.0) H 01/16/19 09:23 ABG HCO3 38.0 mmol/L (22-26) H* 01/16/19 09:23 ABG O2 Saturation 99.0 % (90-100) 01/16/19 09:23 ABG Base Excess 12.6 mmol/L (-2.0-2.0) H 01/16/19 09:23 David Test N/a 01/16/19 09:23 A-a Gradient 108.0 mmHg 01/16/19 09:23 FiO2 40.0 01/16/19 09:23 Blood Gas Comments Pt jorge well elj 01/16/19 09:23 Sodium 128 mmol/L (136-145) L 01/20/19 05:05 Corrected Sodium 132 mmol/L (136-145) L 01/20/19 05:05 Potassium 4.6 mmol/L (3.5-5.1) 01/20/19 05:05 Chloride 93 mmol/L (98-107) L 01/20/19 05:05 Carbon Dioxide 32.6 mmol/L (21-32) H 01/20/19 05:05 BUN 21 mg/dL (7-18) H 01/20/19 05:05 Creatinine 0.87 mg/dL (0.70-1.30) 01/20/19 05:05 Est GFR (MDRD) Af Amer > 60 (>60) 01/20/19 05:05 Est GFR (MDRD) Non-Af > 60 (>60) 01/20/19 05:05 Glucose 281 mg/dL (65-99) H 01/20/19 05:05 POC Glucose (mg/dL) 365 mg/dL (65-99) H 01/20/19 11:19 Calcium 7.9 mg/dL (8.5-10.1) L 01/20/19 05:05 Corrected Calcium 9.7 mg/dL (8.5-10.1) 01/20/19 05:05 Iron 68 ug/dL (50-175) 01/19/19 04:34 Transferrin 88 mg/dL (202-364) L 01/19/19 04:34 Ferritin 1942 ng/mL (26-388) H 01/19/19 04:34 Total Bilirubin 0.50 mg/dL (0.2-1.0) 01/20/19 05:05 AST 11 Units/L (15-37) L 01/20/19 05:05 ALT 10 Units/L (12-78) L 01/20/19 05:05 Alkaline Phosphatase 90 Units/L (46-116) 01/20/19 05:05 Creatine Kinase 34 Units/L (39-308) L 01/12/19 17:57 CK-MB (CK-2) 3.9 ng/mL (0-4.0) 01/12/19 17:57 CK/CKMB % Calc 11.5 % (<4) 01/12/19 17:57 Troponin I 0.07 ng/mL (0-1.5) 01/12/19 17:57 B-Natriuretic Peptide 3120 pg/mL (0-79) H* 01/12/19 04:40 Total Protein 5.6 g/dL (6.4-8.2) L 01/20/19 05:05 Albumin 1.8 g/dL (3.4-5.0) L 01/20/19 05:05 Globulin 3.8 g/dL (2.5-4.5) 01/20/19 05:05 Albumin/Globulin Ratio 0.5 Ratio (1.1-2.1) L 01/20/19 05:05 Triglycerides 58 mg/dL (0-150) 01/13/19 05:17 Cholesterol 96 mg/dL (0-200) 01/13/19 05:17 LDL Cholesterol, Calc 44 mg/dL (0-100) 01/13/19 05:17 HDL Cholesterol 40 mg/dL (40-60) 01/13/19 05:17 Cholesterol/HDL Ratio 2.4 (0.0-5.0) 01/13/19 05:17 Vitamin B12 801 pg/mL (193-986) 01/19/19 04:34 Folate 6.5 ng/mL (>8.6) L 01/19/19 04:34 - Plan (1) Respiratory distress Status: Acute Plan: CXR Q AM, IV LASIX, CONSULT RESP FOR PRN BIPAP THERAPY. CONTINUOUS SUPPLEMENTAL O2. IVF KVO, SOLU MEDROL IV, BP CONTROL, PT, PAIN CONTROL. BS CONTROL (2) Pulmonary edema Status: Acute (3) CAD (coronary artery disease) Status: Acute Qualifiers: Coronary Disease-Associated Artery/Lesion type: bypass graft (4) COPD exacerbation Status: Acute (5) PAD (peripheral artery disease) Status: Acute (6) Foot ulcer with necrosis of muscle Status: Acute (7) CHF (congestive heart failure) Status: Acute (8) CAD (coronary artery disease) Status: Acute Qualifiers: Coronary Disease-Associated Artery/Lesion type: [place] artery [place] vs. transplanted heart: [place] heart Associated angina: without angina Qualified Code(s): I25.10 - Atherosclerotic heart disease of [place] coronary artery without angina pectoris (9) Hypertension Status: Chronic (10) GERD (gastroesophageal reflux disease) Status: Chronic Qualifiers: Esophagitis presence: without esophagitis Qualified Code(s): K21.9 - Gastro-esophageal reflux disease without esophagitis
--- NOTE | 2019-01-20 17:36 | PCM.PROG ---
Progress Note - Progress Note for Day of Date of Exam: 01/20/19 - Subjective Subjective: IS BEING TREATED FOR CHF AND MULTIFOCAL PNEUMONIA. TODAY, HE IS ALERT AND ORIENTED, LYING IN BED ON MORNING ROUNDS. HE CONTINUES WITH COMPLAINTS OF SHORTNESS OF BREATH AND COUGH THIS MORNING. HE HAS BEEN UTILIZING THE BIPAP AND SUPPLEMENTAL OXYGEN. ON EXAMINATION, HEART IS REGULAR IN RATE AND RHYTHM. BILATERAL LUNGS ARE NOTED WITH DIMINISHED LUNG SOUNDS THROUGHOUT. 3RD, 4TH, AND 5TH TOES ON THE LEFT FOOT ARE NECROTIC. HE IS CURRENTLY RECEIVING IV LASIX, IV ANTIBIOITICS, RESPIRATORY TREATMENTS, AND SUPPLEMENTAL OXYGEN. WE WILL CONTINUE WITH BIPAP AND CURRENT PLAN OF CARE TODAY. OTHERWISE, WE PLAN TO FOLLOW UP WITH AM LABS AND CONTINUE TO MONITOR. PT IS TEARFUL ON EXAM, CONCERNED ABOUT HIS FAMILY AND HIS ABILITY TO TRAVEL BY PRIVATE CARE TO [facility] IN [place]. PT STATES HE IS READY TO GO HOME TO [place] TO BE WITH HIS FAMILY IF WE CAN GET HIM WELL TO TRAVEL. CONTACTED FAMILY ABOUT ARRANGEMENTS FOR PLAN FOR D/C. PT WILL NEED SUPPLEMENTAL O2. BUN 21, CREAT 0. 87, ENCOURAGED ORAL HYDRATION. PT IS VERY ANXIOUS, CONTINUES TO CO LOWER LEG SWELLING, AND HAS TO SIT UP TO BREATH. PT HAS BEEN ACCEPTED AT [facility] WITH TRANSFER PENDING TOMORROW. - Past Medical Family Social History Past Med/Fam/Surg Hx: No changes since H&P Allergies: Allergies chocolate flavor Allergy (Verified 08/03/18 19:46) Penicillins Allergy (Verified 08/03/18 19:46) CHOCOLATE Allergy (Uncoded 08/03/18 19:46) - Review of Systems ROS: No change since H&P - Vital Signs and I&O's Vital Signs: Temperature 97.4 F Pulse Rate [Brachial] 86 Pulse Rate 88 Respiratory Rate 21 Blood Pressure [Left Arm] 143/77 Blood Pressure [Right Arm] 124/63 Blood Pressure 135/73 O2 Sat by Pulse Oximetry 100 Intake and Output: Intake & Output 01/18/19 01/19/19 01/20/19 01/21/19 11:59 11:59 11:59 11:59 Intake Total 3572 / 3572 1330 / 1330 1620 / 1620 980 / 980 Output Total 1275 / 1275 950 / 950 2225 / 2225 700 / 700 Balance 2297 / 2297 380 / 380 -605 / -605 280 / 280 - Physical Exam Oriented: Normal Eyes: Normal Ear: Normal Nose: Normal Throat: Normal Respiratory: Generalized, Diminished Cardiovascular: Normal, Other. negative: Edema Auscultation: Bowel Sounds: Normal Tenderness: Normal Skin: Decreased Turgur, Wound (LEFT FOOT, 3RD, 4TH 5TH TOES, NECROTIC)) Musculoskeletal: Left, Back:Lumbar, Sensory Deficit Psychiatric: Anxiety Mood Description: Fearful, Anxious Affect: Anxious Speech Pattern: Clear - Laboratory and Diagnostics Result Diagrams: 01/20/19 05:05 01/20/19 05:05 Labs: 01/12/19 06:00 Blood Blood Culture - Final 01/12/19 05:53 Blood Blood Culture - Final 01/12/19 07:20 Sputum - Expectorated Sputum Sputum Culture - Final 01/12/19 07:20 Sputum - Expectorated Sputum - Final Laboratory WBC 3.7 X10^3/uL (3.6-10.0) 01/20/19 05:05 RBC 2.56 X10^6/uL (4.7-6.0) L 01/20/19 05:05 Hgb 8.6 g/dL (13.5-18.0) L 01/20/19 05:05 Hct 26.7 % (42.0-54.0) L 01/20/19 05:05 MCV 104.4 fL (80.0-100.0) H 01/20/19 05:05 MCH 33.6 pg (27.0-34.0) 01/20/19 05:05 MCHC 32.2 g/dL (33.0-35.0) L 01/20/19 05:05 RDW 18.9 % (11.6-16.5) H 01/20/19 05:05 Plt Count 72 X10^3/uL (150.0-450.0) L 01/20/19 05:05 Plt Count Comment Decreased (ADEQUATE) 01/19/19 04:34 MPV 10.2 fL (7.4-11.0) 01/20/19 05:05 Neut % (Auto) 89.8 % (42.0-75.0) H 01/20/19 05:05 Lymph % (Auto) 5.6 % (21.0-51.0) L 01/20/19 05:05 [place] % (Auto) 4.4 % (0.0-13.0) 01/20/19 05:05 Eos % (Auto) 0.0 % (0.9-2.9) L 01/20/19 05:05 Baso % (Auto) 0.2 % (0.2-1.0) 01/20/19 05:05 Neut # (Auto) 3.3 x10^3/uL (2.2-4.8) 01/20/19 05:05 Lymph # (Auto) 0.2 X10^3/uL (1.3-2.9) L 01/20/19 05:05 [place] # (Auto) 0.2 x10^3/uL (0.3-0.8) L 01/20/19 05:05 Eos # (Auto) 0.0 x10^3/uL (0.0-0.2) 01/20/19 05:05 Baso # (Auto) 0.0 X10^3/uL (0.0-0.1) 01/20/19 05:05 Absolute Nucleated RBC 0.2 /100WBC 01/20/19 05:05 Total Counted 100 01/19/19 04:34 Neutrophils % (Manual) 93 % (39-76) H 01/19/19 04:34 Lymphocytes % (Manual) 5 % (13-43) L 01/19/19 04:34 Monocytes % (Manual) 2 % (4-9) L 01/19/19 04:34 Plt Morphology Comment Normal (NORMAL) 01/19/19 04:34 RBC Morphology Normal (NORMAL) 01/19/19 04:34 PT 15.4 SECONDS (11.8-14.3) 01/12/19 04:40 INR Target Range - 01/12/19 04:40 INR 1.27 (0.8-1.3) 01/12/19 04:40 APTT 35.4 SECONDS (22.9-36.5) 01/12/19 04:40 PTT Comment - 01/12/19 04:40 Sample Site Lbra 01/16/19 09:23 ABG pH 7.480 (7.35-7.45) H 01/16/19 09:23 ABG pCO2 51.0 mmHg (35.0-45.0) H* 01/16/19 09:23 ABG pO2 113.0 mmHg (80.0-100.0) H 01/16/19 09:23 ABG HCO3 38.0 mmol/L (22-26) H* 01/16/19 09:23 ABG O2 Saturation 99.0 % (90-100) 01/16/19 09:23 ABG Base Excess 12.6 mmol/L (-2.0-2.0) H 01/16/19 09:23 David Test N/a 01/16/19 09:23 A-a Gradient 108.0 mmHg 01/16/19 09:23 FiO2 40.0 01/16/19 09:23 Blood Gas Comments Pt jorge well elj 01/16/19 09:23 Sodium 128 mmol/L (136-145) L 01/20/19 05:05 Corrected Sodium 132 mmol/L (136-145) L 01/20/19 05:05 Potassium 4.6 mmol/L (3.5-5.1) 01/20/19 05:05 Chloride 93 mmol/L (98-107) L 01/20/19 05:05 Carbon Dioxide 32.6 mmol/L (21-32) H 01/20/19 05:05 BUN 21 mg/dL (7-18) H 01/20/19 05:05 Creatinine 0.87 mg/dL (0.70-1.30) 01/20/19 05:05 Est GFR (MDRD) Af Amer > 60 (>60) 01/20/19 05:05 Est GFR (MDRD) Non-Af > 60 (>60) 01/20/19 05:05 Glucose 281 mg/dL (65-99) H 01/20/19 05:05 POC Glucose (mg/dL) 365 mg/dL (65-99) H 01/20/19 11:19 Calcium 7.9 mg/dL (8.5-10.1) L 01/20/19 05:05 Corrected Calcium 9.7 mg/dL (8.5-10.1) 01/20/19 05:05 Iron 68 ug/dL (50-175) 01/19/19 04:34 Transferrin 88 mg/dL (202-364) L 01/19/19 04:34 Ferritin 1942 ng/mL (26-388) H 01/19/19 04:34 Total Bilirubin 0.50 mg/dL (0.2-1.0) 01/20/19 05:05 AST 11 Units/L (15-37) L 01/20/19 05:05 ALT 10 Units/L (12-78) L 01/20/19 05:05 Alkaline Phosphatase 90 Units/L (46-116) 01/20/19 05:05 Creatine Kinase 34 Units/L (39-308) L 01/12/19 17:57 CK-MB (CK-2) 3.9 ng/mL (0-4.0) 01/12/19 17:57 CK/CKMB % Calc 11.5 % (<4) 01/12/19 17:57 Troponin I 0.07 ng/mL (0-1.5) 01/12/19 17:57 B-Natriuretic Peptide 3120 pg/mL (0-79) H* 01/12/19 04:40 Total Protein 5.6 g/dL (6.4-8.2) L 01/20/19 05:05 Albumin 1.8 g/dL (3.4-5.0) L 01/20/19 05:05 Globulin 3.8 g/dL (2.5-4.5) 01/20/19 05:05 Albumin/Globulin Ratio 0.5 Ratio (1.1-2.1) L 01/20/19 05:05 Triglycerides 58 mg/dL (0-150) 01/13/19 05:17 Cholesterol 96 mg/dL (0-200) 01/13/19 05:17 LDL Cholesterol, Calc 44 mg/dL (0-100) 01/13/19 05:17 HDL Cholesterol 40 mg/dL (40-60) 01/13/19 05:17 Cholesterol/HDL Ratio 2.4 (0.0-5.0) 01/13/19 05:17 Vitamin B12 801 pg/mL (193-986) 01/19/19 04:34 Folate 6.5 ng/mL (>8.6) L 01/19/19 04:34 - Plan (1) Respiratory distress Status: Acute Plan: CXR Q AM, IV LASIX, CONSULT RESP FOR PRN BIPAP THERAPY. CONTINUOUS SUPPLEMENTAL O2. IVF KVO, SOLU MEDROL IV, BP CONTROL, PT, PAIN CONTROL. BS CONTROL (2) Pulmonary edema Status: Acute (3) CAD (coronary artery disease) Status: Acute Qualifiers: Coronary Disease-Associated Artery/Lesion type: bypass graft (4) COPD exacerbation Status: Acute (5) PAD (peripheral artery disease) Status: Acute (6) Foot ulcer with necrosis of muscle Status: Acute (7) CHF (congestive heart failure) Status: Acute (8) CAD (coronary artery disease) Status: Acute Qualifiers: Coronary Disease-Associated Artery/Lesion type: [place] artery [place] vs. transplanted heart: [place] heart Associated angina: without angina Qualified Code(s): I25.10 - Atherosclerotic heart disease of [place] coronary artery witho ut angina pectoris (9) Hypertension Status: Chronic (10) GERD (gastroesophageal reflux disease) Status: Chronic Qualifiers: Esophagitis presence: without esophagitis Qualified Code(s): K21.9 - Gastro-esophageal reflux disease without esophagitis
[2019-01-20] MEDS: LIPITOR TAB 20 MG PO SCH (21:41)
[2019-01-21] MEDS: NS 1/2 1000 ML IV 1,000 ML IV SCH (00:38)
[2019-01-21 03:58] VITALS: BP 121/79
[2019-01-21] MEDS: HALDOL PO PRN (05:30)
[2019-01-21] MEDS: NORCO 10/325 TAB PO PRN (05:32)
[2019-01-21] MEDS: HumuLIN R SC PRN (06:14)
== END 2019-01-21 05:45 | disposition home or self-care (01) | DRG 291 ==
LOC: ER 04:08 → ICU 05:54 → MED/SURG 15:24
PROVIDERS: ADMIT Internal Medicine; ATTEND Internal Medicine
DX: E11.65 Type 2 diabetes mellitus with hyperglycemia; D64.9 Anemia, unspecified; I25.10 Atherosclerotic heart disease of native coronary artery without angina pectoris; L97.528 Non-pressure chronic ulcer of other part of left foot with other specified severity; M19.90 Unspecified osteoarthritis, unspecified site; I50.9 Heart failure, unspecified; E83.51 Hypocalcemia; J18.9 Pneumonia, unspecified organism; R94.31 Abnormal electrocardiogram [ECG] [EKG]; I11.0 Hypertensive heart disease with heart failure; Z51.5 Encounter for palliative care; R62.7 Adult failure to thrive; J44.1 Chronic obstructive pulmonary disease with (acute) exacerbation; I73.9 Peripheral vascular disease, unspecified; J81.0 Acute pulmonary edema; Z66 Do not resuscitate
CPT/HCPCS: 36415; 36600; 71010; 71045; 80053; 80061; 82550; 82553; 82607; 82728; 82746; 82803; 82947; 83540; 83880; 84466; 84484; 85025; 85610; 85730; 87040; 87070; 87205; 93005; 94640; 94660; 96365; 96374; 96375; 97110; 97162; 97167; 97530; 97535; 99284; A4222; A4618; A7030; J1170; J1650; J1815; J1885; J1940; J1956; J2270; J2405; J2920; J2930; J3490; J7620